=== PATIENT | male | born 1970 ===

== ENCOUNTER 2020-04-20 11:21 | Outpatient (REF) | payer OTHER, SELFPAY ==
--- NOTE | 2020-04-20 | CT_ITS ---
EXAMINATION: CT ABDOMEN AND PELVIS WITHOUT CONTRAST CLINICAL INFORMATION: Renal stones, flank pain COMPARISON: 12/05/2018 TECHNIQUE: Multidetector volumetric imaging was performed from the superior aspect of the liver through the pubic symphysis. Sagittal and coronal reformatted images were obtained on the technologist's workstation. This CT examination was performed using dose optimization techniques as appropriate, variously including the following: *Automated exposure control *Adjustment of mA and/or kV according to patient size (this includes techniques or standardized protocols for targeted exams where dose is matched to indication/reason for exam; i.e. extremities or head) *Use of iterative reconstruction technique DLP: 435 mGy-cm FINDINGS: LUNG BASES: The visualized lung bases are unremarkable. LIVER, GALLBLADDER, AND BILIARY TREE: Mild diffuse fatty infiltration of the liver with geographic fatty sparing in the region of the gallbladder fossa. The gallbladder is unremarkable with no evidence of radiopaque gallstones, gallbladder wall thickening, or obvious pericholecystic inflammatory changes. PANCREAS: Unremarkable. SPLEEN: Unremarkable. ADRENAL GLANDS: Unremarkable. KIDNEYS AND URETERS: Numerous faint and punctate calculi throughout both kidneys along the medullary pyramids with no hydronephrosis. No ureteral or urinary bladder calculi. Overall the stone burden has increased from the previous study. BLADDER: Unremarkable. GASTROINTESTINAL TRACT: The small and large bowel are unremarkable. The appendix is unremarkable. ABDOMINAL WALL: No significant hernia is appreciated. LYMPH NODES: Subtle hazy attenuation of the fat of the small bowel mesentery which is nonspecific, more conspicuous than the previous study. No enlarged retroperitoneal, mesenteric, or pelvic lymph nodes. No ascites or free pelvic fluid. VASCULAR: Unremarkable. PELVIC VISCERA: Unremarkable. OSSEOUS STRUCTURES: Unremarkable. IMPRESSION: Bilateral nephrolithiasis. This has increased since 12/05/2018. No ureteral calculi or hydronephrosis.
== END 2020-04-20 11:22 | disposition home or self-care (01) ==
LOC: HO.CT 11:21
PROVIDERS: PCP Internal Medicine; Visit Provider Urology
DX: N20.0 Calculus of kidney (principal); R10.9 Unspecified abdominal pain
CPT/HCPCS: 74176

== ENCOUNTER → 2020-04-29 10:22 | Outpatient (BNVA) | payer OTHER, SELFPAY | PROVIDERS: PCP Internal Medicine; Visit Provider Urology | DX: N20.0 Calculus of kidney (principal); N40.1 Benign prostatic hyperplasia with lower urinary tract symptoms; N13.8 Other obstructive and reflux uropathy; R39.11 Hesitancy of micturition; N52.9 Male erectile dysfunction, unspecified | CPT/HCPCS: 99213 ==

== ENCOUNTER 2020-05-06 11:30 | Emergency (ER) | payer OTHER, SELFPAY ==
--- NOTE | 2020-05-06 13:39 | ED_ITS ---
HPI - General Adult General Chief complaint: General Medical Stated complaint: HIGH BLOOD PRESSURE Time Seen by Provider: 05/06/20 13:39 Source: patient Mode of arrival: ambulatory Limitations: no limitations History of Present Illness HPI narrative: Pleasant 49-year-old male with past medical history that is significant for gastroesophageal reflux disease, asthma, bipolar disorder, BPH, hypertension, history of renal calculi and migraine headache today with several different complaints. 1. He reports that he checked his blood pressure last night and it read 200/124 and at time he did have slight flank pain was unsure if it was related to a however he increase his water intake and the flank pain resolved as he has a history of kidney stones and this usually helps. 2. He reports he also had slight flank pain last night going to the groin which resolved today there was no associated hematuria, abdominal pain nausea vomiting or diarrhea. In felt similar to previous stone but resolved with this increase fluid intake. There is no pain since last night 3. He reports he has had a slight cough with chills and rhinorrhea for the past couple days and a month ago or so he was exposed to his father who did test positive for COVID-19. He otherwise denies any travel recent antibiotic use. He reports he came to the emergency room to get a COVID test and to be on the safe side Onset (ago): day(s) Radiation: non-radiation Severity: mild Relieving factors: none Exacerbating factors: none Associated symptoms: denies other symptoms Treatments prior to arrival: none Related Data Home Medications Medication Instructions Recorded Confirmed ketorolac 10 mg tablet mg PO 04/29/20 lisinopril 10 mg tablet 10 mg PO DAILY 04/29/20 nortriptyline 10 mg capsule 10 mg PO BEDTIME 04/29/20 omeprazole 40 mg capsule,delayed 40 mg PO DAILY 04/29/20 release tamsulosin 0.4 mg capsule mg PO 04/29/20 Previous Rx's Medication Instructions Recorded tramadol 50 mg tablet 50 mg PO TID PRN 30 Days #90 tab 04/17/20 Allergies Allergy/AdvReac Type Severity Reaction Status Date / Time nut - unspecified [NUTS] Allergy Intermediate HIVES Unverified 03/31/20 15:41 lactose [LACTOSE] Allergy Mild CONSTIPATIO Unverified 03/31/20 15:41 N fenofibrate [Tricor] Allergy Unknown hives Verified 03/18/20 00:00 nuts Allergy Unknown hives Unverified 03/18/20 00:00 seafood Allergy Unknown Unverified 03/18/20 00:00 SEAFOOD Allergy Intermediate HIVES, Uncoded 03/31/20 15:41 ITCHY Fluocinolone Acetonide Allergy Unknown Uncoded 03/18/20 00:00 Lactose Allergy Unknown Uncoded 03/18/20 00:00 milk Allergy Unknown Uncoded 01/14/20 00:00 Review of Systems Review of Systems: Constitutional: No Weight loss, No Fever, + Chills, No Night Sweats, No Fatigue, No Malaise ENT/Mouth: No Hearing loss, No Ear Pain, No Nasal Congestion, No Sinus Pain, No Hoarseness, No sore throat, No Rhinorrhea, No Swallowing Difficulty Eyes: No Eye Pain, No Swelling, No Redness, No Foreign Body, No Discharge, No Vision Changes Cardiovascular: No Chest Pain, No SOB, No Dyspnea on Exertion, No Orthopnea, No Edema, No Palpitations Respiratory: + Cough, No Sputum, No Wheezing, No Smoke Exposure, No Dyspnea Gastrointestinal: No Nausea, No Vomiting, No Diarrhea, No Constipation, No abdominal Pain, No Hematochezia, No Melena Genitourinary: no irregular bleeding, No Dysuria, No Urinary Frequency, No Hemat uria, No Urinary Incontinence, No Urgency, No Flank Pain, No Urinary Flow Changes, No Hesitancy Musculoskeletal: No joint pain, No Myalgias, No Joint Swelling Skin: No Skin Lesions, No rash Neuro: No Weakness, No Numbness, No Paresthesias, No Loss of Consciousness, No Dizziness, No Headache Psych: No Anxiety/Panic, No Depression, No SI/HI/AH/VH, No Social Issues, Heme/Lymph: No Bruising, No Bleeding,No Lymphadenopathy Endocrine: No Polyuria, No Polydipsia, No Temperature Intolerance Yes all other systems are reviewed and are negative PMFSH Past Medical History Attestation statement: The following information was validated with the patient. Medical History Orchalgia Social History Social History Alcohol intake: unknown Smoking Status: Unknown if ever smoked Use of substances other than those prescribed or required for medical reasons: No Advance Directives: No Advance Directives Information Provided: Yes Physical Exam Vital Signs: Vital Signs: Vital Signs Temp Pulse Resp BP Pulse Ox 05/06/20 14:52 79 22 H 131/79 97 05/06/20 13:48 98.2 F 70 18 125/89 98 Body Mass Index 23.7 Vitals reviewed Const: General: cooperative and healthy appearing; No acute distress or intoxicated appearing Nutritional Appearance: average body habitus Orientation/consciousness: patient oriented x3 HENMT: Head: Yes normal to inspection Ears: hearing grossly normal bilaterally Eyes: General: appearance normal, both eyes and all related structures Visual Martinez: normal visual martinez by confrontation Neck: Neck: Yes normal visual inspection and No tender Thyroid: Thyroid normal Chest: Chest palpation & inspection: normal inspection of the chest Resp: Effort & Inspection: normal respiratory effort Cardio: Jugular venous distension: no JVD Rhythm: regular rhythm GI: Inspection: Yes normal to inspection Percussion: Yes normal to percussion Auscultation: normal bowel sounds : General: Yes no CVA tenderness Back/Spine/Pelvis: Back: no CVA tenderness Skin: General skin exam: no rashes or lesions noted Neuro: General: patient oriented x3 Extrem: General: Yes normal to inspection Course Course Course Narrative: Resting comfortably no acute distress. Doing cough here very mild rhinorrhea. Hemodynamically stable. Blood pressure stable. Chest x- ray negative. No leukocytosis. Pulse ox 100% on room air. COVID-19 pending. Will discharge home with clear precaution return follow-up instructions. Stable for discharge. Medical Decision Making Lab Data Result diagrams: 05/06/20 14:41 05/06/20 14:41 Labs: Lab Results 05/06/20 05/06/20 05/06/20 Range/Units 14:41 14:41 14:41 WBC 6.8 (4.8-10.8) X10*3/uL RBC 4.79 (4.60-5.80) X10*6/uL Hgb 14.6 (14.0-18.0) g/dl Hct 43.4 (42-52) % MCV 90.6 (80-98) fL MCH 30.5 (27.0-33.0) pg MCHC 33.6 (31.0-36.0) g/dl RDW 13.0 (11.0-16.0) % Plt Count 247 (160-400) X10*3/uL MPV 12.0 (9.4-12.4) fL Immature Gran % (Auto) 0.3 (0.0-0.4) % Neut % (Auto) 68.3 (45-73) % Lymph % (Auto) 23.6 (20-40) % Howell % (Auto) 7.3 (2-11) % Eos % (Auto) 0.4 (0-4) % Baso % (Auto) 0.1 (0-2) % Lymph # (Auto) 1.6 (1.2-4.9) X10*3/uL Howell # (Auto) 0.5 (0.1-1.2) X10*3/uL Eos # (Auto) 0.0 (0.0-0.4) X10*3/uL Baso # (Auto) 0.0 (0.0-0.2) X10*3/uL Abs Immat Gran (auto) 0.02 (0.00-0.03) X10*3/uL Absolute Neuts (auto) 4.7 (2.0-8.3) X10*3/uL Absolute Nucleated RBC 0.000 (0.0-0.012) X10*3/uL Nucleated RBC % (auto) 0.0 (0.0-0.2) /100WBC Sodium 137 (135-145) mmol/L Potassium 4.6 (3.3-5.1) mmol/l Chloride 106 (96-108) mmol/L Carbon Dioxide 20 L (22-29) mmol/L Anion Gap 16 (12-20) BUN 25 H (9-16) mg/dL Creatinine 1.36 (0.5-1.4) mg/dL Estim Creat Clear Calc 70.5 Estimated GFR 55 Random Glucose 80 (60-115) mg/dL Calcium 9.4 (8.4-10.2) mg/dL Total Bilirubin 0.6 (0.0-1.0) mg/dL AST 21 (5-37) U/L ALT 38 (0-40) U/L Alkaline Phosphatase 55 (39-117) U/L Total Protein 7.4 (6.5-8.0) g/dL Albumin 4.7 (3.5-5.0) g/dL Urine Color YELLOW Urine Appearance CLEAR Urine pH 5.5 (5.0-8.0) Ur Specific Edmondson 1.025 (1.005-1.025) Urine Protein NEG (NEG-TRACE) MG/DL Urine Glucose (UA) NEG (NEG) MG/DL Urine Ketones NEG (NEG) MG/DL Urine Blood NEG (NEG) Urine Nitrite NEG (NEG) Ur Leukocyte Esterase NEG (NEG) Urine RBC 0-2 (0) /HPF Urine WBC 0 (0-4) /HPF Ur Squamous Epith Cells NONE /LPF Uric Acid Crystals TRACE /LPF Urine Bacteria NONE /LPF Imaging Data Chest x-ray: Radiologist's impression: Josh Patel JR 49 M 1970 [place] [address] XRay Report Signed Patient: Josh Patel JRMR#: [id number] : 1970Acct:[id number] Age/Sex: 49 / MADM Date: 05/06/20 Loc: .ED Attending Dr: Ordering Physician: Slim Hugo NP Date of Service: 05/06/20 Procedure(s): XR chest 1V Accession Number(s): [id number] cc: Slim Hugo NP~ EXAMINATION: XR CHEST CLINICAL INFORMATION: Cough COMPARISON: Chest radiographs 08/24/2016, 03/31/2016 TECHNIQUE: Portable upright AP view of the chest was obtained. FINDINGS: The lungs are clear. There is no airspace consolidation or definite groundglass opacity. No hyperinflation. No pleural reaction. The costophrenic sulci are clear. The heart is normal in size. The hilar and mediastinal contours are normal. No visible acute bony abnormality. XR/XR chest 1V IMPRESSION: Lungs clear. Dictated By:KAMRON ANDINO MD Signed By:<Electronically signed by KAMRON ANDINO MD in OV>05/06/20 1503 DD/ 1346 TD/TT: Patient Day Coordinator: LING Discharge Plan Discharge Clinical Impression: Hypertension, Acute upper respiratory infection Patient Disposition: Home, Self-Care Instructions: Cold Symptoms (ED), Hypertension (ED) Additional Instructions: Based on your symptoms and history we have sent a COVID-19. Although your RESULT IS PENDING at this time. RESULTS should return within 72 hours. At this time you will be contacted with either NEGATIVE OR POSITIVE results. -Please wait until we contact you for your results. At this time you will be okay for discharge. Please plan for self quarantine for up to 14 days. Do not expose yourself to others. You may not go to work. If testing does come back negative you may return to activities as long as you are no longer having any symptoms for at least 3 days. Please continue to follow cold instructions and wash your hands frequently. You may take Tylenol as directed on the bottle for pain or fever. Patient seen in the emergency department on 01/08/2020 and should be excused from work until negative test results AND until 72 hours without any symptoms AND at least 10 days have passed since symptoms first appeared or since last exposure to COVID-19 positive patient CDC Guidelines for home isolation: - Stay away from others - WEAR A MASK if you are sick AND STAY HOME - Cover your mouth and nose with a tissue when you cough or sneeze. Dispose of tissues in a lined trash can and wash your hands immediately with soap and water for at least 20 seconds. If soap and water are not available, clean hands with alcohol-based hand vp of marketing that contains at least 60% alcohol. - Clean your hands often with soap and water for at least 20 seconds - Avoid touching your eyes, nose and mouth with unwashed hands - Do not share dishes, drinking glasses, cups, eating utensils, towels, or bedding with other people in your home. After using these items, wash them thoroughly with soap and water or put in the belly roller. - Clean high-touch surfaces in your isolation area ( sick room and bathroom) every day; let a caregiver clean and disinfect high-touch surfaces in other areas of the home. Clean the area or item with soap and water or another detergent if it is dirty. Then, use a household disinfectant. - Limit contact with pets and animals: If you must care for a pet, wash your hands before and after interacting with them Prescriptions: No Action tramadol 50 mg tablet 50 mg PO TID PRN (Reason: pain) 30 Days Qty: 90 RF: 0 tamsulosin 0.4 mg capsule PO RF: 0 lisinopril 10 mg tablet 10 mg PO DAILY RF: 0 nortriptyline 10 mg capsule 10 mg PO BEDTIME RF: 0 omeprazole 40 mg capsule,delayed release(DR/EC) 40 mg PO DAILY RF: 0 ketorolac 10 mg tablet PO RF: 0 Referrals: Ignacio Flores MD [Primary Care Provider] - 1 week ( phone visit)
--- NOTE | 2020-05-06 13:46 | XR_ITS ---
EXAMINATION: XR CHEST CLINICAL INFORMATION: Cough COMPARISON: Chest radiographs 08/24/2016, 03/31/2016 TECHNIQUE: Portable upright AP view of the chest was obtained. FINDINGS: The lungs are clear. There is no airspace consolidation or definite groundglass opacity. No hyperinflation. No pleural reaction. The costophrenic sulci are clear. The heart is normal in size. The hilar and mediastinal contours are normal. No visible acute bony abnormality. XR/XR chest 1V IMPRESSION: Lungs clear.
[2020-05-06 13:48] VITALS: BP 125/89; PULSE 70; RESP 18; TEMP 36.8; O2SAT 98; BMI 23.7
[2020-05-06 14:51] LABS: MANUAL DIFF FLAG NO
[2020-05-06 14:52] VITALS: BP 131/79; PULSE 79; RESP 22; O2SAT 97
[2020-05-06 14:55] LABS: Basophils Percent Auto 0.1 % (0-2); Eosinophils Percent Auto 0.4 % (0-4); Hematocrit 43.4 % (42-52); Hemoglobin 14.6 g/dl (14.0-18.0); Imm Gran Abs Auto 0.02 X10*3/uL (0.00-0.03); Imm Gran Pct Auto 0.3 % (0.0-0.4); Lymphocytes Absolute Auto 1.6 X10*3/uL (1.2-4.9); Lymphocytes Percent Auto 23.6 % (20-40); Mean Corpuscular HGB Conc 33.6 g/dl (31.0-36.0); Mean Corpuscular Hemoglobin 30.5 pg (27.0-33.0); Mean Corpuscular Volume 90.6 fL (80-98); Monocytes Absolute Auto 0.5 X10*3/uL (0.1-1.2); Monocytes Percent Auto 7.3 % (2-11); Neutrophils Absolute Auto 4.7 X10*3/uL (2.0-8.3); Neutrophils Percent Auto 68.3 % (45-73); Platelet Count 247 X10*3/uL (160-400); Red Blood Count 4.79 X10*6/uL (4.60-5.80); White Blood Count 6.8 X10*3/uL (4.8-10.8)
[2020-05-06 14:57] LABS: Glucose Urine UA NEG (NEG); Leukocyte Esterase Urine NEG (NEG); Nitrite Urine NEG (NEG); PH 5.5 (5.0-8.0); Specific Gravity - Urine 1.025 (1.005-1.025); Urine Blood NEG (NEG); Urine Ketones NEG (NEG); Urine Protein NEG (NEG-TRACE)
[2020-05-06 14:58] LABS: Appearance Urine CLEAR; Color Urine YELLOW
[2020-05-06 15:08] LABS: RBC Urine 0-2 /HPF (0); Uric Acid Crystals Urine TRACE /LPF; WBC Urine 0 /HPF (0-4)
[2020-05-06 15:21] LABS: Alanine Aminotransferase 38 U/L (0-40); Albumin Level 4.7 g/dL (3.5-5.0); Alkaline Phosphatase 55 U/L (39-117); Anion Gap 16 (12-20); Aspartate Amino Transferase 21 U/L (5-37); Bilirubin Total 0.6 mg/dL (0.0-1.0); Blood Urea Nitrogen 25 mg/dL (9-16); Calcium 9.4 mg/dL (8.4-10.2); Carbon Dioxide 20 mmol/L (22-29); Chloride 106 mmol/L (96-108); Creatinine Clr Calc Pharmacy 70.5; Estimated Glomerular Filt Rate 55; Glucose Random 80 mg/dL (60-115); Potassium 4.6 mmol/l (3.3-5.1); Sodium 137 mmol/L (135-145); Total Protein 7.4 g/dL (6.5-8.0)
== END 2020-05-06 16:22 | disposition home or self-care (01) ==
PROVIDERS: Nurse Practitioner Primary Care; Emergency Provider Emergency Medicine; PCP Internal Medicine
DX: J06.9 Acute upper respiratory infection, unspecified (principal); Z20.828 Contact with and (suspected) exposure to other viral communicable diseases; I10 Essential (primary) hypertension
CPT/HCPCS: 36415; 71045; 80053; 81001; 85025; 87635; 99283; 99284

== ENCOUNTER 2020-08-02 12:45 | Outpatient (REF) | payer OTHER, SELFPAY ==
--- NOTE | 2020-08-02 12:48 | CT_ITS ---
EXAMINATION: CT HEAD WITHOUT CONTRAST CLINICAL INFORMATION: Gait and mobility disorder. COMPARISON: None TECHNIQUE: Contiguous axial imaging was performed from the skull base to vertex without intravenous administration of contrast. This CT examination was performed using dose optimization techniques as appropriate, variously including the following: *Automated exposure control *Adjustment of mA and/or kV according to patient size (this includes techniques or standardized protocols for targeted exams where dose is matched to indication/reason for exam; i.e. extremities or head) *Use of iterative reconstruction technique DLP: 828 mGy-cm FINDINGS: There is no evidence of acute intracranial hemorrhage or territorial infarction. No abnormal mass effect or midline shift is seen. Palmer to white matter differentiation is well preserved. No extra-axial fluid collections are identified. The ventricles are normal in size. There is no abnormal attenuation within the brain parenchyma. The osseous structures and soft tissues are normal. The mastoid air cells and visualized portions of the paranasal sinuses are well aerated. CT/CT head/brain wo con IMPRESSION: No acute intracranial process seen.
== END 2020-08-02 12:46 | disposition home or self-care (01) ==
LOC: HO.CT 12:45
PROVIDERS: Visit Provider Physician Assistant
DX: R42 Dizziness and giddiness (principal); R26.89 Other abnormalities of gait and mobility
CPT/HCPCS: 70450

== ENCOUNTER 2020-09-01 11:17 | Outpatient (REF) | payer OTHER, SELFPAY ==
[2020-09-01 11:59] LABS: MANUAL DIFF FLAG NO
[2020-09-01 12:01] LABS: Basophils Percent Auto 0.3 % (0-2); Eosinophils Absolute Auto 0.1 X10*3/uL (0.0-0.4); Eosinophils Percent Auto 2.2 % (0-4); Hematocrit 49.1 % (42-52); Hemoglobin 16.4 g/dl (14.0-18.0); Imm Gran Abs Auto 0.02 X10*3/uL (0.00-0.03); Imm Gran Pct Auto 0.3 % (0.0-0.4); Lymphocytes Absolute Auto 1.6 X10*3/uL (1.2-4.9); Lymphocytes Percent Auto 27.9 % (20-40); Mean Corpuscular HGB Conc 33.4 g/dl (31.0-36.0); Mean Corpuscular Hemoglobin 30.8 pg (27.0-33.0); Mean Corpuscular Volume 92.1 fL (80-98); Mean Platelet Volume 11.6 fL (9.4-12.4); Monocytes Absolute Auto 0.5 X10*3/uL (0.1-1.2); Monocytes Percent Auto 7.8 % (2-11); Neutrophils Absolute Auto 3.6 X10*3/uL (2.0-8.3); Neutrophils Percent Auto 61.5 % (45-73); Platelet Count 269 X10*3/uL (160-400); Red Blood Count 5.33 X10*6/uL (4.60-5.80); Red Cell Distribution Width 12.4 % (11.0-16.0); White Blood Count 5.9 X10*3/uL (4.8-10.8)
[2020-09-01 12:02] LABS: Glucose Urine UA NEG (NEG); Leukocyte Esterase Urine NEG (NEG); Nitrite Urine NEG (NEG); PH 5.5 (5.0-8.0); Specific Gravity - Urine >= 1.030 (1.005-1.025); Urine Blood NEG (NEG); Urine Ketones NEG (NEG); Urine Protein NEG (NEG-TRACE)
[2020-09-01 12:03] LABS: Appearance Urine CLEAR; Color Urine YELLOW
[2020-09-01 12:25] LABS: Alanine Aminotransferase 33 U/L (0-40); Alkaline Phosphatase 61 U/L (39-117); Anion Gap 17 (12-20); Aspartate Amino Transferase 20 U/L (5-37); Bilirubin Total 0.6 mg/dL (0.0-1.0); Blood Urea Nitrogen 19 mg/dL (9-16); Calcium 10.1 mg/dL (8.4-10.2); Carbon Dioxide 24 mmol/L (22-29); Chloride 103 mmol/L (96-108); Cholesterol 175 mg/dL; Estimated Glomerular Filt Rate 53; Glucose Fasting 80 mg/dL (60-99); HDL Cholesterol 37 mg/dL; LDL Cholesterol Calculated 97 mg/dl; Sodium 139 mmol/L (135-145); Total Protein 7.7 g/dL (6.5-8.0); Triglycerides 208 mg/dL
[2020-09-01 12:47] LABS: Vitamin D 25-OH Total 66.4 ng/mL (>30)
== END 2020-09-01 11:18 | disposition home or self-care (01) ==
LOC: HO.LAB 11:17
PROVIDERS: PCP Internal Medicine; Visit Provider Internal Medicine
DX: I10 Essential (primary) hypertension (principal); J30.9 Allergic rhinitis, unspecified; K21.9 Gastro-esophageal reflux disease without esophagitis; E78.00 Pure hypercholesterolemia, unspecified; N40.0 Benign prostatic hyperplasia without lower urinary tract symptoms; E55.9 Vitamin D deficiency, unspecified
CPT/HCPCS: 36415; 80053; 80061; 81003; 82306; 85025

== ENCOUNTER 2020-09-06 12:53 | Outpatient (REF) | payer OTHER, SELFPAY ==
--- NOTE | ~2020-09-06 | US_ITS ---
EXAMINATION: US RETROPERITONEAL LIMITED (RENAL ONLY) CLINICAL INFORMATION: Flank pain. COMPARISON: Previous CT of the abdomen and pelvis April 2020 and renal ultrasound June 2019 TECHNIQUE: Complete abdominal ultrasound performed in error. FINDINGS: RIGHT KIDNEY: The kidney is normal in size, contour, and echogenicity. The right kidney measures 10.4 cm in length. There are multiple right renal stones. Largest stones measure 1.1 x 0.9 x 1.2 cm in the upper pole and 0.8 x 1 x 0.9 cm in the lower pole. Renal cortical thickness is normal. No focal parenchymal lesions. No hydronephrosis. LEFT KIDNEY: The kidney is normal in size, contour, and echogenicity. The left kidney measures 10.9 cm in length. Renal cortical thickness is normal. There are multiple left renal stones. The largest measure 1.2 x 0.8 x 0.7 cm in the midpole and 1.3 x 0.8 x 1.2 cm in the lower pole. No focal parenchymal lesions. No hydronephrosis. Liver echotexture is increased. There are small hypoechoic areas adjacent to the gallbladder, a characteristic location of focal fatty sparing. No other focal liver lesion is seen. The gallbladder is normal. There is no intrahepatic or extrahepatic biliary duct dilatation. The common bile duct measures 0.4 cm. The pancreas is not well visualized. The aorta and IVC are normal. The spleen is normal. There is no ascites. US/US renal BI IMPRESSION: Multiple bilateral renal stones, right greater than left. Echogenic liver probably representing fatty infiltration..
== END 2020-09-06 12:54 | disposition home or self-care (01) ==
LOC: HO.US 12:53
PROVIDERS: Visit Provider Internal Medicine
DX: R10.9 Unspecified abdominal pain (principal)
CPT/HCPCS: 76775

== ENCOUNTER 2020-09-06 14:00 | Outpatient (RCR) | payer OTHER, SELFPAY ==
--- NOTE | 2020-08-02 16:29 | MHC.PT.EP ---
[facility] [place] Office [place] Office [place] Office [address] Maru Cee [address] [phone] F: [phone] F: [phone] F: [phone] F: [phone] Physical Therapy Plan of Care Date of Evaluation: 08/02/20 Date of Surgery: NA Diagnosis: Abnormalities of gait and mobility Assessment: 49 year old male referred for abnormalities of gait and mobility . Pt reports of having balance issues for the last 2 years. He states that my legs keep moving forward and I have no control on them . Pt denies any recent falls on trauma. Examination reveals B LE gross ROM WNL, no pain, mildly decreased strength of B LE, balance difficulty with step stance and EC on ground and airex and inability to maintain SLS. His B ankle and knee jerks were WNL. Pt completed TUG in 13 seconds (normal) and was able to perform a full squat. He needed B UE support for stair negotiation. Pt lives alone and is independent with all ADLs. He is unemployed. Pt would benefit from therapy to improve muscle strength, balance and functional training. Frequency and Duration: The patient will be seen 2/week for 5 weeks Short Term Goals: 1. Pt will be able to maintain balance in airex EO and EC in step stance and feet together in 2 weeks. 2. 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 Pt will demonstrate steady gait pattern with cane and without any LOB in 4 weeks. 2. Pt will be independent with all HEPS and return to PLOF in 5 weeks. Treatment Plan: Modalities to reduce pain, spasms and effusion. Manual therapy to restore motion and function. Therapeutic exercise to improve strength and flexibility. Neuromuscular re-education for posture and balance. Therapeutic activities to return to functional activities of daily living. Electronically signed by: Jazzmine Strickland DPT Please sign and return to therapist. Thank you for your referral.
--- NOTE | 2020-09-28 14:22 | MHC.PT.DC ---
[facility] [place] [facility] [place] Office [place] Office [address] Maru Cee [address] [phone] F: [phone] F: [phone] F: [phone] F: [phone] Physical Therapy Discharge Report Diagnosis: Abnormalities of gait and mobility Date of Surgery: NA Date of Evaluation: 08/02/20 Date of Discharge: 09/28/20 Treatments to Date: 7 Cancellations to Date: 3 No Shows to Date: 1 Discharge Status: Visit Non-compliance Discharge Summary: 09/28/20- Pt canceled and no showed for his last 3 visits. Pt did not re-schedule any of this appointments. He has not been in therapy for about 3 weeks. Pt therefore d/c from therapy today. Electronically signed by: Jazzmine Strickland, PT, DPT Please sign and return to therapist. Thank you for your referral.
== END 2020-09-28 14:37 | disposition other institution (70) ==
LOC: HO.PT 14:00
PROVIDERS: Visit Provider Physician Assistant
DX: R26.89 Other abnormalities of gait and mobility (principal)
CPT/HCPCS: 97110; 97112; 97162; 97530

== ENCOUNTER 2020-09-16 13:48 | Outpatient (REF) | payer OTHER, SELFPAY | END 2020-09-16 13:49 | disposition home or self-care (01) | LOC: HO.LAB 13:48 | PROVIDERS: Visit Provider Internal Medicine | DX: Z20.822 Contact with and (suspected) exposure to COVID-19 (principal) | CPT/HCPCS: 36415; C9803; U0003; U0005 ==

== ENCOUNTER 2020-09-21 15:03 | Outpatient (REF) | payer OTHER, SELFPAY ==
[2020-09-23 17:33] LABS: Folate 12.3 ng/mL (> or = 4.0); Vitamin B12 734 pg/mL (200-900)
== END 2020-09-21 15:04 | disposition home or self-care (01) ==
LOC: HO.LAB 15:03
PROVIDERS: PCP Internal Medicine; Visit Provider Psychiatry & Neurology Neurology
DX: G11.9 Hereditary ataxia, unspecified (principal)
CPT/HCPCS: 36415; 82607; 82746

== ENCOUNTER → 2020-10-20 14:03 | Outpatient (BNVA) | payer OTHER, SELFPAY | PROVIDERS: PCP Internal Medicine; Visit Provider Urology | DX: N20.0 Calculus of kidney (principal) | CPT/HCPCS: 99212 ==

== ENCOUNTER 2020-11-14 12:48 | Outpatient (REF) | payer OTHER, SELFPAY ==
[2020-11-14 13:55] LABS: COVID-19 Test Negative (Negative)
== END 2020-11-14 12:49 | disposition home or self-care (01) ==
LOC: HO.LAB 12:48
PROVIDERS: Visit Provider Internal Medicine
DX: Z20.822 Contact with and (suspected) exposure to COVID-19 (principal)
CPT/HCPCS: 36415; 87635; C9803

== ENCOUNTER 2020-11-28 11:01 | Day surgery (SDC) | payer OTHER, SELFPAY ==
--- NOTE | 2020-11-24 12:15 | HO.ANESPROP2 ---
Documented by User: Natalie Naranjo 11/24/20 12:19 HPI - Anesthesia Eval Consult details Narrative: 50yo M for Right Cystoscopy, Ureteroroscopy, Retro, Laser PMFSH Active Problems Active Problems: All Active Problems (Updated 10/30/20 @ 22:00 by Ignacio Flores MD) Cerebellar atrophy (Acute) Colon cancer screening (Acute) Abnormality of gait (Acute) Nephrolithiasis (Acute) Right flank pain (Acute) Vertigo (Acute) Balance disorder (Acute) Sinusitis (Acute) Sinus infection (Acute) Benign prostatic hyperplasia (Acute) Allergic rhinitis (Acute) Constipation (Acute) Vitamin D deficiency (Acute) Renal calculus, bilateral (Acute) GERD without esophagitis (Acute) Migraine (Acute) Pure hypercholesterolemia (Acute) Benign essential hypertension (Acute) Urinary hesitancy (Acute) Erectile dysfunction (Acute) BPH with obstruction/lower urinary tract symptoms (Acute) Renal stones (Acute) Past Medical History Medical History Abnormality of gait Allergic rhinitis Asthma Benign essential hypertension Benign prostatic hyperplasia Cerebellar atrophy Colon cancer screening Constipation GERD without esophagitis Migraine Nephrolithiasis Orchalgia Pure hypercholesterolemia Renal calculus, bilateral Right flank pain Vitamin D deficiency Family History Family History Father Hypertension CAD (coronary artery disease) Diabetes Mother Hypertension Acute CVA (cerebrovascular accident) Paternal Grandfather Throat cancer Sister Lupus Epilepsy Surgical History Surgical History History of extraction of renal calculus History of lithotripsy Hx of elbow surgery Social History Social History Alcohol intake: never Smoking Status: Never smoker Use of substances other than those prescribed or required for medical reasons: No Are you DNR?: No Advance Directives: No Advance Directives Information Provided: Yes Meds Allergies Allergy/AdvReac Type Severity Reaction Status Date / Time fenofibrate [Tricor] Allergy Intermediate hives Verified 11/28/20 12:11 nut - unspecified [NUTS] Allergy Intermediate HIVES Verified 11/28/20 12:11 seafood Allergy Intermediate hives, Verified 11/28/20 12:11 itchy fluocinolone acetonide Allergy Unknown Unknown Verified 11/28/20 12:11 lactose [LACTOSE] AdvReac Mild CONSTIPATIO Verified 11/28/20 12:11 N Home Medications Medication Instructions Recorded Confirmed Last Taken Type lisinopril 10 mg tablet 10 mg PO DAILY 04/29/20 10/25/20 Unknown History aspirin 81 mg tablet,delayed 81 mg PO DAILY 05/17/20 10/25/20 11/24/20 History release gemfibrozil 600 mg tablet 600 mg PO BID 05/17/20 10/25/20 Unknown History albuterol sulfate 90 mcg/actuation 2 puff INHALATION Q6H PRN 10/20/20 10/25/20 Unknown History aerosol inhaler ascorbate calcium (vitamin C) 500 1,000 mg PO DAILY tab 10/20/20 10/25/20 Unknown History mg tablet cholecalciferol (vitamin D3) 25 25 mcg PO DAILY 10/20/20 10/25/20 Unknown History mcg (1,000 unit) capsule cyanocobalamin (vitamin B-12) 1,000 mcg PO DAILY 10/20/20 10/25/20 Unknown History 1,000 mcg capsule Exam Exam Date and Time: November 24, 2020 121 Assessment and Plan Assessment Anesthesia Assessment: Chart Reviewed Documented by User: Francy Stewart 11/28/20 12:41 [facility] Past Medical History Medical History Abnormality of gait Allergic rhinitis Asthma Benign essential hypertension Benign prostatic hyperplasia Cerebellar atrophy Colon cancer screening Constipation GERD without esophagitis Migraine Nephrolithiasis Orchalgia Pure hypercholesterolemia Renal calculus, bilateral Right flank pain Vitamin D deficiency Family History Family History Father Hypertension CAD (coronary artery disease) Diabetes Mother Hypertension Acute CVA (cerebrovascular accident) Paternal Grandfather Throat cancer Sister Lupus Epilepsy Surgical History Surgical History History of extraction of renal calculus History of lithotripsy Hx of elbow surgery Social History Social History Alcohol intake: never Smoking Status: Never smoker Use of substances other than those prescribed or required for medical reasons: No Are you DNR?: No Advance Directives: No Advance Directives Information Provided: Yes Meds Allergies Allergy/AdvReac Type Severity Reaction Status Date / Time fenofibrate [Tricor] Allergy Intermediate hives Verified 11/28/20 12:11 nut - unspecified [NUTS] Allergy Intermediate HIVES Verified 11/28/20 12:11 seafood Allergy Intermediate hives, Verified 11/28/20 12:11 itchy fluocinolone acetonide Allergy Unknown Unknown Verified 11/28/20 12:11 lactose [LACTOSE] AdvReac Mild CONSTIPATIO Verified 11/28/20 12:11 N Home Medications Medication Instructions Recorded Confirmed Last Taken Type lisinopril 10 mg tablet 10 mg PO DAILY 04/29/20 10/25/20 Unknown History aspirin 81 mg tablet,delayed 81 mg PO DAILY 05/17/20 10/25/20 11/24/20 History release gemfibrozil 600 mg tablet 600 mg PO BID 05/17/20 10/25/20 Unknown History albuterol sulfate 90 mcg/actuation 2 puff INHALATION Q6H PRN 10/20/20 10/25/20 Unknown History aerosol inhaler ascorbate calcium (vitamin C) 500 1,000 mg PO DAILY tab 10/20/20 10/25/20 Unknown History mg tablet cholecalciferol (vitamin D3) 25 25 mcg PO DAILY 10/20/20 10/25/20 Unknown History mcg (1,000 unit) capsule cyanocobalamin (vitamin B-12) 1,000 mcg PO DAILY 10/20/20 10/25/20 Unknown History 1,000 mcg capsule Exam Airway Mallampati Class: II TM Dist: >3cm Neck ROM: Full
--- NOTE | ~2020-11-28 | FL_ITS ---
EXAMINATION: XR FLUOROSCOPY WITH IMAGES CLINICAL INFORMATION: Renal calculi COMPARISON: Renal ultrasound 09/06/2020, CT abdomen and pelvis 04/20/2020 TECHNIQUE: Fluoroscopy performed by Dr. Dajuan Leblanc. Fluoroscopy time: 37 seconds. Total dose: 7.23 mGy Images: 1 FINDINGS: Fluoroscopic spot view shows right ureteral stent with proximal pigtail end overlying the renal fossa. There are some adjacent faint densities likely calculi noted on prior imaging. FL/FL guidance in OR IMPRESSION: Fluoroscopy for urologic procedure.
[2020-11-28 12:12] VITALS: BP 123/76; PULSE 66; RESP 16; TEMP 36.4; O2SAT 95; BMI 23.7
[2020-11-28] MEDS: Lactated Ringers 1,000 ML 100 ML IVCONT (12:33)
--- NOTE | 2020-11-28 12:41 | P.CONAN_ITS ---
[facility] Active Problems Active Problems: All Active Problems (Updated 11/28/20 @ 12:22 by Cherelle cuellar RN) Renal stones (Acute) BPH with obstruction/lower urinary tract symptoms (Acute) Erectile dysfunction (Acute) Urinary hesitancy (Acute) Sinus infection (Acute) Sinusitis (Acute) Balance disorder (Acute) Vertigo (Acute) Cerebellar atrophy (Acute) Colon cancer screening (Acute) Abnormality of gait (Acute) Nephrolithiasis (Acute) Right flank pain (Acute) Benign prostatic hyperplasia (Acute) Allergic rhinitis (Acute) Constipation (Acute) Vitamin D deficiency (Acute) Renal calculus, bilateral (Acute) GERD without esophagitis (Acute) Migraine (Acute) Pure hypercholesterolemia (Acute) Benign essential hypertension (Acute) Past Medical History Medical History Abnormality of gait Allergic rhinitis Asthma Benign essential hypertension Benign prostatic hyperplasia Cerebellar atrophy Colon cancer screening Constipation GERD without esophagitis Migraine Nephrolithiasis Orchalgia Pure hypercholesterolemia Renal calculus, bilateral Right flank pain Vitamin D deficiency Family History Family History Father Hypertension CAD (coronary artery disease) Diabetes Mother Hypertension Acute CVA (cerebrovascular accident) Paternal Grandfather Throat cancer Sister Lupus Epilepsy Surgical History Surgical History History of extraction of renal calculus History of lithotripsy Hx of elbow surgery Social History Social History Alcohol intake: never Smoking Status: Never smoker Use of substances other than those prescribed or required for medical reasons: No Are you DNR?: No Advance Directives: No Advance Directives Information Provided: Yes Meds Allergies Allergy/AdvReac Type Severity Reaction Status Date / Time fenofibrate [Tricor] Allergy Intermediate hives Verified 11/28/20 12:11 nut - unspecified [NUTS] Allergy Intermediate HIVES Verified 11/28/20 12:11 seafood Allergy Intermediate hives, Verified 11/28/20 12:11 itchy fluocinolone acetonide Allergy Unknown Unknown Verified 11/28/20 12:11 lactose [LACTOSE] AdvReac Mild CONSTIPATIO Verified 11/28/20 12:11 N Active Medications: Current Medications Generic Name Dose Route Start Last Admin Trade Name Freq PRN Reason Stop Dose Admin Albuterol Sulfate 2.5 mg 11/28/20 11:59 Albuterol Sulfate (0.083%) 2.5 Mg/3 Ml Vial.Neb INHALE ONCE PRN Shortness of Breath/Wheezing Fentanyl 50 mcg 11/28/20 12:39 Fentanyl Citrate/Pf 100 Mcg/2 Ml Vial IVPUSH Q5M PRN Pain, Severe (Pain Scale 7-10) Lactated Ringer's 1,000 mls @ 100 mls/hr 11/28/20 12:00 11/28/20 12:33 Lr IVCONT 100 mls/hr .Q10H LIBERTY Administration Ondansetron HCl 4 mg 11/28/20 12:39 Ondansetron Hcl 4 Mg/2 Ml Vial IVPUSH ONCE PRN Nausea and Vomiting Oxycodone HCl 5 mg 11/28/20 12:39 Oxycodone Hcl Immed Release 5 Mg Tablet PO ONCE PRN Pain, Severe (Pain Scale 7-10) Scopolamine 1.5 mg 11/28/20 12:40 Scopolamine 1.5 Mg Patch.Td.3 TRANSDERMA 11/28/20 12:41 PREOP ONE Home Medications Medication Instructions Recorded Confirmed Last Taken Type lisinopril 10 mg tablet 10 mg PO DAILY 04/29/20 10/25/20 Unknown History aspirin 81 mg tablet,delayed 81 mg PO DAILY 05/17/20 10/25/20 11/24/20 History release gemfibrozil 600 mg tablet 600 mg PO BID 05/17/20 10/25/20 Unknown History albuterol sulfate 90 mcg/actuation 2 puff INHALATION Q6H PRN 10/20/20 10/25/20 Unknown History aerosol inhaler ascorbate calcium (vitamin C) 500 1,000 mg PO DAILY tab 10/20/20 10/25/20 Unknown History mg tablet cholecalciferol (vitamin D3) 25 25 mcg PO DAILY 10/20/20 10/25/20 Unknown History mcg (1,000 unit) capsule cyanocobalamin (vitamin B-12) 1,000 mcg PO DAILY 10/20/20 10/25/20 Unknown History 1,000 mcg capsule Exam Exam Date and Time: November 28, 2020 1241 Height,Weight and Vital Signs: Height 6 ft Weight 79.379 kg Last Vital Signs Temp 97.6 F 11/28/20 12:12 Pulse 66 11/28/20 12:12 Resp 16 11/28/20 12:12 BP 123/76 11/28/20 12:12 Pulse Ox 95 11/28/20 12:12 Assessment and Plan Assessment Anesthesia Assessment: Anesthesia Plan Discussed and Chart Reviewed Final Anesthetic Review NPO: Yes ASA Class: II Final Preanesthetic Review: No Changes in Pt Med Stat, Meds/Allgs Chart Reviewed, Consent Obtained/Reviewed and Anes Risks/Benef Reviewed Patient Risk: Intermediate Procedure Risk: Low Assessment/Block/Sedation in SS: Assess/Block/Sedation-SS Anesthetic Plan Anesthetic Plan: GA Disposition: Standard PACU
[2020-11-28] MEDS: Scopolamine 1.5 MG PATCH.TD.3 TRANSDERMA (12:44)
--- NOTE | 2020-11-28 12:46 | MHC.SHP ---
Pre-Procedural Eval Section A The patient is an INPATIENT: No Changes since office visit: No Cold of Flu in the past 2 weeks, No New Medical Problems, No Changes in Medication and No Patient answered all questions The History & Physical has been completed within 30 days and I have reviewed it.: Yes Section B Chief Complaint: calculus of kidney Allergies: Allergies Allergy/AdvReac Type Severity Reaction Status Date / Time fenofibrate [Tricor] Allergy Intermediate hives Verified 11/28/20 12:11 nut - unspecified [NUTS] Allergy Intermediate HIVES Verified 11/28/20 12:11 seafood Allergy Intermediate hives, Verified 11/28/20 12:11 itchy fluocinolone acetonide Allergy Unknown Unknown Verified 11/28/20 12:11 lactose [LACTOSE] AdvReac Mild CONSTIPATIO Verified 11/28/20 12:11 N Plan Diagnosis/Plan: Unchanged (right retrograde, ureteroscopy, laser lithotripsy, stone) I have reviewed the history and physical and performed a pertinent physical examination on my patient. No changes have occurred unless specified.
[2020-11-28] MEDS: levoFLOXacin 500 MG TABLET PO (12:57)
[2020-11-28 13:56] VITALS: BP 129/92; PULSE 67; RESP 16; TEMP 36.6; O2SAT 96
[2020-11-28 14:01] VITALS: BP 133/93; PULSE 76; RESP 16; O2SAT 95
[2020-11-28 14:06] VITALS: BP 137/93; PULSE 66; RESP 16; O2SAT 95
[2020-11-28 14:11] VITALS: BP 131/95; PULSE 65; RESP 16; O2SAT 94
[2020-11-28 14:26] VITALS: BP 145/98; PULSE 66; RESP 16; O2SAT 99
[2020-11-28] MEDS: Phenazopyridine HCL 100 MG TABLET PO (14:44)
[2020-11-28] MEDS: oxyCODONE HCl Immed Release 5 MG TABLET PO (14:49)
--- NOTE | 2020-11-28 14:51 | P.OP_ITS ---
Operative Note Operative Note Date of Service: 11/28/20 Narrative: PreOperative Diagnosis: Right renal stones Post Operative Diagnosis: Right renal stones Procedure: - cystoscopy, retrograde - right dilatation of ureteric orifice under fluoroscopy - ureteroscopy, laser lithotripsy, stone basketing - right stent placement Surgeon: Dr Dajuan Leblanc Anesthesia: General Indications for procedure: Recurrent right renal stones. Multiple prior ESWL Procedure: After informed consent was verified patient was brought to the operating placed in supine position. Anesthesia was administered per protocol. Patient was placed in modified dorsal lithotomy position and prepped and draped in a sterile fashion. Safety pause time-out and side of surgery confirmed. Antibiotics confirmed. Twenty-two Maldivian cystoscope placed. Urethra did require mild dilatation. Right retrograde examination was performed. No filling defects of the right ureter. A sensor guidewire was placed without difficulty. The right ureteric orifice was dilated with the inner cannula of the right access sheath. A access sheath was placed. The wire was removed. Digital ureteral scope was placed. Kidney was examined it is entirety. There were numerous calices that had submucosal stones. Using a holmium laser the surface mucosa was opened up over the stones in at least 3 calices. Multiple small stones were released. These have likely been inflamed which may been causing the pain. When complete with attempted stone basketing but the stones were too small for the basket. A Sensor guidewire was placed. The cystoscope was backloaded. A 6 Maldivian by 24 cm stent was placed without difficulty. Good coil seen in both the bladder and the kidney. He tolerated procedure well was extubated in operating room transferred to stable to [facility] recovery area. Pathology: [] Drains: 6 x 24 right
== END 2020-11-28 15:20 | disposition home or self-care (01) ==
PROVIDERS: PCP Internal Medicine; Visit Provider Urology
PROC: (CPT 52356; principal; 2020-11-28 12:40)
DX: N20.0 Calculus of kidney (principal); Z87.442 Personal history of urinary calculi; I10 Essential (primary) hypertension; J45.909 Unspecified asthma, uncomplicated; Z79.82 Long term (current) use of aspirin; Z79.899 Other long term (current) drug therapy; Z88.8 Allergy status to other drugs, medicaments and biological substances
CPT/HCPCS: 52356; 52352; C1769; C2617; J1100; J2250; J2405; J3010; Q9967

== ENCOUNTER 2020-12-02 11:24 | Emergency (ER) | payer OTHER, SELFPAY ==
--- NOTE | ~2020-12-02 | CT_ITS ---
EXAMINATION: CT ABDOMEN AND PELVIS WITHOUT CONTRAST CLINICAL INFORMATION: Right flank pain COMPARISON: CT scan abdomen pelvis 04/19/2020 TECHNIQUE: Multidetector volumetric imaging was performed from the superior aspect of the liver through the pubic symphysis. Sagittal and coronal reformatted images were obtained on the technologist's workstation. This CT examination was performed using dose optimization techniques as appropriate, variously including the following: *Automated exposure control *Adjustment of mA and/or kV according to patient size (this includes techniques or standardized protocols for targeted exams where dose is matched to indication/reason for exam; i.e. extremities or head) *Use of iterative reconstruction technique DLP: 470 mGy-cm FINDINGS: LUNG BASES: The visualized lung bases are unremarkable. LIVER, GALLBLADDER, AND BILIARY TREE: There is mild low-attenuation of liver parenchyma due to fatty change. There is no focal liver lesion or intrahepatic bile duct dilatation. The gallbladder is unremarkable with no evidence of radiopaque gallstones, gallbladder wall thickening, or obvious pericholecystic inflammatory changes. PANCREAS: Unremarkable. SPLEEN: Unremarkable. ADRENAL GLANDS: Unremarkable. KIDNEYS AND URETERS: Internal ureteral stent present in the right ureter. Catheter extends from the right renal pelvis to the right ureterovesical junction. The tip of the catheter is just within the bladder at the right UVJ. There is mild hydronephrosis of right collecting system with mild fullness of the renal pelvis calyces but no hydroureter. There are multiple bilateral tiny stones in both kidneys measuring from less than a millimeter to the largest stone in the mid lower pole left kidney measuring 3 mm. No stones seen along either ureter. BLADDER: No bladder calculus. GASTROINTESTINAL TRACT: The small and large bowel are unremarkable. The appendix is unremarkable. ABDOMINAL WALL: No significant hernia is appreciated. LYMPH NODES: Normal. VASCULAR: Unremarkable. PELVIC VISCERA: Unremarkable. OSSEOUS STRUCTURES: Unremarkable. CT/CT abdomen pelvis wo con IMPRESSION: 1. Right-sided ureteral stent in place. The catheter tip is just within the dome of the bladder at the right UVJ. 2. Mild hydronephrosis of the right kidney, distention renal pelvis and calyces but no hydroureter. 3. Multiple small nonobstructive stones in both kidneys. No ureteral calculus.
[2020-12-02 11:49] VITALS: BP 130/87; PULSE 88; RESP 18; TEMP 36.1; O2SAT 97; BMI 23.7
[2020-12-02 16:28] VITALS: BP 128/85; PULSE 61; RESP 20; TEMP 36.8; O2SAT 96
--- NOTE | 2020-12-02 16:46 | ED.GENADULT ---
HPI - General Adult General Chief complaint: Abdominal Pain Stated complaint: rectal bleeding post surgery Time Seen by Provider: 12/02/20 16:22 Source: patient Mode of arrival: ambulatory Limitations: no limitations History of Present Illness HPI narrative: Patient comes emergency room complaining of right-sided flank pain and hematuria. On 11/28/2020, patient underwent ureteric dilation with lithotripsy and stone basketing. Patient states that the right-sided flank pain keeps getting worse. Patient has been taking Percocet at home. Has been taking trimethoprim. Otherwise patient has no complaints. Of Note, in the triage note states that the patient complained of rectal bleeding after his surgery. I discussed this issue with the patient, patient denies any rectal bleeding at all Related Data Home Medications Medication Instructions Recorded Confirmed aspirin 81 mg tablet,delayed 81 mg PO DAILY 05/17/20 10/25/20 release gemfibrozil 600 mg tablet 600 mg PO BID 05/17/20 10/25/20 albuterol sulfate 90 mcg/actuation 2 puff INHALATION Q6H PRN 10/20/20 10/25/20 aerosol inhaler ascorbate calcium (vitamin C) 500 1,000 mg PO DAILY tab 10/20/20 10/25/20 mg tablet cholecalciferol (vitamin D3) 25 25 mcg PO DAILY 10/20/20 10/25/20 mcg (1,000 unit) capsule cyanocobalamin (vitamin B-12) 1,000 mcg PO DAILY 10/20/20 10/25/20 1,000 mcg capsule Previous Rx's Medication Instructions Recorded tamsulosin 0.4 mg capsule 0.4 mg PO DAILY #30 cap 07/12/20 tramadol 50 mg tablet 50 mg PO TID PRN 28 Days #84 tab 08/31/20 nortriptyline 10 mg capsule 10 mg PO BEDTIME #90 cap 11/24/20 omeprazole 40 mg capsule,delayed 40 mg PO DAILY #90 cap 11/24/20 release phenazopyridine [Pyridium] 100 mg PO TID PRN 4 Days #12 tab 11/28/20 tamsulosin 0.4 mg PO BEDTIME 14 Days #14 cap 11/28/20 trimethoprim 100 mg PO Q12H 10 Days #20 tab 11/28/20 lisinopril 10 mg tablet 10 mg PO DAILY #90 tab 11/29/20 oxycodone-acetaminophen 5 mg-325 1 tab PO Q8H PRN #14 tab 11/29/20 mg tablet levofloxacin 500 mg PO DAILY #9 tab 12/02/20 Allergies Allergy/AdvReac Type Severity Reaction Status Date / Time fenofibrate [Tricor] Allergy Intermediate hives Verified 11/28/20 12:11 nut - unspecified [NUTS] Allergy Intermediate HIVES Verified 11/28/20 12:11 seafood Allergy Intermediate hives, Verified 11/28/20 12:11 itchy fluocinolone acetonide Allergy Unknown Unknown Verified 11/28/20 12:11 lactose [LACTOSE] AdvReac Mild CONSTIPATIO Verified 11/28/20 12:11 N Review of Systems Review of Systems: Constitutional : No Weight loss, No Fever, No Chills, No Night Sweats, No Fatigue, No Malaise ENT/Mouth : No Hearing loss, No Ear Pain, No Nasal Congestion, No Sinus Pain, No Hoarseness, No sore throat, No Rhinorrhea, No Swallowing Difficulty Eyes: No Eye Pain, No Swelling, No Redness, No Foreign Body, No Discharge, No Vision Changes Cardiovascular : No Chest Pain, No SOB, No Dyspnea on Exertion, No Orthopnea, No Edema, No Palpitations Respiratory : No Cough, No Sputum, No Wheezing, No Smoke Exposure, No Dyspnea Gastrointestinal : No Nausea, No Vomiting, No Diarrhea, No Constipation, No abdominal Pain, No Hematochezia, No Melena Genitourinary : Patient complaining of hematuria, no dysuria, complaining of postop right flank pain, denies urinary frequency, No Urinary Incontinence, No Urgency, No Flank Pain, No Urinary Flow Changes, No Hesitancy Musculoskeletal : No joint pain, No Myalgias, No Joint Swelling Skin : No Skin Lesions, No rash Neuro : No Weakness, No Numbness, No Paresthesias, No Loss of Consciousness, No Dizziness, No Headache Psych : No Anxiety/Panic, No Depression, No SI/HI/AH/VH, No Social Issues, Heme/Lymph: No Bruising, No Bleeding,No Lymphadenopathy Endocrine : No Polyuria, No Polydipsia, No Temperature Intolerance PMFSH Past Medical History Medical History Abnormality of gait Allergic rhinitis Asthma Benign essential hypertension Benign prostatic hyperplasia Cerebellar atrophy Colon cancer screening Constipation GERD without esophagitis Migraine Nephrolithiasis Orchalgia Pure hypercholesterolemia Renal calculus, bilateral Right flank pain Vitamin D deficiency Surgical History History of extraction of renal calculus History of lithotripsy Hx of elbow surgery Family History Family History Father Hypertension CAD (coronary artery disease) Diabetes Mother Hypertension Acute CVA (cerebrovascular accident) Paternal Grandfather Throat cancer Sister Lupus Epilepsy Social History Social History Alcohol intake: never Smoking Status: Never smoker Advance Directives: Yes Advance Directives Information Provided: Yes Advance Directives on File: No Physical Exam Vital Signs: Vital Signs: Last Vital Signs Temp 98.3 F 12/02/20 16:28 Pulse 86 12/02/20 18:42 Resp 16 12/02/20 18:42 BP 138/89 12/02/20 18:42 Pulse Ox 97 12/02/20 18:42 Body Mass Index 23.7 Appearance: Alert. Oriented X3. No acute distress. Eyes: Pupils equal, round and reactive to light. ENT: Pharynx normal. Neck: Normal inspection. Neck supple. No lymph nodes noted. No crepitus CVS: Normal heart rate and rhythm. Pulses normal. Normal S1 and S2 Respiratory: No respiratory distress. Breath sounds normal. No Wheezing. No rales Abdomen: Soft and nontender. No rigidity. No distention. Positive CVA tenderness on the right side Skin: Skin warm and dry. Normal skin color. Normal skin turgor. Extremities: No lower extremity edema. No lower extremity edema. No Lacerations. No Rash Neuro: Oriented X 3. Walking with a walker at baseline Course Course Course Narrative: Patient does not have a white blood cell count, patient was given 1 dose of levofloxacin IV in the emergency room. Patient states that he does not have any pain, patient will be started on levofloxacin and will follow up with Dr. Leblanc Medical Decision Making Lab Data Result diagrams: 12/02/20 16:58 12/02/20 18:48 Labs: Lab Results 12/02/20 12/02/20 12/02/20 Range/Units 16:57 16:58 18:48 WBC 7.6 (4.8-10.8) X10*3/uL RBC 5.16 (4.60-5.80) X10*6/uL Hgb 15.9 (14.0-18.0) g/dl Hct 47.3 (42-52) % MCV 91.7 (80-98) fL MCH 30.8 (27.0-33.0) pg MCHC 33.6 (31.0-36.0) g/dl RDW 12.9 (11.0-16.0) % Plt Count 272 (160-400) X10*3/uL MPV 11.6 (9.4-12.4) fL Immature Gran % (Auto) 0.3 (0.0-0.4) % Neut % (Auto) 65.5 (45-73) % Lymph % (Auto) 25.3 (20-40) % [place] % (Auto) 7.7 (2-11) % Eos % (Auto) 1.1 (0-4) % Baso % (Auto) 0.1 (0-2) % Lymph # (Auto) 1.9 (1.2-4.9) X10*3/uL [place] # (Auto) 0.6 (0.1-1.2) X10*3/uL Eos # (Auto) 0.1 (0.0-0.4) X10*3/uL Baso # (Auto) 0.0 (0.0-0.2) X10*3/uL Abs Immat Gran (auto) 0.02 (0.00-0.03) X10*3/uL Absolute Neuts (auto) 5.0 (2.0-8.3) X10*3/uL Absolute Nucleated RBC 0.000 (0.0-0.012) X10*3/uL Nucleated RBC % (auto) 0.0 (0.0-0.2) /100WBC Sodium 141 (135-145) mmol/L Potassium 4.2 (3.3-5.1) mmol/L Chloride 107 (96-108) mmol/L Carbon Dioxide 26 (22-29) mmol/L Anion Gap 12 (12-20) BUN 24 H (9-16) mg/dL Creatinine 1.40 (0.5-1.4) mg/dL Estim Creat Clear Calc 67.7 Estimated GFR 53 Random Glucose 81 (60-115) mg/dL Lactic Acid (0.5-2.0) mmol/L Calcium 9.2 D (8.4-10.2) mg/dL Total Bilirubin 0.6 (0.0-1.0) mg/dL Direct Bilirubin 0.2 (0.0-0.5) mg/dL AST 18 (5-37) U/L ALT 56 H (0-40) U/L Alkaline Phosphatase 52 (39-117) U/L Total Protein 6.8 (6.5-8.0) g/dL Albumin 4.4 (3.5-5.0) g/dL Urine Color BROWN Urine Appearance CLEAR Urine pH 6.0 (5.0-8.0) Ur Specific [place] >= 1.030 H (1.005-1.025) Urine Protein 2+ H (NEG-TRACE) MG/DL Urine Glucose (UA) NEG (NEG) MG/DL Urine Ketones NEG (NEG) MG/DL Urine Blood 3+ H (NEG) Urine Nitrite NEG (NEG) Ur Leukocyte Esterase TRACE H (NEG) Urine RBC 76-150 H (0) /HPF Urine WBC 76-150 H (0-4) /HPF Ur Squamous Epith Cells NONE /LPF Urine Bacteria 1+ /LPF Urine Mucus 2+ /LPF 12/02/20 Range/Units 19:42 WBC (4.8-10.8) X10*3/uL RBC (4.60-5.80) X10*6/uL Hgb (14.0-18.0) g/dl Hct (42-52) % MCV (80-98) fL MCH (27.0-33.0) pg MCHC (31.0-36.0) g/dl RDW (11.0-16.0) % Plt Count (160-400) X10*3/uL MPV (9.4-12.4) fL Immature Gran % (Auto) (0.0-0.4) % Neut % (Auto) (45-73) % Lymph % (Auto) (20-40) % [place] % (Auto) (2-11) % Eos % (Auto) (0-4) % Baso % (Auto) (0-2) % Lymph # (Auto) (1.2-4.9) X10*3/uL [place] # (Auto) (0.1-1.2) X10*3/uL Eos # (Auto) (0.0-0.4) X10*3/uL Baso # (Auto) (0.0-0.2) X10*3/uL Abs Immat Gran (auto) (0.00-0.03) X10*3/uL Absolute Neuts (auto) (2.0-8.3) X10*3/uL Absolute Nucleated RBC (0.0-0.012) X10*3/uL Nucleated RBC % (auto) (0.0-0.2) /100WBC Sodium (135-145) mmol/L Potassium (3.3-5.1) mmol/L Chloride (96-108) mmol/L Carbon Dioxide (22-29) mmol/L Anion Gap (12-20) BUN (9-16) mg/dL Creatinine (0.5-1.4) mg/dL Estim Creat Clear Calc Estimated GFR Random Glucose (60-115) mg/dL Lactic Acid 1.1 (0.5-2.0) mmol/L Calcium (8.4-10.2) mg/dL Total Bilirubin (0.0-1.0) mg/dL Direct Bilirubin (0.0-0.5) mg/dL AST (5-37) U/L ALT (0-40) U/L Alkaline Phosphatase (39-117) U/L Total Protein (6.5-8.0) g/dL Albumin (3.5-5.0) g/dL Urine Color Urine Appearance Urine pH (5.0-8.0) Ur Specific [place] (1.005-1.025) Urine Protein (NEG-TRACE) MG/DL Urine Glucose (UA) (NEG) MG/DL Urine Ketones (NEG) MG/DL Urine Blood (NEG) Urine Nitrite (NEG) Ur Leukocyte Esterase (NEG) Urine RBC (0) /HPF Urine WBC (0-4) /HPF Ur Squamous Epith Cells /LPF Urine Bacteria /LPF Urine Mucus /LPF Imaging Data CT scan - abdomen: Radiologist's impression: FINDINGS: LUNG BASES: The visualized lung bases are unremarkable. LIVER, GALLBLADDER, AND BILIARY TREE: There is mild low-attenuation of liver parenchyma due to fatty change. There is no focal liver lesion or intrahepatic bile duct dilatation. The gallbladder is unremarkable with no evidence of radiopaque gallstones, gallbladder wall thickening, or obvious pericholecystic inflammatory changes. PANCREAS: Unremarkable. SPLEEN: Unremarkable. ADRENAL GLANDS: Unremarkable. KIDNEYS AND URETERS: Internal ureteral stent present in the right ureter. Catheter extends from the right renal pelvis to the right ureterovesical junction. The tip of the catheter is just within the bladder at the right UVJ. There is mild hydronephrosis of right collecting system with mild fullness of the renal pelvis calyces but no hydroureter. There are multiple bilateral tiny stones in both kidneys measuring from less than a millimeter to the largest stone in the mid lower pole left kidney measuring 3 mm. No stones seen along either ureter. BLADDER: No bladder calculus. GASTROINTESTINAL TRACT: The small and large bowel are unremarkable. The appendix is unremarkable. ABDOMINAL WALL: No significant hernia is appreciated. LYMPH NODES: Normal. VASCULAR: Unremarkable. PELVIC VISCERA: Unremarkable. OSSEOUS STRUCTURES: Unremarkable. CT/CT abdomen pelvis wo con IMPRESSION: 1. Right-sided ureteral stent in place. The catheter tip is just within the dome of the bladder at the right UVJ. 2. Mild hydronephrosis of the right kidney, distention renal pelvis and calyces but no hydroureter. 3. Multiple small nonobstructive stones in both kidneys. No ureteral calculus. Discharge Plan Discharge Clinical Impression: Acute flank pain, Acute UTI Patient Disposition: Home, Self-Care Instructions: Urinary Tract Infection in Men (ED) Additional Instructions: Please follow-up with your primary care physician tomorrow. If you have any worsening or new symptoms, please return to the emergency room or call 911 Prescriptions: New levofloxacin 500 mg tablet 500 mg PO DAILY Qty: 9 RF: 0 No Action tamsulosin 0.4 mg capsule 0.4 mg PO DAILY Qty: 30 RF: 3 nortriptyline 10 mg capsule 10 mg PO BEDTIME Qty: 90 RF: 1 omeprazole 40 mg capsule,delayed release(DR/EC) 40 mg PO DAILY Qty: 90 RF: 1 oxycodone-acetaminophen [Percocet] 5-325 mg tablet 1 tab PO Q8H PRN (Reason: pain) Qty: 14 RF: 0 lisinopril 10 mg tablet 10 mg PO DAILY Qty: 90 RF: 3 trimethoprim 100 mg tablet 100 mg PO Q12H 10 Days Qty: 20 RF: 0 tamsulosin 0.4 mg capsule 0.4 mg PO BEDTIME 14 Days Qty: 14 RF: 0 phenazopyridine [Pyridium] 100 mg tablet 100 mg PO TID PRN (Reason: spasm) 4 Days Qty: 12 RF: 0 tramadol 50 mg tablet 50 mg PO TID PRN (Reason: pain) 28 Days Qty: 84 RF: 0 gemfibrozil 600 mg tablet 600 mg PO BID RF: 0 aspirin [Adult Low Dose Aspirin] 81 mg tablet,delayed release (DR/EC) 81 mg PO DAILY RF: 0 cholecalciferol (vitamin D3) 25 mcg (1,000 unit) capsule 25 mcg PO DAILY RF: 0 cyanocobalamin (vitamin B-12) 1,000 mcg capsule 1,000 mcg PO DAILY RF: 0 ascorbate calcium (vitamin C) 500 mg tablet 1,000 mg PO DAILY RF: 0 albuterol sulfate [Ventolin HFA] 90 mcg/actuation HFA aerosol inhaler 2 puff inhalation Q6H PRNRF: 0 Referrals: Dajuan Leblanc MD [Physician] - 2 days
[2020-12-02 17:14] LABS: MANUAL DIFF FLAG NO
[2020-12-02 17:16] LABS: Glucose Urine UA NEG (NEG); Leukocyte Esterase Urine TRACE (NEG); Nitrite Urine NEG (NEG); Specific Gravity - Urine >= 1.030 (1.005-1.025); UACC Culture Trigger YES; Urine Blood 3+ (NEG); Urine Ketones NEG (NEG); Urine Protein 2+ MG/DL (NEG-TRACE)
[2020-12-02 17:17] LABS: Appearance Urine CLEAR; Color Urine BROWN
[2020-12-02 17:18] LABS: Basophils Percent Auto 0.1 % (0-2); Eosinophils Absolute Auto 0.1 X10*3/uL (0.0-0.4); Eosinophils Percent Auto 1.1 % (0-4); Hematocrit 47.3 % (42-52); Hemoglobin 15.9 g/dl (14.0-18.0); Imm Gran Abs Auto 0.02 X10*3/uL (0.00-0.03); Imm Gran Pct Auto 0.3 % (0.0-0.4); Lymphocytes Absolute Auto 1.9 X10*3/uL (1.2-4.9); Lymphocytes Percent Auto 25.3 % (20-40); Mean Corpuscular HGB Conc 33.6 g/dl (31.0-36.0); Mean Corpuscular Hemoglobin 30.8 pg (27.0-33.0); Mean Corpuscular Volume 91.7 fL (80-98); Mean Platelet Volume 11.6 fL (9.4-12.4); Monocytes Absolute Auto 0.6 X10*3/uL (0.1-1.2); Monocytes Percent Auto 7.7 % (2-11); Neutrophils Percent Auto 65.5 % (45-73); Platelet Count 272 X10*3/uL (160-400); Red Blood Count 5.16 X10*6/uL (4.60-5.80); Red Cell Distribution Width 12.9 % (11.0-16.0); White Blood Count 7.6 X10*3/uL (4.8-10.8)
[2020-12-02 17:25] LABS: Bacteria Urine 1+ /LPF; Mucus Urine 2+ /LPF
[2020-12-02] MEDS: 0.9 % Sodium Chloride 1,000 ML 999 ML IVCONT ×2 (17:41→19:27)
--- NOTE | 2020-12-02 17:41 | PC.NURSE ---
pt denies having rectal bleeding. pt returns from ct. NS up and running w/o difficulty, site intact.
[2020-12-02 18:42] VITALS: BP 138/89; PULSE 86; RESP 16; O2SAT 97
[2020-12-02 19:22] LABS: Alanine Aminotransferase 56 U/L (0-40); Albumin Level 4.4 g/dL (3.5-5.0); Alkaline Phosphatase 52 U/L (39-117); Anion Gap 12 (12-20); Aspartate Amino Transferase 18 U/L (5-37); Bilirubin Direct 0.2 mg/dL (0.0-0.5); Bilirubin Total 0.6 mg/dL (0.0-1.0); Blood Urea Nitrogen 24 mg/dL (9-16); Calcium 9.2 mg/dL (8.4-10.2); Carbon Dioxide 26 mmol/L (22-29); Chloride 107 mmol/L (96-108); Creatinine Clr Calc Pharmacy 67.7; Estimated Glomerular Filt Rate 53; Glucose Random 81 mg/dL (60-115); Potassium 4.2 mmol/L (3.3-5.1); Sodium 141 mmol/L (135-145); Total Protein 6.8 g/dL (6.5-8.0)
[2020-12-02] MEDS: ondansetron HCL 4 MG/2 ML VIAL IVPUSH (19:27)
[2020-12-02] MEDS: levoFLOXacin/D5W 750 MG/150 ML PIGGYBACK 100 MG IV (19:46)
--- NOTE | 2020-12-02 19:50 | PC.NURSE ---
BCX x 2 and lactic obtained by this RN. ABX infusing per SEP. Pt requesting food/drink. Call tirado within reach, continue to monitor.
[2020-12-02 20:20] LABS: Lactic Acid 1.1 mmol/L (0.5-2.0)
== END 2020-12-02 21:36 | disposition home or self-care (01) ==
PROVIDERS: Emergency Provider Emergency Medicine; PCP Internal Medicine
DX: R10.9 Unspecified abdominal pain (principal); N39.0 Urinary tract infection, site not specified; I25.10 Atherosclerotic heart disease of native coronary artery without angina pectoris; Z79.899 Other long term (current) drug therapy; Z79.82 Long term (current) use of aspirin
CPT/HCPCS: 36415; 74176; 80048; 80076; 81001; 81003; 83605; 85025; 87040; 87086; 96361; 96365; 96375; 99283; 99284; J1956; J2405

== ENCOUNTER 2020-12-06 14:39 | Outpatient (REF) | payer OTHER, SELFPAY ==
--- NOTE | ~2020-12-06 | XR_ITS ---
EXAMINATION: XR ABDOMEN KUB CLINICAL INDICATION: Ureteral stone COMPARISON: Previous CT of the abdomen and pelvis 12/02/2020 TECHNIQUE: AP view of the abdomen. FINDINGS: There is a right internal ureteral stent that appears unchanged in position from previous CT scan. No stone is seen. The bowel gas pattern is normal. Bony structures are normal. XR/XR KUB IMPRESSION: Stable position of right internal ureteral stent from previous CT 12/02/2020. No stone seen.
== END 2020-12-06 14:40 | disposition home or self-care (01) ==
LOC: HO.XRAY 14:39
PROVIDERS: PCP Internal Medicine; Visit Provider Urology
DX: N20.0 Calculus of kidney (principal); T83.122A Displacement of indwelling ureteral stent, initial encounter
CPT/HCPCS: 52000; 74018; 99212

== ENCOUNTER 2020-12-09 14:14 | Day surgery (SDC) | payer OTHER, SELFPAY ==
[2020-12-09 14:48] VITALS: BP 131/87; PULSE 76; RESP 18; TEMP 36.1; O2SAT 98; BMI 23.0
--- NOTE | 2020-12-09 14:57 | P.CONAN_ITS ---
[facility] Active Problems Active Problems: All Active Problems (Updated 12/06/20 @ 16:16 by Dajuan richmond MD) Migration of ureteral stent (Acute) Renal stones (Acute) BPH with obstruction/lower urinary tract symptoms (Acute) Erectile dysfunction (Acute) Urinary hesitancy (Acute) Sinus infection (Acute) Sinusitis (Acute) Balance disorder (Acute) Vertigo (Acute) Cerebellar atrophy (Acute) Colon cancer screening (Acute) Abnormality of gait (Acute) Nephrolithiasis (Acute) Right flank pain (Acute) Benign prostatic hyperplasia (Acute) Allergic rhinitis (Acute) Constipation (Acute) Vitamin D deficiency (Acute) Renal calculus, bilateral (Acute) GERD without esophagitis (Acute) Migraine (Acute) Pure hypercholesterolemia (Acute) Benign essential hypertension (Acute) Past Medical History Medical History Abnormality of gait Allergic rhinitis Asthma Benign essential hypertension Benign prostatic hyperplasia Cerebellar atrophy Colon cancer screening Constipation GERD without esophagitis Migraine Nephrolithiasis Orchalgia Pure hypercholesterolemia Renal calculus, bilateral Right flank pain Vitamin D deficiency Family History Family History Father Hypertension CAD (coronary artery disease) Diabetes Mother Hypertension Acute CVA (cerebrovascular accident) Paternal Grandfather Throat cancer Sister Lupus Epilepsy Surgical History Surgical History History of extraction of renal calculus History of lithotripsy Hx of elbow surgery Social History Social History Alcohol intake: never Patient Tobacco Use Status: Never used Tobacco Are you DNR?: No Advance Directives: No Advance Directives Information Provided: Yes Meds Allergies Allergy/AdvReac Type Severity Reaction Status Date / Time fenofibrate [Tricor] Allergy Intermediate hives Verified 12/06/20 15:04 nut - unspecified [NUTS] Allergy Intermediate HIVES Verified 12/06/20 15:04 seafood Allergy Intermediate hives, Verified 12/06/20 15:04 itchy fluocinolone acetonide Allergy Unknown Unknown Verified 12/06/20 15:04 lactose [LACTOSE] AdvReac Mild CONSTIPATIO Verified 12/06/20 15:04 N Home Medications Medication Instructions Recorded Confirmed Last Taken Type aspirin 81 mg tablet,delayed 81 mg PO DAILY 05/17/20 10/25/20 11/24/20 History release gemfibrozil 600 mg tablet 600 mg PO BID 05/17/20 10/25/20 Unknown History albuterol sulfate 90 mcg/actuation 2 puff INHALATION Q6H PRN 10/20/20 10/25/20 Unknown History aerosol inhaler ascorbate calcium (vitamin C) 500 1,000 mg PO DAILY tab 10/20/20 10/25/20 Unknown History mg tablet cholecalciferol (vitamin D3) 25 25 mcg PO DAILY 10/20/20 10/25/20 Unknown History mcg (1,000 unit) capsule cyanocobalamin (vitamin B-12) 1,000 mcg PO DAILY 10/20/20 10/25/20 Unknown History 1,000 mcg capsule Exam Exam Date and Time: December 09, 2020 1457 Height,Weight and Vital Signs: Height 6 ft Weight 77.111 kg Last Vital Signs Temp 97 F 12/09/20 14:48 Pulse 76 12/09/20 14:48 Resp 18 12/09/20 14:48 BP 131/87 12/09/20 14:48 Pulse Ox 98 12/09/20 14:48 Airway Mallampati Class: II TM Dist: >3cm Neck ROM: Full
[2020-12-09] MEDS: levoFLOXacin 500 MG TABLET PO (15:02)
[2020-12-09] MEDS: Scopolamine 1.5 MG PATCH.TD.3 EAR-BEHIND (15:03)
--- NOTE | 2020-12-09 17:12 | MHC.SHP ---
Pre-Procedural Eval Section A The patient is an INPATIENT: No Changes since office visit: No Cold of Flu in the past 2 weeks, No New Medical Problems, No Changes in Medication and No Patient answered all questions The History & Physical has been completed within 30 days and I have reviewed it.: Yes Section B Chief Complaint: ureteral stent Allergies: Allergies Allergy/AdvReac Type Severity Reaction Status Date / Time fenofibrate [Tricor] Allergy Intermediate hives Verified 12/06/20 15:04 nut - unspecified [NUTS] Allergy Intermediate HIVES Verified 12/06/20 15:04 seafood Allergy Intermediate hives, Verified 12/06/20 15:04 itchy fluocinolone acetonide Allergy Unknown Unknown Verified 12/06/20 15:04 lactose [LACTOSE] AdvReac Mild CONSTIPATIO Verified 12/06/20 15:04 N Plan Diagnosis/Plan: Unchanged (Cystoscopy, right retrograde removal of migrated stent) I have reviewed the history and physical and performed a pertinent physical examination on my patient. No changes have occurred unless specified.
--- NOTE | 2020-12-09 17:46 | P.OP_ITS ---
Operative Note Operative Note Date of Service: 12/09/20 Narrative: PreOperative Diagnosis: Right retained stent Post Operative Diagnosis: Right retained stent Procedure: Cystoscopy, right ureteroscopy, stent basket Surgeon: Dr Dajuan Leblanc Anesthesia: General Indications for procedure: This is a 50-year-old male. Had a procedure for stone with stent placement approximately 10 days ago. In office was found to have no stent in bladder. KUB showed stent had migrated anterior. Presents for stent removal using ureteroscopy. Procedure: After informed consent was verified the patient was brought to the operating room and placed in a supine position. Anesthesia was administered per protocol. The patient was placed in modified dorsal lithotomy position and prepped and draped in a sterile fashion. Antibiotics being given. Safety pause time-out was performed. Twenty-two Luxembourger cystoscope inserted per urethra. Right ureteric orifice seen and looked irritated. The cystoscope was removed. A rigid ureteral scope was placed. The rigid ureteral scope was placed inside the right ureteric orifice. This stent was encountered approximately half an inch from the ureteric orifice. Using a 2.4 [place] Zero tip basket the distal end of the stent was lassoed. The stent was removed into the bladder. The cystoscope was then used with regular graspers to remove the stent from the bladder. He tolerated procedure well was extubated in operating room transferred in a stable condition to the recovery area Pathology: [] Drains: []
[2020-12-09 18:01] VITALS: BP 113/74; PULSE 70; RESP 12; O2SAT 97
[2020-12-09 18:06] VITALS: BP 111/78; PULSE 69; RESP 14; O2SAT 98
[2020-12-09 18:11] VITALS: BP 116/77; PULSE 75; RESP 14; O2SAT 98
[2020-12-09 18:16] VITALS: BP 112/69; PULSE 72; RESP 14; O2SAT 98
[2020-12-09] MEDS: Phenazopyridine HCL 100 MG TABLET PO (18:28)
[2020-12-09 18:31] VITALS: BP 118/82; PULSE 77; RESP 18; TEMP 36.1; O2SAT 96
== END 2020-12-09 18:33 | disposition home or self-care (01) ==
PROVIDERS: PCP Internal Medicine; Visit Provider Urology
PROC: 0TJ98ZZ Inspection of Ureter, Via Natural or Artificial Opening Endoscopic (ICD-10-PCS; CPT 52351; principal; 2020-12-09 16:30)
DX: T83.122A Displacement of indwelling ureteral stent, initial encounter (principal); Z46.6 Encounter for fitting and adjustment of urinary device; Z87.442 Personal history of urinary calculi; N40.0 Benign prostatic hyperplasia without lower urinary tract symptoms; I10 Essential (primary) hypertension; J45.909 Unspecified asthma, uncomplicated; Z88.8 Allergy status to other drugs, medicaments and biological substances; Z79.899 Other long term (current) drug therapy
CPT/HCPCS: 52315; C1758; C1769; C1894; J1100; J2250; J2405; J3010

== ENCOUNTER 2021-01-03 16:03 | Outpatient (REF) | payer OTHER, SELFPAY ==
[2021-01-03 16:56] LABS: Glucose Urine UA NEG (NEG); Leukocyte Esterase Urine NEG (NEG); Nitrite Urine NEG (NEG); Urine Blood NEG (NEG); Urine Ketones NEG (NEG); Urine Protein NEG (NEG-TRACE)
[2021-01-03 16:58] LABS: Appearance Urine CLEAR; Color Urine YELLOW
== END 2021-01-03 16:04 | disposition home or self-care (01) ==
LOC: HO.LAB 16:03
PROVIDERS: PCP Internal Medicine; Visit Provider Physician Assistant
DX: R30.0 Dysuria (principal); R82.90 Unspecified abnormal findings in urine
CPT/HCPCS: 81003

== ENCOUNTER 2021-01-09 10:43 | Outpatient (REF) | payer OTHER, SELFPAY ==
--- NOTE | ~2021-01-09 | US_ITS ---
EXAMINATION: US RETROPERITONEAL LIMITED (RENAL ONLY) CLINICAL INFORMATION: Calculus of kidney. COMPARISON: X-ray KUB 12/06/2020. CT abdomen pelvis 12/02/2020. Ultrasound renal 09/06/2020 and 06/29/2019. X-ray KUB 11/26/2018. TECHNIQUE: Real-time imaging of the kidneys. FINDINGS: RIGHT KIDNEY: 9.9 x 5.5 x 3.9 cm (SAG x AP x TRV). The kidney is normal in size, contour, and echogenicity. Renal cortical thickness is normal. No focal parenchymal lesions or hydronephrosis. There are several echogenic stones. The largest in upper pole measuring 0.5, mid pole measuring 0.5 and lower pole measuring 0.5 cm. No caliectasis seen. LEFT KIDNEY: 9.9 x 5.1 x 3.6 cm (SAG x AP x TRV). The kidney is normal in size, contour, and echogenicity. Renal cortical thickness is normal. No focal parenchymal lesions or hydronephrosis. There are several echogenic calculi. The largest upper pole calculi measures 0.4 cm, lower pole measures 0.5 cm. No caliectasis seen. US/US renal BI IMPRESSION: Bilateral echogenic renal calculi. No caliectasis or hydronephrosis seen.
== END 2021-01-09 10:44 | disposition home or self-care (01) ==
LOC: HO.US 10:43
PROVIDERS: Visit Provider Urology
DX: N20.0 Calculus of kidney (principal)
CPT/HCPCS: 76775

== ENCOUNTER 2021-01-18 06:34 | Outpatient (REF) | payer OTHER, SELFPAY ==
[2021-01-18 08:57] LABS: Glucose Urine UA NEG (NEG); Leukocyte Esterase Urine NEG (NEG); Nitrite Urine NEG (NEG); PH 5.5 (5.0-8.0); Specific Gravity - Urine 1.025 (1.005-1.025); Urine Blood NEG (NEG); Urine Ketones NEG (NEG); Urine Protein NEG (NEG-TRACE)
[2021-01-18 08:58] LABS: Appearance Urine CLEAR; Color Urine YELLOW
== END 2021-01-18 06:35 | disposition home or self-care (01) ==
LOC: HO.LAB 06:34
PROVIDERS: PCP Internal Medicine; Visit Provider Internal Medicine
DX: R30.0 Dysuria (principal)
CPT/HCPCS: 81003

== ENCOUNTER 2021-01-31 12:23 | Emergency (ER) | payer OTHER, SELFPAY ==
[2021-01-31 13:22] VITALS: BP 139/88; PULSE 73; RESP 19; TEMP 36.8; O2SAT 98; BMI 23.0
--- NOTE | 2021-01-31 14:38 | ED.GENADULT ---
HPI - General Adult General Chief complaint: General Medical Stated complaint: Constipation Time Seen by Provider: 01/31/21 14:17 Source: patient Mode of arrival: ambulatory Limitations: no limitations History of Present Illness HPI narrative: Patient comes emergency room complaining constipation. However, patient states that he has been using Dulcolax daily and he had several large bowel movements and no longer has abdominal pain, cramping or constipation. Patient feels at baseline Related Data Home Medications Medication Instructions Recorded Confirmed aspirin 81 mg tablet,delayed 81 mg PO DAILY 05/17/20 01/03/21 release gemfibrozil 600 mg tablet 600 mg PO BID 05/17/20 01/03/21 albuterol sulfate 90 mcg/actuation 2 puff INHALATION Q6H PRN 10/20/20 01/03/21 aerosol inhaler ascorbate calcium (vitamin C) 500 1,000 mg PO DAILY tab 10/20/20 01/03/21 mg tablet cholecalciferol (vitamin D3) 25 25 mcg PO DAILY 10/20/20 01/03/21 mcg (1,000 unit) capsule cyanocobalamin (vitamin B-12) 1,000 mcg PO DAILY 10/20/20 01/03/21 1,000 mcg capsule Previous Rx's Medication Instructions Recorded tramadol 50 mg tablet 50 mg PO TID PRN 28 Days #84 tab 08/31/20 nortriptyline 10 mg capsule 10 mg PO BEDTIME #90 cap 11/24/20 omeprazole 40 mg capsule,delayed 40 mg PO DAILY #90 cap 11/24/20 release phenazopyridine [Pyridium] 100 mg PO TID PRN 4 Days #12 tab 11/28/20 tamsulosin 0.4 mg PO BEDTIME 14 Days #14 cap 11/28/20 trimethoprim 100 mg PO Q12H 10 Days #20 tab 11/28/20 lisinopril 10 mg tablet 10 mg PO DAILY #90 tab 11/29/20 oxycodone-acetaminophen 5 mg-325 1 tab PO Q8H PRN #14 tab 12/08/20 mg tablet hydrocortisone valerate 0.2 % 1 appl TOPICAL BID PRN 30 Days #60 01/03/21 topical cream g levofloxacin 500 mg tablet 500 mg PO DAILY 5 Days #5 tab 01/12/21 tamsulosin 0.4 mg capsule 0.8 mg PO BEDTIME 90 Days #180 cap 01/30/21 polyethylene glycol 3350 [Miralax] 17 g PO DAILY PRN 10 Days ea 01/31/21 Allergies Allergy/AdvReac Type Severity Reaction Status Date / Time fenofibrate [Tricor] Allergy Intermediate hives Verified 01/31/21 13:21 nut - unspecified [NUTS] Allergy Intermediate HIVES Verified 01/31/21 13:21 seafood Allergy Intermediate hives, Verified 01/31/21 13:21 itchy fluocinolone acetonide Allergy Unknown Unknown Verified 01/31/21 13:21 lactose [LACTOSE] AdvReac Mild CONSTIPATIO Verified 01/31/21 13:21 N Review of Systems Review of Systems: Constitutional : No Weight loss, No Fever, No Chills, No Night Sweats, No Fatigue, No Malaise ENT/Mouth : No Hearing loss, No Ear Pain, No Nasal Congestion, No Sinus Pain, No Hoarseness, No sore throat, No Rhinorrhea, No Swallowing Difficulty Eyes: No Eye Pain, No Swelling, No Redness, No Foreign Body, No Discharge, No Vision Changes Cardiovascular : No Chest Pain, No SOB, No Dyspnea on Exertion, No Orthopnea, No Edema, No Palpitations Respiratory : No Cough, No Sputum, No Wheezing, No Smoke Exposure, No Dyspnea Gastrointestinal : No Nausea, No Vomiting, No Diarrhea, complaining of constipation that resolved with Dulcolax Genitourinary : no irregular bleeding, No Dysuria, No Urinary Frequency, No Hematuria, No Urinary Incontinence, No Urgency, No Flank Pain, No Urinary Flow Changes, No Hesitancy Musculoskeletal : No joint pain, No Myalgias, No Joint Swelling Skin : No Skin Lesions, No rash Neuro : No Weakness, No Numbness, No Paresthesias, No Loss of Consciousness, No Dizziness, No Headache Psych : No Anxiety/Panic, No Depression, No SI/HI/AH/VH, No Social Issues, Heme/Lymph: No Bruising, No Bleeding,No Lymphadenopathy Endocrine : No Polyuria, No Polydipsia, No Temperature Intolerance PMFSH Past Medical History Medical History Abnormality of gait Allergic rhinitis Asthma Benign essential hypertension Benign prostatic hyperplasia Cerebellar atrophy Colon cancer screening Constipation GERD without esophagitis Migraine Nephrolithiasis Orchalgia Pure hypercholesterolemia Renal calculus, bilateral Right flank pain Vitamin D deficiency Surgical History History of extraction of renal calculus History of lithotripsy Hx of elbow surgery Family History Family History Father Hypertension CAD (coronary artery disease) Diabetes Mother Hypertension Acute CVA (cerebrovascular accident) Paternal Grandfather Throat cancer Sister Lupus Epilepsy Social History Social History Housing: Apartment Alcohol intake: never Patient Tobacco Use Status: Never used Tobacco e-Cigarette/Vaping Use: Never Used Second Hand Smoke Exposure: No Advance Directives: Yes Advance Directives Information Provided: Yes Advance Directives on File: No service: No Current occupational status: disabled Physical Exam Vital Signs: Vital Signs: Last Vital Signs Temp 98.2 F 01/31/21 13:22 Pulse 73 01/31/21 13:22 Resp 19 01/31/21 13:22 BP 139/88 01/31/21 13:22 Pulse Ox 98 01/31/21 13:22 Body Mass Index 23.0 Appearance: Alert. Oriented X3. No acute distress. Eyes: Pupils equal, round and reactive to light. ENT: Pharynx normal. Neck: Normal inspection. Neck supple. No lymph nodes noted. No crepitus CVS: Normal heart rate and rhythm. Pulses normal. Normal S1 and S2 Respiratory: No respiratory distress. Breath sounds normal. No Wheezing. No rales Abdomen: Soft and nontender. No rigidity. No distention. good BS x4 Skin: Skin warm and dry. Normal skin color. Normal skin turgor. Extremities: No lower extremity edema. No Lacerations. No Rash Neuro: Oriented X 3. No motor deficit. No sensory deficit. Moving all extermities. No slurred speech. Course Course Course Narrative: Patient is concerned that sometimes even though he uses Dulcolax he still constipated. Patient requesting an additional prescription to use p.r.n. constipation on top of using Dulcolax. Discharge Plan Discharge Clinical Impression: Constipation Qualifiers: Constipation type: unspecified constipation type Qualified Code(s): K59.00 - Constipation, unspecified Patient Disposition: Home, Self-Care Instructions: Constipation (ED) Additional Instructions: Please follow-up with your primary care physician tomorrow. If you have any worsening or new symptoms, please return to the emergency room or call 911 Prescriptions: New polyethylene glycol 3350 [Miralax] 17 gram powder in packet 17 g PO DAILY PRN (Reason: constipation) 10 Days RF: 0 No Action nortriptyline 10 mg capsule 10 mg PO BEDTIME Qty: 90 RF: 1 omeprazole 40 mg capsule,delayed release(DR/EC) 40 mg PO DAILY Qty: 90 RF: 1 lisinopril 10 mg tablet 10 mg PO DAILY Qty: 90 RF: 3 levofloxacin 500 mg tablet 500 mg PO DAILY 5 Days Qty: 5 RF: 0 tamsulosin 0.4 mg capsule 0.8 mg PO BEDTIME 90 Days Qty: 180 RF: 1 trimethoprim 100 mg tablet 100 mg PO Q12H 10 Days Qty: 20 RF: 0 tamsulosin 0.4 mg capsule 0.4 mg PO BEDTIME 14 Days Qty: 14 RF: 0 phenazopyridine [Pyridium] 100 mg tablet 100 mg PO TID PRN (Reason: spasm) 4 Days Qty: 12 RF: 0 tramadol 50 mg tablet 50 mg PO TID PRN (Reason: pain) 28 Days Qty: 84 RF: 0 gemfibrozil 600 mg tablet 600 mg PO BID RF: 0 aspirin [Adult Low Dose Aspirin] 81 mg tablet,delayed release (DR/EC) 81 mg PO DAILY RF: 0 hydrocortisone valerate 0.2 % cream 1 appl topical BID PRN (Reason: skin irritation) 30 Days Qty: 60 RF: 0 oxycodone-acetaminophen [Percocet] 5-325 mg tablet 1 tab PO Q8H PRN (Reason: pain) Qty: 14 RF: 0 cholecalciferol (vitamin D3) 25 mcg (1,000 unit) capsule 25 mcg PO DAILY RF: 0 cyanocobalamin (vitamin B-12) 1,000 mcg capsule 1,000 mcg PO DAILY RF: 0 ascorbate calcium (vitamin C) 500 mg tablet 1,000 mg PO DAILY RF: 0 albuterol sulfate [Ventolin HFA] 90 mcg/actuation HFA aerosol inhaler 2 puff inhalation Q6H PRNRF: 0
== END 2021-01-31 14:47 | disposition home or self-care (01) ==
PROVIDERS: Emergency Provider Emergency Medicine; PCP Internal Medicine
DX: K59.00 Constipation, unspecified (principal); I10 Essential (primary) hypertension; Z79.82 Long term (current) use of aspirin; Z79.899 Other long term (current) drug therapy
CPT/HCPCS: 99283

== ENCOUNTER → 2021-02-07 14:07 | Outpatient (BNVA) | payer OTHER, SELFPAY | PROVIDERS: PCP Internal Medicine; Visit Provider Urology | DX: N40.0 Benign prostatic hyperplasia without lower urinary tract symptoms (principal); N20.0 Calculus of kidney | CPT/HCPCS: 99212 ==

== ENCOUNTER 2021-02-16 12:00 | Outpatient (REF) | payer OTHER, SELFPAY | END 2021-02-16 12:01 | disposition home or self-care (01) | LOC: HO.LAB 12:00 | PROVIDERS: PCP Internal Medicine; Visit Provider Internal Medicine | DX: Z20.822 Contact with and (suspected) exposure to COVID-19 (principal) | CPT/HCPCS: C9803; U0003; U0005 ==

== ENCOUNTER 2021-03-01 10:05 | Day surgery (SDC) | payer OTHER, SELFPAY ==
--- NOTE | 2021-02-28 08:17 | HO.ANESPROP2 ---
Documented by User: Natalie Naranjo NP 02/28/21 08:18 HPI - Anesthesia Eval Consult details Narrative: 50yo M for Colonoscopy COUNTS INCLUDE 234 BEDS AT THE [facility] Active Problems Active Problems: All Active Problems (Updated 02/23/21 @ 11:41 by Hope Polanco) Renal stones (Acute) BPH with obstruction/lower urinary tract symptoms (Acute) Erectile dysfunction (Acute) Urinary hesitancy (Acute) Sinus infection (Acute) Sinusitis (Acute) Balance disorder (Acute) Vertigo (Acute) Colon cancer screening (Acute) Migration of ureteral stent (Acute) Bad odor of urine (Acute) Perianal pruritus (Acute) Mixed hyperlipidemia (Acute) Chronic constipation (Acute) Cerebellar atrophy (Acute) Abnormality of gait (Acute) Nephrolithiasis (Acute) Right flank pain (Acute) Benign prostatic hyperplasia (Acute) Allergic rhinitis (Acute) Constipation (Acute) Vitamin D deficiency (Acute) Renal calculus, bilateral (Acute) GERD without esophagitis (Acute) Migraine (Acute) Pure hypercholesterolemia (Acute) Benign essential hypertension (Acute) Past Medical History Medical History Abnormality of gait Allergic rhinitis Asthma Benign essential hypertension Benign prostatic hyperplasia Cerebellar atrophy Chronic constipation Constipation GERD without esophagitis HTN (hypertension) Migraine Mixed hyperlipidemia Nephrolithiasis Orchalgia Pure hypercholesterolemia Renal calculus, bilateral Right flank pain Vitamin D deficiency Family History Family History Father Hypertension CAD (coronary artery disease) Diabetes Mother Hypertension Acute CVA (cerebrovascular accident) Paternal Grandfather Throat cancer Sister Lupus Epilepsy Surgical History Surgical History History of cystoscopy History of esophagogastroduodenoscopy (EGD) History of extraction of renal calculus History of lithotripsy Hx of elbow surgery Social History Social History Housing: Apartment Alcohol intake: never Patient Tobacco Use Status: Never used Tobacco e-Cigarette/Vaping Use: Never Used Second Hand Smoke Exposure: Yes Use of substances other than those prescribed or required for medical reasons: No Are you DNR?: No Advance Directives: No Advance Directives Information Provided: Yes service: No Current occupational status: disabled Meds Allergies Allergy/AdvReac Type Severity Reaction Status Date / Time fenofibrate [Tricor] Allergy Intermediate hives Verified 02/23/21 00:19 nut - unspecified [NUTS] Allergy Intermediate HIVES Verified 02/23/21 00:19 seafood Allergy Intermediate hives, Verified 02/23/21 00:19 itchy fluocinolone acetonide Allergy Unknown Unknown Verified 02/23/21 00:19 lactose [LACTOSE] AdvReac Mild CONSTIPATIO Verified 02/23/21 00:19 N Home Medications Medication Instructions Recorded Confirmed Last Taken Type aspirin 81 mg tablet,delayed 81 mg PO DAILY 05/17/20 02/23/21 11/24/20 History release (Adult Low Dose Aspirin) gemfibrozil 600 mg tablet 600 mg PO BID 05/17/20 02/23/21 Unknown History albuterol sulfate 90 mcg/actuation 2 puff INHALATION Q6H PRN 10/20/20 02/23/21 Unknown History aerosol inhaler (Ventolin HFA) ascorbate calcium (vitamin C) 500 1,000 mg PO DAILY tab 10/20/20 02/23/21 Unknown History mg tablet cholecalciferol (vitamin D3) 25 25 mcg PO DAILY 10/20/20 02/23/21 Unknown History mcg (1,000 unit) capsule cyanocobalamin (vitamin B-12) 1,000 mcg PO DAILY 10/20/20 02/23/21 Unknown History 1,000 mcg capsule Exam Exam Date and Time: February 28, 2021 0817 Assessment and Plan Assessment Anesthesia Assessment: Chart Reviewed Documented by User: Marylou Kaba MD 03/01/21 12:23 COUNTS INCLUDE 234 BEDS AT THE [facility] Past Medical History Medical History Abnormality of gait Allergic rhinitis Asthma Benign essential hypertension Benign prostatic hyperplasia Cerebellar atrophy Chronic constipation Constipation GERD without esophagitis HTN (hypertension) Migraine Mixed hyperlipidemia Nephrolithiasis Orchalgia Pure hypercholesterolemia Renal calculus, bilateral Right flank pain Vitamin D deficiency Family History Family History Father Hypertension CAD (coronary artery disease) Diabetes Mother Hypertension Acute CVA (cerebrovascular accident) Paternal Grandfather Throat cancer Sister Lupus Epilepsy Surgical History Surgical History History of cystoscopy History of esophagogastroduodenoscopy (EGD) History of extraction of renal calculus History of lithotripsy Hx of elbow surgery History of Problems with Anesthesia: No Social History Social History Housing: Apartment Alcohol intake: never Patient Tobacco Use Status: Never used Tobacco e-Cigarette/Vaping Use: Never Used Second Hand Smoke Exposure: Yes Use of substances other than those prescribed or required for medical reasons: No Are you DNR?: No Advance Directives: No Advance Directives Information Provided: Yes service: No Current occupational status: disabled Meds Allergies Allergy/AdvReac Type Severity Reaction Status Date / Time fenofibrate [Tricor] Allergy Intermediate hives Verified 02/23/21 00:19 nut - unspecified [NUTS] Allergy Intermediate HIVES Verified 02/23/21 00:19 seafood Allergy Intermediate hives, Verified 02/23/21 00:19 itchy fluocinolone acetonide Allergy Unknown Unknown Verified 02/23/21 00:19 lactose [LACTOSE] AdvReac Mild CONSTIPATIO Verified 02/23/21 00:19 N Home Medications Medication Instructions Recorded Confirmed Last Taken Type aspirin 81 mg tablet,delayed 81 mg PO DAILY 05/17/20 02/23/21 11/24/20 History release (Adult Low Dose Aspirin) gemfibrozil 600 mg tablet 600 mg PO BID 05/17/20 02/23/21 Unknown History albuterol sulfate 90 mcg/actuation 2 puff INHALATION Q6H PRN 10/20/20 02/23/21 Unknown History aerosol inhaler (Ventolin HFA) ascorbate calcium (vitamin C) 500 1,000 mg PO DAILY tab 10/20/20 02/23/21 Unknown History mg tablet cholecalciferol (vitamin D3) 25 25 mcg PO DAILY 10/20/20 02/23/21 Unknown History mcg (1,000 unit) capsule cyanocobalamin (vitamin B-12) 1,000 mcg PO DAILY 10/20/20 02/23/21 Unknown History 1,000 mcg capsule Exam Airway Mallampati Class: II TM Dist: >3cm Neck ROM: Full Loose/Missing/Broken Teeth: No Heart: RRR Lungs: CTA Assessment and Plan Assessment Anesthesia Assessment: Anesthesia Plan Discussed Final Anesthetic Review History of Problems with Anesthesia: No NPO: Yes ASA Class: II Final Preanesthetic Review: Meds/Allgs Chart Reviewed, Consent Obtained/Reviewed and Anes Risks/Benef Reviewed Patient Risk: Low Procedure Risk: Low Anesthetic Plan Anesthetic Plan: MAC: Disposition: Standard PACU
[2021-03-01 10:57] VITALS: BP 130/94; PULSE 73; RESP 18; TEMP 36.2; O2SAT 96; BMI 23.7
[2021-03-01] MEDS: Lactated Ringers 1,000 ML 100 ML IVCONT (11:03)
[2021-03-01 13:11] VITALS: BP 109/76; PULSE 67; RESP 109; TEMP 36.1; O2SAT 95
--- NOTE | 2021-03-01 13:12 | PM.OP ---
Brief Operative Note Date of Service: 03/01/21 Pre-op diagnosis: Screening Post-op diagnosis: other (Rectal polyp, Diverticulosis) Procedure: Colonoscopy to the cecum and TI with bx/removal of polyp Surgeon: Timothy Hilario Anesthesia: MAC Was an Recruiting Assistant used for this Procedure?: No Estimated blood loss (mL): 3.0 Pathology: other (A. Rectal polyp) Condition: stable Disposition: PACU
[2021-03-01 13:28] VITALS: BP 121/81; PULSE 78; RESP 18; TEMP 36.1; O2SAT 95
--- NOTE | 2021-03-01 16:45 | OP_ITS ---
SURGEON: Timothy Hilario MD INDICATIONS: The patient presents for evaluation of colorectal cancer screening. Full consent has been obtained from him for this, including risks of bleeding and perforation. PREOPERATIVE DIAGNOSIS: Colorectal cancer screening. POSTOPERATIVE DIAGNOSIS: PROCEDURE PERFORMED: Colonoscopy to the cecum and terminal ileum with biopsy and removal of polyp. ESTIMATED BLOOD LOSS: COMPLICATIONS: ANESTHESIA: Monitored anesthesia care. ASSISTANTS: SPECIMENS: POSTOPERATIVE DIAGNOSES: Colorectal cancer screening, small colon polyp, diverticulosis and internal hemorrhoids. DESCRIPTION OF PROCEDURE: The patient was placed in the left lateral decubitus position. The digital rectal exam revealed no abnormalities. The Olympus video pediatric colonoscope was entered into the rectum and advanced easily to the cecum. Once in the cecum, I did identify normal-appearing cecal pouch with appendiceal orifice and a normal-appearing ileocecal valve. The terminal ileum was cannulated and appeared normal. The scope was withdrawn back in the colon. The entire cecum and ileocecal valve appeared normal. The scope was slowly withdrawn assessing all mucosal surfaces carefully. Preparation was excellent. I did not visualize any sign of colitis nor angiodysplasia. In the rectum, was a small less than 5 mm polyp, which was biopsied and completely removed with cold biopsy forceps. I did not visualize any other polyps. There was a mild amount of sigmoid diverticulosis. In the rectum, scope was retroflexed visualizing small internal hemorrhoids, but no other pathology. The rectal mucosa appeared normal. The scope was straightened out and withdrawn from the patient. He tolerated the procedure well and was returned to the recovery area in stable condition. IMPRESSION: 1. Colon polyp, status post biopsy and removal. 2. Diverticulosis. 3. Internal hemorrhoids. PLAN: The results of the biopsies will be checked. If this is a tubular adenoma, I would recommend a followup colonoscopy in 5 years. If it is only hyperplastic, I would recommend a followup colonoscopy in 10 years. He was advised to continue fiber to keep his bowel movements more regular. He will see me on a p.r.n. basis. MD DEVIN White/LAITH / [phone]
== END 2021-03-01 14:30 | disposition home or self-care (01) ==
PROVIDERS: PCP Internal Medicine; Visit Provider Internal Medicine
PROC: 0DJD8ZZ Inspection of Lower Intestinal Tract, Via Natural or Artificial Opening Endoscopic (ICD-10-PCS; CPT 45378; principal; 2021-03-01 11:20)
DX: Z12.11 Encounter for screening for malignant neoplasm of colon (principal); D12.8 Benign neoplasm of rectum; K57.30 Diverticulosis of large intestine without perforation or abscess without bleeding; K64.8 Other hemorrhoids; K21.9 Gastro-esophageal reflux disease without esophagitis; I10 Essential (primary) hypertension; J45.909 Unspecified asthma, uncomplicated; Z79.82 Long term (current) use of aspirin; Z79.899 Other long term (current) drug therapy
CPT/HCPCS: 45380; 88305

== ENCOUNTER 2021-03-17 13:11 | Outpatient (REF) | payer OTHER, SELFPAY ==
--- NOTE | ~2021-03-17 | XR_ITS ---
EXAMINATION: XR FOOT, LEFT CLINICAL INFORMATION: Pain. COMPARISON: None. TECHNIQUE: AP, lateral, and oblique views of the left foot. FINDINGS: Bone alignment is normal. No fracture or dislocation is seen. There is arthritis at the 1st MTP joint with joint space narrowing and osteophyte formation. Soft tissues are unremarkable. 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
== END 2021-03-17 13:12 | disposition home or self-care (01) ==
LOC: HO.XRAY 13:11
PROVIDERS: PCP Internal Medicine; Visit Provider Nurse Practitioner Family
DX: M79.672 Pain in left foot (principal)
CPT/HCPCS: 73620

== ENCOUNTER 2021-03-27 14:28 | Outpatient (REF) | payer OTHER, SELFPAY | END 2021-03-27 14:29 | disposition home or self-care (01) | LOC: HO.LAB 14:28 | PROVIDERS: PCP Internal Medicine; Visit Provider Internal Medicine | DX: Z20.822 Contact with and (suspected) exposure to COVID-19 (principal) | CPT/HCPCS: C9803; U0003; U0005 ==

== ENCOUNTER 2021-04-26 12:06 | Outpatient (REF) | payer OTHER, SELFPAY ==
--- NOTE | ~2021-04-26 | XR_ITS ---
EXAMINATION: XR LUMBOSACRAL SPINE CLINICAL INFORMATION: Lower back pain. COMPARISON: Lumbar spine radiographs dated 07/03/2016. TECHNIQUE: Three views of the lumbosacral spine. FINDINGS: Straightening of the normal lumbar lordosis, which may be positional or related to muscular spasm. No acute fracture or subluxation. No loss of vertebral body height. Loss of intervertebral disc height with anterior endplate osteophytes at L5-S1, progressed when compared to the prior examination. Progressed bilateral facet arthropathy at L5-S1. No new lytic or blastic osseous lesion. No abnormal soft tissue calcification. XR/XR lumbar spine 2-3V IMPRESSION: Straightening of the normal lumbar lordosis, which may be positional or related to muscular spasm. Degenerative disc disease and bilateral facet arthropathy at L5-S1, new/increased when compared to the prior examination.
[2021-04-26 13:20] LABS: Alanine Aminotransferase 26 U/L (0-40); Alkaline Phosphatase 59 U/L (39-117); Aspartate Amino Transferase 21 U/L (5-37); Bilirubin Total 0.3 mg/dL (0.0-1.0); Blood Urea Nitrogen 20 mg/dL (9-16); Calcium 10.5 mg/dL (8.4-10.2); Estimated Glomerular Filt Rate 53; Glucose Random 84 mg/dL (60-115); Total Protein 7.8 g/dL (6.5-8.0)
[2021-04-26 13:35] LABS: Anion Gap 15 (12-20); Carbon Dioxide 23 mmol/L (22-29); Chloride 104 mmol/L (96-108); Potassium 4.9 mmol/L (3.3-5.1); Sodium 137 mmol/L (135-145)
[2021-04-26 14:08] LABS: Appearance Urine CLEAR; Color Urine YELLOW; Glucose Urine UA NEG (NEG); Leukocyte Esterase Urine NEG (NEG); Nitrite Urine NEG (NEG); Specific Gravity - Urine 1.025 (1.005-1.025); Urine Blood NEG (NEG); Urine Ketones NEG (NEG); Urine Protein NEG (NEG-TRACE)
== END 2021-04-26 12:07 | disposition home or self-care (01) ==
LOC: HO.XRAY 12:06
PROVIDERS: PCP Internal Medicine; Visit Provider Internal Medicine
DX: M54.50 Low back pain, unspecified (principal); N20.0 Calculus of kidney; R10.9 Unspecified abdominal pain; R39.11 Hesitancy of micturition; Z91.81 History of falling
CPT/HCPCS: 36415; 72100; 80053; 81003

== ENCOUNTER 2021-05-29 15:00 | Outpatient (RCR) | payer OTHER, SELFPAY ==
--- NOTE | 2021-05-18 17:06 | MHC.PT.EP ---
[facility] [place] Office [place] Office [place] Office [address] [phone] F: [phone] F: [phone] F: [phone] F: [phone] Physical Therapy Plan of Care Date of Evaluation: Date of Surgery: n/a Diagnosis: L foot pain, LBP Assessment: Patient is a 50 year old male presenting to PT with complaints of pain in his low back. Pt reports onset of pain began 30-35 years ago due to insidious onset. He presents today with impairments in pain, core strength, hip strength, +ttp R lumbar paraspinals, and posture. Pt's current occupation is none, with baseline physical activities including ADLs, ambulation, transfers, caring for his father, and bending. 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 Clinical presentation today is most consistent with signs and sx associated with x-ray findings of lumbar degenerative disk disease and pt will benefit from skilled PT to address the following problems and impairments noted upon evaluation: pain, core strength, hip strength, +ttp R lumbar paraspinals, and posture. These problems limit the patient with the following functional activities: ambulation, bending, and transfers. The prescribed treatment plan of care is medically necessary. Co-morbidities of HTN and cerebellar atrophy were identified and taken into considerations of plan of care. Pt was educated on HEP, role of PT, prognosis, POC. Frequency and Duration: The patient will be seen 2x week x 4 weeks Short Term Goals: Pt will demonstrate improved TA recruitment as evidence by good PPT in 2 weeks for improved core stability. Pt will demonstrate improved hip strength by 1/3 MMT in 2 weeks for improved lumbopelvic stability. Pt will demonstrate pain at rest <4/10 in 2 weeks for improved QOL. Pt will demonstrate improved postural awareness by sitting with biomechanically correct posture without cues throughout session to improve overall postural function in 2 weeks. Para Machine Operator Goals: Pt will demonstrate ability to ambulate x 10 min with min to no pain in 4 weeks to improve access to the community. Pt will demonstrate ability to complete all bending ADLs with min to no pain in 4 weeks to improve tolerance to caring for himself and his father. Pt will demonstrate improved Ruslan score by 10% in 4 weeks for improved overall functional mobility. Treatment Plan: Modalities to reduce pain, spasms and effusion. Manual therapy to restore motion and function. Therapeutic exercise to improve strength and flexibility. Neuromuscular re-education for posture and balance. Therapeutic activities to return to functional activities of daily living. Electronically signed by: Saadia Ceja, PT, DPT, ATC Please sign and return to therapist. Thank you for your referral.
--- NOTE | 2021-06-05 15:59 | MHC.PT.DC ---
[facility] [place] Office [place] Office [place] Office [address] [phone] F: [phone] F: [phone] F: [phone] F: [phone] Physical Therapy Discharge Report Diagnosis: L foot pain, LBP Date of Surgery: n/a Date of Evaluation: 05/18/21 Date of Discharge: 06/05/21 Treatments to Date: 2 Cancellations to Date: 0 No Shows to Date: 3 Discharge Status: Visit Non-compliance Discharge Summary: Pt has failed to comply with [facility] attendance policy and only attended 2 appointments since eval and no showed the other 3. Pt current status unknown at this time. Electronically signed by: Saadia Ceja, PT, DPT, ATC Please sign and return to therapist. Thank you for your referral.
== END 2021-06-05 16:00 | disposition home or self-care (01) ==
LOC: HO.PT 15:00
PROVIDERS: PCP Internal Medicine; Visit Provider Internal Medicine
DX: M54.50 Low back pain, unspecified (principal); M79.672 Pain in left foot
CPT/HCPCS: 97110; 97140; 97161

== ENCOUNTER 2021-08-02 09:45 | Outpatient (REF) | payer OTHER, SELFPAY ==
--- NOTE | ~2021-08-02 | US_ITS ---
EXAMINATION: US RETROPERITONEAL LIMITED (RENAL ONLY) CLINICAL INFORMATION: Calculus of kidney. COMPARISON: Renal ultrasound 01/09/2021 and 09/06/2020. X-ray abdomen KUB 12/06/2020. CT abdomen and pelvis 12/02/2020. TECHNIQUE: Real-time imaging of the kidneys. FINDINGS: RIGHT KIDNEY: 10.3 x 4.7 x 5.0 cm (SAG x AP x TRV). The kidney is normal in size, contour, and echogenicity. Renal cortical thickness is normal. There are multiple right renal stones. Largest stone measures 6 mm in the upper pole No focal parenchymal lesions or hydronephrosis. LEFT KIDNEY: 11.0 x 4.5 x 3.8 cm (SAG x AP x TRV). The kidney is normal in size, contour, and echogenicity. Renal cortical thickness is normal. There are multiple left renal stones. Largest stone measures 6 mm lower pole. No focal parenchymal lesions or hydronephrosis. US/US renal BI IMPRESSION: Bilateral renal stones.
== END 2021-08-02 09:46 | disposition home or self-care (01) ==
LOC: HO.US 09:45
PROVIDERS: Visit Provider Urology
DX: N20.0 Calculus of kidney (principal)
CPT/HCPCS: 76775

== ENCOUNTER 2021-08-07 11:52 | Outpatient (REF) | payer OTHER, SELFPAY ==
[2021-08-07 14:31] LABS: Prostate Specific Antigen 0.99 ng/mL (<0.05-4.0)
== END 2021-08-07 11:53 | disposition home or self-care (01) ==
LOC: HO.10HDL 11:52
PROVIDERS: Visit Provider Urology
DX: N40.1 Benign prostatic hyperplasia with lower urinary tract symptoms (principal); N13.8 Other obstructive and reflux uropathy; Z12.5 Encounter for screening for malignant neoplasm of prostate
CPT/HCPCS: 36415; 84153

== ENCOUNTER → 2021-08-10 09:24 | Outpatient (BNVA) | payer OTHER, SELFPAY | PROVIDERS: PCP Internal Medicine; Visit Provider Urology | DX: N40.1 Benign prostatic hyperplasia with lower urinary tract symptoms (principal); N13.8 Other obstructive and reflux uropathy; N20.0 Calculus of kidney | CPT/HCPCS: 99212 ==

== ENCOUNTER 2021-11-23 13:42 | Emergency (ER) | payer OTHER, SELFPAY ==
[2021-11-23 14:42] VITALS: BP 132/72; PULSE 90; RESP 18; TEMP 36.9; O2SAT 97; BMI 23.7
[2021-11-23 15:09] LABS: MANUAL DIFF FLAG NO
[2021-11-23 15:14] LABS: Appearance Urine CLEAR; Color Urine YELLOW; Glucose Urine UA NEG (NEG); Leukocyte Esterase Urine NEG (NEG); Nitrite Urine NEG (NEG); Specific Gravity - Urine 1.015 (1.005-1.025); Urine Blood NEG (NEG); Urine Ketones NEG (NEG); Urine Protein NEG (NEG-TRACE)
[2021-11-23 15:26] LABS: Anion Gap 14 (12-20); Blood Urea Nitrogen 16 mg/dL (9-16); Calcium 9.8 mg/dL (8.4-10.2); Carbon Dioxide 22 mmol/L (22-29); Chloride 106 mmol/L (96-108); Creatinine Clr Calc Pharmacy 73.2; Estimated Glomerular Filt Rate 59; Glucose Random 86 mg/dL (60-115); Potassium 4.6 mmol/L (3.3-5.1); Sodium 137 mmol/L (135-145)
[2021-11-23 15:28] LABS: Basophils Percent Auto 0.3 % (0-2); Eosinophils Absolute Auto 0.2 X10*3/uL (0.0-0.4); Eosinophils Percent Auto 3.3 % (0-4); Hematocrit 43.6 % (42.0-52.0); Hemoglobin 15.1 g/dl (14.0-18.0); Imm Gran Abs Auto 0.02 X10*3/uL (0.00-0.03); Imm Gran Pct Auto 0.3 % (0.0-0.4); Lymphocytes Absolute Auto 1.8 X10*3/uL (1.2-4.9); Lymphocytes Percent Auto 27.9 % (20-40); Mean Corpuscular HGB Conc 34.6 g/dl (31.0-36.0); Mean Corpuscular Volume 92.4 fL (80.0-98.0); Mean Platelet Volume 11.5 fL (9.4-12.4); Monocytes Absolute Auto 0.5 X10*3/uL (0.1-1.2); Neutrophils Absolute Auto 3.8 x10*3/uL (2.0-8.3); Neutrophils Percent Auto 60.2 % (45-73); Platelet Count 283 X10*3/uL (160-400); Red Blood Count 4.72 X10*6/uL (4.60-5.80); Red Cell Distribution Width 12.7 % (11.0-16.0); White Blood Count 6.3 X10*3/uL (4.8-10.8)
== END 2021-11-23 22:24 | disposition left against medical advice (07) ==
PROVIDERS: Emergency Provider Emergency Medicine; PCP Internal Medicine
DX: R11.10 Vomiting, unspecified (principal); R10.9 Unspecified abdominal pain; Z87.442 Personal history of urinary calculi
CPT/HCPCS: 36415; 80048; 81003; 85025; 99283

== ENCOUNTER 2022-02-05 07:39 | Outpatient (REF) | payer OTHER, SELFPAY ==
[2022-02-05 07:55] LABS: MANUAL DIFF FLAG NO
[2022-02-05 08:23] LABS: Basophils Percent Auto 0.3 % (0-2); Eosinophils Absolute Auto 0.2 X10*3/uL (0.0-0.4); Eosinophils Percent Auto 3.3 % (0-4); Hematocrit 45.5 % (42.0-52.0); Hemoglobin 15.3 g/dl (14.0-18.0); Imm Gran Abs Auto 0.02 X10*3/uL (0.00-0.03); Imm Gran Pct Auto 0.3 % (0.0-0.4); Lymphocytes Absolute Auto 2.7 X10*3/uL (1.2-4.9); Lymphocytes Percent Auto 38.7 % (20-40); Mean Corpuscular HGB Conc 33.6 g/dl (31.0-36.0); Mean Corpuscular Volume 92.1 fL (80.0-98.0); Mean Platelet Volume 11.6 fL (9.4-12.4); Monocytes Absolute Auto 0.5 X10*3/uL (0.1-1.2); Monocytes Percent Auto 7.4 % (2-11); Neutrophils Absolute Auto 3.5 x10*3/uL (2.0-8.3); Platelet Count 291 X10*3/uL (160-400); Red Blood Count 4.94 X10*6/uL (4.60-5.80)
[2022-02-05 08:57] LABS: Alanine Aminotransferase 28 U/L (0-40); Albumin Level 4.7 g/dL (3.5-5.0); Alkaline Phosphatase 52 U/L (39-117); Anion Gap 14 (12-20); Aspartate Amino Transferase 19 U/L (5-37); Bilirubin Total 0.4 mg/dL (0.0-1.0); Blood Urea Nitrogen 21 mg/dL (9-16); Calcium 9.4 mg/dL (8.4-10.2); Carbon Dioxide 23 mmol/L (22-29); Chloride 105 mmol/L (96-108); Cholesterol 177 mg/dL; Estimated Glomerular Filt Rate 53; Glucose Fasting 94 mg/dL (60-99); HDL Cholesterol 38 mg/dL; LDL Cholesterol Calculated 98 mg/dl; Potassium 4.2 mmol/L (3.3-5.1); Sodium 138 mmol/L (135-145); Total Protein 7.4 g/dL (6.5-8.0); Triglycerides 207 mg/dL
[2022-02-05 08:59] LABS: Appearance Urine CLEAR; Color Urine YELLOW; Glucose Urine UA NEG (NEG); Leukocyte Esterase Urine NEG (NEG); Nitrite Urine NEG (NEG); Specific Gravity - Urine 1.025 (1.005-1.025); Urine Blood NEG (NEG); Urine Ketones 5 MG/DL (NEG); Urine Protein NEG (NEG-TRACE)
[2022-02-05 09:18] LABS: Prostate Specific Antigen Scr 1.23 ng/mL (<0.05-4.0); TSH reflex Free T4 1.53 uIU/mL (0.32-4.0); Vitamin D 25-OH Total 60.4 ng/mL (>30)
[2022-02-05 09:27] LABS: Folate 16.5 ng/mL (> or = 4.0)
[2022-02-05 09:29] LABS: Vitamin B12 1360 pg/mL (200-900)
== END 2022-02-05 07:40 | disposition home or self-care (01) ==
LOC: HO.LAB 07:39
PROVIDERS: PCP Internal Medicine; Visit Provider Internal Medicine
DX: Z00.00 Encounter for general adult medical examination without abnormal findings (principal); Z12.5 Encounter for screening for malignant neoplasm of prostate; E78.00 Pure hypercholesterolemia, unspecified; E55.9 Vitamin D deficiency, unspecified; E53.8 Deficiency of other specified B group vitamins; I10 Essential (primary) hypertension
CPT/HCPCS: 36415; 80053; 80061; 81003; 82306; 82607; 82746; 84153; 84443; 85025

== ENCOUNTER 2022-04-24 09:14 | Outpatient (REF) | payer OTHER, SELFPAY ==
[2022-04-24 09:39] LABS: MANUAL DIFF FLAG NO
[2022-04-24 10:04] LABS: Basophils Percent Auto 0.5 % (0-2); Eosinophils Absolute Auto 0.4 X10*3/uL (0.0-0.4); Eosinophils Percent Auto 5.4 % (0-4); Hematocrit 47.4 % (42.0-52.0); Hemoglobin 16.2 g/dl (14.0-18.0); Imm Gran Abs Auto 0.03 X10*3/uL (0.00-0.03); Imm Gran Pct Auto 0.5 % (0.0-0.4); Lymphocytes Absolute Auto 2.2 X10*3/uL (1.2-4.9); Lymphocytes Percent Auto 33.9 % (20-40); Mean Corpuscular HGB Conc 34.2 g/dl (31.0-36.0); Mean Corpuscular Hemoglobin 31.2 pg (27.0-33.0); Mean Corpuscular Volume 91.2 fL (80.0-98.0); Mean Platelet Volume 11.3 fL (9.4-12.4); Monocytes Absolute Auto 0.5 X10*3/uL (0.1-1.2); Monocytes Percent Auto 7.9 % (2-11); Neutrophils Absolute Auto 3.4 x10*3/uL (2.0-8.3); Neutrophils Percent Auto 51.8 % (45-73); Platelet Count 300 X10*3/uL (160-400); Red Cell Distribution Width 12.4 % (11.0-16.0); White Blood Count 6.5 X10*3/uL (4.8-10.8)
[2022-04-24 10:15] LABS: Appearance Urine Clear; Color Urine Yellow; Glucose Urine UA Negative (Negative); Leukocyte Esterase Urine Negative (Negative); Nitrite Urine Negative (Negative); PH 5.5 (5.0-9.0); Specific Gravity - Urine 1.025 (1.005-1.025); Urine Blood Negative (Negative); Urine Ketones Trace mg/dL (Negative); Urine Protein Negative (Neg-Trace)
[2022-04-24 10:33] LABS: Alanine Aminotransferase 28 U/L (0-40); Alkaline Phosphatase 56 U/L (39-117); Anion Gap 18 (12-20); Aspartate Amino Transferase 21 U/L (5-37); Bilirubin Total 0.7 mg/dL (0.0-1.0); Blood Urea Nitrogen 19 mg/dL (9-16); Calcium 10.2 mg/dL (8.4-10.2); Carbon Dioxide 23 mmol/L (22-29); Chloride 103 mmol/L (96-108); Cholesterol 222 mg/dL; Estimated Glomerular Filt Rate 56; Glucose Fasting 93 mg/dL (60-99); HDL Cholesterol 40 mg/dL; LDL Cholesterol Calculated 115 mg/dl; Potassium 5.3 mmol/L (3.3-5.1); Sodium 139 mmol/L (135-145); Total Protein 7.8 g/dL (6.5-8.0); Triglycerides 336 mg/dL; Uric Acid 5.5 mg/dL (3.4-7.0)
== END 2022-04-24 09:15 | disposition home or self-care (01) ==
LOC: HO.LAB 09:14
PROVIDERS: PCP Internal Medicine; Visit Provider Internal Medicine
DX: E78.00 Pure hypercholesterolemia, unspecified (principal); M10.9 Gout, unspecified; R39.11 Hesitancy of micturition; N20.0 Calculus of kidney; I10 Essential (primary) hypertension
CPT/HCPCS: 36415; 80053; 80061; 81003; 84550; 85025

== ENCOUNTER 2022-04-27 10:34 | Outpatient (REF) | payer OTHER, SELFPAY ==
[2022-04-27 10:54] LABS: COVID-19 Test Positive (Negative)
== END 2022-04-27 10:35 | disposition home or self-care (01) ==
LOC: HO.LAB 10:34
PROVIDERS: Visit Provider Internal Medicine
DX: Z20.822 Contact with and (suspected) exposure to COVID-19 (principal)
CPT/HCPCS: 87635; C9803

== ENCOUNTER 2022-05-07 14:18 | Outpatient (REF) | payer OTHER, SELFPAY ==
[2022-05-07 14:49] LABS: COVID-19 Test Negative (Negative); IDNOW Serial# 16C4AD1C
== END 2022-05-07 14:19 | disposition home or self-care (01) ==
LOC: HO.LAB 14:18
PROVIDERS: Visit Provider Internal Medicine
DX: Z20.822 Contact with and (suspected) exposure to COVID-19 (principal)
CPT/HCPCS: 87635; C9803

== ENCOUNTER → 2022-08-20 11:03 | Outpatient (BNVA) | payer OTHER, SELFPAY | PROVIDERS: PCP Internal Medicine; Visit Provider Physician Assistant | DX: K59.09 Other constipation (principal); Z86.010 Personal history of colon polyps | CPT/HCPCS: 99202 ==

== ENCOUNTER → 2022-08-28 13:34 | Outpatient (BNVA) | payer OTHER, SELFPAY | PROVIDERS: PCP Internal Medicine; Visit Provider Psychiatry & Neurology Neurology | DX: M51.36 Other intervertebral disc degeneration, lumbar region (principal); R27.0 Ataxia, unspecified | CPT/HCPCS: 99202 ==

== ENCOUNTER 2022-09-14 10:11 | Outpatient (REF) | payer OTHER, SELFPAY ==
--- NOTE | ~2022-09-14 | MR_ITS ---
EXAMINATION: MRI OF THE BRAIN WITHOUT CONTRAST CLINICAL INFORMATION: Ataxia. COMPARISON: MRI scan of the brain 09/20/2015. CT scan of the head 08/02/2020. TECHNIQUE: MRI of the brain was obtained using routine sequences without contrast. FINDINGS: No diffusion abnormalities are identified to suggest an acute or subacute infarct. No mass effect or midline shift is seen. The ventricles and sulci are normal in size. The study redemonstrates prominence of the sulci in the bilateral cerebellar hemispheres and vermis, similar compared to prior imaging. There are a few scattered foci of hyperintense T2 and FLAIR signal in the periventricular and subcortical white matter which are nonspecific, and appear unchanged compared to prior imaging. No extra-axial fluid collections are seen. The brainstem appears normal. No pathologic magnetic susceptibility artifact is identified on the gradient refocused acquisition. The craniovertebral junction, marrow signal, and midline structures are normal. The major intracranial flow-voids at the level of the [place] are preserved. The dural venous sinus flow-voids are maintained. There is trace fluid at the right mastoid tip. There is mucoperiosteal thickening in the bilateral ethmoid and frontal sinuses, and there are small retention cysts in the inferior maxillary sinuses bilaterally. MR/MR head/brain wo con IMPRESSION: 1. There are no acute bleeds or infarcts. No masses are demonstrated. 2. The study redemonstrates cerebellar volume loss, similar compared to prior imaging.
== END 2022-09-14 10:12 | disposition home or self-care (01) ==
LOC: HO.MRI 10:11
PROVIDERS: PCP Internal Medicine; Visit Provider Psychiatry & Neurology Neurology
DX: R27.0 Ataxia, unspecified (principal)
CPT/HCPCS: 70551

== ENCOUNTER → 2022-10-15 12:25 | Outpatient (BNVA) | payer OTHER, SELFPAY | PROVIDERS: PCP Internal Medicine; Referring Provider Internal Medicine; Visit Provider Physician Assistant | DX: K59.09 Other constipation (principal); Z59.00 Homelessness unspecified | CPT/HCPCS: 99212 ==

== ENCOUNTER 2022-10-19 08:10 | Outpatient (REF) | payer OTHER, SELFPAY ==
[2022-10-19 08:27] LABS: MANUAL DIFF FLAG NO
[2022-10-19 08:42] LABS: Basophils Percent Auto 0.4 % (0-2); Eosinophils Absolute Auto 0.4 X10*3/uL (0.0-0.4); Eosinophils Percent Auto 4.2 % (0-4); Hematocrit 45.6 % (42.0-52.0); Hemoglobin 15.7 g/dl (14.0-18.0); Imm Gran Abs Auto 0.02 X10*3/uL (0.00-0.03); Imm Gran Pct Auto 0.2 % (0.0-0.4); Lymphocytes Absolute Auto 2.8 X10*3/uL (1.2-4.9); Lymphocytes Percent Auto 33.9 % (20-40); Mean Corpuscular HGB Conc 34.4 g/dl (31.0-36.0); Mean Corpuscular Hemoglobin 31.6 pg (27.0-33.0); Mean Corpuscular Volume 91.8 fL (80.0-98.0); Mean Platelet Volume 11.6 fL (9.4-12.4); Monocytes Absolute Auto 0.7 X10*3/uL (0.1-1.2); Monocytes Percent Auto 8.3 % (2-11); Neutrophils Absolute Auto 4.4 x10*3/uL (2.0-8.3); Platelet Count 273 X10*3/uL (160-400); Red Blood Count 4.97 X10*6/uL (4.60-5.80); Red Cell Distribution Width 13.2 % (11.0-16.0); White Blood Count 8.3 X10*3/uL (4.8-10.8)
[2022-10-19 09:21] LABS: Appearance Urine Clear; Color Urine Yellow; Glucose Urine UA Negative (Negative); Leukocyte Esterase Urine Negative (Negative); Nitrite Urine Negative (Negative); PH 5.5 (5.0-9.0); Urine Blood Negative (Negative); Urine Ketones Negative (Negative); Urine Protein Negative (Neg-Trace)
[2022-10-19 09:30] LABS: Alanine Aminotransferase 33 U/L (0-40); Albumin Level 4.6 g/dL (3.5-5.0); Alkaline Phosphatase 57 U/L (39-117); Anion Gap 16 (12-20); Aspartate Amino Transferase 20 U/L (5-37); Bilirubin Total 0.9 mg/dL (0.0-1.0); Blood Urea Nitrogen 26 mg/dL (9-16); Calcium 9.9 mg/dL (8.4-10.2); Carbon Dioxide 23 mmol/L (22-29); Chloride 108 mmol/L (96-108); Cholesterol 229 mg/dL; Estimated Glomerular Filt Rate 57; Glucose Fasting 95 mg/dL (60-99); HDL Cholesterol 39 mg/dL; LDL Cholesterol Calculated 129 mg/dl; Potassium 4.5 mmol/L (3.3-5.1); Sodium 142 mmol/L (135-145); Total Protein 7.1 g/dL (6.5-8.0); Triglycerides 307 mg/dL
[2022-10-19 09:50] LABS: TSH reflex Free T4 1.67 uIU/mL (0.32-4.0); Vitamin D 25-OH Total 52.4 ng/mL (>30)
== END 2022-10-19 08:11 | disposition home or self-care (01) ==
LOC: HO.LAB 08:10
PROVIDERS: PCP Internal Medicine; Visit Provider Internal Medicine
DX: E78.00 Pure hypercholesterolemia, unspecified (principal); E55.9 Vitamin D deficiency, unspecified; R30.0 Dysuria; I10 Essential (primary) hypertension
CPT/HCPCS: 36415; 80053; 80061; 81003; 82306; 84443; 85025

== ENCOUNTER 2022-11-19 14:05 | Outpatient (REF) | payer OTHER, SELFPAY ==
--- NOTE | ~2022-11-19 | FL_ITS ---
EXAMINATION: XR BARIUM SWALLOW CLINICAL INFORMATION: Nausea COMPARISON: None available. TECHNIQUE: Fluoroscopy guidance was provided for barium swallow performed by the speech and hearing department. The patient was administered liquid barium and applesauce. Solid food not administered due to patient's history of food allergy. FINDINGS: No aspiration or penetration is seen. No retention. FLUOROSCOPY TIME: 0.6 minutes DOSE AREA PRODUCT: 0.1 solis per centimeter squared. Total dose 3 mgy. 1 saved fluoroscopic image. FL/FL barium swallow modified IMPRESSION: Unremarkable examination. See speech and hearing report for detailed findings.
--- NOTE | 2022-11-20 13:31 | MHC.SL.IMP ---
Date of Plan of Treatment: 11/19/22 Onset of Symptoms/Illness: 11/19/18 Date Treatment Started: 11/19/22 Admitting Diagnosis: Medical History (Updated 11/02/22 @ 13:04 by Ignacio Flores MD) Abnormality of gait Allergic rhinitis Asthma Ataxia Benign essential hypertension Benign prostatic hyperplasia Cerebellar atrophy Chronic constipation Constipation GERD without esophagitis HTN (hypertension) Lumbar degenerative disc disease Migraine Mixed hyperlipidemia Nephrolithiasis Orchalgia Overweight (BMI 25.0-29.9) Pure hypercholesterolemia Renal calculus, bilateral Right flank pain Right otitis media Vitamin D deficiency Primary Speech & Language Diagnosis: R13.10 Dysphagia Reason for Today's Visit: 74769 Modified Barium Swallow Study Pre-evaluation Dietary Consistencies: Regular Pre-evaluation Liquid Consistency: Thin Pre-evaluation Medication Administration: Whole with Liquid Medical History: Modified Barium Swallow Study Fluoroscopic Evaluation of Swallowing Function CPT Code 91318 Evaluation Year: 2022 Reason for Study: Pt reports difficulty swallowing. Referring Physician: Ignacio Flores MD Evaluating Clinician: Karol Rodríguez MA, CCC-CLINICAL RN LIAISON Study Number: 1 Patient Name: Josh Patel Status: Outpatient, Ambulatory/Assisted Age: 52 Gender: Male Medical History Medical History (Updated 11/02/22 @ 13:04 by Ignacio Flores MD) Abnormality of gait Allergic rhinitis Asthma Ataxia Benign essential hypertension Benign prostatic hyperplasia Cerebellar atrophy Chronic constipation Constipation GERD without esophagitis HTN (hypertension) Lumbar degenerative disc disease Migraine Mixed hyperlipidemia Nephrolithiasis Orchalgia Overweight (BMI 25.0-29.9) Pure hypercholesterolemia Renal calculus, bilateral Right flank pain Right otitis media Vitamin D deficiency Surgical History History of cystoscopy History of esophagogastroduodenoscopy (EGD) History of extraction of renal calculus History of lithotripsy Hx of elbow surgery Current (pre-evaluation) Intake/Diet: Route: PO Diet Grade: Regular (Pt reports ?cutting up? food) Liquid Consistencies: Thin Pre-Study Functional Oral Intake Scale (FOIS): 7- Total oral intake with no restrictions Pain: None reported at time of study SUBJECTIVE: Pt is a 52 year old male referred for a modified barium swallow study by his PCP, Dr. Flores, due to reported difficulties swallowing. Pt reports choking on ?what feels like phlegm oozing down? when he?s swallowing and that he vomits. He also reports globus sensation with solids and no difficulties swallowing liquids. Pt stated that at times rice will come up his nose. Pt denies odynophagia. He reportedly cuts up his food at home and ?mashes some food like baby food.? Pt reports onset of symptoms approximately 4 years ago. Pt has history of cerebellar atrophy, ataxia, and GERD. Oral Motor Exam Facial Symmetry: Symmetrical Mouth Occlusion: Normal Oral-Facial Teeth Characteristics: Intact/Normal Oral-Facial Lip Pucker Description: Normal Oral-Facial Smile (Lips) Description: Normal Oral-Facial Puff Cheeks Description: Normal Tongue Size: Normal Tongue Range of Movement Description: Normal Tongue Speed of Movement Description: Normal Tongue Strength of Movement (against opposing pressure): Normal Tongue Movement Characteristics: Normal/Absent Is patient able to manage secretions?: Yes Food and Liquid Trials: Oral Impairment: Lip Closure: 0=No labial escape Oral Impairment: Tongue Control During Bolus Hold: 0=Cohesive bolus between tongue to palatal seal Oral Impairment: Bolus Preparation/Mastication: Did not test Oral Impairment: Bolus Transport/Lingual Motion: 0=Brisk tongue motion Oral Impairment: Oral Residue: 1=Trace residue lining oral structures Oral Impairment:Initiation of Pharyngeal Swallow: 0=Bolus head at posterior angle of ramus (first hyoid excursion) Pharyngeal Impairment: Soft Palate Elevation: 0=No bolus between soft palate (SP)/pharyngeal wall (PW) Pharyngeal Impairment: Laryngeal Elevation: 1=Partial thyroid cartilage/arytenoids to epiglottic petiole movement Pharyngeal Impairment: Anterior Hyoid Excursion: 1=Partial anterior movement Pharyngeal Impairment: Epiglottic Movement: 0=Complete inversion Pharyngeal Impairment: Laryngeal Vestibular Closure:: 0=Complete: no air/contrast in laryngeal vestibule Pharyngeal Impairment: Pharyngeal Stripping Wave: 0=Present: complete Pharyngeal Impairment: Pharyngeal Contraction: Did not test Pharyngeal Impairment: Pharyngoesophageal Segment Openin=Complete distension and complete duration: no obstruction of flow Pharyngeal Impairment: Tongue Base (TB) Retraction: 1=Trace column of contrast/air between TB and posterior PW Pharyngeal Impairment: Pharyngeal Residue: 0=Complete pharyngeal clearance Pharyngeal Impairment: Esophageal Clearance Upright Position: Did not test Impressions and Recommendations OBJECTIVE: Time-out: performed at 15:00 Evaluation Start: 14:45; Stop: 14:47 Patient Positioning: Standing Viewing Planes: LATERAL ONLY Contrast: MBSImP? Standardized Protocol using commercially prepared, standardized Barium viscosities, including: Varibar? THIN LIQUID (40% w/v, <15 cps) MBSImP ID: [id number] Results: Lip closure for intraoral bolus containment resulted in no labial escape. Tongue control during bolus hold maintained a cohesive bolus held between tongue to palate seal. Bolus preparation and mastication could not be assessed; solid not given due to logistical reasons or safety concerns unrelated to oral impairment. Bolus transport/lingual motion was with brisk tongue motion. Oral residue was a trace, lining oral structures. Initiation of the pharyngeal swallow occurred as the bolus head reached the posterior angle of the mandibular ramus. Soft palate elevation resulted in no bolus between the soft palate and the pharyngeal wall. Laryngeal elevation was decreased, with partial superior movement of the thyroid cartilage/partial approximation of the arytenoids to the epiglottic petiole. Anterior hyoid excursion demonstrated partial anterior movement. Epiglottic movement resulted in complete inversion. Laryngeal vestibular closure was complete, as indicated by no air or contrast within the laryngeal vestibule at the height of the swallow. Pharyngeal stripping wave was present and complete. Pharyngeal contraction could not be determined due to logistical reasons not related to physiologic impairment. Pharyngoesophageal segment opening was completely distended for complete duration with no obstruction of bolus flow. Tongue base retraction allowed a trace column of contrast or air between the retracted tongue base and the posterior pharyngeal wall. Pharyngeal residue was not present. There was complete pharyngeal clearance. Esophageal clearance in the upright position could not be assessed due to logistical reasons not related to physiologic impairment. Oral Impairment Score: 0 (absence of score, component 3) Pharyngeal Impairment Score: 2 (absence of score, component 13) Esophageal Impairment Score: --- (absence of score, component 17) Laryngeal Penetration and Aspiration: Neither penetration nor aspiration was observed in today's study with Thin. ASSESSMENT: This exam was conducted by a multidisciplinary team, which included a speech pathologist, radiologist, and digital imaging technician. Pt was standing for lateral view only. Pt trialed the following liquid and solid consistencies: thin liquid barium (5 mL, individual cup sip with bolus hold, sequential cup sips), pureed solid (applesauce mixed with barium paste), whole barium pill tablet with sips of water. Other solids were not trialed due to patient?s history of food allergies. There was good lip closure with no anterior spillage. Good lingual control. No posterior escape of bolus. Posterior lingual motion was timely and brisk. Pharyngeal swallow trigger was timely. There was no nasopharyngeal reflux. Incomplete laryngeal elevation, with complete epiglottic inversion and complete laryngeal vestibular closure. No evidence of aspiration or penetration during this exam. There was trace lingual residue which subsequently cleared. Complete clearance of the valleculae and pyriform sinuses. Pt swallowed barium pill with sips of water. Barium pill passed through oral cavity and pharynx with no hang up. No obstruction of flow through the pharyngoesophageal segment opening. Liquid Intake Recommendation: Thin Liquid Intake Strategies: Small Sips Dietary Recommendations: Regular Medication Administration: Whole with Liquid Please contact the pharmacy regarding appropriate crushable or liquid drug formulations that are available whenever modified delivery is recommended. Compensatory Strategies Recommended: Sitting Upright (90 deg), Small Bites and Sips, Alternate Liquids/Solids, Rate of Ingestion Change Supervision during eating and or drinking: None Needed Recommendation for Speech Therapy: NA:Typical Evaluation PLAN: Intake Recommendations: Route: PO Diet Grade: Regular Liquid Consistencies: Thin Post-Study Functional Oral Intake Scale (FOIS): 7- Total oral intake with no restrictions No evidence of aspiration or penetration with trials of puree solid and thin liquid. Pt demonstrated good oral and pharyngeal clearance as well. Other solids were not trialed due to the patient?s reported food allergies. Recommend pt resume with regular texture solids and thin liquids: Pt reports he ?cuts up? or ?mashes? his food as he tolerates it better that way. Pt may also consider moistening food with sauces and gravies as needed. Further ST intervention is no longer warranted as this exam revealed pt?s swallow ability to be WFL. Given his history of neurological diagnoses, recommend pt to continue monitoring dysphagia. If there are any changes or further concern, CLINICAL RN LIAISON can be re-consulted, at which point a re-evaluation may be indicated. Pt may also benefit from further work up with Amrita due to his history of GERD and complaints of vomiting. Suggested Referrals: The patient might benefit from a referral to: Gastroenterology, Neurology Therapy Recommendations: Therapy will be discontinued Prognosis for Improvement: The prognosis for the patient to meet nutritional needs by mouth is excellent based on degree of impairment. Clinician - Supplemental, Miscellaneous Communication: It is important to note MBSS objective studies are snapshots in time and Patient function might vary with factors such as time of day or concomitant medical conditions. For this reason, the final treatment plan for this patient should rest with their medical care team. Additional recommendations should be considered with the totality of the Patient in mind. Thank for the opportunity to participate in the care of this patient. If you have any questions about the content of this report, please contact the Speech and [facility] at [facility]. Education: Education regarding findings from today's study and plans for therapy were provided to Patient only through Verbal Instruction. Understanding was expressed by the Patient only. Commercial Front Load Operator Clinician/Clinical Fellow: No Supervisory Statement: N/A Speech Language Pathologist: Karol Rodríguez M.A., CCC-CLINICAL RN LIAISON
== END 2022-11-19 14:06 | disposition home or self-care (01) ==
LOC: HO.XRAY 14:05
PROVIDERS: PCP Internal Medicine; Visit Provider Internal Medicine
DX: R11.0 Nausea (principal); G31.9 Degenerative disease of nervous system, unspecified
CPT/HCPCS: 74230; 92611

== ENCOUNTER → 2022-11-23 08:50 | Outpatient (BNVA) | payer OTHER, SELFPAY | PROVIDERS: PCP Internal Medicine; Visit Provider Nurse Practitioner Family | DX: R27.0 Ataxia, unspecified (principal); M51.36 Other intervertebral disc degeneration, lumbar region | CPT/HCPCS: 99212 ==

== ENCOUNTER 2022-12-04 13:00 | Outpatient (RCR) | payer OTHER, SELFPAY ==
[2022-09-25 10:12] VITALS: BP 127/89; PULSE 85; O2SAT 95
--- NOTE | 2022-09-25 12:18 | MHC.PT.EP ---
[facility] [place] Office [place] Office [place] Office [address] Maru Cee [address] [phone] F: [phone] F: [phone] F: [phone] F: [phone] Physical Therapy Plan of Care Date of Evaluation: Date of Surgery: Diagnosis: ATAXIA-> PT EVAL FOR GAIT TRAINING Assessment: 51 YO MALE REF TO PT W A DX OF ATAXIA, PROGRESSIVE x APPROX 5 YRS. HE IS CURRENTLY AMB W A CANE W A WIDE BASED ROCKER BOTTOM- HE DENIES LEs ORTHOTICS. Pt HAS DECENT [place] IN [place] LEs, (-) SENSORY DEFICITS, LUMBOPELVIC AND Rt > Lt LE STRENGTH DEFICITS, DECR COORDINATED MVMT IN Rt > Lt LE, AND (+) DYNAMIC BALANCE IMPAIRMENTS. FUNCTIONALLY, Pt DISPLAYS ALTERED GAIT MECH, STATIC < DYNAMIC BALANCE DEFICITS W FUNCT ADLs (HE WAS ABLE TO PERF SIT <-> STAND W/O UEs USAGE, HOWEVER, DECR STABILTY), AND INCR EFFORT W STAIR MGMT. Pt WOULD BENEFIT FROM PT TO ADDRESS THE ABOVE FINDINGS, DEV A HEP,AND IMPROVE BALANCE W FUNCTIONAL ADLs. Frequency and Duration: The patient will be seen 2 x WK x 8 WKS Short Term Goals: *Pt DEMON IMPROVED SIT <-> STAND TRANSFERS (INCR LEs STABILITY, REDUCED UEs COMPENSATION) *DEV HEP *IMPROVE TUG SCORE (22 SEC AT EVAL, W CANE) Machine Binding Folder Goals: IMPROVED 4 STAGE BALANCE TEST AND 30 SEC SIT<-> STAND (5R AT EVAL) Pt INDEP W HEP PROGRESSION AND SELF-SX MGMT STRATEGIES IN 8 WKS Pt PERFORM IMPROVED ADLs AND FUNCT MOB EVIDENT W IMPROVED LEFI SCORE BY 8-10 POINTS (AT EVAL28/80 ) IN 8 WKS Pt INCR LUMBOPELVIC / PROX LEs STRENGTH BY 1 GRADE IN 8 WKS Treatment Plan: Modalities to reduce pain, spasms and effusion. Manual therapy to restore motion and function. Therapeutic exercise to improve strength and flexibility. Neuromuscular re-education for posture and balance. Therapeutic activities to return to functional activities of daily living. Electronically signed by: JOHN ZAYAS,PT Please sign and return to therapist. Thank you for your referral.
--- NOTE | 2022-12-04 13:57 | MHC.PT.DC ---
[facility] [place] Office [place] Office [place] Office [address] Maru Cee [address] [facility] [phone] F: [phone] F: [phone] F: [phone] F: [phone] Physical Therapy Discharge Report Diagnosis: ATAXIA-> PT EVAL FOR GAIT TRAINING Date of Surgery: Date of Evaluation: 09/25/22 Date of Discharge: 12/04/22 Treatments to Date: 7 Cancellations to Date: 7 No Shows to Date: 1 Discharge Status: Achieved Goals Improved Function Independent with HEP Discharge Summary: Pt HAS PROGRESSED WITH FUNCTIONAL MOBILITY AND TRUNK/LEs STRENGTH EVIDENT W IMPROVED DYNAMIC BALANCE AND IMPROVED FUNCTIONAL TEST SCORES- HE HAS MET HIS PT GOALS TO MAX POTENTIAL AT THIS TIME AND IS READY FOR D/C. THE Pt IS INDEP AND MOTIVATED W HIS HEP. HIS LEFI SCORE AT EVAL ON 09/25/22 WAS 28/80 AND TODAY AT D/C , 61/80; TUG SCORE IMPROVED FROM 22 SEC TO 12 SECONDS. Electronically signed by: JOHN ZAYAS,PT Please sign and return to therapist. Thank you for your referral.
== END 2022-12-04 13:57 | disposition home or self-care (01) ==
LOC: HO.PT 13:00
PROVIDERS: PCP Internal Medicine; Visit Provider Psychiatry & Neurology Neurology
DX: R27.0 Ataxia, unspecified (principal)
CPT/HCPCS: 97110; 97112; 97162

== ENCOUNTER 2022-12-11 07:53 | Outpatient (REF) | payer OTHER, SELFPAY ==
[2022-12-11 08:15] LABS: MANUAL DIFF FLAG NO
[2022-12-11 09:10] LABS: Basophils Percent Auto 0.5 % (0-2); Eosinophils Absolute Auto 0.5 X10*3/uL (0.0-0.4); Eosinophils Percent Auto 8.8 % (0-4); Hematocrit 43.4 % (42.0-52.0); Hemoglobin 14.6 g/dl (14.0-18.0); Imm Gran Abs Auto 0.02 X10*3/uL (0.00-0.03); Imm Gran Pct Auto 0.3 % (0.0-0.4); Lymphocytes Absolute Auto 2.2 X10*3/uL (1.2-4.9); Lymphocytes Percent Auto 35.2 % (20-40); Mean Corpuscular HGB Conc 33.6 g/dl (31.0-36.0); Mean Corpuscular Hemoglobin 31.3 pg (27.0-33.0); Mean Corpuscular Volume 93.1 fL (80.0-98.0); Mean Platelet Volume 12.2 fL (9.4-12.4); Monocytes Absolute Auto 0.5 X10*3/uL (0.1-1.2); Monocytes Percent Auto 8.1 % (2-11); Neutrophils Absolute Auto 2.9 x10*3/uL (2.0-8.3); Neutrophils Percent Auto 47.1 % (45-73); Platelet Count 267 X10*3/uL (160-400); Red Blood Count 4.66 X10*6/uL (4.60-5.80); Red Cell Distribution Width 12.9 % (11.0-16.0); White Blood Count 6.2 X10*3/uL (4.8-10.8)
[2022-12-11 09:17] LABS: Appearance Urine Clear; Color Urine Yellow; Glucose Urine UA Negative (Negative); Leukocyte Esterase Urine Negative (Negative); Nitrite Urine Negative (Negative); Urine Blood Negative (Negative); Urine Ketones Negative (Negative); Urine Protein Negative (Neg-Trace)
[2022-12-11 09:41] LABS: Anion Gap 12 (12-20); Blood Urea Nitrogen 16 mg/dL (9-16); Calcium 9.8 mg/dL (8.4-10.2); Carbon Dioxide 28 mmol/L (22-29); Chloride 107 mmol/L (96-108); Estimated Glomerular Filt Rate > 60; Glucose Random 101 mg/dL (60-115); Potassium 4.3 mmol/L (3.3-5.1); Sodium 143 mmol/L (135-145)
== END 2022-12-11 07:54 | disposition home or self-care (01) ==
LOC: HO.LAB 07:53
PROVIDERS: PCP Internal Medicine; Visit Provider Physician Assistant
DX: N20.0 Calculus of kidney (principal); N39.0 Urinary tract infection, site not specified
CPT/HCPCS: 36415; 80048; 81003; 85025

== ENCOUNTER 2023-01-11 07:32 | Outpatient (REF) | payer OTHER, SELFPAY ==
[2023-01-11 07:48] LABS: MANUAL DIFF FLAG NO
[2023-01-11 08:15] LABS: Basophils Percent Auto 0.3 % (0-2); Eosinophils Absolute Auto 0.5 X10*3/uL (0.0-0.4); Eosinophils Percent Auto 6.8 % (0-4); Hematocrit 47.7 % (42.0-52.0); Hemoglobin 16.2 g/dl (14.0-18.0); Imm Gran Abs Auto 0.01 X10*3/uL (0.00-0.03); Imm Gran Pct Auto 0.1 % (0.0-0.4); Lymphocytes Absolute Auto 2.5 X10*3/uL (1.2-4.9); Lymphocytes Percent Auto 31.7 % (20-40); Mean Corpuscular Volume 91.4 fL (80.0-98.0); Mean Platelet Volume 11.6 fL (9.4-12.4); Monocytes Absolute Auto 0.7 X10*3/uL (0.1-1.2); Monocytes Percent Auto 8.7 % (2-11); Neutrophils Absolute Auto 4.2 x10*3/uL (2.0-8.3); Neutrophils Percent Auto 52.4 % (45-73); Platelet Count 318 X10*3/uL (160-400); Red Blood Count 5.22 X10*6/uL (4.60-5.80); Red Cell Distribution Width 12.7 % (11.0-16.0); White Blood Count 7.9 X10*3/uL (4.8-10.8)
[2023-01-11 08:59] LABS: Appearance Urine Cloudy; Color Urine Yellow; Glucose Urine UA Negative (Negative); Leukocyte Esterase Urine Negative (Negative); Nitrite Urine Negative (Negative); PH 5.5 (5.0-9.0); Specific Gravity - Urine 1.025 (1.005-1.025); Urine Blood Negative (Negative); Urine Ketones Trace mg/dL (Negative); Urine Protein Trace mg/dL (Neg-Trace)
[2023-01-11 09:27] LABS: Alanine Aminotransferase 29 U/L (0-40); Albumin Level 4.8 g/dL (3.5-5.0); Alkaline Phosphatase 71 U/L (39-117); Anion Gap 17 (12-20); Aspartate Amino Transferase 25 U/L (5-37); Bilirubin Total 0.4 mg/dL (0.0-1.0); Blood Urea Nitrogen 21 mg/dL (9-16); Calcium 10.6 mg/dL (8.4-10.2); Carbon Dioxide 23 mmol/L (22-29); Chloride 104 mmol/L (96-108); Cholesterol 211 mg/dL; Estimated Glomerular Filt Rate > 60; Glucose Fasting 111 mg/dL (60-99); HDL Cholesterol 37 mg/dL; Potassium 3.9 mmol/L (3.3-5.1); Sodium 140 mmol/L (135-145); Total Protein 8.2 g/dL (6.5-8.0); Triglycerides 506 mg/dL
[2023-01-11 09:43] LABS: TSH reflex Free T4 2.17 uIU/mL (0.32-4.0); Vitamin D 25-OH Total 63.4 ng/mL (>30)
== END 2023-01-11 07:33 | disposition home or self-care (01) ==
LOC: HO.LAB 07:32
PROVIDERS: PCP Internal Medicine; Visit Provider Internal Medicine
DX: I10 Essential (primary) hypertension (principal); R30.0 Dysuria; E78.00 Pure hypercholesterolemia, unspecified; E55.9 Vitamin D deficiency, unspecified
CPT/HCPCS: 36415; 80053; 80061; 81003; 82306; 84443; 85025

== ENCOUNTER 2023-02-11 09:25 | Outpatient (REF) | payer OTHER, SELFPAY ==
[2023-02-11 09:47] LABS: MANUAL DIFF FLAG NO
[2023-02-11 10:18] LABS: Basophils Percent Auto 0.4 % (0-2); Eosinophils Absolute Auto 0.7 X10*3/uL (0.0-0.4); Eosinophils Percent Auto 11.9 % (0-4); Hematocrit 47.1 % (42.0-52.0); Hemoglobin 15.6 g/dl (14.0-18.0); Imm Gran Abs Auto 0.01 X10*3/uL (0.00-0.03); Imm Gran Pct Auto 0.2 % (0.0-0.4); Lymphocytes Absolute Auto 2.1 X10*3/uL (1.2-4.9); Lymphocytes Percent Auto 36.7 % (20-40); Mean Corpuscular HGB Conc 33.1 g/dl (31.0-36.0); Mean Corpuscular Hemoglobin 31.2 pg (27.0-33.0); Mean Corpuscular Volume 94.2 fL (80.0-98.0); Mean Platelet Volume 11.9 fL (9.4-12.4); Monocytes Absolute Auto 0.4 X10*3/uL (0.1-1.2); Monocytes Percent Auto 7.3 % (2-11); Neutrophils Absolute Auto 2.4 x10*3/uL (2.0-8.3); Neutrophils Percent Auto 43.5 % (45-73); Platelet Count 300 X10*3/uL (160-400); Red Cell Distribution Width 12.8 % (11.0-16.0); White Blood Count 5.6 X10*3/uL (4.8-10.8)
[2023-02-11 11:03] LABS: Alanine Aminotransferase 26 U/L (0-40); Albumin Level 4.7 g/dL (3.5-5.0); Alkaline Phosphatase 59 U/L (39-117); Anion Gap 17 (12-20); Aspartate Amino Transferase 20 U/L (5-37); Bilirubin Total 0.7 mg/dL (0.0-1.0); Blood Urea Nitrogen 16 mg/dL (9-16); Calcium 10.3 mg/dL (8.4-10.2); Carbon Dioxide 20 mmol/L (22-29); Chloride 110 mmol/L (96-108); Cholesterol 167 mg/dL; Estimated Glomerular Filt Rate > 60; Glucose Fasting 88 mg/dL (60-99); HDL Cholesterol 34 mg/dL; LDL Cholesterol Calculated 87 mg/dl; Potassium 4.4 mmol/L (3.3-5.1); Sodium 143 mmol/L (135-145); Triglycerides 233 mg/dL
== END 2023-02-11 09:26 | disposition home or self-care (01) ==
LOC: HO.LAB 09:25
PROVIDERS: PCP Internal Medicine; Visit Provider Internal Medicine
DX: E78.00 Pure hypercholesterolemia, unspecified (principal); I10 Essential (primary) hypertension
CPT/HCPCS: 36415; 80053; 80061; 85025

== ENCOUNTER 2023-02-11 12:01 | Outpatient (AMB) | payer OTHER, SELFPAY ==
[2023-02-11 12:29] VITALS: BP 124/92; PULSE 79; O2SAT 97; BMI 25.4
--- NOTE | 2023-02-11 12:29 | MHC.PC.OV ---
Vital Signs 02/11/23 12:29 Height 6 ft Weight 187 lb 2 oz BMI 25.4 BP 124/92 H Blood Pressure Location Lt brachial Position Sitting Pulse 79 Pulse Source Pulse Oximeter Pulse Oximetry (%) 97 Oxygen Delivery Method Room Air Intake Visit Reasons: pt expressed worsening headache Dental Billing Specialist Required: No Accompanied by: Self / Same As Patient Allergies fenofibrate [Tricor] Allergy (Intermediate, Verified 02/11/23 13:00) Hives nut - unspecified [NUTS] Allergy (Intermediate, Verified 02/11/23 13:00) Hives seafood Allergy (Intermediate, Verified 02/11/23 13:00) Hives, Itchy fluocinolone acetonide Allergy (Unknown, Verified 02/11/23 13:00) Unknown lactose [LACTOSE] Adverse Reaction (Mild, Verified 02/11/23 13:00) Constipation Medication List - Last Reconciled 02/11/23 by Ignacio Flores MD acetaminophen ER 650 mg PO Q12H allopurinol 100 mg PO DAILY ascorbate calcium (vitamin C) 1,000 mg PO DAILY aspirin (Adult Low Dose Aspirin) 81 mg PO DAILY cetirizine (Zyrtec) 10 mg PO DAILY PRN cholecalciferol (vitamin D3) 25 mcg PO DAILY cyanocobalamin (vitamin B-12) 1,000 mcg PO DAILY docusate sodium (Colace) 200 mg (2 x 100 mg) PO BEDTIME 90 days fluticasone furoate 50 mcg/actuation inhalation fluticasone propionate 50 mcg/actuation 2 sprays intranasal DAILY PRN 30 days gemfibrozil 600 mg PO BID lisinopril 10 mg PO DAILY methylcellulose (laxative) (Citrucel) 500 mg PO TID polyethylene glycol 3350 (Miralax) 17 grams PO DAILY PRN [ROLLATOR As directed] simethicone (Gas Relief (simethicone)) 125 mg PO TID-QID PRN tamsulosin 0.8 mg PO BEDTIME Tobacco use date assessed: 02/11/23 Dental Screening Dental Screen Date: 02/11/23 Did you have a dental visit in the last 12 months?: No Did you have a dental problem in the last 6 months where you did not have access to dental care?: No Was dental information given to patient?: Patient has dentist HPI pt expressed worsening headache HPI Details Patient comes in today complaining of worsening frequent headaches States that he has been experiencing recurrent headaches daily (sometime multiple times a day) for a while now Has noticed some blurring of vision associated with his headaches often and notes that he feels slightly better if he turns down the lights when he has headaches Notes (+) nausea at times with his headaches but not consistently and reports (+) dizziness often although these are more likely related to his cerebellar ataxia/degeneration He denies any chest pains, no increased SOB No vomiting, no abdominal pain and no change in bowel habits noted Has also noticed recently that he has several skin lesions and skin tags on his trunk, especially on the left side, and would like to see dermatology and have these removed if possible [facility] Medical History Abnormality of gait Allergic rhinitis Asthma Ataxia Benign essential hypertension Benign prostatic hyperplasia Cerebellar atrophy Chronic constipation Constipation GERD without esophagitis HTN (hypertension) Lumbar degenerative disc disease Migraine Mixed hyperlipidemia Nephrolithiasis Orchalgia Overweight (BMI 25.0-29.9) Pure hypercholesterolemia Renal calculus, bilateral Right flank pain Right otitis media Vitamin D deficiency Surgical History History of cystoscopy History of esophagogastroduodenoscopy (EGD) History of extraction of renal calculus History of lithotripsy Hx of elbow surgery Family History Father Hypertension CAD (coronary artery disease) Diabetes Cancer Mother Hypertension Acute CVA (cerebrovascular accident) Paternal Grandfather Throat cancer Sister Lupus Epilepsy Social History Household Members Other:: Homeless Housing: Apartment Alcohol intake: never Patient Tobacco Use Status: Never used Tobacco e-Cigarette/Vaping Use: Never Used Second Hand Smoke Exposure: Yes service: No Current occupational status: disabled Current occupational exposures/hazards: No Cognitive needs: Yes Hearing needs: No Vision needs: No Questionnaire PHQ-9 Over the last 2 weeks, how often have you been bothered by any of the following problems? 1. Little interest or pleasure in doing things: not at all 2. Feeling down, depressed, or hopeless: not at all 3. Trouble falling or staying asleep, or sleeping too much: not at all 4. Feeling tired or having little energy: not at all 5. Poor appetite or overeating: not at all 6. Feeling bad about yourself - or that you are a failure or have let yourself or your family down: not at all 7. Trouble concentrating on things, such as reading the newspaper or watching television: not at all 8. Moving or speaking so slowly that other people could have noticed. Or the opposite - being so fidgety or restless that you have been moving around a lot more than usual: not at all 9. Thoughts that you would be better off or of hurting yourself in some way: not at all Total score: 0 Depression Screening Interpretation: Negative 91454 - PHQ-9 Billing: Yes Source: Developed by Drs. Timothy Callahan, Susan Garcia, Jose Cruz Lloyd and colleagues, with an educational jim from [email or web address]. Thrive Questionnaire Date Thrive assessed: 02/11/23 I am a: Patient What is your living situation today?: I have a steady place to live Within the past 12 months, did the food you bought not last and you didn't have the money to get more?: Never true Within the past 12 months, did you worry whether your food would run out before you got money to buy more?: Never true Do you have trouble paying for medicines?: No Do you have trouble getting transportation to medical appointments?: No Do you have trouble paying your heating and electricity bill?: No Do you have trouble taking care of your child, family member or friend?: No Do you have trouble with day-to-day activities such as bathing, preparing meals, shopping, managing finances, etc.?: No Are you currently unemployed and looking for a job?: No Are you interested in more education?: No Currently or been in a relationship where the following occur: no concerns reported AUDIT C Alcohol Use Questionnaire (AUDIT-C) 1. How often do you have a drink containing alcohol?: Never 3. How often do you have six or more drinks on one occasion?: Never Total Score: 0 Score Reviewed/Action Taken: Yes JONATHAN-7 AMB Questionnaire JONATHAN-7 Date JONATHAN - 7 assessed: 02/11/23 Feeling nervous, anxious, or on edge: 0 = Not at all Not being able to stop or control worryin = Not at all Worrying too much about different things: 0 = Not at all Trouble relaxin = Not at all Being so restless that it is hard to sit still: 0 = Not at all Becoming easily annoyed or irritable: 0 = Not at all Feeling afraid as if something awful might happen: 0 = Not at all Total JONATHAN-7 score (0-4 normal; 5-9 mild; 10-14 moderate; 15-21 severe): 0 Source: Developed by Drs. Timothy Callahan, Susan Garcia, Jose Cruz Lloyd and colleagues, with an educational jim from [email or web address]. JONATHAN-7 Assessment Billing JONATHAN-7 Assessment Tool: JONATHAN-7 Assessment 32421 Review of Systems Const Reports fatigue, Denies fever(s) and Reports headache(s) (recurrent/frequent - see HPI) Eyes Reports photophobia ENT Denies dysphagia (but reports frequent throat sensation of stickiness when swallowing), Denies dizziness, Denies otalgia, Reports headache(s) (recurrent/frequent - see HPI), Denies neck pain, Denies odynophagia, Denies sinus pain and Denies sore throat Card Denies chest pain, Denies palpitations and Denies dyspnea Resp Denies cough and Denies dyspnea GI Denies abdominal pain, Denies constipation, Denies dysphagia (but reports frequent throat sensation of stickiness when swallowing), Denies diarrhea, Reports nausea (at times), Denies odynophagia and Denies vomiting Denies dysuria, Denies nocturia and Denies urinary frequency Musc Reports abnormal gait (unstable gait) and Denies neck pain Skin/Breast Details: (+) multiple skin tags on the trunk, especially on the left side Neuro Reports Abnormal speech present, Reports abnormal gait (unstable gait), Denies dizziness and Reports headache(s) (recurrent/frequent - see HPI) Endo Reports fatigue and Denies palpitations Aller/Immun Reports seasonal rhinorrhea Physical exam (Primary Care) Vital Signs: Last Vital Signs Pulse 79 02/11/23 12:29 BP 124/92 H 02/11/23 12:29 Pulse Ox 97 02/11/23 12:29 Oxygen Delivery Method Room Air 02/11/23 12:29 BMI result Body Mass Index 25.4 Tobacco/Smoking Status: Tobacco use Status Tobacco use date assessed 02/11/23 02/11/23 12:37 Patient Tobacco Use Status Never used Tobacco 02/11/23 12:37 e-Cigarette/Vaping Use Never Used 02/11/23 12:37 PHQ-9: PHQ-9 Score PHQ-9: Total score 0 02/11/23 12:37 Depression Screening Interpretation: Negative Thrive Assessment: Date of Thrive Assessment Date Thrive assessed 02/11/23 02/11/23 12:37 Currently or been in a relationship where the following occur: no concerns reported Const General: no acute distress and alert Orientation/consciousness: patient oriented x3 HENMT Ears: TM's normal bilaterally and EAC's normal Throat: Yes posterior oropharynx normal and Yes tonsils normal (no TP congestion) Eyes Direct Ophthalmoscopy: photophobia Neck Neck: Yes no lymphadenopathy and Yes supple Resp Auscultation: clear to auscultation bilaterally, no rales and no wheezes Cardio Rate: regular rate Rhythm: regular rhythm GI Palpation (GI): Soft to palpation and nontender Auscultation: normal bowel sounds Skin Other: (+) multiple scattered hyperpigmented skin lesions and a few skin tags on the trunk, especially on the left side Neuro General: patient oriented x3 Cognition (Neuro): normal cognition Speech: Abnormal speech present slurred (and slow speech) Extrem General: Yes no clubbing, cyanosis or edema Assessment and Plan Assessment & Plan (1) Chronic headaches: Code(s): R51.9 - Headache, unspecified; G89.29 - Other chronic pain Qualifiers: Headache type: unspecified Intractability: not intractable Qualified Code(s): R51.9 - Headache, unspecified; G89.29 - Other chronic pain Plan: Suspect migraine headaches or may be related to his cerebellar degeneration Most recent brain MRI done in September 2022 revealed no acute changes; still has cerebellar volume loss similar to prior imaging studies on 08/02/2020 Will start on a trial of prophylactic Tx with low dose Topiramate 25 mg Q HS (2) Cerebellar atrophy: Comment: [place] [facility] [place] showed (+) moderate cerebellar atrophy Code(s): G31.9 - Degenerative disease of nervous system, unspecified Plan: Patient's motor 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, 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 and unfortunately has no known treatment or cure Follow up with neurology as scheduled (3) Benign essential hypertension: Code(s): I10 - Essential (primary) hypertension Plan: Reinforced low sodium diet - goal is systolic BP of 120 mm or less Continue Lisinopril 10 mg QD (4) Skin tags, multiple acquired: Code(s): L91.8 - Other hypertrophic disorders of the skin Plan: Per request, will refer to dermatology for further evaluation and management Plan Follow up as scheduled in 3 weeks Orders: Referrals Dermatology Referral L91.8 - Other hypertrophic disorders of the skin Medications: New topiramate 25 mg PO BEDTIME 30 days 30 tabs 1RF G89.29 - Other chronic pain, R51.9 - Headache, unspecified Coding Level of Care Code Est Pt Level 4 (05371) Diagnoses Chronic headaches R51.9; G89.29 Headache type: unspecified Intractability: not intractable Cerebellar atrophy G31.9 Benign essential hypertension I10 Skin tags, multiple acquired L91.8 Additional Codes JONATHAN-7 Assessment Billing - JONATHAN-7 Assessment Tool: JONATHAN-7 Assessment 44510 ([id number])
== END 2023-02-11 13:06 | disposition home or self-care (01) ==
PROVIDERS: PCP Internal Medicine; Visit Provider Internal Medicine
DX: R51.9 Headache, unspecified (principal); G89.29 Other chronic pain; G31.9 Degenerative disease of nervous system, unspecified; I10 Essential (primary) hypertension; L91.8 Other hypertrophic disorders of the skin
CPT/HCPCS: 99214

== ENCOUNTER 2023-03-04 10:27 | Outpatient (AMB) | payer OTHER, SELFPAY ==
[2023-03-04 10:33] VITALS: BP 110/82; PULSE 85; O2SAT 97; BMI 24.8
--- NOTE | 2023-03-04 10:33 | MHC.PC.OV ---
Vital Signs 03/04/23 10:33 Height 6 ft Weight 183 lb BMI 24.8 BP 110/82 Blood Pressure Location Rt brachial Position Sitting Pulse 85 Pulse Source Pulse Oximeter Pulse Oximetry (%) 97 Oxygen Delivery Method Room Air Intake Visit Reasons: 4mth f/u Financial Services Associate Required: No Accompanied by: Self / Same As Patient Allergies fenofibrate [Tricor] Allergy (Intermediate, Verified 03/29/23 17:12) Hives nut - unspecified [NUTS] Allergy (Intermediate, Verified 03/29/23 17:12) Hives seafood Allergy (Intermediate, Verified 03/29/23 17:12) Hives, Itchy fluocinolone acetonide Allergy (Unknown, Verified 03/29/23 17:12) Unknown lactose [LACTOSE] Adverse Reaction (Mild, Verified 03/29/23 17:12) Constipation Medication List - Last Reconciled 03/04/23 by Ignacio Flores MD acetaminophen ER 650 mg PO Q12H allopurinol 100 mg PO DAILY ascorbate calcium (vitamin C) 1,000 mg PO DAILY aspirin (Adult Low Dose Aspirin) 81 mg PO DAILY cetirizine (Zyrtec) 10 mg PO DAILY PRN cholecalciferol (vitamin D3) 25 mcg PO DAILY cyanocobalamin (vitamin B-12) 1,000 mcg PO DAILY docusate sodium (Colace) 200 mg (2 x 100 mg) PO BEDTIME 90 days fluticasone furoate 50 mcg/actuation inhalation fluticasone propionate 50 mcg/actuation 2 sprays intranasal DAILY PRN 30 days gemfibrozil 600 mg PO BID lisinopril 10 mg PO DAILY methylcellulose (laxative) (Citrucel) 500 mg PO TID omeprazole 40 mg PO DAILY polyethylene glycol 3350 (Miralax) 17 grams PO DAILY PRN [ROLLATOR As directed] simethicone (Gas Relief (simethicone)) 125 mg PO TID-QID PRN tamsulosin 0.8 mg PO BEDTIME topiramate 25 mg PO BEDTIME 30 days Tobacco use date assessed: 03/04/23 Dental Screening Dental Screen Date: 03/04/23 Did you have a dental visit in the last 12 months?: Yes Did you have a dental problem in the last 6 months where you did not have access to dental care?: No Was dental information given to patient?: Patient has dentist HPI 4mth f/u HPI Details Patient comes in today for his follow up visit States that he feels okay He denies any headaches or dizziness lately Denies any chest pains, no increased SOB No nausea/vomiting, no abdominal pain but relates that he has been experiencing recurrent heartburns lately and that the sensation sometimes gets up into his throat Has been taking his Omeprazole daily but feels that it is not helping No change in bowel habits noted Had his follow up labs done a few weeks ago - to discuss his results [facility] Medical History Overweight (BMI 25.0-29.9) Ataxia Right otitis media Lumbar degenerative disc disease HTN (hypertension) Mixed hyperlipidemia Chronic constipation Asthma Cerebellar atrophy Abnormality of gait Nephrolithiasis Right flank pain Benign prostatic hyperplasia Allergic rhinitis Constipation Vitamin D deficiency Renal calculus, bilateral GERD without esophagitis Migraine Pure hypercholesterolemia Benign essential hypertension Orchalgia Surgical History History of cystoscopy History of esophagogastroduodenoscopy (EGD) History of lithotripsy History of extraction of renal calculus Hx of elbow surgery Family History Father Hypertension CAD (coronary artery disease) Diabetes Cancer Mother Hypertension Acute CVA (cerebrovascular accident) Paternal Grandfather Throat cancer Sister Lupus Epilepsy Social History Household Members Other:: Homeless Housing: Apartment Alcohol intake: never Patient Tobacco Use Status: Never used Tobacco e-Cigarette/Vaping Use: Never Used Second Hand Smoke Exposure: Yes service: No Current occupational status: disabled Current occupational exposures/hazards: No Cognitive needs: Yes Hearing needs: No Vision needs: No Questionnaire PHQ-9 Over the last 2 weeks, how often have you been bothered by any of the following problems? 1. Little interest or pleasure in doing things: not at all 2. Feeling down, depressed, or hopeless: not at all 3. Trouble falling or staying asleep, or sleeping too much: not at all 4. Feeling tired or having little energy: not at all 5. Poor appetite or overeating: not at all 6. Feeling bad about yourself - or that you are a failure or have let yourself or your family down: not at all 7. Trouble concentrating on things, such as reading the newspaper or watching television: not at all 8. Moving or speaking so slowly that other people could have noticed. Or the opposite - being so fidgety or restless that you have been moving around a lot more than usual: not at all 9. Thoughts that you would be better off or of hurting yourself in some way: not at all Total score: 0 Depression Screening Interpretation: Negative 49572 - PHQ-9 Billing: Yes Source: Developed by Drs. Timothy Callahan, Susan Garcia, Jose Cruz Lloyd and colleagues, with an educational jim from [employer]. Thrive Questionnaire Date Thrive assessed: 03/04/23 I am a: Patient What is your living situation today?: I have a steady place to live Within the past 12 months, did the food you bought not last and you didn't have the money to get more?: Never true Within the past 12 months, did you worry whether your food would run out before you got money to buy more?: Never true Do you have trouble paying for medicines?: No Do you have trouble getting transportation to medical appointments?: No Do you have trouble paying your heating and electricity bill?: No Do you have trouble taking care of your child, family member or friend?: No Do you have trouble with day-to-day activities such as bathing, preparing meals, shopping, managing finances, etc.?: No Are you currently unemployed and looking for a job?: No Are you interested in more education?: No Please select the resources that you would like help with: None Currently or been in a relationship where the following occur: no concerns reported AUDIT C Alcohol Use Questionnaire (AUDIT-C) 1. How often do you have a drink containing alcohol?: Never 3. How often do you have six or more drinks on one occasion?: Never Total Score: 0 Score Reviewed/Action Taken: Yes JONATHAN-7 AMB Questionnaire JONATHAN-7 Date JONATHAN - 7 assessed: 03/04/23 Feeling nervous, anxious, or on edge: 0 = Not at all Not being able to stop or control worryin = Not at all Worrying too much about different things: 0 = Not at all Trouble relaxin = Not at all Being so restless that it is hard to sit still: 0 = Not at all Becoming easily annoyed or irritable: 0 = Not at all Feeling afraid as if something awful might happen: 0 = Not at all Total JONATHAN-7 score (0-4 normal; 5-9 mild; 10-14 moderate; 15-21 severe): 0 Source: Developed by Drs. Timothy Callahan, Susan Garcia, Jose Cruz Lloyd and colleagues, with an educational jim from [employer]. JONATHAN-7 Assessment Billing JONATHAN-7 Assessment Tool: JONATHAN-7 Assessment 79552 Review of Systems Const Reports fatigue, Denies fever(s) and Denies headache(s) ENT Denies dysphagia (but reports frequent throat sensation of stickiness when swallowing), Denies dizziness, Denies otalgia, Denies headache(s), Denies neck pain, Denies odynophagia and Denies sore throat Card Denies chest pain, Denies palpitations and Denies dyspnea Resp Denies cough and Denies dyspnea GI Denies abdominal pain, Denies constipation, Denies dysphagia (but reports frequent throat sensation of stickiness when swallowing), Reports heartburn (feels that Omeprazole not helping), Denies diarrhea, Denies nausea, Denies odynophagia and Denies vomiting Denies dysuria, Denies nocturia and Denies urinary frequency Musc Reports abnormal gait (unstable gait) and Denies neck pain Neuro Reports Abnormal speech present, Reports abnormal gait (unstable gait), Denies dizziness and Denies headache(s) Endo Reports fatigue and Denies palpitations Aller/Immun Reports seasonal rhinorrhea Physical exam (Primary Care) Vital Signs: Last Vital Signs Pulse 85 03/04/23 10:33 BP 110/82 03/04/23 10:33 Pulse Ox 97 03/04/23 10:33 Oxygen Delivery Method Room Air 03/04/23 10:33 BMI result Body Mass Index 24.8 Tobacco/Smoking Status: Tobacco use Status Tobacco use date assessed 03/04/23 03/04/23 10:35 Patient Tobacco Use Status Never used Tobacco 03/04/23 10:35 e-Cigarette/Vaping Use Never Used 03/04/23 10:35 PHQ-9: PHQ-9 Score PHQ-9: Total score 0 03/04/23 11:57 Depression Screening Interpretation: Negative Thrive Assessment: Date of Thrive Assessment Date Thrive assessed 03/04/23 03/04/23 10:35 Currently or been in a relationship where the following occur: no concerns reported Const General: no acute distress and alert HENMT Ears: TM's normal bilaterally and EAC's normal Throat: Yes posterior oropharynx normal and Yes tonsils normal (no TP congestion) Neck Neck: Yes no lymphadenopathy and Yes supple Resp Auscultation: clear to auscultation bilaterally, no rales and no wheezes Cardio Rate: regular rate Rhythm: regular rhythm Heart sounds: no murmurs GI Palpation (GI): Soft to palpation and nontender Auscultation: normal bowel sounds Skin Rashes: no rashes Neuro Speech: Abnormal speech present slurred ((+) dysathria) Gait exam (Neuro): Ataxic gait present Extrem General: Yes no clubbing, cyanosis or edema Results Reviewed Results Reviewed: Laboratory Tests 01/11/23 02/11/23 02/11/23 07:47 09:46 09:46 WBC 5.6 Hgb 15.6 Hct 47.1 Plt Count 300 Sodium 143 Potassium 4.4 Creatinine 1.24 Estimated GFR > 60 Fasting Glucose 88 Calcium 10.3 H AST 20 ALT 26 Triglycerides 233 Cholesterol 167 LDL Cholesterol, Calc 87 HDL Cholesterol 34 25-OH Vitamin D Total 63.4 TSH 2.17 Assessment and Plan Assessment & Plan (1) Chronic headaches: Code(s): R51.9 - Headache, unspecified; G89.29 - Other chronic pain Qualifiers: Headache type: unspecified Intractability: not intractable Qualified Code(s): R51.9 - Headache, unspecified; G89.29 - Other chronic pain Plan: His headaches appear to have improved with prophylactic Tx with low dose Topiramate 25 mg Q HS Suspect migraine headaches or these may be related to his cerebellar degeneration Most recent brain MRI done in September 2022 revealed no acute changes; still has cerebellar volume loss similar to prior imaging studies on 08/02/2020 (2) Cerebellar atrophy: Comment: CT Brain done at [facility] in June 2014 showed (+) moderate cerebellar atrophy Code(s): G31.9 - Degenerative disease of nervous system, unspecified Plan: 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, 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 and unfortunately has no known treatment or cure Follow up with neurology as scheduled (3) Benign essential hypertension: Code(s): I10 - Essential (primary) hypertension Plan: Reinforced low sodium diet - goal is systolic BP of 120 mm or less Continue Lisinopril 10 mg QD (4) Mixed hyperlipidemia: Code(s): E78.2 - Mixed hyperlipidemia Plan: Results of his labs done a few weeks ago reviewed and discussed with patient - advised that his lipids, especially his serum triglycerides, have improved significantly from previous Reinforced low cholesterol diet Continue Gemfibrozil 600 mg BID (patient is allergic to Fenofibrate) Will recheck his labs and fasting lipids in 4 months for follow up (5) Chronic constipation: Comment: S/P colonoscopy on 03/01/2021 - (+) tubular adenoma; otherwise normal Code(s): K59.09 - Other constipation Plan: Encouraged again to increase his oral fluids and dietary fiber Continue Metamucil daily and Miralax 17 gm QD (6) GERD without esophagitis: Code(s): K21.9 - Gastro-esophageal reflux disease without esophagitis Plan: Dietary restrictions reinforced Will try switching him from Omeprazole 40 mg QD to Pantoprazole 40 mg QD to see if this will help better control his heartburn symptoms (7) Nausea: Code(s): R11.0 - Nausea Plan: Continue Ondansetron 4 mg every 8 hours as needed to help with his nausea (8) Lumbar degenerative disc disease: Code(s): M51.36 - Other intervertebral disc degeneration, lumbar region Plan: Lumbar spine x-rays done last year showed (+) degenerative changes and facet arthropathy especially over L5-S1 Reinforced activity and weight-lifting restrictions Follow up with physical therapy as scheduled / as needed (9) Urinary hesitancy: Code(s): R39.11 - Hesitancy of micturition Plan: Most likely due to his BPH Follow up with urology as scheduled (10) Overweight (BMI 25.0-29.9): Code(s): E66.3 - Overweight Plan: Reinforced diet and weight loss; exercise is not realistic given patient's cerebellar degeneration, gait abnormality / unsteadiness and physical issues Plan Follow up in 4 months Orders: Orders Lipid Panel 4 Months E78.00 - Pure hypercholesterolemia, unspecified Comprehensive [place]. Panel Fast 4 Months E78.00 - Pure hypercholesterolemia, unspecified Medications: New pantoprazole 40 mg PO DAILY 30 tabs 3RF 30 days Discontinued omeprazole Discontinued Reason: Doctor's Order 40 mg PO DAILY 90 caps 1RF K21.9 - Gastro-esophageal reflux disease without esophagitis Coding Level of Care Code Est Pt Level 4 (21070) Diagnoses Chronic nonintractable headache, unspecified headache type R51.9; G89.29 Headache type: unspecified Intractability: not intractable Cerebellar atrophy G31.9 Benign essential hypertension I10 Mixed hyperlipidemia E78.2 Chronic constipation K59.09 GERD without esophagitis K21.9 Nausea R11.0 Lumbar degenerative disc disease M51.36 Urinary hesitancy R39.11 Overweight (BMI 25.0-29.9) E66.3 Additional Codes JONATHAN-7 Assessment Billing - JONATHAN-7 Assessment Tool: JONATHAN-7 Assessment 22629 ([id number])
== END 2023-03-04 12:06 | disposition home or self-care (01) ==
PROVIDERS: Visit Provider Internal Medicine
DX: R51.9 Headache, unspecified (principal); G31.9 Degenerative disease of nervous system, unspecified; I10 Essential (primary) hypertension; K21.9 Gastro-esophageal reflux disease without esophagitis; G89.29 Other chronic pain; E78.2 Mixed hyperlipidemia; K59.09 Other constipation; R11.0 Nausea; M51.36 Other intervertebral disc degeneration, lumbar region; R39.11 Hesitancy of micturition; E66.3 Overweight
CPT/HCPCS: 99214

== ENCOUNTER 2023-03-19 13:20 | Emergency (ER) | payer OTHER, SELFPAY ==
[2023-03-19 13:43] VITALS: BP 121/81; PULSE 91; RESP 18; TEMP 36.6; O2SAT 98; BMI 22.4
--- NOTE | 2023-03-19 13:43 | ED_ITS ---
HPI - General Adult General Chief complaint: GI Bleed Stated complaint: Acid reflux/Vomiting Related Data Home Medications Medication Instructions Recorded Confirmed aspirin 81 mg tablet,delayed 81 mg PO DAILY 05/17/20 08/23/23 release (Adult Low Dose Aspirin) ascorbate calcium (vitamin C) 500 1,000 mg PO DAILY 10/20/20 08/23/23 mg tablet cholecalciferol (vitamin D3) 25 25 mcg PO DAILY 10/20/20 08/23/23 mcg (1,000 unit) capsule cyanocobalamin (vitamin B-12) 1,000 mcg PO DAILY 10/20/20 08/23/23 1,000 mcg capsule allopurinol 100 mg tablet 100 mg PO DAILY 08/20/22 08/23/23 tamsulosin 0.4 mg capsule 0.8 mg PO BEDTIME 08/20/22 08/23/23 fluticasone furoate 50 inhalation 11/29/22 08/23/23 mcg/actuation blister powder for inhalation Previous Rx's Medication Instructions Recorded methylcellulose (laxative) 500 mg 500 mg PO TID #90 tabs 08/20/22 tablet (Citrucel) simethicone 125 mg chewable tablet 125 mg PO TID-QID PRN abdominal 08/20/22 (Gas Relief (simethicone)) distention #90 tabs polyethylene glycol 3350 17 17 g PO DAILY PRN laxative effect 10/15/22 gram/dose oral powder (Miralax) #510 grams ROLLATOR #1 ea 10/18/22 docusate sodium 100 mg capsule 200 mg (2 x 100 mg) PO BEDTIME 90 12/11/22 (Colace) days #180 caps lisinopril 10 mg tablet 10 mg PO DAILY #90 tabs 01/18/23 acetaminophen 650 mg 650 mg PO Q12H #30 tabs 02/16/23 tablet,extended release pantoprazole 40 mg tablet,delayed 40 mg PO DAILY #90 tabs 03/11/23 release rimegepant 75 mg disintegrating 75 mg PO ONCE PRN migraine 04/04/23 tablet (Nurtec ODT) headache 16 days #16 tabs fluticasone propionate 50 2 spray intranasal DAILY PRN 04/09/23 mcg/actuation nasal allergy symptoms 30 days #16 grams spray,suspension riboflavin (vitamin B2) 400 mg 400 mg PO DAILY 90 days #90 tabs 05/13/23 tablet blood pressure test kit-medium #1 ea 07/01/23 gemfibrozil 600 mg tablet 600 mg PO BID #180 tabs 07/02/23 loratadine 10 mg tablet 10 mg PO DAILY #90 tabs 07/24/23 topiramate 25 mg tablet 25 mg PO BEDTIME 30 days #30 tabs 08/02/23 amoxicillin 875 mg-potassium 1 tab PO BID 10 days #20 tabs 08/23/23 clavulanate 125 mg tablet magnesium oxide 400 mg PO DAILY 90 days #90 tabs 08/23/23 amoxicillin 875 mg tablet 875 mg PO BID 10 days #20 tabs 09/23/23 lansoprazole 30 mg capsule,delayed 30 mg PO DAILY #90 caps 09/24/23 release Allergies Allergy/AdvReac Type Severity Reaction Status Date / Time fenofibrate [Tricor] Allergy Intermediate Hives Verified 08/23/23 17:22 nut - unspecified [NUTS] Allergy Intermediate Hives Verified 08/23/23 17:22 seafood Allergy Intermediate Hives, Verified 08/23/23 17:22 Itchy fluocinolone acetonide Allergy Unknown Unknown Verified 08/23/23 17:22 lactose [LACTOSE] AdvReac Mild Constipatio Verified 08/23/23 17:22 n PMFSH Past Medical History Medical History Overweight (BMI 25.0-29.9) Ataxia Right otitis media Lumbar degenerative disc disease HTN (hypertension) Mixed hyperlipidemia Chronic constipation Asthma Cerebellar atrophy Abnormality of gait Nephrolithiasis Right flank pain Benign prostatic hyperplasia Allergic rhinitis Constipation Vitamin D deficiency Renal calculus, bilateral GERD without esophagitis Migraine Pure hypercholesterolemia Benign essential hypertension Orchalgia Surgical History History of cystoscopy History of esophagogastroduodenoscopy (EGD) History of lithotripsy History of extraction of renal calculus Hx of elbow surgery Family History Family History Father Hypertension CAD (coronary artery disease) Diabetes Cancer Mother Hypertension Acute CVA (cerebrovascular accident) Paternal Grandfather Throat cancer Sister Lupus Epilepsy Social History Social History Household Members Other:: Homeless Housing: Apartment Alcohol intake: never Patient Tobacco Use Status: Never used Tobacco e-Cigarette/Vaping Use: Never Used Second Hand Smoke Exposure: Yes service: No Current occupational status: disabled Current occupational exposures/hazards: No Cognitive needs: Yes Hearing needs: No Vision needs: No Physical Exam ED Vital Signs: BMI result Body Mass Index 22.4 Course Course Course Narrative: This is an RME: Additional HPI, ROS, PE not included below will be deferred to primary provider. 52 year old male presents with heartburn for the past couple of months. He reports that he throws up every morning and tastes blood, however there is no blood seen in his vomit. He also reports black or bloody stools for 3 days. Plan: labs Medical Decision Making Lab Data 03/19/23 15:16 03/19/23 15:16 Labs: Lab Results 03/19/23 Range/Units 15:16 WBC 7.3 (4.8-10.8) X10*3/uL RBC 5.01 (4.60-5.80) X10*6/uL Hgb 15.8 (14.0-18.0) g/dl Hct 45.8 (42.0-52.0) % MCV 91.4 (80.0-98.0) fL MCH 31.5 (27.0-33.0) pg MCHC 34.5 (31.0-36.0) g/dl RDW 12.9 (11.0-16.0) % Plt Count 301 (160-400) X10*3/uL MPV 11.2 (9.4-12.4) fL Immature Gran % (Auto) 0.3 (0.0-0.4) % Neut % (Auto) 56.8 (45-73) % Lymph % (Auto) 28.5 (20-40) % [place] % (Auto) 6.3 (2-11) % Eos % (Auto) 7.7 H (0-4) % Baso % (Auto) 0.4 (0-2) % Lymph # (Auto) 2.1 (1.2-4.9) X10*3/uL [place] # (Auto) 0.5 (0.1-1.2) X10*3/uL Eos # (Auto) 0.6 H (0.0-0.4) X10*3/uL Baso # (Auto) 0.0 (0.0-0.2) X10*3/uL Abs Immat Gran (auto) 0.02 (0.00-0.03) X10*3/uL Absolute Neuts (auto) 4.1 (2.0-8.3) x10*3/uL Absolute Nucleated RBC 0.000 (0.0-0.012) X10*3/uL Nucleated RBC % (auto) 0.0 (0.0-0.2) /100WBC PT 11.8 (11.1-13.3) SEC INR 1.0 (0.9-1.1) Sodium 137 (135-145) mmol/L Potassium 4.8 (3.3-5.1) mmol/L Chloride 108 (96-108) mmol/L Carbon Dioxide 21 L (22-29) mmol/L Anion Gap 13 (12-20) BUN 16 (9-16) mg/dL Creatinine 1.31 (0.5-1.4) mg/dL Estim Creat Clear Calc 68.2 Estimated GFR 57 Random Glucose 79 (60-115) mg/dL Calcium 10.1 (8.4-10.2) mg/dL Magnesium 2.3 (1.6-2.6) mg/dL Total Bilirubin 0.6 (0.0-1.0) mg/dL AST 20 (5-37) U/L ALT 31 (0-40) U/L Alkaline Phosphatase 58 (39-117) U/L Total Protein 7.8 (6.5-8.0) g/dL Albumin 4.8 (3.5-5.0) g/dL Lipase 27 (8-78) U/L Discharge Plan Discharge Clinical Impression: Eloped from emergency department Patient Disposition: Elopement Prescriptions: No Action docusate sodium [Colace] 100 mg capsule 200 mg PO BEDTIME 90 Days Qty: 180 3RF lisinopril 10 mg tablet 10 mg PO DAILY Qty: 90 3RF acetaminophen 650 mg tablet extended release 650 mg PO Q12H Qty: 30 2RF pantoprazole 40 mg tablet,delayed release (DR/EC) 40 mg PO DAILY Qty: 90 1RF Nurtec ODT 75 mg tablet,disintegrating 75 mg PO ONCE PRN (Reason: migraine headache) 16 Days Qty: 16 6RF fluticasone propionate 50 mcg/actuation spray,suspension 2 spray intranasal DAILY PRN (Reason: allergy symptoms) 30 Days Qty: 16 5RF Rx Instructions: administer into each nostril riboflavin (vitamin B2) 400 mg tablet 400 mg PO DAILY 90 Days Qty: 90 1RF gemfibrozil 600 mg tablet 600 mg PO BID Qty: 180 1RF loratadine 10 mg tablet 10 mg PO DAILY Qty: 90 1RF topiramate 25 mg tablet 25 mg PO BEDTIME 30 Days Qty: 30 1RF magnesium oxide 400 mg magnesium tablet 400 mg PO DAILY 90 Days Qty: 90 1RF amoxicillin 875 mg tablet 875 mg PO BID 10 Days Qty: 20 0RF lansoprazole 30 mg capsule,delayed release(DR/EC) 30 mg PO DAILY Qty: 90 1RF aspirin [Adult Low Dose Aspirin] 81 mg tablet,delayed release (DR/EC) 81 mg PO DAILY (DME) ROLLATOR See Rx Instructions .Route .MEDSUPPLY Qty: 1 0RF Rx Instructions: As directed fluticasone furoate 50 mcg/actuation blister with device inhalation (DME) blood pressure test kit-medium Kit See Rx Instructions .Route Qty: 1 0RF Rx Instructions: As directed amoxicillin-pot clavulanate 875-125 mg tablet 1 tab PO BID 10 Days Qty: 20 0RF cholecalciferol (vitamin D3) 25 mcg (1,000 unit) capsule 25 mcg PO DAILY cyanocobalamin (vitamin B-12) 1,000 mcg capsule 1,000 mcg PO DAILY ascorbate calcium (vitamin C) 500 mg tablet 1,000 mg PO DAILY tamsulosin 0.4 mg capsule 0.8 mg PO BEDTIME allopurinol 100 mg tablet 100 mg PO DAILY Citrucel 500 mg tablet 500 mg PO TID Qty: 90 5RF simethicone [Gas Relief (simethicone)] 125 mg tablet,chewable 125 mg PO TID-QID PRN (Reason: abdominal distention) Qty: 90 2RF polyethylene glycol 3350 [Miralax] 17 gram/dose powder 17 g PO DAILY PRN (Reason: laxative effect) Qty: 510 1RF Rx Instructions: 17 GM QD x 1 week prior to prep day Interventions: ED Discharge Assessment Last Done: 03/19/23 20:46 Discharge Date/Time: 03/19/23 20:00
[2023-03-19 15:21] LABS: MANUAL DIFF FLAG NO
[2023-03-19 15:22] LABS: Basophils Percent Auto 0.4 % (0-2); Eosinophils Absolute Auto 0.6 X10*3/uL (0.0-0.4); Eosinophils Percent Auto 7.7 % (0-4); Hematocrit 45.8 % (42.0-52.0); Hemoglobin 15.8 g/dl (14.0-18.0); Imm Gran Abs Auto 0.02 X10*3/uL (0.00-0.03); Imm Gran Pct Auto 0.3 % (0.0-0.4); Lymphocytes Absolute Auto 2.1 X10*3/uL (1.2-4.9); Lymphocytes Percent Auto 28.5 % (20-40); Mean Corpuscular HGB Conc 34.5 g/dl (31.0-36.0); Mean Corpuscular Hemoglobin 31.5 pg (27.0-33.0); Mean Corpuscular Volume 91.4 fL (80.0-98.0); Mean Platelet Volume 11.2 fL (9.4-12.4); Monocytes Absolute Auto 0.5 X10*3/uL (0.1-1.2); Monocytes Percent Auto 6.3 % (2-11); Neutrophils Absolute Auto 4.1 x10*3/uL (2.0-8.3); Neutrophils Percent Auto 56.8 % (45-73); Platelet Count 301 X10*3/uL (160-400); Red Blood Count 5.01 X10*6/uL (4.60-5.80); Red Cell Distribution Width 12.9 % (11.0-16.0); White Blood Count 7.3 X10*3/uL (4.8-10.8)
[2023-03-19 15:31] LABS: Prothrombin Time 11.8 SEC (11.1-13.3)
[2023-03-19 15:40] LABS: Alanine Aminotransferase 31 U/L (0-40); Albumin Level 4.8 g/dL (3.5-5.0); Alkaline Phosphatase 58 U/L (39-117); Anion Gap 13 (12-20); Aspartate Amino Transferase 20 U/L (5-37); Bilirubin Total 0.6 mg/dL (0.0-1.0); Blood Urea Nitrogen 16 mg/dL (9-16); Calcium 10.1 mg/dL (8.4-10.2); Carbon Dioxide 21 mmol/L (22-29); Chloride 108 mmol/L (96-108); Creatinine Clr Calc Pharmacy 68.2; Estimated Glomerular Filt Rate 57; Glucose Random 79 mg/dL (60-115); Magnesium 2.3 mg/dL (1.6-2.6); Potassium 4.8 mmol/L (3.3-5.1); Sodium 137 mmol/L (135-145); Total Protein 7.8 g/dL (6.5-8.0)
[2023-03-19 19:45] LABS: Lipase 27 U/L (8-78)
== END 2023-03-19 20:00 | disposition left against medical advice (07) ==
PROVIDERS: Physician Assistant; Emergency Provider Emergency Medicine; PCP Internal Medicine
DX: K21.9 Gastro-esophageal reflux disease without esophagitis (principal); R11.10 Vomiting, unspecified; Z79.899 Other long term (current) drug therapy
CPT/HCPCS: 36415; 80053; 83690; 83735; 85025; 85610; 99282; 99283

== ENCOUNTER 2023-03-29 15:07 | Outpatient (AMB) | payer OTHER, SELFPAY ==
[2023-03-29 15:11] VITALS: BP 110/80; PULSE 78; O2SAT 99; BMI 24.5
--- NOTE | 2023-03-29 15:11 | MHC.PC.OV ---
Vital Signs 03/29/23 15:11 Height 6 ft Weight 180 lb 8 oz BMI 24.5 BP 110/80 Blood Pressure Location Lt brachial Position Sitting Pulse 78 Pulse Source Pulse Oximeter Pulse Oximetry (%) 99 Oxygen Delivery Method Room Air Intake Visit Reasons: acid reflux/tasting blood/difficulty swallowing Shipping Track Supervisor Required: No Accompanied by: Self / Same As Patient Allergies fenofibrate [Tricor] Allergy (Intermediate, Verified 03/29/23 17:12) Hives nut - unspecified [NUTS] Allergy (Intermediate, Verified 03/29/23 17:12) Hives seafood Allergy (Intermediate, Verified 03/29/23 17:12) Hives, Itchy fluocinolone acetonide Allergy (Unknown, Verified 03/29/23 17:12) Unknown lactose [LACTOSE] Adverse Reaction (Mild, Verified 03/29/23 17:12) Constipation Medication List - Last Reconciled 03/29/23 by Ignacio Flores MD acetaminophen ER 650 mg PO Q12H allopurinol 100 mg PO DAILY ascorbate calcium (vitamin C) 1,000 mg PO DAILY aspirin (Adult Low Dose Aspirin) 81 mg PO DAILY cetirizine (Zyrtec) 10 mg PO DAILY PRN cholecalciferol (vitamin D3) 25 mcg PO DAILY cyanocobalamin (vitamin B-12) 1,000 mcg PO DAILY docusate sodium (Colace) 200 mg (2 x 100 mg) PO BEDTIME 90 days fluticasone furoate 50 mcg/actuation inhalation fluticasone propionate 50 mcg/actuation 2 sprays intranasal DAILY PRN 30 days gemfibrozil 600 mg PO BID lansoprazole 30 mg PO DAILY 30 days lisinopril 10 mg PO DAILY methylcellulose (laxative) (Citrucel) 500 mg PO TID pantoprazole 40 mg PO DAILY polyethylene glycol 3350 (Miralax) 17 grams PO DAILY PRN [ROLLATOR As directed] simethicone (Gas Relief (simethicone)) 125 mg PO TID-QID PRN tamsulosin 0.8 mg PO BEDTIME topiramate 25 mg PO BEDTIME 30 days Tobacco use date assessed: 03/29/23 Dental Screening Dental Screen Date: 03/29/23 Did you have a dental visit in the last 12 months?: Yes Did you have a dental problem in the last 6 months where you did not have access to dental care?: No Was dental information given to patient?: Patient has dentist HPI acid reflux/tasting blood/difficulty swallowing HPI Details Patient comes in today complaining of recurrent throat discomfort wherein he feels some burning sensation in his throat (describes it as similar to a heartburn) as well as a recurrent sensation of tasting like blood - feels like there is something deep in his throat often but he denies any trouble swallowing Went to the ER a couple of weeks ago for the same complaints but states that they just looked into his throat and told him that everything looked okay and sent him home without doing anything He had a modified barium swallow done back in November 2022 that came out completely normal He continues to present with a slow and slurred speech (chronic) and continues to have a slow and ataxic gait when moving about He continues to follow up with Dr. Iverson for his cerebellar degeneration He denies any headaches or dizziness Denies any chest pains, no SOB No nausea/vomiting, no abdominal pain No change in bowel habits noted [facility] Medical History Overweight (BMI 25.0-29.9) Ataxia Right otitis media Lumbar degenerative disc disease HTN (hypertension) Mixed hyperlipidemia Chronic constipation Asthma Cerebellar atrophy Abnormality of gait Nephrolithiasis Right flank pain Benign prostatic hyperplasia Allergic rhinitis Constipation Vitamin D deficiency Renal calculus, bilateral GERD without esophagitis Migraine Pure hypercholesterolemia Benign essential hypertension Orchalgia Surgical History History of cystoscopy History of esophagogastroduodenoscopy (EGD) History of lithotripsy History of extraction of renal calculus Hx of elbow surgery Family History Father Hypertension CAD (coronary artery disease) Diabetes Cancer Mother Hypertension Acute CVA (cerebrovascular accident) Paternal Grandfather Throat cancer Sister Lupus Epilepsy Social History Household Members Other:: Homeless Housing: Apartment Alcohol intake: never Patient Tobacco Use Status: Never used Tobacco e-Cigarette/Vaping Use: Never Used Second Hand Smoke Exposure: Yes service: No Current occupational status: disabled Current occupational exposures/hazards: No Cognitive needs: Yes Hearing needs: No Vision needs: No Questionnaire PHQ-9 Over the last 2 weeks, how often have you been bothered by any of the following problems? 1. Little interest or pleasure in doing things: not at all 2. Feeling down, depressed, or hopeless: not at all 3. Trouble falling or staying asleep, or sleeping too much: not at all 4. Feeling tired or having little energy: not at all 5. Poor appetite or overeating: not at all 6. Feeling bad about yourself - or that you are a failure or have let yourself or your family down: not at all 7. Trouble concentrating on things, such as reading the newspaper or watching television: not at all 8. Moving or speaking so slowly that other people could have noticed. Or the opposite - being so fidgety or restless that you have been moving around a lot more than usual: not at all 9. Thoughts that you would be better off or of hurting yourself in some way: not at all Total score: 0 Depression Screening Interpretation: Negative 71157 - PHQ-9 Billing: Yes Source: Developed by Drs. Timothy Callahna, Susan Garcia, Jose Cruz Lloyd and colleagues, with an educational jim from [employer]. Thrive Questionnaire Date Thrive assessed: 03/29/23 I am a: Patient What is your living situation today?: I have a steady place to live Within the past 12 months, did the food you bought not last and you didn't have the money to get more?: Never true Within the past 12 months, did you worry whether your food would run out before you got money to buy more?: Never true Do you have trouble paying for medicines?: No Do you have trouble getting transportation to medical appointments?: No Do you have trouble paying your heating and electricity bill?: No Do you have trouble taking care of your child, family member or friend?: No Do you have trouble with day-to-day activities such as bathing, preparing meals, shopping, managing finances, etc.?: No Are you currently unemployed and looking for a job?: No Are you interested in more education?: No Please select the resources that you would like help with: None Currently or been in a relationship where the following occur: no concerns reported AUDIT C Alcohol Use Questionnaire (AUDIT-C) 1. How often do you have a drink containing alcohol?: Never 3. How often do you have six or more drinks on one occasion?: Never Total Score: 0 Score Reviewed/Action Taken: Yes JONATHAN-7 AMB Questionnaire JONATHAN-7 Date JONATHAN - 7 assessed: 03/29/23 Feeling nervous, anxious, or on edge: 0 = Not at all Not being able to stop or control worryin = Not at all Worrying too much about different things: 0 = Not at all Trouble relaxin = Not at all Being so restless that it is hard to sit still: 0 = Not at all Becoming easily annoyed or irritable: 0 = Not at all Feeling afraid as if something awful might happen: 0 = Not at all Total JONATHAN-7 score (0-4 normal; 5-9 mild; 10-14 moderate; 15-21 severe): 0 Source: Developed by Drs. Timothy Callahan, Susan Garcia, Jose Cruz Lloyd and colleagues, with an educational jim from [employer]. JONATHAN-7 Assessment Billing JONATHAN-7 Assessment Tool: JONATHAN-7 Assessment 01231 Review of Systems Const Reports fatigue, Denies fever(s) and Denies headache(s) ENT Details: also c/o on and off burning sensation in throat; states that he sometimes feel like he is tasting blood Denies dysphagia (but reports frequent throat sensation of stickiness when swallowing), Denies dizziness, Denies otalgia, Denies headache(s), Denies neck pain, Denies odynophagia, Denies sinus pain and Denies sore throat Card Denies chest pain, Denies palpitations and Denies dyspnea Resp Denies cough and Denies dyspnea GI Denies abdominal pain, Denies constipation, Denies dysphagia (but reports frequent throat sensation of stickiness when swallowing), Denies diarrhea, Denies nausea, Denies odynophagia and Denies vomiting Denies dysuria, Denies nocturia and Denies urinary frequency Musc Reports abnormal gait (unstable gait/ataxic gait) and Denies neck pain Skin/Breast Denies rash Neuro Reports Abnormal speech present (dysarthria - slow and slurred speech), Reports abnormal gait (unstable gait/ataxic gait), Denies dizziness and Denies headache(s) Endo Reports fatigue and Denies palpitations Aller/Immun Reports seasonal rhinorrhea Physical exam (Primary Care) Vital Signs: Last Vital Signs Pulse 78 03/29/23 15:11 BP 110/80 03/29/23 15:11 Pulse Ox 99 03/29/23 15:11 Oxygen Delivery Method Room Air 03/29/23 15:11 BMI result Body Mass Index 24.5 Tobacco/Smoking Status: Tobacco use Status Tobacco use date assessed 03/29/23 03/29/23 15:13 Patient Tobacco Use Status Never used Tobacco 03/29/23 15:13 e-Cigarette/Vaping Use Never Used 03/29/23 15:13 PHQ-9: PHQ-9 Score PHQ-9: Total score 0 03/29/23 17:16 Depression Screening Interpretation: Negative Thrive Assessment: Date of Thrive Assessment Date Thrive assessed 03/29/23 03/29/23 15:13 Currently or been in a relationship where the following occur: no concerns reported Const General: no acute distress and alert HENMT Ears: TM's normal bilaterally and EAC's normal Throat: Yes posterior oropharynx normal and Yes tonsils normal (no TP congestion) Neck Neck: Yes no lymphadenopathy and Yes supple Resp Auscultation: clear to auscultation bilaterally, no rales and no wheezes Cardio Rate: regular rate Rhythm: regular rhythm GI Palpation (GI): Soft to palpation and nontender Auscultation: normal bowel sounds Neuro Cognition (Neuro): normal cognition Speech: Abnormal speech present (dysarthria - slow and slurred speech) Extrem General: Yes no clubbing, cyanosis or edema Assessment and Plan Assessment & Plan (1) Throat discomfort: Code(s): R07.0 - Pain in throat Plan: Reminded that his modified barium swallow done back in November 2022 came out normal but with his recurrent symptoms, will recommend he see ENT for further evaluation and he may benefit from at least a direct laryngoscopy to visualize his throat and laryngeal areas further - referral to ENT done (2) Cerebellar atrophy: Comment: [place] Brain done at [facility] [place] showed (+) moderate cerebellar atrophy Code(s): G31.9 - Degenerative disease of nervous system, unspecified Plan: 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, 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 and unfortunately has no known treatment or cure Follow up with neurology as scheduled (3) Benign essential hypertension: Code(s): I10 - Essential (primary) hypertension Plan: Reinforced low sodium diet - goal is systolic BP of 120 mm or less Continue Lisinopril 10 mg QD Plan Follow up as scheduled in June 2023 Orders: Referrals Ear/Nose/Throat Referral R07.0 - Pain in throat, R13.10 - Dysphagia, unspecified Coding Level of Care Code Est Pt Level 3 (54379) Diagnoses Throat discomfort R07.0 Cerebellar atrophy G31.9 Benign essential hypertension I10 Additional Codes JONATHAN-7 Assessment Billing - JONATHAN-7 Assessment Tool: JONATHAN-7 Assessment [id number] ([id number])
== END 2023-03-29 17:19 | disposition home or self-care (01) ==
PROVIDERS: PCP Internal Medicine; Visit Provider Internal Medicine
DX: R07.0 Pain in throat (principal); G31.9 Degenerative disease of nervous system, unspecified; I10 Essential (primary) hypertension
CPT/HCPCS: 99213

== ENCOUNTER 2023-04-01 10:44 | Outpatient (REF) | payer OTHER, SELFPAY ==
--- NOTE | ~2023-04-01 | US_ITS ---
EXAMINATION: US RETROPERITONEAL COMPLETE (RENAL) CLINICAL INFORMATION: Renal calculus. COMPARISON: Renal ultrasound 08/02/2021 and 01/09/2021. X-ray abdomen KUB 12/06/2020. CT abdomen and pelvis 12/02/2020. TECHNIQUE: Real-time imaging of the kidneys and bladder. FINDINGS: RIGHT KIDNEY: 10.7 x 5.0 x 4.9 cm (SAG x AP x TRV). The kidney is normal in size, contour, and echogenicity. Renal cortical thickness is normal. No focal parenchymal lesions or hydronephrosis. There are several nonobstructing renal calculi includin.5 x 0.4 x 0.3 cm mid kidney, 0.3 x 0.3 x 0.2 cm mid kidney, a 0.5 x 0.3 x 0.3 cm mid kidney, 0.4 x 0.3 x 0.7 lower pole. LEFT KIDNEY: 10.7 x 5.1 x 4.9 cm (SAG x AP x TRV). The kidney is normal in size, contour, and echogenicity. Renal cortical thickness is normal. No focal parenchymal lesions or hydronephrosis. There are 2 nonobstructing renal calculi includin.5 x 0.4 x 0.7 cm mid kidney, 0.5 x 0.4 x 0.5 cm lower pole. BLADDER: Partially distended. Bilateral ureteral jets are demonstrated. Prevoid bladder volume is 134 mL. Postvoid bladder volume is 15.2 mL. Enlarged prostate, volume 43.5 mL. US/US retroperitoneal comp IMPRESSION: 1. Bilateral nonobstructing renal calculi. 2. Small post void residual. 3. Enlarged prostate.
== END 2023-04-01 10:45 | disposition home or self-care (01) ==
LOC: HO.US 10:44
PROVIDERS: PCP Internal Medicine; Visit Provider Urology
DX: N20.0 Calculus of kidney (principal)
CPT/HCPCS: 76770

== ENCOUNTER 2023-05-27 10:39 | Outpatient (AMB) | payer OTHER, SELFPAY ==
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
[2023-05-27 10:50] VITALS: BP 112/72; PULSE 90; O2SAT 98
== END 2023-05-27 11:11 | disposition home or self-care (01) ==
PROVIDERS: Visit Provider Nurse Practitioner Family
DX: R27.0 Ataxia, unspecified (principal); M51.36 Other intervertebral disc degeneration, lumbar region
CPT/HCPCS: 99213

== ENCOUNTER → 2023-05-27 10:39 | Outpatient (BNVA) | payer OTHER, SELFPAY | PROVIDERS: Visit Provider Nurse Practitioner Family | DX: R27.0 Ataxia, unspecified (principal); M51.36 Other intervertebral disc degeneration, lumbar region; Z59.01 Sheltered homelessness | CPT/HCPCS: 99212 ==

== ENCOUNTER 2023-06-14 11:25 | Outpatient (REF) | payer OTHER, SELFPAY ==
[2023-06-14 13:17] LABS: Alanine Aminotransferase 45 U/L (0-40); Albumin Level 4.7 g/dL (3.5-5.0); Alkaline Phosphatase 65 U/L (39-117); Anion Gap 15 (12-20); Aspartate Amino Transferase 44 U/L (5-37); Bilirubin Total 0.6 mg/dL (0.0-1.0); Blood Urea Nitrogen 21 mg/dL (9-16); Calcium 10.1 mg/dL (8.4-10.2); Carbon Dioxide 20 mmol/L (22-29); Chloride 107 mmol/L (96-108); Cholesterol 151 mg/dL (<200); Estimated Glomerular Filt Rate > 60; Glucose Fasting 95 mg/dL (60-99); HDL Cholesterol 37 mg/dL (>40); LDL Cholesterol Calculated 74 mg/dL (<100); Sodium 137 mmol/L (135-145); Total Protein 8.5 g/dL (6.5-8.0); Triglycerides 201 mg/dL (<150)
== END 2023-06-14 11:26 | disposition home or self-care (01) ==
LOC: HO.LAB 11:25
PROVIDERS: PCP Internal Medicine; Visit Provider Internal Medicine
DX: E78.00 Pure hypercholesterolemia, unspecified (principal)
CPT/HCPCS: 36415; 80053; 80061

== ENCOUNTER 2023-07-01 12:40 | Outpatient (AMB) | payer OTHER, SELFPAY ==
[2023-07-01 12:47] VITALS: BP 122/80; PULSE 87; O2SAT 98; BMI 24.1
--- NOTE | 2023-07-01 12:47 | MHC.PC.OV ---
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 Accompanied by: Self / Same As Patient Allergies fenofibrate [Tricor] Allergy (Intermediate, Verified 07/01/23 13:35) Hives nut - unspecified [NUTS] Allergy (Intermediate, Verified 07/01/23 13:35) Hives seafood Allergy (Intermediate, Verified 07/01/23 13:35) Hives, Itchy fluocinolone acetonide Allergy (Unknown, Verified 07/01/23 13:35) Unknown lactose [LACTOSE] Adverse Reaction (Mild, Verified 07/01/23 13:35) Constipation Medication List - Last Reconciled 07/01/23 by Ignacio Flores MD acetaminophen ER 650 mg PO Q12H allopurinol 100 mg PO DAILY ascorbate calcium (vitamin C) 1,000 mg PO DAILY aspirin (Adult Low Dose Aspirin) 81 mg PO DAILY cetirizine (Zyrtec) 10 mg PO DAILY PRN cholecalciferol (vitamin D3) 25 mcg PO DAILY cyanocobalamin (vitamin B-12) 1,000 mcg PO DAILY docusate sodium (Colace) 200 mg (2 x 100 mg) PO BEDTIME 90 days fluticasone furoate 50 mcg/actuation inhalation fluticasone propionate 50 mcg/actuation 2 sprays intranasal DAILY PRN 30 days gemfibrozil 600 mg PO BID lansoprazole 30 mg PO DAILY lisinopril 10 mg PO DAILY magnesium oxide 400 mg PO DAILY 30 days methylcellulose (laxative) (Citrucel) 500 mg PO TID pantoprazole 40 mg PO DAILY polyethylene glycol 3350 (Miralax) 17 grams PO DAILY PRN riboflavin (vitamin B2) 400 mg PO DAILY 90 days rimegepant (Nurtec ODT) 75 mg PO ONCE PRN 16 days [ROLLATOR As directed] simethicone (Gas Relief (simethicone)) 125 mg PO TID-QID PRN tamsulosin 0.8 mg PO BEDTIME topiramate 25 mg PO BEDTIME 30 days Tobacco use date assessed: 07/01/23 Dental Screening Dental Screen Date: 07/01/23 Did you have a dental visit in the last 12 months?: Yes Did you have a dental problem in the last 6 months where you did not have access to dental care?: No Was dental information given to patient?: Patient has dentist HPI 4 month f/u HPI Details Patient comes in today for his follow up visit States that he feels okay He denies any headaches or dizziness Denies any chest pains, no SOB No nausea/vomiting, no abdominal pain No change in bowel habits noted Would like to get Rx for a blood pressure monitor to be sent to his local pharmacy Had his follow up labs done a couple of weeks ago - to discuss his results [facility] Medical History Overweight (BMI 25.0-29.9) Ataxia Right otitis media Lumbar degenerative disc disease HTN (hypertension) Mixed hyperlipidemia Chronic constipation Asthma Cerebellar atrophy Abnormality of gait Nephrolithiasis Right flank pain Benign prostatic hyperplasia Allergic rhinitis Constipation Vitamin D deficiency Renal calculus, bilateral GERD without esophagitis Migraine Pure hypercholesterolemia Benign essential hypertension Orchalgia Surgical History History of cystoscopy History of esophagogastroduodenoscopy (EGD) History of lithotripsy History of extraction of renal calculus Hx of elbow surgery Family History Father Hypertension CAD (coronary artery disease) Diabetes Cancer Mother Hypertension Acute CVA (cerebrovascular accident) Paternal Grandfather Throat cancer Sister Lupus Epilepsy Social History Household Members Other:: Homeless Housing: Apartment Alcohol intake: never Patient Tobacco Use Status: Never used Tobacco e-Cigarette/Vaping Use: Never Used Second Hand Smoke Exposure: Yes service: No Current occupational status: disabled Current occupational exposures/hazards: No Cognitive needs: Yes Hearing needs: No Vision needs: No Questionnaire PHQ-9 Over the last 2 weeks, how often have you been bothered by any of the following problems? 1. Little interest or pleasure in doing things: not at all 2. Feeling down, depressed, or hopeless: not at all 3. Trouble falling or staying asleep, or sleeping too much: not at all 4. Feeling tired or having little energy: not at all 5. Poor appetite or overeating: not at all 6. Feeling bad about yourself - or that you are a failure or have let yourself or your family down: not at all 7. Trouble concentrating on things, such as reading the newspaper or watching television: not at all 8. Moving or speaking so slowly that other people could have noticed. Or the opposite - being so fidgety or restless that you have been moving around a lot more than usual: not at all 9. Thoughts that you would be better off or of hurting yourself in some way: not at all Total score: 0 Depression Screening Interpretation: Negative Depression Screening Done: Yes 74634 - PHQ-9 Billing: Yes Source: Developed by Drs. Timothy Callahan, Susan Garcia, Jose Cruz Lloyd and colleagues, with an educational jim from [employer]. Thrive Questionnaire Date Thrive assessed: 07/01/23 I am a: Patient What is your living situation today?: I have a steady place to live Within the past 12 months, did the food you bought not last and you didn't have the money to get more?: Never true Within the past 12 months, did you worry whether your food would run out before you got money to buy more?: Never true Do you have trouble paying for medicines?: No Do you have trouble getting transportation to medical appointments?: No Do you have trouble paying your heating and electricity bill?: No Do you have trouble taking care of your child, family member or friend?: No Do you have trouble with day-to-day activities such as bathing, preparing meals, shopping, managing finances, etc.?: No Are you currently unemployed and looking for a job?: No Are you interested in more education?: No Please select the resources that you would like help with: None Currently or been in a relationship where the following occur: no concerns reported AUDIT C Alcohol Use Questionnaire (AUDIT-C) 1. How often do you have a drink containing alcohol?: Never 3. How often do you have six or more drinks on one occasion?: Never Total Score: 0 Score Reviewed/Action Taken: Yes JONATHAN-7 AMB Questionnaire JONATHAN-7 Date JONATHAN - 7 assessed: 07/01/23 Feeling nervous, anxious, or on edge: 0 = Not at all Not being able to stop or control worryin = Not at all Worrying too much about different things: 0 = Not at all Trouble relaxin = Not at all Being so restless that it is hard to sit still: 0 = Not at all Becoming easily annoyed or irritable: 0 = Not at all Feeling afraid as if something awful might happen: 0 = Not at all Total JONATHAN-7 score (0-4 normal; 5-9 mild; 10-14 moderate; 15-21 severe): 0 Source: Developed by Drs. Timothy Callahan, Susan Garcia, Jose Cruz Lloyd and colleagues, with an educational jim from [employer]. JONATHAN-7 Assessment Billing JONATHAN-7 Assessment Tool: JONATHAN-7 Assessment 90854 Review of Systems Const Denies chills, Denies fatigue, Denies fever(s) and Denies headache(s) ENT Denies dysphagia (but reports frequent throat sensation of stickiness when swallowing), Denies dizziness, Denies otalgia, Denies headache(s), Denies neck pain, Denies odynophagia, Denies sinus pain and Denies sore throat Card Denies chest pain, Denies palpitations and Denies dyspnea Resp Denies cough and Denies dyspnea GI Denies abdominal pain, Denies constipation, Denies dysphagia (but reports frequent throat sensation of stickiness when swallowing), Denies diarrhea, Denies nausea, Denies odynophagia and Denies vomiting Denies dysuria, Denies nocturia and Denies urinary frequency Musc Reports abnormal gait (unstable gait/ataxic gait) and Denies neck pain Skin/Breast Denies rash Neuro Reports Abnormal speech present (dysarthria - slow and slurred speech), Reports abnormal gait (unstable gait/ataxic gait), Denies dizziness and Denies headache(s) Endo Denies fatigue and Denies palpitations Aller/Immun Reports seasonal rhinorrhea Physical exam (Primary Care) Vital Signs: Last Vital Signs Pulse 87 07/01/23 12:47 BP 122/80 07/01/23 12:47 Pulse Ox 98 07/01/23 12:47 Oxygen Delivery Method Room Air 07/01/23 12:47 BMI result Body Mass Index 24.1 Tobacco/Smoking Status: Tobacco use Status Tobacco use date assessed 07/01/23 07/01/23 12:52 Patient Tobacco Use Status Never used Tobacco 07/01/23 12:52 e-Cigarette/Vaping Use Never Used 07/01/23 12:52 PHQ-9: PHQ-9 Score PHQ-9: Total score 0 07/01/23 12:52 Depression Screening Interpretation: Negative Thrive Assessment: Date of Thrive Assessment Date Thrive assessed 07/01/23 07/01/23 12:52 Currently or been in a relationship where the following occur: no concerns reported Const General: no acute distress and alert HENMT Ears: TM's normal bilaterally and EAC's normal Throat: Yes posterior oropharynx normal and Yes tonsils normal (no TP congestion) Neck Neck: Yes no lymphadenopathy and Yes supple Resp Auscultation: clear to auscultation bilaterally, no rales and no wheezes Cardio Rate: regular rate Rhythm: regular rhythm Heart sounds: no murmurs GI Palpation (GI): Soft to palpation and nontender Auscultation: normal bowel sounds General: Yes no CVA tenderness Back/Spine/Pelvis Back: no CVA tenderness Skin Rashes: no rashes Neuro Cognition (Neuro): normal cognition Speech: Abnormal speech present (dysarthria - slow and slurred speech) Extrem General: Yes no clubbing, cyanosis or edema Results Reviewed Results Reviewed: Laboratory Tests 06/14/23 11:41 Sodium 137 Potassium 5.0 Creatinine 1.22 Estimated GFR > 60 Fasting Glucose 95 Calcium 10.1 AST 44 H ALT 45 H Triglycerides 201 H Cholesterol 151 LDL Cholesterol, Calc 74 HDL Cholesterol 37 L Assessment and Plan Assessment & Plan (1) Chronic headaches: Code(s): R51.9 - Headache, unspecified; G89.29 - Other chronic pain Qualifiers: Headache type: unspecified Intractability: not intractable Qualified Code(s): R51.9 - Headache, unspecified; G89.29 - Other chronic pain Plan: His headaches appear to have improved with prophylactic Tx with low dose Topiramate 25 mg Q HS - to continue on Rx Suspect that he may have migraine headaches or that these may be related to his cerebellar degeneration His most recent brain MRI done in September 2022 revealed no acute changes; still (+) cerebellar volume loss similar to prior imaging studies done on 08/02/2020 (2) Cerebellar atrophy: Comment: CT Brain done at [facility] [place] in June 2014 showed (+) moderate cerebellar atrophy Code(s): G31.9 - Degenerative disease of nervous system, unspecified Plan: 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, 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 and unfortunately has no known treatment or cure Follow up with neurology as scheduled (3) Benign essential hypertension: Code(s): I10 - Essential (primary) hypertension Plan: Reinforced low sodium diet - goal is systolic BP of 120 mm or less Continue Lisinopril 10 mg QD Per request, Rx for blood pressure monitor device sent in to his local pharmacy (4) Mixed hyperlipidemia: Code(s): E78.2 - Mixed hyperlipidemia Plan: Results of his labs done a couple of weeks ago reviewed and discussed with patient - advised that his lipids, especially his serum triglycerides, have continued to improved from previous Reinforced low cholesterol diet Continue Gemfibrozil 600 mg BID (patient is allergic to Fenofibrate) Will recheck his labs and fasting lipids in 4 months for follow up (5) Chronic constipation: Comment: S/P colonoscopy on 03/01/2021 - (+) tubular adenoma; otherwise normal Code(s): K59.09 - Other constipation Plan: Encouraged again to increase his oral fluids and dietary fiber Continue Metamucil daily and Miralax 17 gm QD (6) GERD without esophagitis: Code(s): K21.9 - Gastro-esophageal reflux disease without esophagitis Plan: Dietary restrictions reinforced Continue Pantoprazole 40 mg QD - symptoms seem to be better controlled since he was switched from Omeprazole to Pantoprazole (7) Elevated LFTs: Code(s): R79.89 - Other specified abnormal findings of blood chemistry Plan: Mild Patient denies any abdominal pain or symptoms at present Will continue to monitor his LFTs regularly for now (8) Nausea: Code(s): R11.0 - Nausea Plan: Continue Ondansetron 4 mg every 8 hours as needed to help with his nausea (9) Lumbar degenerative disc disease: Code(s): M51.36 - Other intervertebral disc degeneration, lumbar region Plan: Lumbar spine x-rays done last year showed (+) degenerative changes and facet arthropathy especially over L5-S1 Reinforced activity and weight-lifting restrictions Follow up with physical therapy as scheduled / as needed (10) Urinary hesitancy: Code(s): R39.11 - Hesitancy of micturition Plan: Most likely due to his BPH Follow up with urology as scheduled (11) Overweight (BMI 25.0-29.9): Code(s): E66.3 - Overweight Plan: Reinforced diet and weight loss; exercise is not realistic given patient's cerebellar degeneration, gait abnormality / unsteadiness and physical issues Plan Follow up in 4 months Orders: Orders Comprehensive [place]. Panel Fast 4 Months E78.00 - Pure hypercholesterolemia, unspecified TSH reflex Free T4 4 Months E78.00 - Pure hypercholesterolemia, unspecified Complete Blood Count Auto Diff 4 Months I10 - Essential (primary) hypertension Lipid Panel 4 Months E78.00 - Pure hypercholesterolemia, unspecified Vitamin D 25-OH Total 4 Months E55.9 - Vitamin D deficiency, unspecified UA CC w/rflx Micro + Cult 4 Months R30.0 - Dysuria Medications: New blood pressure test kit-medium As directed 1 ea 0RF I10 - Essential (primary) hypertension Coding Level of Care Code Est Pt Level 4 (07898) Diagnoses Chronic nonintractable headache, unspecified headache type R51.9; G89.29 Headache type: unspecified Intractability: not intractable Cerebellar atrophy G31.9 Benign essential hypertension I10 Mixed hyperlipidemia E78.2 Chronic constipation K59.09 GERD without esophagitis K21.9 Elevated LFTs R79.89 Nausea R11.0 Lumbar degenerative disc disease M51.36 Urinary hesitancy R39.11 Overweight (BMI 25.0-29.9) E66.3 Additional Codes JONATHAN-7 Assessment Billing - JONATHAN-7 Assessment Tool: JONATHAN-7 Assessment [id number] ([id number])
== END 2023-07-01 13:52 | disposition home or self-care (01) ==
PROVIDERS: PCP Internal Medicine; Visit Provider Internal Medicine
DX: R51.9 Headache, unspecified (principal); G89.29 Other chronic pain; G31.9 Degenerative disease of nervous system, unspecified; I10 Essential (primary) hypertension; E78.2 Mixed hyperlipidemia; K59.09 Other constipation; K21.9 Gastro-esophageal reflux disease without esophagitis; R79.89 Other specified abnormal findings of blood chemistry; R11.0 Nausea; M51.36 Other intervertebral disc degeneration, lumbar region; R39.11 Hesitancy of micturition; E66.3 Overweight
CPT/HCPCS: 99214

== ENCOUNTER 2023-07-22 09:29 | Outpatient (AMB) | payer OTHER, SELFPAY ==
[2023-07-22 09:52] VITALS: BP 128/82; PULSE 70; RESP 17; BMI 24.0
--- NOTE | 2023-07-22 09:52 | MHC.PC.OV ---
Vital Signs 07/22/23 09:52 Height 6 ft Weight 177 lb 4 oz BMI 24.0 BP 128/82 Blood Pressure Location Lt brachial Position Sitting Respiration 17 Pulse 70 Pulse Source Palpation Intake Visit Reasons: recurrent sinus infection Intake Note: Dr. Flores pt here for recurrent sinus infection. Holistic Nutritionist Required: No Accompanied by: Self / Same As Patient Allergies fenofibrate [Tricor] Allergy (Intermediate, Verified 07/22/23 10:03) Hives nut - unspecified [NUTS] Allergy (Intermediate, Verified 07/22/23 10:03) Hives seafood Allergy (Intermediate, Verified 07/22/23 10:03) Hives, Itchy fluocinolone acetonide Allergy (Unknown, Verified 07/22/23 10:03) Unknown lactose [LACTOSE] Adverse Reaction (Mild, Verified 07/22/23 10:03) Constipation Medication List - Last Reconciled 07/22/23 by Jan Castellanos PA-C acetaminophen ER 650 mg PO Q12H allopurinol 100 mg PO DAILY ascorbate calcium (vitamin C) 1,000 mg PO DAILY aspirin (Adult Low Dose Aspirin) 81 mg PO DAILY blood pressure test kit-medium As directed cetirizine (Zyrtec) 10 mg PO DAILY PRN cholecalciferol (vitamin D3) 25 mcg PO DAILY cyanocobalamin (vitamin B-12) 1,000 mcg PO DAILY docusate sodium (Colace) 200 mg (2 x 100 mg) PO BEDTIME 90 days fluticasone furoate 50 mcg/actuation inhalation fluticasone propionate 50 mcg/actuation 2 sprays intranasal DAILY PRN 30 days gemfibrozil 600 mg PO BID lansoprazole 30 mg PO DAILY lisinopril 10 mg PO DAILY magnesium oxide 400 mg PO DAILY 30 days methylcellulose (laxative) (Citrucel) 500 mg PO TID pantoprazole 40 mg PO DAILY polyethylene glycol 3350 (Miralax) 17 grams PO DAILY PRN riboflavin (vitamin B2) 400 mg PO DAILY 90 days rimegepant (Nurtec ODT) 75 mg PO ONCE PRN 16 days [ROLLATOR As directed] simethicone (Gas Relief (simethicone)) 125 mg PO TID-QID PRN tamsulosin 0.8 mg PO BEDTIME topiramate 25 mg PO BEDTIME 30 days Tobacco use date assessed: 07/22/23 Dental Screening Dental Screen Date: 07/22/23 Did you have a dental visit in the last 12 months?: No Did you have a dental problem in the last 6 months where you did not have access to dental care?: No Was dental information given to patient?: Yes HPI recurrent sinus infection HPI Details Patient is a 52-year-old male here today for problem visit. Reports chronically has sinus issues that he has been using a nasal spray for. He usually gets prescribed antibiotic to help clear up the symptoms. He otherwise denies any fevers. Does have Zyrtec on his medication list though is not taking this medication regularly. [facility] Medical History Overweight (BMI 25.0-29.9) Ataxia Right otitis media Lumbar degenerative disc disease HTN (hypertension) Mixed hyperlipidemia Chronic constipation Asthma Cerebellar atrophy Abnormality of gait Nephrolithiasis Right flank pain Benign prostatic hyperplasia Allergic rhinitis Constipation Vitamin D deficiency Renal calculus, bilateral GERD without esophagitis Migraine Pure hypercholesterolemia Benign essential hypertension Orchalgia Surgical History History of cystoscopy History of esophagogastroduodenoscopy (EGD) History of lithotripsy History of extraction of renal calculus Hx of elbow surgery Family History Father Hypertension CAD (coronary artery disease) Diabetes Cancer Mother Hypertension Acute CVA (cerebrovascular accident) Paternal Grandfather Throat cancer Sister Lupus Epilepsy Social History Household Members Other:: Homeless Housing: Apartment Alcohol intake: never Patient Tobacco Use Status: Never used Tobacco e-Cigarette/Vaping Use: Never Used Second Hand Smoke Exposure: Yes service: No Current occupational status: disabled Current occupational exposures/hazards: No Cognitive needs: Yes Hearing needs: No Vision needs: No Questionnaire PHQ-9 Over the last 2 weeks, how often have you been bothered by any of the following problems? 1. Little interest or pleasure in doing things: not at all 2. Feeling down, depressed, or hopeless: not at all 3. Trouble falling or staying asleep, or sleeping too much: not at all 4. Feeling tired or having little energy: not at all 5. Poor appetite or overeating: not at all 6. Feeling bad about yourself - or that you are a failure or have let yourself or your family down: not at all 7. Trouble concentrating on things, such as reading the newspaper or watching television: not at all 8. Moving or speaking so slowly that other people could have noticed. Or the opposite - being so fidgety or restless that you have been moving around a lot more than usual: not at all 9. Thoughts that you would be better off or of hurting yourself in some way: not at all Total score: 0 Depression Screening Interpretation: Negative Depression Screening Done: Yes 21341 - PHQ-9 Billing: Yes Source: Developed by Drs. Timothy Callahan, Susan Garcia, Jose Cruz Lloyd and colleagues, with an educational jim from [employer]. Thrive Questionnaire Date Thrive assessed: 07/22/23 I am a: Patient What is your living situation today?: I have a steady place to live Within the past 12 months, did the food you bought not last and you didn't have the money to get more?: Never true Within the past 12 months, did you worry whether your food would run out before you got money to buy more?: Never true Do you have trouble paying for medicines?: No Do you have trouble getting transportation to medical appointments?: No Do you have trouble paying your heating and electricity bill?: No Do you have trouble taking care of your child, family member or friend?: No Do you have trouble with day-to-day activities such as bathing, preparing meals, shopping, managing finances, etc.?: No Are you currently unemployed and looking for a job?: No Are you interested in more education?: No Please select the resources that you would like help with: None Currently or been in a relationship where the following occur: no concerns reported AUDIT C Alcohol Use Questionnaire (AUDIT-C) 1. How often do you have a drink containing alcohol?: Never 3. How often do you have six or more drinks on one occasion?: Never Total Score: 0 JONATHAN-7 AMB Questionnaire JONATHAN-7 Date JONATHAN - 7 assessed: 07/22/23 Feeling nervous, anxious, or on edge: 0 = Not at all Not being able to stop or control worryin = Not at all Worrying too much about different things: 0 = Not at all Trouble relaxin = Not at all Being so restless that it is hard to sit still: 0 = Not at all Becoming easily annoyed or irritable: 0 = Not at all Feeling afraid as if something awful might happen: 0 = Not at all Total JONATHAN-7 score (0-4 normal; 5-9 mild; 10-14 moderate; 15-21 severe): 0 Source: Developed by Drs. Timothy Callahan, Susan Garcia, Jose Cruz Lloyd and colleagues, with an educational jim from [employer]. JONATHAN-7 Assessment Billing JONATHAN-7 Assessment Tool: JONATHAN-7 Assessment [id number] Review of Systems Const Denies headache(s) Eyes Denies loss of vision ENT Denies vertigo, Denies dizziness, Denies headache(s) and Denies sore throat Card Denies chest pain, Denies leg edema and Denies lightheadedness Resp Denies cough, Denies hemoptysis and Denies wheezing GI Denies abdominal pain, Denies melena, Denies constipation, Denies diarrhea and Denies vomiting Denies dysuria, Denies urinary frequency and Denies urinary urgency Musc Denies arthralgias, Denies joint swelling, Denies numbness and Denies tingling Neuro Denies Abnormal speech present, Denies behavioral changes, Denies vertigo, Denies dizziness, Denies headache(s), Denies loss of vision, Denies memory loss, Denies numbness and Denies tingling Psych Denies anxiety, Denies behavioral changes, Denies depression, Denies memory loss and Denies panic attacks Denis/Lymph Denies easy bleeding and Denies easy bruising Aller/Immun Denies wheezing Physical exam (Primary Care) Vital Signs: Last Vital Signs Pulse 70 07/22/23 09:52 Resp 17 07/22/23 09:52 BP 128/82 07/22/23 09:52 BMI result Body Mass Index 24.0 Tobacco/Smoking Status: Tobacco use Status Tobacco use date assessed 07/22/23 07/22/23 10:03 Patient Tobacco Use Status Never used Tobacco 07/22/23 09:52 e-Cigarette/Vaping Use Never Used 07/22/23 09:52 PHQ-9: PHQ-9 Score PHQ-9: Total score 0 07/22/23 10:03 Depression Screening Interpretation: Negative Thrive Assessment: Date of Thrive Assessment Date Thrive assessed 07/22/23 07/22/23 10:03 Currently or been in a relationship where the following occur: no concerns reported Const General: healthy appearing, no acute distress, alert and awake Nutritional Appearance: well nourished Orientation/consciousness: oriented to person, oriented to place and oriented to time HENMT Ears: TM's normal bilaterally General nose exam: Normal nasal mucous membranes and turbinates present Eyes Conjunctivae: conjunctivae normal Sclerae: sclerae normal Pupils: Equal, round and reactive pupils present Neck Neck: Yes no lymphadenopathy and Yes no JVD Thyroid: Thyroid normal Carotids: no bruits Resp Effort & Inspection: normal respiratory effort and not tachypneic Auscultation: no crackles, no rales, no rhonchi and no wheezes Cardio Rate: regular rate Rhythm: regular rhythm Heart sounds: no murmurs and normal S1 and S2 GI Palpation (GI): Soft to palpation, nontender, no hepatomegaly and no splenomegaly Auscultation: normal bowel sounds Skin General skin exam: no rashes or lesions noted and dry skin Neuro General: oriented to person, oriented to place and oriented to time Cranial nerves: Yes Equal, round and reactive pupils present Speech: No Abnormal speech present Gait exam (Neuro): Normal gait present Motor exam (neuro): no tremor noted Extrem Right upper extremity: full ROM Left upper extremity: full ROM Right lower extremity: full ROM; no edema Left lower extremity: full ROM; no edema Psych Mental Status: mental status grossly normal Speech and movement: Normal speech and movement present Affect: normal affect Attitude: cooperative Thought process: Normal thought process present Assessment and Plan Assessment & Plan (1) Sinus infection: Code(s): J32.9 - Chronic sinusitis, unspecified Qualifiers: Chronicity: chronic Sinusitis location: frontal Qualified Code(s): J32.1 - Chronic frontal sinusitis Plan: Patient has signs symptoms was sent for chronic sinusitis. Will supply patient with antibiotic and short-term prednisone. Advised to continue nasal spray and start using Zyrtec on a nightly basis to reduce his incidence of sinusitis symptoms. Medications: New prednisone 20 mg PO DAILY 5 days 5 tabs 0RF J01.10 - Acute frontal sinusitis, unspecified amoxicillin 500 mg PO Q8H 7 days 21 caps 0RF J01.10 - Acute frontal sinusitis, unspecified Changed From cetirizine (Zyrtec) 10 mg PO DAILY PRN 14 caps 0RF allergy symptoms J30.9 - Allergic rhinitis, unspecified To cetirizine (Zyrtec) 10 mg PO DAILY 90 days 90 caps 1RF allergy symptoms J30.9 - Allergic rhinitis, unspecified Coding Level of Care Code Est Pt Level 3 (37279) Diagnoses Chronic frontal sinusitis J32.1 Chronicity: chronic Sinusitis location: frontal Additional Codes JONATHAN-7 Assessment Billing - JONATHAN-7 Assessment Tool: JONATHAN-7 Assessment [id number] ([id number])
== END 2023-07-22 12:10 | disposition home or self-care (01) ==
PROVIDERS: PCP Internal Medicine; Visit Provider Physician Assistant
DX: J32.1 Chronic frontal sinusitis (principal)
CPT/HCPCS: 99213

== ENCOUNTER 2023-08-23 16:33 | Outpatient (AMB) | payer OTHER, SELFPAY ==
[2023-08-23 16:38] VITALS: BP 120/88; PULSE 88; O2SAT 96; BMI 24.0
--- NOTE | 2023-08-23 16:38 | MHC.PC.OV ---
Vital Signs 08/23/23 16:38 Height 6 ft Weight 177 lb 4 oz BMI 24.0 BP 120/88 Blood Pressure Location Lt brachial Position Sitting Pulse 88 Pulse Source Pulse Oximeter Pulse Oximetry (%) 96 Oxygen Delivery Method Room Air Intake Visit Reasons: ear pain Apartment Rental Clerk Required: No Accompanied by: Self / Same As Patient Allergies fenofibrate [Tricor] Allergy (Intermediate, Verified 08/23/23 17:22) Hives nut - unspecified [NUTS] Allergy (Intermediate, Verified 08/23/23 17:22) Hives seafood Allergy (Intermediate, Verified 08/23/23 17:22) Hives, Itchy fluocinolone acetonide Allergy (Unknown, Verified 08/23/23 17:22) Unknown lactose [LACTOSE] Adverse Reaction (Mild, Verified 08/23/23 17:22) Constipation Medication List - Last Reconciled 08/23/23 by Ignacio Flores MD acetaminophen ER 650 mg PO Q12H allopurinol 100 mg PO DAILY amoxicillin-pot clavulanate 875-125 mg 1 tab PO BID 10 days ascorbate calcium (vitamin C) 1,000 mg PO DAILY aspirin (Adult Low Dose Aspirin) 81 mg PO DAILY blood pressure test kit-medium As directed cholecalciferol (vitamin D3) 25 mcg PO DAILY cyanocobalamin (vitamin B-12) 1,000 mcg PO DAILY docusate sodium (Colace) 200 mg (2 x 100 mg) PO BEDTIME 90 days fluticasone furoate 50 mcg/actuation inhalation fluticasone propionate 50 mcg/actuation 2 sprays intranasal DAILY PRN 30 days gemfibrozil 600 mg PO BID lansoprazole 30 mg PO DAILY lisinopril 10 mg PO DAILY loratadine 10 mg PO DAILY magnesium oxide 400 mg PO DAILY 90 days methylcellulose (laxative) (Citrucel) 500 mg PO TID pantoprazole 40 mg PO DAILY polyethylene glycol 3350 (Miralax) 17 grams PO DAILY PRN riboflavin (vitamin B2) 400 mg PO DAILY 90 days rimegepant (Nurtec ODT) 75 mg PO ONCE PRN 16 days [ROLLATOR As directed] simethicone (Gas Relief (simethicone)) 125 mg PO TID-QID PRN tamsulosin 0.8 mg PO BEDTIME topiramate 25 mg PO BEDTIME 30 days Tobacco use date assessed: 08/23/23 Dental Screening Dental Screen Date: 08/23/23 Did you have a dental visit in the last 12 months?: Yes Did you have a dental problem in the last 6 months where you did not have access to dental care?: No Was dental information given to patient?: Patient has dentist HPI ear pain HPI Details Patient comes in today complaining of increased pain in and around his left ear for over a week now He has noticed some dark ( blackish ) drainage from his left ear at times He denies any fever or sore throat; denies any recent cough or cold symptoms Denies any headaches or dizziness Denies any chest pains, no SOB No nausea/vomiting, no abdominal pain No change in bowel habits noted [facility] Medical History Overweight (BMI 25.0-29.9) Ataxia Right otitis media Lumbar degenerative disc disease HTN (hypertension) Mixed hyperlipidemia Chronic constipation Asthma Cerebellar atrophy Abnormality of gait Nephrolithiasis Right flank pain Benign prostatic hyperplasia Allergic rhinitis Constipation Vitamin D deficiency Renal calculus, bilateral GERD without esophagitis Migraine Pure hypercholesterolemia Benign essential hypertension Orchalgia Surgical History History of cystoscopy History of esophagogastroduodenoscopy (EGD) History of lithotripsy History of extraction of renal calculus Hx of elbow surgery Family History Father Hypertension CAD (coronary artery disease) Diabetes Cancer Mother Hypertension Acute CVA (cerebrovascular accident) Paternal Grandfather Throat cancer Sister Lupus Epilepsy Social History Household Members Other:: Homeless Housing: Apartment Alcohol intake: never Patient Tobacco Use Status: Never used Tobacco e-Cigarette/Vaping Use: Never Used Second Hand Smoke Exposure: Yes service: No Current occupational status: disabled Current occupational exposures/hazards: No Cognitive needs: Yes Hearing needs: No Vision needs: No Questionnaire PHQ-9 Over the last 2 weeks, how often have you been bothered by any of the following problems? 1. Little interest or pleasure in doing things: not at all 2. Feeling down, depressed, or hopeless: not at all 3. Trouble falling or staying asleep, or sleeping too much: not at all 4. Feeling tired or having little energy: not at all 5. Poor appetite or overeating: not at all 6. Feeling bad about yourself - or that you are a failure or have let yourself or your family down: not at all 7. Trouble concentrating on things, such as reading the newspaper or watching television: not at all 8. Moving or speaking so slowly that other people could have noticed. Or the opposite - being so fidgety or restless that you have been moving around a lot more than usual: not at all 9. Thoughts that you would be better off or of hurting yourself in some way: not at all Total score: 0 Depression Screening Interpretation: Negative Depression Screening Done: Yes 42186 - PHQ-9 Billing: Yes Source: Developed by Drs. Timothy Callahan, Susan Garcia, Jose Cruz Lloyd and colleagues, with an educational jim from [employer]. Thrive Questionnaire Date Thrive assessed: 08/23/23 I am a: Patient What is your living situation today?: I have a steady place to live Within the past 12 months, did the food you bought not last and you didn't have the money to get more?: Never true Within the past 12 months, did you worry whether your food would run out before you got money to buy more?: Never true Do you have trouble paying for medicines?: No Do you have trouble getting transportation to medical appointments?: No Do you have trouble paying your heating and electricity bill?: No Do you have trouble taking care of your child, family member or friend?: No Do you have trouble with day-to-day activities such as bathing, preparing meals, shopping, managing finances, etc.?: No Are you currently unemployed and looking for a job?: No Are you interested in more education?: No Please select the resources that you would like help with: None Currently or been in a relationship where the following occur: no concerns reported THRIVE Score: 0 AUDIT C Alcohol Use Questionnaire (AUDIT-C) 1. How often do you have a drink containing alcohol?: Never 3. How often do you have six or more drinks on one occasion?: Never Total Score: 0 Score Reviewed/Action Taken: Yes JONATHAN-7 AMB Questionnaire JONATHAN-7 Date JONATHAN - 7 assessed: 08/23/23 Feeling nervous, anxious, or on edge: 0 = Not at all Not being able to stop or control worryin = Not at all Worrying too much about different things: 0 = Not at all Trouble relaxin = Not at all Being so restless that it is hard to sit still: 0 = Not at all Becoming easily annoyed or irritable: 0 = Not at all Feeling afraid as if something awful might happen: 0 = Not at all Total JONATHAN-7 score (0-4 normal; 5-9 mild; 10-14 moderate; 15-21 severe): 0 Source: Developed by Drs. Timothy Callahan, Susan Garcia, Jose Cruz Lloyd and colleagues, with an educational jim from [employer]. JONATHAN-7 Assessment Billing JONATHAN-7 Assessment Tool: JONATHAN-7 Assessment 50830 Review of Systems Const Denies chills, Reports fatigue, Denies fever(s) and Denies headache(s) ENT Denies dysphagia, Denies dizziness, Reports otalgia (left ear - see HPI), Denies headache(s), Denies neck pain, Denies odynophagia and Denies sore throat Card Denies chest pain, Denies palpitations and Denies dyspnea Resp Denies cough and Denies dyspnea GI Denies abdominal pain, Denies constipation, Denies dysphagia, Denies heartburn, Denies diarrhea, Denies nausea, Denies odynophagia and Denies vomiting Denies dysuria, Denies nocturia and Denies urinary frequency Musc Denies neck pain Neuro Denies dizziness and Denies headache(s) Endo Reports fatigue and Denies palpitations Physical exam (Primary Care) Vital Signs: Last Vital Signs Pulse 88 08/23/23 16:38 BP 120/88 08/23/23 16:38 Pulse Ox 96 08/23/23 16:38 Oxygen Delivery Method Room Air 08/23/23 16:38 BMI result Body Mass Index 24.0 Tobacco/Smoking Status: Tobacco use Status Tobacco use date assessed 08/23/23 08/23/23 16:43 Patient Tobacco Use Status Never used Tobacco 08/23/23 16:43 e-Cigarette/Vaping Use Never Used 08/23/23 16:43 PHQ-9: PHQ-9 Score PHQ-9: Total score 0 08/23/23 16:57 Depression Screening Interpretation: Negative Thrive Assessment: Date of Thrive Assessment Date Thrive assessed 08/23/23 08/23/23 16:43 Currently or been in a relationship where the following occur: no concerns reported Const General: no acute distress and alert HENMT Ears: TM normal on the right, EAC's normal (right ) and Abnormal EAC present erythema, EAC tenderness and otic discharge purulent on the left Throat: Yes posterior oropharynx normal and Yes tonsils normal (no TP congestion) Neck Neck: Yes no lymphadenopathy and Yes supple Resp Auscultation: clear to auscultation bilaterally, no rales and no wheezes Cardio Rate: regular rate Rhythm: regular rhythm Heart sounds: no murmurs GI Palpation (GI): Soft to palpation and nontender Auscultation: normal bowel sounds Neuro Cognition (Neuro): normal cognition Extrem General: Yes no clubbing, cyanosis or edema Assessment and Plan Assessment & Plan (1) Left otitis media with effusion: Code(s): H65.92 - Unspecified nonsuppurative otitis media, left ear Plan: Will start patient on Augmentin 875 mg BID x 10 days Plan Follow up as scheduled in October 2023 Medications: New amoxicillin-pot clavulanate 875-125 mg 1 tab PO BID 10 days 20 tabs 0RF Coding Level of Care Code Est Pt Level 3 (67141) Diagnoses Left otitis media with effusion H65.92 Additional Codes JONATHAN-7 Assessment Billing - JONATHAN-7 Assessment Tool: JONATHAN-7 Assessment [id number] ([id number])
== END 2023-08-23 16:59 | disposition home or self-care (01) ==
PROVIDERS: PCP Internal Medicine; Visit Provider Internal Medicine
DX: H65.92 Unspecified nonsuppurative otitis media, left ear (principal)
CPT/HCPCS: 99213

== ENCOUNTER 2023-10-30 07:44 | Outpatient (REF) | payer OTHER, SELFPAY ==
[2023-10-30 07:57] LABS: MANUAL DIFF FLAG NO
[2023-10-30 08:51] LABS: Basophils Percent Auto 0.4 % (0-2); Eosinophils Absolute Auto 0.3 X10*3/uL (0.0-0.4); Eosinophils Percent Auto 4.7 % (0-4); Hematocrit 51.8 % (42.0-52.0); Hemoglobin 17.1 g/dl (14.0-18.0); Imm Gran Abs Auto 0.02 X10*3/uL (0.00-0.03); Imm Gran Pct Auto 0.3 % (0.0-0.4); Lymphocytes Absolute Auto 3.3 X10*3/uL (1.2-4.9); Mean Corpuscular Hemoglobin 30.6 pg (27.0-33.0); Mean Corpuscular Volume 92.7 fL (80.0-98.0); Mean Platelet Volume 11.7 fL (9.4-12.4); Monocytes Absolute Auto 0.6 X10*3/uL (0.1-1.2); Monocytes Percent Auto 8.2 % (2-11); Neutrophils Absolute Auto 2.9 x10*3/uL (2.0-8.3); Neutrophils Percent Auto 40.4 % (45-73); Platelet Count 311 X10*3/uL (160-400); Red Blood Count 5.59 X10*6/uL (4.60-5.80); Red Cell Distribution Width 12.8 % (11.0-16.0); White Blood Count 7.2 X10*3/uL (4.8-10.8)
[2023-10-30 09:54] LABS: Appearance Urine Clear; Color Urine Dark Yellow; Glucose Urine UA Negative (Negative); Leukocyte Esterase Urine Negative (Negative); Nitrite Urine Negative (Negative); PH 7.5 (5.0-9.0); Specific Gravity - Urine 1.015 (1.005-1.025); Urine Blood Negative (Negative); Urine Ketones Negative (Negative); Urine Protein Negative (Neg-Trace)
[2023-10-30 11:02] LABS: Alanine Aminotransferase 22 U/L (0-40); Albumin Level 4.8 g/dL (3.5-5.0); Alkaline Phosphatase 73 U/L (39-117); Anion Gap 12 (12-20); Aspartate Amino Transferase 17 U/L (5-37); Bilirubin Total 0.5 mg/dL (0.0-1.0); Blood Urea Nitrogen 15 mg/dL (9-16); Calcium 10.8 mg/dL (8.4-10.2); Carbon Dioxide 30 mmol/L (22-29); Chloride 102 mmol/L (96-108); Cholesterol 182 mg/dL (<200); Estimated Glomerular Filt Rate > 60; Glucose Fasting 93 mg/dL (60-99); HDL Cholesterol 37 mg/dL (>40); LDL Cholesterol Calculated 111 mg/dL (<100); Potassium 5.1 mmol/L (3.3-5.1); Sodium 139 mmol/L (135-145); Total Protein 8.2 g/dL (6.5-8.0); Triglycerides 172 mg/dL (<150)
[2023-10-30 11:06] LABS: TSH reflex Free T4 1.56 uIU/mL (0.32-4.0); Vitamin D 25-OH Total 83.3 ng/mL (>30)
== END 2023-10-30 07:45 | disposition home or self-care (01) ==
LOC: HO.LAB 07:44
PROVIDERS: PCP Internal Medicine; Visit Provider Internal Medicine
DX: E78.00 Pure hypercholesterolemia, unspecified (principal); E55.9 Vitamin D deficiency, unspecified; R30.0 Dysuria; I10 Essential (primary) hypertension
CPT/HCPCS: 36415; 80053; 80061; 81003; 82306; 84443; 85025

== ENCOUNTER 2023-11-01 13:14 | Outpatient (AMB) | payer OTHER, SELFPAY ==
[2023-11-01 13:18] VITALS: BP 130/72; PULSE 66; O2SAT 97; BMI 23.2
--- NOTE | 2023-11-01 13:18 | A.OFFPC_ITS ---
Vital Signs 11/01/23 13:18 Height 6 ft Weight 171 lb 0.1 oz BMI 23.2 BP 130/72 Blood Pressure Location Lt brachial Position Sitting Pulse 66 Pulse Source Pulse Oximeter Pulse Oximetry (%) 97 Oxygen Delivery Method Room Air Intake Visit Reasons: 4mth f/u Intake Note: Patient is here to follow up Kitchen Hand Required: No Allergies fenofibrate [Tricor] Allergy (Intermediate, Verified 11/01/23 14:24) Hives nut - unspecified [NUTS] Allergy (Intermediate, Verified 11/01/23 14:24) Hives seafood Allergy (Intermediate, Verified 11/01/23 14:24) Hives, Itchy fluocinolone acetonide Allergy (Unknown, Verified 11/01/23 14:24) Unknown lactose [LACTOSE] Adverse Reaction (Mild, Verified 11/01/23 14:24) Constipation Medication List - Last Reconciled 11/01/23 by Ignacio Flores MD acetaminophen ER 650 mg PO Q12H allopurinol 100 mg PO DAILY ascorbate calcium (vitamin C) 1,000 mg PO DAILY aspirin (Adult Low Dose Aspirin) 81 mg PO DAILY blood pressure test kit-medium As directed cholecalciferol (vitamin D3) 25 mcg PO DAILY cyanocobalamin (vitamin B-12) 1,000 mcg PO DAILY docusate sodium 200 mg (2 x 100 mg) PO BEDTIME fluticasone furoate 50 mcg/actuation inhalation fluticasone propionate 50 mcg/actuation 2 sprays intranasal DAILY PRN 30 days gemfibrozil 600 mg PO BID lansoprazole 30 mg PO DAILY lisinopril 10 mg PO DAILY loratadine 10 mg PO DAILY magnesium oxide 400 mg PO DAILY 90 days methylcellulose (laxative) (Citrucel) 500 mg PO TID pantoprazole 40 mg PO DAILY polyethylene glycol 3350 (Miralax) 17 grams PO DAILY PRN riboflavin (vitamin B2) 400 mg PO DAILY 90 days rimegepant (Nurtec ODT) 75 mg PO ONCE PRN 16 days [ROLLATOR As directed] simethicone (Gas Relief (simethicone)) 125 mg PO TID-QID PRN tamsulosin 0.8 mg PO BEDTIME topiramate 25 mg PO BEDTIME 30 days Tobacco use date assessed: 11/01/23 Dental Screening Dental Screen Date: 08/23/[address] f/u HPI Details Patient comes in today for his follow up visit States that he has been experiencing frequent abdominal bloating and some early satiety lately - has lost some weight (unintentionally) in the past couple of months He also reports (+) nausea and vomiting at times but denies any dysphagia; denies any abdominal pain or recent change in bowel habits He denies any headaches or dizziness but continues to feel very unsteady Goes to physical therapy regularly, which he feels is helping somewhat He denies any chest pains, no increased SOB Had his follow up labs done a couple of days ago - to discuss his results [facility] Medical History Overweight (BMI 25.0-29.9) Ataxia Right otitis media Lumbar degenerative disc disease HTN (hypertension) Mixed hyperlipidemia Chronic constipation Asthma Cerebellar atrophy Abnormality of gait Nephrolithiasis Right flank pain Benign prostatic hyperplasia Allergic rhinitis Constipation Vitamin D deficiency Renal calculus, bilateral GERD without esophagitis Migraine Pure hypercholesterolemia Benign essential hypertension Orchalgia Surgical History History of cystoscopy History of esophagogastroduodenoscopy (EGD) History of lithotripsy History of extraction of renal calculus Hx of elbow surgery Family History Father Hypertension CAD (coronary artery disease) Diabetes Cancer Mother Hypertension Acute CVA (cerebrovascular accident) Paternal Grandfather Throat cancer Sister Lupus Epilepsy Social History Household Members Other:: Homeless Housing: Apartment Alcohol intake: never Patient Tobacco Use Status: Never used Tobacco e-Cigarette/Vaping Use: Never Used Second Hand Smoke Exposure: Yes service: No Current occupational status: disabled Current occupational exposures/hazards: No Cognitive needs: Yes Hearing needs: No Vision needs: No Questionnaire PHQ-9 Over the last 2 weeks, how often have you been bothered by any of the following problems? Depression Screening Interpretation: Negative Depression Screening Done: Yes Source: Developed by Drs. Timothy Callahan, Susan Garcia, Jose Cruz Lloyd and colleagues, with an educational jim from [employer]. Thrive Questionnaire Date Thrive assessed: 08/23/23 I am a: Patient What is your living situation today?: I have a steady place to live Within the past 12 months, did the food you bought not last and you didn't have the money to get more?: Never true Within the past 12 months, did you worry whether your food would run out before you got money to buy more?: Never true Do you have trouble paying for medicines?: No Do you have trouble getting transportation to medical appointments?: No Do you have trouble paying your heating and electricity bill?: No Do you have trouble taking care of your child, family member or friend?: No Do you have trouble with day-to-day activities such as bathing, preparing meals, shopping, managing finances, etc.?: No Are you currently unemployed and looking for a job?: No Are you interested in more education?: No Please select the resources that you would like help with: None Currently or been in a relationship where the following occur: no concerns reported THRIVE Score: 0 AUDIT C Alcohol Use Questionnaire (AUDIT-C) 1. How often do you have a drink containing alcohol?: Never 3. How often do you have six or more drinks on one occasion?: Never Total Score: 0 Score Reviewed/Action Taken: Yes JONATHAN-7 AMB Questionnaire JONATHAN-7 Date JONATHAN - 7 assessed: 08/23/23 Source: Developed by Drs. Timothy Callahan, Susan Garcia, Jose Cruz Lloyd and colleagues, with an educational jim from [employer]. Review of Systems Const Denies chills, Reports fatigue, Denies fever(s), Denies headache(s) and Reports weight loss ENT Denies dysphagia, Denies dizziness, Denies otalgia, Denies headache(s), Denies neck pain, Denies odynophagia and Denies sore throat Card Denies chest pain, Denies palpitations and Denies dyspnea Resp Denies cough and Denies dyspnea GI Denies abdominal pain, Reports bloating, Denies constipation, Denies dysphagia, Reports early satiety, Denies heartburn, Denies diarrhea, Reports nausea (on and off), Denies odynophagia and Reports vomiting (occasional) Denies dysuria, Denies nocturia and Denies urinary frequency Musc Reports abnormal gait (unsteady) and Denies neck pain Skin/Breast Denies rash Neuro Reports abnormal gait (unsteady), Denies dizziness and Denies headache(s) Endo Reports fatigue and Denies palpitations Physical exam (Primary Care) Vital Signs: Last Vital Signs Pulse 66 11/01/23 13:18 BP 130/72 11/01/23 13:18 Pulse Ox 97 11/01/23 13:18 Oxygen Delivery Method Room Air 11/01/23 13:18 BMI result Body Mass Index 23.2 Tobacco/Smoking Status: Tobacco use Status Tobacco use date assessed 11/01/23 11/01/23 13:20 Patient Tobacco Use Status Never used Tobacco 11/01/23 13:20 e-Cigarette/Vaping Use Never Used 11/01/23 13:20 Depression Screening Interpretation: Negative Thrive Assessment: Date of Thrive Assessment Date Thrive assessed 08/23/23 11/01/23 13:20 Currently or been in a relationship where the following occur: no concerns reported Const General: no acute distress and alert HENMT Ears: TM normal on the right, EAC's normal (right ) and Abnormal EAC present erythema, EAC tenderness and otic discharge purulent on the left Throat: Yes posterior oropharynx normal and Yes tonsils normal (no TP congestion) Neck Neck: Yes no lymphadenopathy and Yes supple Resp Auscultation: clear to auscultation bilaterally, no rales and no wheezes Cardio Rate: regular rate Rhythm: regular rhythm Heart sounds: no murmurs GI Palpation (GI): Soft to palpation and nontender Auscultation: normal bowel sounds Neuro Cognition (Neuro): normal cognition Extrem General: Yes no clubbing, cyanosis or edema Results Reviewed Results Reviewed: Laboratory Tests 10/30/23 10/30/23 07:49 07:56 WBC 7.2 Hgb 17.1 Hct 51.8 Plt Count 311 Sodium 139 Potassium 5.1 Creatinine 1.19 Estimated GFR > 60 Fasting Glucose 93 Calcium 10.8 H D AST 17 ALT 22 Triglycerides 172 H Cholesterol 182 LDL Cholesterol, Calc 111 H HDL Cholesterol 37 L 25-OH Vitamin D Total 83.3 TSH 1.56 Ur Specific [place] 1.015 Urine Protein Negative Urine Glucose (UA) Negative Urine Blood Negative Urine Nitrite Negative Ur Leukocyte Esterase Negative Assessment and Plan Assessment & Plan (1) Cerebellar atrophy: Comment: CT Brain done at [facility] in June 2014 showed (+) moderate cerebellar atrophy Code(s): G31.9 - Degenerative disease of nervous system, unspecified Plan: 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, 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 and unfortunately has no known treatment or cure Follow up with neurology as scheduled (2) Chronic headaches: Code(s): R51.9 - Headache, unspecified; G89.29 - Other chronic pain Qualifiers: Headache type: unspecified Intractability: not intractable Qualified Code(s): R51.9 - Headache, unspecified; G89.29 - Other chronic pain Plan: His headaches have improved with prophylactic Tx with low dose Topiramate - to continue on Topiramate 25 mg Q HS Suspect that he may have migraine headaches or that these may be related to his cerebellar degeneration His most recent brain MRI done in September 2022 revealed no acute changes; still (+) cerebellar volume loss similar to prior imaging studies done on 08/02/2020 (3) Benign essential hypertension: Code(s): I10 - Essential (primary) hypertension Plan: Reinforced low sodium diet - goal is systolic BP of 120 mm or less Continue Lisinopril 10 mg QD (4) Mixed hyperlipidemia: Code(s): E78.2 - Mixed hyperlipidemia Plan: Results of his labs done a couple of days ago reviewed and discussed with patient Reinforced low cholesterol diet Continue Gemfibrozil 600 mg BID (patient is allergic to Fenofibrate) Will recheck his labs and fasting lipids in 4 months for follow up (5) Chronic constipation: Comment: S/P colonoscopy on 03/01/2021 - (+) tubular adenoma; otherwise normal Code(s): K59.09 - Other constipation Plan: Encouraged again to increase his oral fluids and dietary fiber Continue Metamucil daily and Miralax 17 gm QD (6) GERD without esophagitis: Code(s): K21.9 - Gastro-esophageal reflux disease without esophagitis Plan: Dietary restrictions reinforced Continue Pantoprazole 40 mg QD - symptoms seem to be better controlled since he was switched from Omeprazole to Pantoprazole (7) Elevated LFTs: Code(s): R79.89 - Other specified abnormal findings of blood chemistry Plan: Resolved on his recent labs Patient denies any abdominal pain or symptoms at present Will continue to monitor his LFTs regularly for now (8) Nausea: Code(s): R11.0 - Nausea Plan: Continue Ondansetron 4 mg every 8 hours as needed to help with his nausea With his recent weight loss, abdominal bloating and on and off nausea/vomiting, will refer him to GI for further evaluation and management (9) Lumbar degenerative disc disease: Code(s): M51.36 - Other intervertebral disc degeneration, lumbar region Plan: Lumbar spine x-rays done last year showed (+) degenerative changes and facet arthropathy especially over L5-S1 Reinforced activity and weight-lifting restrictions Follow up with physical therapy as scheduled / as needed (10) Urinary hesitancy: Code(s): R39.11 - Hesitancy of micturition Plan: Most likely due to his BPH Follow up with urology as scheduled (11) Overweight (BMI 25.0-29.9): Code(s): E66.3 - Overweight Plan: Reinforced diet and weight loss; exercise is not realistic given patient's cerebellar degeneration, gait abnormality / unsteadiness and physical issues Plan Follow up in 4 months Orders: Orders Complete Blood Count Auto Diff 4 Months D64.9 - Anemia, unspecified Comprehensive [place]. Panel Fast 4 Months E78.00 - Pure hypercholesterolemia, unspecified Lipid Panel 4 Months E78.00 - Pure hypercholesterolemia, unspecified Vitamin D 25-OH Total 4 Months E55.9 - Vitamin D deficiency, unspecified Vitamin B12 and Folate 4 Months E53.8 - Deficiency of other specified B group vitamins Referrals Gastroenterology Referral G31.9 - Degenerative disease of nervous system, unspecified, R14.0 - Abdominal distension (gaseous), R63.4 - Abnormal weight loss, R68.81 - Early satiety Coding Level of Care Code Est Pt Level 4 (75467) Diagnoses Cerebellar atrophy G31.9 Chronic nonintractable headache, unspecified headache type R51.9; G89.29 Headache type: unspecified Intractability: not intractable Benign essential hypertension I10 Mixed hyperlipidemia E78.2 Chronic constipation K59.09 GERD without esophagitis K21.9 Elevated LFTs R79.89 Nausea R11.0 Lumbar degenerative disc disease M51.36 Urinary hesitancy R39.11 Overweight (BMI 25.0-29.9) E66.3
== END 2023-11-01 14:34 | disposition home or self-care (01) ==
PROVIDERS: PCP Internal Medicine; Visit Provider Internal Medicine
DX: G31.9 Degenerative disease of nervous system, unspecified (principal); R51.9 Headache, unspecified; G89.29 Other chronic pain; I10 Essential (primary) hypertension; E78.2 Mixed hyperlipidemia; K59.09 Other constipation; K21.9 Gastro-esophageal reflux disease without esophagitis; R79.89 Other specified abnormal findings of blood chemistry; R11.0 Nausea; M51.36 Other intervertebral disc degeneration, lumbar region; R39.11 Hesitancy of micturition; E66.3 Overweight
CPT/HCPCS: 99214

== ENCOUNTER 2023-12-05 14:54 | Outpatient (AMB) | payer OTHER, SELFPAY ==
--- NOTE | 2023-12-05 15:09 | A.OFFPC_ITS ---
Vital Signs 12/05/23 15:10 Height 6 ft Weight 175 lb 6 oz BMI 23.8 BP 90/64 Blood Pressure Location Rt brachial Position Sitting Pulse 87 Pulse Source Pulse Oximeter Pulse Oximetry (%) 96 Oxygen Delivery Method Room Air Intake Visit Reasons: eye discharge/possible sinus infection Intake Note: Patient is here to follow up on left eye discharge and possible sinus infection. Micro Computer Specialist Required: No Sports Instructor: Not Required per policy Accompanied by: Self / Same As Patient Allergies fenofibrate [Tricor] Allergy (Intermediate, Verified 12/06/23 00:57) Hives nut - unspecified [NUTS] Allergy (Intermediate, Verified 12/06/23 00:57) Hives seafood Allergy (Intermediate, Verified 12/06/23 00:57) Hives, Itchy fluocinolone acetonide Allergy (Unknown, Verified 12/06/23 00:57) Unknown lactose [LACTOSE] Adverse Reaction (Mild, Verified 12/06/23 00:57) Constipation Doxycycline Allergy (Intermediate, Uncoded 12/06/23 00:57) Nausea Medication List - Last Reconciled 12/05/23 by Ignacio Flores MD acetaminophen ER 650 mg PO Q12H allopurinol 100 mg PO DAILY ascorbate calcium (vitamin C) 1,000 mg PO DAILY aspirin (Adult Low Dose Aspirin) 81 mg PO DAILY blood pressure test kit-medium As directed cholecalciferol (vitamin D3) 25 mcg PO DAILY cyanocobalamin (vitamin B-12) 1,000 mcg PO DAILY docusate sodium 200 mg (2 x 100 mg) PO BEDTIME fluticasone furoate 50 mcg/actuation inhalation fluticasone propionate 50 mcg/actuation 2 sprays intranasal DAILY PRN 30 days gemfibrozil 600 mg PO BID lansoprazole 30 mg PO DAILY lisinopril 10 mg PO DAILY loratadine 10 mg PO DAILY magnesium oxide 400 mg PO DAILY 90 days methylcellulose (laxative) (Citrucel) 500 mg PO TID pantoprazole 40 mg PO DAILY polyethylene glycol 3350 (Miralax) 17 grams PO DAILY PRN riboflavin (vitamin B2) 400 mg PO DAILY 90 days rimegepant (Nurtec ODT) 75 mg PO ONCE PRN 16 days [ROLLATOR As directed] simethicone (Gas Relief (simethicone)) 125 mg PO TID-QID PRN tamsulosin 0.8 mg PO BEDTIME topiramate 25 mg PO BEDTIME 30 days Tobacco use date assessed: 12/05/23 Dental Screening Dental Screen Date: 08/23/23 HPI eye discharge/possible sinus infection HPI Details Patient comes in today for what he feels is a sinus infection or ear infection States that he has had to clean out his eyes every morning lately of some dried discharge/secretions He has also been experiencing increased discomfort in his left ear, increased nasal and sinus congestion as well as recurrent postnasal drainage Patient denies any fever or headaches; denies any sore throat He denies any chest pains, no shortness of breath No nausea /vomiting, no abdominal pain No change in bowel habits noted PFSH Medical History Overweight (BMI 25.0-29.9) Ataxia Right otitis media Lumbar degenerative disc disease HTN (hypertension) Mixed hyperlipidemia Chronic constipation Asthma Cerebellar atrophy Abnormality of gait Nephrolithiasis Right flank pain Benign prostatic hyperplasia Allergic rhinitis Constipation Vitamin D deficiency Renal calculus, bilateral GERD without esophagitis Migraine Pure hypercholesterolemia Benign essential hypertension Orchalgia Surgical History History of cystoscopy History of esophagogastroduodenoscopy (EGD) History of lithotripsy History of extraction of renal calculus Hx of elbow surgery Family History Father Hypertension CAD (coronary artery disease) Diabetes Cancer Mother Hypertension Acute CVA (cerebrovascular accident) Paternal Grandfather Throat cancer Sister Lupus Epilepsy Social History Household Members Other:: Homeless Housing: Apartment Alcohol intake: never Patient Tobacco Use Status: Never used Tobacco e-Cigarette/Vaping Use: Never Used Second Hand Smoke Exposure: Yes service: No Current occupational status: disabled Current occupational exposures/hazards: No Cognitive needs: Yes Hearing needs: No Vision needs: No Questionnaire Thrive Questionnaire Date Thrive assessed: 08/23/23 JONATHAN-7 AMB Questionnaire JONATHAN-7 Date JONATHAN - 7 assessed: 08/23/23 Source: Developed by Drs. Timothy Callahan, Susan Garcia, Jose Cruz Lloyd and colleagues, with an educational jim from [employer]. Review of Systems Const Denies chills, Denies fatigue, Denies fever(s) and Denies headache(s) Eyes Reports as per HPI and Reports eye discharge ENT Denies dysphagia, Denies dizziness, Denies otalgia (but (+) left ear discomfort), Denies headache(s), Denies neck pain, Denies odynophagia, Reports post nasal drip, Reports sinus pressure and Denies sore throat Card Denies chest pain, Denies palpitations and Denies dyspnea Resp Denies cough and Denies dyspnea GI Denies abdominal pain, Denies constipation, Denies dysphagia, Reports early satiety, Denies heartburn, Denies diarrhea, Denies nausea, Denies odynophagia and Denies vomiting Denies dysuria, Denies nocturia and Denies urinary frequency Musc Reports abnormal gait (unsteady) and Denies neck pain Skin/Breast Denies rash Neuro Reports abnormal gait (unsteady), Denies dizziness and Denies headache(s) Endo Denies fatigue and Denies palpitations Physical exam (Primary Care) Vital Signs: Last Vital Signs Pulse 87 12/05/23 15:10 BP 90/64 12/05/23 15:10 Pulse Ox 96 12/05/23 15:10 Oxygen Delivery Method Room Air 12/05/23 15:10 BMI result Body Mass Index 23.8 Tobacco/Smoking Status: Tobacco use Status Tobacco use date assessed 12/05/23 12/05/23 15:15 Patient Tobacco Use Status Never used Tobacco 12/05/23 15:15 e-Cigarette/Vaping Use Never Used 12/05/23 15:15 Thrive Assessment: Date of Thrive Assessment Date Thrive assessed 08/23/23 12/05/23 15:15 Const General: no acute distress and alert HENMT Ears: TM normal on the right, EAC's normal (right ) and Abnormal EAC present erythema and EAC tenderness; no otic discharge Face and sinus: No sinus tenderness Throat: Yes posterior oropharynx normal and Yes tonsils normal (no TP congestion) Eyes General: appearance normal, both eyes and all related structures Neck Neck: Yes no lymphadenopathy and Yes supple Thyroid: Thyroid normal Resp Auscultation: clear to auscultation bilaterally, no rales and no wheezes Cardio Rate: regular rate Rhythm: regular rhythm Heart sounds: no murmurs GI Palpation (GI): Soft to palpation and nontender Auscultation: normal bowel sounds Neuro Cognition (Neuro): normal cognition Extrem General: Yes no clubbing, cyanosis or edema Assessment and Plan Assessment & Plan (1) Left otitis externa: Code(s): H60.92 - Unspecified otitis externa, left ear Qualifiers: Otitis externa type: unspecified type Chronicity: acute Qualified Code(s): H60.502 - Unspecified acute noninfective otitis externa, left ear Plan: Will start patient on oral Doxycycline 100 mg BID x 10 days (2) Conjunctivitis, both eyes: Code(s): H10.9 - Unspecified conjunctivitis Qualifiers: Conjunctivitis type: acute Acute conjunctivitis type: unspecified Qualified Code(s): H10.33 - Unspecified acute conjunctivitis, bilateral Plan: Will also start him on Polytrim eye drops 1 drops into the affected eyes QID x 7 days Plan Follow up as scheduled in March 2024 Medications: New doxycycline monohydrate 100 mg PO BID 10 days 20 caps 0RF polymyxin B sulf-trimethoprim 10,000 unit- 1 mg/mL 1 drp ophthalmic (eye) QID 10 mL 0RF 7 days Coding Level of Care Code Est Pt Level 3 (33936) Diagnoses Acute otitis externa of left ear, unspecified type H60.502 Otitis externa type: unspecified type Chronicity: acute Acute conjunctivitis of both eyes, unspecified acute conjunctivitis type H10.33 Conjunctivitis type: acute Acute conjunctivitis type: unspecified
[2023-12-05 15:10] VITALS: BP 90/64; PULSE 87; O2SAT 96; BMI 23.8
== END 2023-12-05 16:16 | disposition home or self-care (01) ==
LOC: HO.HMGH 14:54
PROVIDERS: PCP Internal Medicine; Visit Provider Internal Medicine
DX: H60.502 Unspecified acute noninfective otitis externa, left ear (principal); H10.33 Unspecified acute conjunctivitis, bilateral
CPT/HCPCS: 99213

== ENCOUNTER 2024-01-03 06:32 | Outpatient (REF) | payer OTHER, SELFPAY ==
--- NOTE | ~2024-01-03 | XR_ITS ---
EXAMINATION: XR CERVICAL SPINE XR SHOULDER, RIGHT CLINICAL INDICATION: Patient states pain top of right shoulder into neck. COMPARISON: MRI cervical spine 01/09/2016, CT cervical spine 03/14/2015 TECHNIQUE: 3 views of the cervical spine. 3 views of the right shoulder. FINDINGS: Cervical spine: Straightening of the normal cervical lordosis. Degenerative changes between the anterior arch of C1 and the odontoid. Spondylosis with moderate to marked loss of disc space height at C5-C6. C6-C7 levels poorly visualized due to overlying bone and soft tissues. Right shoulder: Mild osteoarthritic changes in the acromioclavicular joint. Glenohumeral alignment is preserved. Mild degenerative changes in the glenohumeral joint. XR/XR shoulder RT min 2V IMPRESSION: 1. Spondylosis with moderate to marked loss of disc space height at C5-C6. 2. Mild degenerative changes in the right glenohumeral joint.
--- NOTE | ~2024-01-03 | XR_ITS ---
EXAMINATION: XR CERVICAL SPINE XR SHOULDER, RIGHT CLINICAL INDICATION: Patient states pain top of right shoulder into neck. COMPARISON: MRI cervical spine 01/09/2016, CT cervical spine 03/14/2015 TECHNIQUE: 3 views of the cervical spine. 3 views of the right shoulder. FINDINGS: Cervical spine: Straightening of the normal cervical lordosis. Degenerative changes between the anterior arch of C1 and the odontoid. Spondylosis with moderate to marked loss of disc space height at C5-C6. C6-C7 levels poorly visualized due to overlying bone and soft tissues. Right shoulder: Mild osteoarthritic changes in the acromioclavicular joint. Glenohumeral alignment is preserved. Mild degenerative changes in the glenohumeral joint. XR/XR cervical spine 3V IMPRESSION: 1. Spondylosis with moderate to marked loss of disc space height at C5-C6. 2. Mild degenerative changes in the right glenohumeral joint.
== END 2024-01-03 06:33 | disposition home or self-care (01) ==
LOC: HO.XRAY 06:32
PROVIDERS: PCP Internal Medicine; Visit Provider Internal Medicine
DX: M54.2 Cervicalgia (principal); M25.511 Pain in right shoulder
CPT/HCPCS: 72040; 73030

== ENCOUNTER 2024-02-06 13:18 | Outpatient (AMB) | payer OTHER, SELFPAY ==
--- NOTE | 2024-02-06 13:20 | MHC.OFFWIV ---
Intake Vital Signs 02/06/24 13:21 02/06/24 13:49 Height 6 ft Weight 178 lb BMI 24.1 BP 112/70 Blood Pressure Location Rt brachial Position Sitting Pulse 115 H 95 Pulse Source Pulse Oximeter Pulse Oximeter Temp 98.8 F Temp Source Oral Pulse Oximetry (%) 97 Oxygen Delivery Method Room Air Intake Visit Reasons: Sinus pain congestion Intake Note: pt here c/o sinus pain and congestion. Started months ago Patient Tobacco Use Status: Never used Tobacco Allergies fenofibrate [Tricor] Allergy (Intermediate, Verified 02/06/24 13:20) Hives nut - unspecified [NUTS] Allergy (Intermediate, Verified 02/06/24 13:20) Hives seafood Allergy (Intermediate, Verified 02/06/24 13:20) Hives, Itchy fluocinolone acetonide Allergy (Unknown, Verified 02/06/24 13:20) Unknown lactose [LACTOSE] Adverse Reaction (Mild, Verified 02/06/24 13:20) Constipation Doxycycline Allergy (Intermediate, Uncoded 02/06/24 13:20) Nausea Do you need a note to return to daycare/school/sports/work: No HPI HPI Comments History of Present Illness Details Patient is a 53-year-old male complaining recurrent sinusitis and conjunctivitis. He states he saw his primary care doctor in November and was diagnosed with conjunctivitis which went away but then he woke up 2 days ago in his eyes were swollen shut. He states that there has been yellow drainage coming out of both of his eyes for 2 days and they are swollen and painful, he denies any changes in his vision. His 2nd complaint is that he feels like he has a sinus infection, he gets these quite frequently and he states it has been couple of weeks of head congestion and sinus pain. He states he has chest congestion when he lays down. He denies any ear pain, shortness of breath, chest pain, wheezing or fevers. He denies a history of COPD. He states he has been using Flonase which does help a little bit with his congestion [facility] Medical History Overweight (BMI 25.0-29.9) Ataxia Right otitis media Lumbar degenerative disc disease HTN (hypertension) Mixed hyperlipidemia Chronic constipation Asthma Cerebellar atrophy Abnormality of gait Nephrolithiasis Right flank pain Benign prostatic hyperplasia Allergic rhinitis Constipation Vitamin D deficiency Renal calculus, bilateral GERD without esophagitis Migraine Pure hypercholesterolemia Benign essential hypertension Orchalgia Surgical History History of cystoscopy History of esophagogastroduodenoscopy (EGD) History of lithotripsy History of extraction of renal calculus Hx of elbow surgery Family History Father Hypertension CAD (coronary artery disease) Diabetes Cancer Mother Hypertension Acute CVA (cerebrovascular accident) Paternal Grandfather Throat cancer Sister Lupus Epilepsy Social History Household Members Other:: Homeless Housing: Apartment Alcohol intake: never Patient Tobacco Use Status: Never used Tobacco e-Cigarette/Vaping Use: Never Used Second Hand Smoke Exposure: Yes service: No Current occupational status: disabled Current occupational exposures/hazards: No Cognitive needs: Yes Hearing needs: No Vision needs: No Review of Systems Const All systems reviewed & are unremarkable except as noted in HPI and below Physical Exam Vital Signs: Last Vital Signs Temp 98.8 F 02/06/24 13:21 Pulse 115 H 02/06/24 13:21 BP 112/70 02/06/24 13:21 Pulse Ox 97 02/06/24 13:21 Oxygen Delivery Method Room Air 02/06/24 13:21 BMI result Body Mass Index 24.1 Const General: cooperative, healthy appearing, comfortable and no acute distress Orientation/consciousness: patient oriented x3 Limitations: no limitations HEENT Head: Yes normal to inspection Ears: hearing grossly normal bilaterally, external ears normal and TM's normal bilaterally General nose exam: Normal external nose present, Normal nares present and No nasal discharge present Face and sinus: Yes normal facial exam and Yes sinus tenderness Mouth: Normal oral and palatal mucosa present and moist mucous membranes Throat: Yes tonsils normal, Yes uvula midline and Yes posterior oropharynx abnormal (Erythema) Eyes Eyelids: Yes eyelids normal (Bilateral swelling) Conjunctivae: conjunctival abnormal bilateral conjunctival injection and discharge (Scant amount) purulent Pupils: Equal, round and reactive pupils present EOM: EOMs intact bilaterally Neck Neck: Yes normal visual inspection Resp Effort & Inspection: normal respiratory effort, able to speak in complete sentences, no respiratory distress, not tachypneic, no tripod positioning and no use of accessory muscles Skin General skin exam: no rashes or lesions noted Neuro General: patient oriented x3 Cranial nerves: Yes Equal, round and reactive pupils present Extrem General: Yes normal to inspection and Yes no clubbing, cyanosis or edema Assessment & Plan Assessment & Plan (1) Conjunctivitis, both eyes: Code(s): H10.9 - Unspecified conjunctivitis Qualifiers: Acute conjunctivitis type: unspecified Conjunctivitis type: acute Qualified Code(s): H10.33 - Unspecified acute conjunctivitis, bilateral Plan: Instructed patient to continue using the drops his doctor gave him but as he is almost out, I did send a prescription for erythromycin ointment (2) Sinusitis: Code(s): J32.9 - Chronic sinusitis, unspecified Qualifiers: Chronicity: acute Recurrence: non-recurrent Sinusitis location: frontal Qualified Code(s): J01.10 - Acute frontal sinusitis, unspecified Plan: As it has been more than a week that the patient has had symptoms, we will send Augmentin for his recurrent sinusitis Plan See above Medications: New amoxicillin-pot clavulanate 875-125 mg 1 tab PO Q12H 10 tabs 0RF erythromycin 0.5 inches ophthalmic (eye) QID 3.5 grams 0RF Coding Level of Care Code Est Pt Level 3 (86359) Diagnoses Acute conjunctivitis of both eyes, unspecified acute conjunctivitis type H10.33 Acute conjunctivitis type: unspecified Conjunctivitis type: acute Acute non-recurrent frontal sinusitis J01.10 Chronicity: acute Recurrence: non-recurrent Sinusitis location: frontal
[2024-02-06 13:21] VITALS: BP 112/70; PULSE 115; TEMP 37.1; O2SAT 97; BMI 24.1
[2024-02-06 13:49] VITALS: PULSE 95
== END 2024-02-06 14:07 | disposition home or self-care (01) ==
PROVIDERS: PCP Internal Medicine; Visit Provider Physician Assistant
DX: H10.33 Unspecified acute conjunctivitis, bilateral (principal); J01.10 Acute frontal sinusitis, unspecified
CPT/HCPCS: 99213

== ENCOUNTER 2024-02-13 08:36 | Outpatient (REF) | payer OTHER, SELFPAY ==
--- NOTE | ~2024-02-13 | CT_ITS ---
EXAMINATION: CT ABDOMEN AND PELVIS WITHOUT CONTRAST CLINICAL INFORMATION: Ureteral calculus. COMPARISON: Renal ultrasound 04/01/2023 TECHNIQUE: Multidetector volumetric imaging was performed from the superior aspect of the liver through the pubic symphysis. Sagittal and coronal reformatted images were obtained on the technologist's workstation. This CT examination was performed using dose optimization techniques as appropriate, variously including the following: *Automated exposure control *Adjustment of mA and/or kV according to patient size (this includes techniques or standardized protocols for targeted exams where dose is matched to indication/reason for exam; i.e. extremities or head) *Use of iterative reconstruction technique DLP: 440 mGy-cm FINDINGS: LUNG BASES: No pleural or pericardial effusion. LIVER, GALLBLADDER, AND BILIARY TREE: The noncontrast liver is decreased in attenuation. No biliary ductal dilatation is present. The gallbladder is unremarkable with no evidence of radiopaque gallstones, gallbladder wall thickening, or obvious pericholecystic inflammatory changes. PANCREAS: Unremarkable. SPLEEN: Unremarkable. ADRENAL GLANDS: Unremarkable. KIDNEYS AND URETERS: The kidneys are symmetric in size. There are bilateral nonobstructing renal calculi. No ureteral calculus. No hydronephrosis or perinephric fluid collection. BLADDER: Underdistended. No bladder calculus. GASTROINTESTINAL TRACT: Small and large bowel loops are of normal caliber. No small bowel obstruction. Appendix is within normal limits. ABDOMINAL WALL: No significant hernia is appreciated. LYMPH NODES: No bulky lymphadenopathy. VASCULAR: Normal caliber abdominal aorta. PELVIC VISCERA: Enlarged prostate gland. OSSEOUS STRUCTURES: No destructive bone lesions. CT/CT abdomen pelvis wo IV con IMPRESSION: Bilateral nonobstructing renal calculi. No hydronephrosis. Hepatic steatosis.
== END 2024-02-13 08:37 | disposition home or self-care (01) ==
LOC: HO.CT 08:36
PROVIDERS: PCP Internal Medicine; Visit Provider Physician Assistant
DX: N20.1 Calculus of ureter (principal)
CPT/HCPCS: 74176

== ENCOUNTER 2024-03-06 07:57 | Outpatient (REF) | payer OTHER, SELFPAY ==
[2024-03-06 08:12] LABS: MANUAL DIFF FLAG NO
[2024-03-06 08:57] LABS: Basophils Percent Auto 0.4 % (0-2); Eosinophils Absolute Auto 0.6 X10*3/uL (0.0-0.4); Eosinophils Percent Auto 8.2 % (0-4); Hematocrit 45.7 % (42.0-52.0); Hemoglobin 15.4 g/dl (14.0-18.0); Imm Gran Abs Auto 0.02 X10*3/uL (0.00-0.03); Imm Gran Pct Auto 0.3 % (0.0-0.4); Lymphocytes Absolute Auto 3.2 X10*3/uL (1.2-4.9); Mean Corpuscular HGB Conc 33.7 g/dl (31.0-36.0); Mean Platelet Volume 11.6 fL (9.4-12.4); Monocytes Absolute Auto 0.6 X10*3/uL (0.1-1.2); Monocytes Percent Auto 7.7 % (2-11); Neutrophils Percent Auto 40.4 % (45-73); Platelet Count 295 X10*3/uL (160-400); Red Blood Count 4.97 X10*6/uL (4.60-5.80); White Blood Count 7.3 X10*3/uL (4.8-10.8)
[2024-03-06 09:52] LABS: Alanine Aminotransferase 21 U/L (0-40); Albumin Level 4.4 g/dL (3.5-5.0); Alkaline Phosphatase 71 U/L (39-117); Anion Gap 13 (12-20); Aspartate Amino Transferase 14 U/L (5-37); Bilirubin Total 0.6 mg/dL (0.0-1.0); Blood Urea Nitrogen 22 mg/dL (9-16); Calcium 10.1 mg/dL (8.4-10.2); Carbon Dioxide 24 mmol/L (22-29); Chloride 108 mmol/L (96-108); Cholesterol 174 mg/dL (<200); Estimated Glomerular Filt Rate > 60; Glucose Fasting 86 mg/dL (60-99); HDL Cholesterol 41 mg/dL (>40); LDL Cholesterol Calculated 85 mg/dL (<100); Potassium 4.1 mmol/L (3.3-5.1); Sodium 141 mmol/L (135-145); Total Protein 7.6 g/dL (6.5-8.0); Triglycerides 242 mg/dL (<150)
[2024-03-06 10:11] LABS: Folate 9.9 ng/mL (> or = 4.0); Vitamin B12 821 pg/mL (200-900)
[2024-03-06 10:15] LABS: Vitamin D 25-OH Total 82.2 ng/mL (>30)
== END 2024-03-06 07:58 | disposition home or self-care (01) ==
LOC: HO.LAB 07:57
PROVIDERS: PCP Internal Medicine; Visit Provider Internal Medicine
DX: D64.9 Anemia, unspecified (principal); E53.8 Deficiency of other specified B group vitamins; E55.9 Vitamin D deficiency, unspecified; E78.00 Pure hypercholesterolemia, unspecified
CPT/HCPCS: 36415; 80053; 80061; 82306; 82607; 82746; 85025

== ENCOUNTER 2024-03-11 15:06 | Outpatient (AMB) | payer OTHER, SELFPAY ==
--- NOTE | 2024-03-11 15:08 | MHC.OFFVIS ---
Vital Signs 03/11/24 15:10 Height 6 ft Weight 182 lb 15.739 oz BMI 24.8 BP 144/74 H Blood Pressure Location Rt brachial Position Sitting Pulse 90 Intake Visit Reasons: Edwige Patient - Abdominal Distention Intake Note: Josh presents in the office as a second opinion for abdominal distention. CC: He states that he started taking this tea oil-reducing tea states that it is hard to have a BM - he had hard round balls as a bowel movements. States gavilax works in the moment. Docusate sodium he takes as well but he wants to run the tea by you to see what your opinion is today. Allergies fenofibrate [Tricor] Allergy (Intermediate, Verified 07/20/24 10:32) Hives nut - unspecified [NUTS] Allergy (Intermediate, Verified 07/20/24 10:32) Hives seafood Allergy (Intermediate, Verified 07/20/24 10:32) Hives, Itchy fluocinolone acetonide Allergy (Unknown, Verified 07/20/24 10:32) Unknown lactose [LACTOSE] Adverse Reaction (Mild, Verified 07/20/24 10:32) Constipation Doxycycline Allergy (Intermediate, Uncoded 07/20/24 10:32) Nausea HPI Comments Details: 53 y.o M with chronic constipation who is here to review med management. Typically sees Edwige Ricardo who is away. Brought soursop leaves tea today. Per quick search is high in fiber and may help with constipation. Pt also takes miralax PRN peggy when gets uncomfortable and bloated. Takes it for 2-3 days before he notices any response. Once it does start working, he has the runs for a day. [facility] Medical History Nephrolithiasis Overweight (BMI 25.0-29.9) Ataxia Right otitis media Lumbar degenerative disc disease HTN (hypertension) Mixed hyperlipidemia Chronic constipation Asthma Cerebellar atrophy Abnormality of gait Nephrolithiasis Right flank pain Benign prostatic hyperplasia Allergic rhinitis Constipation Vitamin D deficiency Renal calculus, bilateral GERD without esophagitis Migraine Pure hypercholesterolemia Benign essential hypertension Orchalgia Surgical History History of cystoscopy History of esophagogastroduodenoscopy (EGD) History of lithotripsy History of extraction of renal calculus Hx of elbow surgery Family History Father Hypertension CAD (coronary artery disease) Diabetes Cancer Mother Hypertension Acute CVA (cerebrovascular accident) Paternal Grandfather Throat cancer Sister Lupus Epilepsy Social History Household Members Other:: Homeless Housing: Homeless Alcohol intake: never Patient Tobacco Use Status: Never used Tobacco e-Cigarette/Vaping Use: Never Used Second Hand Smoke Exposure: Yes service: No Current occupational status: disabled Current occupational exposures/hazards: No Cognitive needs: Yes Hearing needs: No Vision needs: No Review of Systems Const All systems reviewed & are unremarkable except as noted in HPI and below Physical Exam Vital Signs: Last Vital Signs Pulse 90 03/11/24 15:10 BP 144/74 H 03/11/24 15:10 BMI result Body Mass Index 24.8 No apparent distress Nonicteric Abdomen soft, nondistended Alert and oriented x3, normal gait Assessment & Plan Assessment & Plan (1) Tubular adenoma of colon: Code(s): D12.6 - Benign neoplasm of colon, unspecified Category: Medical (2) Constipation: Code(s): K59.00 - Constipation, unspecified Category: Medical Qualifiers: Constipation type: unspecified constipation type Qualified Code(s): K59.00 - Constipation, unspecified Plan Being seen in absence of routine GI provider to review constipation management. Reviewed with the pt that as long as constipation manageable with high fiber diet and PRN miralax ok to cont same regimen. May have to take miralax every other day to avoid getting diarrhea. Pt also with hx of rectal tubular adenoma in 2020 (Dr Hilario) - recommendation to repeat colonoscopy in 2025. Follow up in 6 months with [facility] [place] Coding Level of Care Code Est Pt Level 3 (73342) Diagnoses Tubular adenoma of colon D12.6 Constipation, unspecified constipation type K59.00 Constipation type: unspecified constipation type
[2024-03-11 15:10] VITALS: BP 144/74; PULSE 90; BMI 24.8
== END 2024-03-11 15:39 | disposition home or self-care (01) ==
PROVIDERS: PCP Internal Medicine; Visit Provider Internal Medicine
DX: D12.6 Benign neoplasm of colon, unspecified (principal); K59.00 Constipation, unspecified
CPT/HCPCS: 99213

== ENCOUNTER → 2024-03-11 15:06 | Outpatient (BNVA) | payer OTHER, SELFPAY | PROVIDERS: PCP Internal Medicine; Visit Provider Internal Medicine | DX: D12.6 Benign neoplasm of colon, unspecified (principal); K59.00 Constipation, unspecified | CPT/HCPCS: 99212 ==

== ENCOUNTER 2024-03-23 10:44 | Outpatient (AMB) | payer OTHER, SELFPAY ==
--- NOTE | 2024-03-23 10:46 | A.OFFPC_ITS ---
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 Required: No Accompanied by: Self / Same As Patient Allergies fenofibrate [Tricor] Allergy (Intermediate, Verified 03/23/24 11:43) Hives nut - unspecified [NUTS] Allergy (Intermediate, Verified 03/23/24 11:43) Hives seafood Allergy (Intermediate, Verified 03/23/24 11:43) Hives, Itchy fluocinolone acetonide Allergy (Unknown, Verified 03/23/24 11:43) Unknown lactose [LACTOSE] Adverse Reaction (Mild, Verified 03/23/24 11:43) Constipation Doxycycline Allergy (Intermediate, Uncoded 03/23/24 11:43) Nausea Medication List - Last Reconciled 03/23/24 by Ignacio Flores MD acetaminophen ER 650 mg PO Q12H ascorbate calcium (vitamin C) 1,000 mg PO DAILY aspirin (Adult Low Dose Aspirin) 81 mg PO DAILY blood pressure test kit-medium As directed cholecalciferol (vitamin D3) 25 mcg PO DAILY cyanocobalamin (vitamin B-12) 1,000 mcg PO DAILY docusate sodium 200 mg (2 x 100 mg) PO BEDTIME fluticasone furoate 50 mcg/actuation inhalation fluticasone propionate 50 mcg/actuation 2 sprays intranasal DAILY PRN gemfibrozil 600 mg PO BID lisinopril 10 mg PO DAILY loratadine 10 mg PO DAILY magnesium oxide 400 mg PO DAILY 90 days methylcellulose (laxative) (Citrucel) 500 mg PO TID polyethylene glycol 3350 (Gavilax) 17 grams PO DAILY PRN riboflavin (vitamin B2) 400 mg PO DAILY 90 days [ROLLATOR As directed] simethicone (Gas Relief (simethicone)) 125 mg PO TID-QID PRN tamsulosin 0.8 mg PO BEDTIME topiramate 25 mg PO BEDTIME 30 days Tobacco use date assessed: 03/23/24 Dental Screening Dental Screen Date: 03/23/24 Did you have a dental visit in the last 12 months?: No Did you have a dental problem in the last 6 months where you did not have access to dental care?: No Was dental information given to patient?: Patient has dentist HPI cerebellar atrophy, hyperlipidemia, HTN HPI Details Patient comes in today for his follow up visit States that he feels okay He denies any headaches or dizziness Denies any chest pains, no increased SOB No nausea/vomiting, no abdominal pain No change in bowel habits noted Needs his Miralax Rx refilled - states that this has been helping a lot with regulating his bowel movements He had his follow up labs done a couple of weeks ago - to discuss his results [facility] Medical History Nephrolithiasis Overweight (BMI 25.0-29.9) Ataxia Right otitis media Lumbar degenerative disc disease HTN (hypertension) Mixed hyperlipidemia Chronic constipation Asthma Cerebellar atrophy Abnormality of gait Nephrolithiasis Right flank pain Benign prostatic hyperplasia Allergic rhinitis Constipation Vitamin D deficiency Renal calculus, bilateral GERD without esophagitis Migraine Pure hypercholesterolemia Benign essential hypertension Orchalgia Surgical History History of cystoscopy History of esophagogastroduodenoscopy (EGD) History of lithotripsy History of extraction of renal calculus Hx of elbow surgery Family History Father Hypertension CAD (coronary artery disease) Diabetes Cancer Mother Hypertension Acute CVA (cerebrovascular accident) Paternal Grandfather Throat cancer Sister Lupus Epilepsy Social History Household Members Other:: Homeless Housing: Apartment Alcohol intake: never Patient Tobacco Use Status: Never used Tobacco e-Cigarette/Vaping Use: Never Used Second Hand Smoke Exposure: Yes service: No Current occupational status: disabled Current occupational exposures/hazards: No Cognitive needs: Yes Hearing needs: No Vision needs: No Questionnaire PHQ-9 Over the last 2 weeks, how often have you been bothered by any of the following problems? 1. Little interest or pleasure in doing things: not at all 2. Feeling down, depressed, or hopeless: not at all 3. Trouble falling or staying asleep, or sleeping too much: not at all 4. Feeling tired or having little energy: not at all 5. Poor appetite or overeating: not at all 6. Feeling bad about yourself - or that you are a failure or have let yourself or your family down: not at all 7. Trouble concentrating on things, such as reading the newspaper or watching television: not at all 8. Moving or speaking so slowly that other people could have noticed. Or the opposite - being so fidgety or restless that you have been moving around a lot more than usual: not at all 9. Thoughts that you would be better off or of hurting yourself in some way: not at all Total score: 0 Depression Screening Interpretation: Negative Depression Screening Done: Yes 23879 - PHQ-9 Billing: Yes Source: Developed by Drs. Timothy Callahan, Susan Garcia, Jose Cruz Lloyd and colleagues, with an educational jim from [employer]. Thrive Questionnaire Date Thrive assessed: 03/23/24 I am a: Patient What is your living situation today?: I have a steady place to live Within the past 12 months, did the food you bought not last and you didn't have the money to get more?: Never true Within the past 12 months, did you worry whether your food would run out before you got money to buy more?: Never true Do you have trouble paying for medicines?: No Do you have trouble getting transportation to medical appointments?: No Do you have trouble paying your heating and electricity bill?: No Do you have trouble taking care of your child, family member or friend?: No Do you have trouble with day-to-day activities such as bathing, preparing meals, shopping, managing finances, etc.?: No Are you currently unemployed and looking for a job?: No Are you interested in more education?: No Please select the resources that you would like help with: None Currently or been in a relationship where the following occur: No concerns reported THRIVE Score: 0 AUDIT C Alcohol Use Questionnaire (AUDIT-C) 1. How often do you have a drink containing alcohol?: Never 3. How often do you have six or more drinks on one occasion?: Never Total Score: 0 Score Reviewed/Action Taken: Yes JONATHAN-7 AMB Questionnaire JONATHAN-7 Date JONATHAN - 7 assessed: 03/23/24 Feeling nervous, anxious, or on edge: 0 = Not at all Not being able to stop or control worryin = Not at all Worrying too much about different things: 0 = Not at all Trouble relaxin = Not at all Being so restless that it is hard to sit still: 0 = Not at all Becoming easily annoyed or irritable: 0 = Not at all Feeling afraid as if something awful might happen: 0 = Not at all Total JONATHAN-7 score (0-4 normal; 5-9 mild; 10-14 moderate; 15-21 severe): 0 Source: Developed by Drs. Timothy Callahan, Susan Garcia, Jose Cruz Lloyd and colleagues, with an educational jim from [employer]. Review of Systems Const Denies chills, Denies fatigue, Denies fever(s) and Denies headache(s) ENT Denies dysphagia, Denies dizziness, Denies otalgia, Denies headache(s), Denies neck pain, Denies odynophagia and Denies sore throat Card Denies chest pain, Denies palpitations and Denies dyspnea Resp Denies cough and Denies dyspnea GI Denies abdominal pain, Denies constipation, Denies dysphagia, Reports early satiety, Denies heartburn, Denies diarrhea, Denies nausea, Denies odynophagia and Denies vomiting Denies dysuria, Denies nocturia and Denies urinary frequency Musc Reports abnormal gait (unsteady) and Denies neck pain Skin/Breast Denies rash Neuro Reports Abnormal speech present (has slurred and slow speech (chronic) due to cerebellar degeneration), Reports abnormal gait (unsteady), Denies dizziness and Denies headache(s) Endo Denies fatigue and Denies palpitations Physical exam (Primary Care) Vital Signs: Last Vital Signs Pulse 71 03/23/24 10:47 BP 116/78 03/23/24 10:47 Pulse Ox 96 03/23/24 10:47 Oxygen Delivery Method Room Air 03/23/24 10:47 BMI result Body Mass Index 24.7 Tobacco/Smoking Status: Tobacco use Status Tobacco use date assessed 03/23/24 03/23/24 10:49 Patient Tobacco Use Status Never used Tobacco 03/23/24 10:49 e-Cigarette/Vaping Use Never Used 03/23/24 10:49 PHQ-9: PHQ-9 Score PHQ-9: Total score 0 03/23/24 10:49 Depression Screening Interpretation: Negative Thrive Assessment: Date of Thrive Assessment Date Thrive assessed 03/23/24 03/23/24 10:49 Currently or been in a relationship where the following occur: No concerns reported Const General: no acute distress and alert Orientation/consciousness: patient oriented x3 HENMT Ears: TM's normal bilaterally and EAC's normal Throat: Yes posterior oropharynx normal and Yes tonsils normal (no TP congestion) Neck Neck: Yes no lymphadenopathy and Yes supple Thyroid: Thyroid normal Resp Auscultation: clear to auscultation bilaterally, no rales and no wheezes Cardio Rate: regular rate Rhythm: regular rhythm Heart sounds: no murmurs GI Palpation (GI): Soft to palpation and nontender Auscultation: normal bowel sounds General: Yes no CVA tenderness Back/Spine/Pelvis Back: no CVA tenderness Thoracic/Lumbar Spine: No lumbar spinal tenderness Skin Rashes: no rashes Neuro General: patient oriented x3 Cognition (Neuro): normal cognition Speech: Abnormal speech present (has slurred and slow speech (chronic) due to cerebellar degeneration) Gait exam (Neuro): Wide-based gait present (unsteady gait due to cerebellar degeneration) Extrem General: Yes no clubbing, cyanosis or edema Results Reviewed Results Reviewed: Laboratory Tests 03/06/24 08:11 WBC 7.3 Hgb 15.4 Hct 45.7 Plt Count 295 Sodium 141 Potassium 4.1 Creatinine 1.19 Estimated GFR > 60 Fasting Glucose 86 Calcium 10.1 D AST 14 ALT 21 Triglycerides 242 H Cholesterol 174 LDL Cholesterol, Calc 85 HDL Cholesterol 41 Vitamin B12 821 25-OH Vitamin D Total 82.2 Assessment and Plan Assessment & Plan (1) Cerebellar atrophy: Comment: CT Brain done at [facility] [place] in June 2014 showed (+) moderate cerebellar atrophy Code(s): G31.9 - Degenerative disease of nervous system, unspecified Plan: 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, 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 and unfortunately has no known treatment or cure Follow up with neurology as scheduled (2) Chronic headaches: Code(s): R51.9 - Headache, unspecified; G89.29 - Other chronic pain Qualifiers: Headache type: unspecified Intractability: not intractable Qualified Code(s): R51.9 - Headache, unspecified; G89.29 - Other chronic pain Plan: His headaches have improved with prophylactic Tx with low dose Topiramate - to continue on Topiramate 25 mg Q HS Suspect that he may have migraine headaches His most recent brain MRI done in September 2022 revealed no acute changes; still (+) cerebellar volume loss similar to prior imaging studies done on 08/02/2020 (3) Benign essential hypertension: Code(s): I10 - Essential (primary) hypertension Plan: Reinforced low sodium diet - goal is systolic BP of 120 mm or less Continue Lisinopril 10 mg QD (4) Mixed hyperlipidemia: Code(s): E78.2 - Mixed hyperlipidemia Plan: Results of his labs done a couple of weeks ago reviewed and discussed with patient - his serum TG level has increased but his LDL cholesterol has improved from previous Reinforced low cholesterol diet Continue Gemfibrozil 600 mg BID (patient is allergic to Fenofibrate) Will recheck his labs and fasting lipids in 4 months for follow up (5) Chronic constipation: Comment: S/P colonoscopy on 03/01/2021 - (+) tubular adenoma; otherwise normal Code(s): K59.09 - Other constipation Plan: He is encouraged again to increase his oral fluids and dietary fiber intake Continue Metamucil daily and Miralax 17 gm QD (Rx refilled) (6) GERD without esophagitis: Code(s): K21.9 - Gastro-esophageal reflux disease without esophagitis Plan: Dietary restrictions reinforced Continue Pantoprazole 40 mg QD - symptoms seem to be better controlled since he was switched from Omeprazole to Pantoprazole (7) Elevated LFTs: Code(s): R79.89 - Other specified abnormal findings of blood chemistry Plan: Resolved - his LFTs have remained normal on his recent labs Patient denies any abdominal pain or symptoms Will continue to monitor his LFTs regularly for now (8) Nausea: Code(s): R11.0 - Nausea Plan: Continue Ondansetron 4 mg every 8 hours as needed to help with his nausea With his recent weight loss, abdominal bloating and on and off nausea/vomiting, he was referred to GI for further evaluation and management of his recurrent nausea (9) Lumbar degenerative disc disease: Code(s): M51.36 - Other intervertebral disc degeneration, lumbar region Plan: Lumbar spine x-rays done last year showed (+) degenerative changes and facet arthropathy especially over L5-S1 Reinforced activity and weight-lifting restrictions Follow up with physical therapy as scheduled / as needed (10) Nephrolithiasis: Code(s): N20.0 - Calculus of kidney Plan: S/P lithotripsy in the past He also used to take Allopurinol 100 mg QD, presumably for uric acid stones, but has not been taking this in a while now Follow up with urology as scheduled (11) Urinary hesitancy: Code(s): R39.11 - Hesitancy of micturition Plan: Most likely due to his BPH Continue Tamsulosin 0.4 mg QD Follow up with urology as scheduled Plan Follow up in 4 months Orders: Orders Complete Blood Count Auto Diff 4 Months D64.9 - Anemia, unspecified Lipid Panel 4 Months E78.00 - Pure hypercholesterolemia, unspecified UA CC w/rflx Micro + Cult 4 Months R30.0 - Dysuria Comprehensive [place]. Panel Fast 4 Months E78.00 - Pure hypercholesterolemia, unspecified Uric Acid 4 Months N20.0 - Calculus of kidney Medications: Refilled polyethylene glycol 3350 (Gavilax) 17 grams PO DAILY PRN 510 grams 1RF constipation Coding Level of Care Code Est Pt Level 4 (72045) Diagnoses Cerebellar atrophy G31.9 Chronic nonintractable headache, unspecified headache type R51.9; G89.29 Headache type: unspecified Intractability: not intractable Benign essential hypertension I10 Mixed hyperlipidemia E78.2 Chronic constipation K59.09 GERD without esophagitis K21.9 Elevated LFTs R79.89 Nausea R11.0 Lumbar degenerative disc disease M51.36 Nephrolithiasis N20.0 Urinary hesitancy R39.11
[2024-03-23 10:47] VITALS: BP 116/78; PULSE 71; O2SAT 96; BMI 24.7
== END 2024-03-23 12:07 | disposition home or self-care (01) ==
PROVIDERS: PCP Internal Medicine; Visit Provider Internal Medicine
DX: G31.9 Degenerative disease of nervous system, unspecified (principal); R51.9 Headache, unspecified; G89.29 Other chronic pain; I10 Essential (primary) hypertension; E78.2 Mixed hyperlipidemia; K59.09 Other constipation; K21.9 Gastro-esophageal reflux disease without esophagitis; R79.89 Other specified abnormal findings of blood chemistry; R11.0 Nausea; M51.36 Other intervertebral disc degeneration, lumbar region; N20.0 Calculus of kidney; R39.11 Hesitancy of micturition
CPT/HCPCS: 99214

== ENCOUNTER 2024-04-13 12:51 | Outpatient (AMB) | payer OTHER, SELFPAY ==
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
[2024-04-13 13:00] VITALS: BP 110/70; PULSE 88; RESP 16; O2SAT 98; BMI 24.7
== END 2024-04-13 13:28 | disposition home or self-care (01) ==
PROVIDERS: PCP Internal Medicine; Visit Provider Psychiatry & Neurology Neurology
DX: R27.0 Ataxia, unspecified (principal); M51.36 Other intervertebral disc degeneration, lumbar region
CPT/HCPCS: 99214

== ENCOUNTER → 2024-04-13 12:51 | Outpatient (BNVA) | payer OTHER, SELFPAY | PROVIDERS: PCP Internal Medicine; Visit Provider Psychiatry & Neurology Neurology | DX: R27.0 Ataxia, unspecified (principal); M51.36 Other intervertebral disc degeneration, lumbar region | CPT/HCPCS: 99212 ==

== ENCOUNTER 2024-06-08 14:17 | Outpatient (REF) | payer OTHER, SELFPAY ==
--- NOTE | ~2024-06-08 | XR_ITS ---
EXAMINATION: XR CHEST CLINICAL INFORMATION: R05.3 - Chronic cough. COMPARISON: 05/06/2020. TECHNIQUE: 2 views of the chest were obtained. FINDINGS: There is no gross pneumothorax. Lung volumes are low. Heart size is normal. Dextroscoliosis of the thoracolumbar spine with mild multilevel degenerative changes. No significant pleural effusion. No new focal consolidation. XR/XR chest 2V IMPRESSION: No new focal consolidation to suggest pneumonia. This study was presented today June 09, 2024 for interpretation. Stat results provided at this time as requested by referring provider. Electronically signed by: Azul Bo MD 06/09/2024 11:46 AM EST
[2024-06-08 16:14] LABS: Basophils Percent Auto 0.4 % (0-2); Eosinophils Absolute Auto 0.1 X10*3/uL (0.0-0.4); Eosinophils Percent Auto 0.7 % (0-4); Hemoglobin 16.1 g/dl (14.0-18.0); Imm Gran Abs Auto 0.01 X10*3/uL (0.00-0.03); Imm Gran Pct Auto 0.1 % (0.0-0.4); Lymphocytes Absolute Auto 1.7 X10*3/uL (1.2-4.9); Lymphocytes Percent Auto 24.5 % (20-40); MANUAL DIFF FLAG SCAN; Mean Corpuscular HGB Conc 34.3 g/dl (31.0-36.0); Mean Corpuscular Hemoglobin 31.3 pg (27.0-33.0); Mean Corpuscular Volume 91.4 fL (80.0-98.0); Mean Platelet Volume 11.9 fL (9.4-12.4); Monocytes Absolute Auto 0.6 X10*3/uL (0.1-1.2); Monocytes Percent Auto 8.9 % (2-11); Neutrophils Absolute Auto 4.5 x10*3/uL (2.0-8.3); Neutrophils Percent Auto 65.4 % (45-73); PLT CLUMP 1; Red Blood Count 5.14 X10*6/uL (4.60-5.80); Red Cell Distribution Width 11.9 % (11.0-16.0); SCAN SMEAR FLAG 1
[2024-06-08 16:45] LABS: Platelet Count 212 X10*3/uL (160-400); SLIDE REVIEW VERIFIED; White Blood Count 6.9 X10*3/uL (4.8-10.8)
[2024-06-11 07:24] LABS: Class Alternaria alternata 0; Class Aspergillus fumigatus 0; Class Bermuda Grass 0; Class Birch 0; Class Cat Dander 0; Class Cladosporium herbarum 0; Class Cockroach 4; Class Common Ragweed 0; Class Cottonwood 0; Class Derm. pterony 3; Class Dermatophagoides farinae 4; Class Dog Dander 0; Class Elm 0; Class Maple Box Elder 0/1; Class Mountain Cedar 1; Class Mouse Urine Protein 0; Class Mugwort 0/1; Class Oak 0/1; Class Penicillium crysogenum 0; Class Rough Pigweed 0; Class Sheep Sorrel 0/1; Class Sycamore 0; Class Timothy Grass 1; Class Walnut Tree 0/1; Class White Ash 0/1; Class White Mulberry 0; E001 - IgE Cat Dander <0.10 kU/L; E005 - IgE Dog Dander <0.10 kU/L; E072-IgE Mouse Urine <0.10 kU/L; G002 IgE Bermuda Grass <0.10 kU/L; G006 - IgE Timothy Grass 0.62 kU/L; Immunoglobulin E 829 kU/L (<OR=114); M001 IgE Penicillium chrysogen <0.10 kU/L; M002 - IgE Cladosporium herbar <0.10 kU/L; M003 - IgE Aspergillus fumigat <0.10 kU/L; M006 - IgE Alternaria alternat <0.10 kU/L; T001 IgE Maple/Box Elder 0.16 kU/L; T003 IgE Common Silver Birch <0.10 kU/L; T006 - IgE Cedar, Mountain 0.57 kU/L; T008 IgE Elm, American <0.10 kU/L; T010 - IgE Walnut 0.12 kU/L; T011 - IgE Maple Leaf Sycamore <0.10 kU/L; T014 - IgE Cottonwood <0.10 kU/L; T015 - IgE Ash, White 0.16 kU/L; T070 - IgE White Mulberry <0.10 kU/L; W001 - IgE Ragweed, Short <0.10 kU/L; W006 - IgE Mugwort 0.27 kU/L; W014 IgE Pigweed, Common <0.10 kU/L; W018 IgE Sheep Sorrel 0.16 kU/L
== END 2024-06-08 14:18 | disposition home or self-care (01) ==
LOC: HO.LAB 14:17
PROVIDERS: PCP Internal Medicine; Referring Provider Internal Medicine; Visit Provider Nurse Practitioner Family
DX: Z91.09 Other allergy status, other than to drugs and biological substances (principal); R05.3 Chronic cough; J45.909 Unspecified asthma, uncomplicated
CPT/HCPCS: 36415; 71046; 82785; 85025; 86003; 99202

== ENCOUNTER 2024-06-08 14:17 | Outpatient (AMB) | payer OTHER, SELFPAY ==
[2024-06-08 14:22] VITALS: BP 126/78; PULSE 87; O2SAT 96; BMI 24.5
--- NOTE | 2024-06-08 14:22 | A.OFFVIS_ITS ---
Vital Signs 06/08/24 14:22 Height 6 ft Weight 180 lb 12.465 oz BMI 24.5 BP 126/78 Blood Pressure Location Rt brachial Position Sitting Pulse 87 Pulse Source Pulse Oximeter Pulse Oximetry (%) 96 Oxygen Delivery Method Room Air Intake Visit Reasons: Cough Allergies fenofibrate [Tricor] Allergy (Intermediate, Verified 06/08/24 14:27) Hives nut - unspecified [NUTS] Allergy (Intermediate, Verified 06/08/24 14:27) Hives seafood Allergy (Intermediate, Verified 06/08/24 14:27) Hives, Itchy fluocinolone acetonide Allergy (Unknown, Verified 06/08/24 14:27) Unknown lactose [LACTOSE] Adverse Reaction (Mild, Verified 06/08/24 14:27) Constipation Doxycycline Allergy (Intermediate, Uncoded 06/08/24 14:27) Nausea HPI HPI Cough: Details: Josh is a pleasant 53 year old male, never smoker, with underlying asthma, cerebellar atrophy and ataxia, GERD, HTN, and BPH. He was referred by PCP for p ulmonary evaluation. He reports chronic dry cough over the last few months that is now productive with yellowish green sputum. He also notes dyspnea with exertion, denies wheezing or chest tightness. He is currently using Flovent with suboptimal effect. He reports asthma diagnosed as an adult, never requiring intubation. He reports seasonal allergies no recent allergy testing. He denies any pets. He denies any occupational exposures. He denies any pertinent family history. He is currently homeless, reports staying with his father during the day but can not sleep there as it is an elder community. Patient reports significant difficulties obtaining housing without any resources to assist. [facility] Medical History (Updated 06/10/24 @ 09:53 by Aliya Rivers NP) Nephrolithiasis Overweight (BMI 25.0-29.9) Ataxia Right otitis media Lumbar degenerative disc disease HTN (hypertension) Mixed hyperlipidemia Chronic constipation Asthma Cerebellar atrophy Abnormality of gait Nephrolithiasis Right flank pain Benign prostatic hyperplasia Allergic rhinitis Constipation Vitamin D deficiency Renal calculus, bilateral GERD without esophagitis Migraine Pure hypercholesterolemia Benign essential hypertension Orchalgia Surgical History History of cystoscopy History of esophagogastroduodenoscopy (EGD) History of lithotripsy History of extraction of renal calculus Hx of elbow surgery Family History Father Hypertension CAD (coronary artery disease) Diabetes Cancer Mother Hypertension Acute CVA (cerebrovascular accident) Paternal Grandfather Throat cancer Sister Lupus Epilepsy Social History (Updated 06/10/24 @ 09:52 by Aliya Rivers NP) Household Members Other:: Homeless Housing: Homeless Alcohol intake: never Patient Tobacco Use Status: Never used Tobacco e-Cigarette/Vaping Use: Never Used Second Hand Smoke Exposure: Yes Current occupational status: disabled Current occupational exposures/hazards: No Cognitive needs: Yes Hearing needs: No Vision needs: No Review of Systems Const Denies chills, Denies excessive sweating, Denies fever(s), Denies headache(s) and Denies night sweats Eyes Denies dry eyes, Denies irritation and Denies itchy eyes ENT Reports Normal hearing present and Denies headache(s) Card Denies chest pain, Denies chest pain at rest, Denies chest pain with activity, Denies claudication, Denies leg edema, Denies dyspnea, Denies orthopnea and Denies paroxysmal nocturnal dyspnea Resp Denies chest congestion, Denies excessive phlegm production, Denies pain on inspiration, Denies pain with cough, Denies dyspnea, Denies stridor and Denies wheezing Musc Denies myalgias Neuro Reports Normal hearing present and Denies headache(s) Endo Denies excessive sweating Denis/Lymph Denies lymphadenopathy Aller/Immun Denies itchy eyes, Denies seasonal rhinorrhea and Denies wheezing Physical Exam Vital Signs: Last Vital Signs Pulse 87 06/08/24 14:22 BP 126/78 06/08/24 14:22 Pulse Ox 96 06/08/24 14:22 Oxygen Delivery Method Room Air 06/08/24 14:22 BMI result Body Mass Index 24.5 Const General: cooperative, comfortable, no acute distress, well developed and alert Orientation/consciousness: patient oriented x3 HEENT Head: Yes normal to inspection, Yes normocephalic and Yes atraumatic Ears: hearing grossly normal bilaterally and external ears normal Eyes General: appearance normal, both eyes and all related structures Eyelids: Yes eyelids normal Sclerae: sclerae normal EOM: EOMs intact bilaterally Neck Neck: Yes normal visual inspection and Yes no lymphadenopathy Lymphatic: no lymphadenopathy noted Chest Chest palpation & inspection: normal inspection of the chest Resp Effort & Inspection: normal respiratory effort, able to speak in complete sentences, no audible wheezes, no cough, no stridor, not tachypneic, no tripod positioning and no use of accessory muscles Auscultation: clear to auscultation bilaterally Cardio Jugular venous distension: no JVD Rate: regular rate Rhythm: regular rhythm Skin Other: warm, dry General skin exam: no rashes or lesions noted Neuro General: patient oriented x3 Cranial nerves: Yes Normal hearing present Cognition (Neuro): normal cognition Extrem General: Yes normal to inspection, Yes capillary refill normal, Yes no clubbing, cyanosis or edema and Yes no pedal edema Psych Appearance: grossly normal and well kempt Speech and movement: Normal speech and movement present and Clear speech present Affect: normal affect Attitude: cooperative Thought process: Normal thought process present Thought content: Normal thought content present Insight: Good insight present (Psych) Judgement: Good judgement present (Psych) Assessment & Plan Assessment & Plan (1) Asthma: Code(s): J45.909 - Unspecified asthma, uncomplicated Category: Medical (2) Chronic cough: Code(s): R05.3 - Chronic cough Category: Medical (3) Environmental allergies: Code(s): Z91.09 - Other allergy status, other than to drugs and biological substances Category: Medical Plan Josh presents for pulmonary evaluation for chronic cough now productive. Will treat bronchitic symptoms and send for CXR as no recent imaging. Will also send for PFT and switch flovent to Symbicort. Patient also with frequent sinus infections, post nasal drip and reports seasonal allergies, will send for RAST. He reports being homeless and difficulties obtaining housing. Will enter referral for community navigator. All questions were answered and patient is in agreement of plan. Will follow up in 6-8 weeks or sooner if needed. Orders: Orders Complete Blood Count Auto Diff 06/08/24 Z91.09 - Other allergy status, other than to drugs and biological substances PFT pulmonary function test 06/08/24 R05.3 - Chronic cough Immunoglobulin E Today Z91.09 - Other allergy status, other than to drugs and biological substances XR chest 2V 06/08/24 R05.3 - Chronic cough Resp Allergy Profile Region I 06/08/24 Z91.09 - Other allergy status, other than to drugs and biological substances Referrals Nurse Navigator Referral Z59.00 - Homelessness unspecified Medications: New budesonide-formoterol 80-4.5 mcg/actuation (Symbicort) 2 puffs inhalation Q12H 10.2 grams 6RF Coding Level of Care Code New Pt Level 4 (14818) Diagnoses Asthma J45.909 Chronic cough R05.3 Environmental allergies Z91.09
== END 2024-06-08 15:18 | disposition home or self-care (01) ==
PROVIDERS: PCP Internal Medicine; Referring Provider Internal Medicine; Visit Provider Nurse Practitioner Family
DX: J45.909 Unspecified asthma, uncomplicated (principal); R05.3 Chronic cough; Z91.09 Other allergy status, other than to drugs and biological substances
CPT/HCPCS: 99204

== ENCOUNTER 2024-06-10 13:34 | Emergency (ER) | payer OTHER, SELFPAY ==
--- NOTE | ~2024-06-10 | CT_ITS ---
EXAMINATION: CT ABDOMEN AND PELVIS WITHOUT CONTRAST CLINICAL INFORMATION: R flank pain, urinary hesitancy COMPARISON: CT abdomen/pelvis 02/13/2024 TECHNIQUE: Multidetector volumetric imaging was performed from the superior aspect of the liver through the pubic symphysis. Sagittal and coronal reformatted images were obtained on the technologist's workstation. This CT examination was performed using dose optimization techniques as appropriate, variously including the following: *Automated exposure control *Adjustment of mA and/or kV according to patient size (this includes techniques or standardized protocols for targeted exams where dose is matched to indication/reason for exam; i.e. extremities or head) *Use of iterative reconstruction technique DLP: 470 mGy-cm FINDINGS: LUNG BASES: The visualized lung bases and mediastinum are unremarkable. LIVER, GALLBLADDER, AND BILIARY TREE: The liver is normal in size, shape, and attenuation. No focal hepatic lesion or biliary ductal dilatation is present. The gallbladder is unremarkable with no evidence of radiopaque gallstones, gallbladder wall thickening, or obvious pericholecystic inflammatory changes. PANCREAS: Unremarkable. SPLEEN: Unremarkable. ADRENAL GLANDS: Unremarkable. KIDNEYS AND URETERS: There are numerous small nonobstructing left renal calculi, including 3 upper pole calculi measuring approximately 0.3 cm and up to 525 Hounsfield units, and interpole calculus measuring up to 0.4 cm and 1200 Hounsfield units, and a lower pole 0.4 cm calculus measuring up to 600 Hounsfield units. There are scattered right renal injecting calculi including an interpole calculus measuring up to 0.2 cm and 500 Hounsfield units and a lower pole calculus measuring up to 0.2 cm and 450 Hounsfield units. The kidneys are normal in size, shape, and attenuation. No hydronephrosis or hydroureter. No perinephric stranding. BLADDER: No focal thickening. No bladder calculi. GASTROINTESTINAL TRACT: The small and large bowel are nondilated. The appendix is within normal limits without evidence of appendicitis. ABDOMINAL WALL: No significant hernia is appreciated. LYMPH NODES: Normal. VASCULAR: Unremarkable. PELVIC VISCERA: There are few coarse prostatic calcifications. Mild prostatomegaly. OSSEOUS STRUCTURES: No acute or suspicious osseous abnormality. Moderate L5-S1 degenerative disc disease. CT/CT abdomen pelvis wo IV con IMPRESSION: 1. No acute abnormality within the abdomen or pelvis. 2. Small nonobstructing left greater than right renal calculi are not significantly changed from prior. No hydronephrosis. Fleischner guidelines were followed. Electronically signed by: Piper Tran DO 06/10/2024 05:14 PM PREM
--- NOTE | 2024-06-10 13:47 | ED.ABDPAIN ---
HPI - Abdominal Pain General Chief Complaint: Urogenital-Male Stated Complaint: kidney pain Time Seen by Provider: 06/10/24 20:32 Source: patient Mode of arrival: ambulatory Limitations: no limitations History of Present Illness ED Provider: ERICK VELASQUEZ PA-C HPI narrative: 53 year old male with pmhx significant for dysphagia, nephrolithiasis, asthma, ataxia, thrush, BPH, vertigo, hypertension presents to the ED today for evaluation of right flank pain x years, worsening 6 days ago. Reports constant right flank pain without radiation. Endorses associated urinary hesitancy and nausea without vomiting. He has not trialed any OTC pain medications for this. Denies fever, chills, abdominal pain, dysuria, hematuria, penile discharge, N/V. Denies concern for STDs. Patient states that he used to follow with Dr. Leblanc from Urology for BPH and nephrolithiasis. He states that his care was transferred to a urologist in [place] there were reports frustration surrounding this as he does not feel that he was getting appropriate care there. He currently takes Flomax daily, last filled 2 months ago. Related Data Home Medications ?Medication ?Instructions ?Recorded ?Confirmed aspirin 81 mg tablet,delayed 81 mg PO DAILY 05/17/20 04/13/24 release (Adult Low Dose Aspirin) ascorbate calcium (vitamin C) 500 1,000 mg PO DAILY 10/20/20 04/13/24 mg tablet cholecalciferol (vitamin D3) 25 25 mcg PO DAILY 10/20/20 04/13/24 mcg (1,000 unit) capsule cyanocobalamin (vitamin B-12) 1,000 mcg PO DAILY 10/20/20 04/13/24 1,000 mcg capsule tamsulosin 0.4 mg capsule 0.8 mg PO BEDTIME 08/20/22 04/13/24 fluticasone furoate 50 inhalation 11/29/22 04/13/24 mcg/actuation blister powder for inhalation Previous Rx's ?Medication ?Instructions ?Recorded simethicone 125 mg chewable tablet 125 mg PO TID-QID PRN abdominal 08/20/22 (Gas Relief (simethicone)) distention #90 tabs ROLLATOR #1 ea 10/18/22 acetaminophen 650 mg 650 mg PO Q12H #30 tabs 02/16/23 tablet,extended release blood pressure test kit-medium #1 ea 07/01/23 loratadine 10 mg tablet 10 mg PO DAILY #90 tabs 07/24/23 topiramate 25 mg tablet 25 mg PO BEDTIME 30 days #30 tabs 10/06/23 lisinopril 10 mg tablet 10 mg PO DAILY #90 tabs 12/11/23 gemfibrozil 600 mg tablet 600 mg PO BID #180 tabs 01/10/24 riboflavin (vitamin B2) 400 mg 400 mg PO DAILY 90 days #90 tabs 01/10/24 tablet docusate sodium 100 mg capsule 200 mg (2 x 100 mg) PO BEDTIME 02/06/24 #180 caps methylcellulose (laxative) 500 mg 500 mg PO TID #90 tabs 02/06/24 tablet (Citrucel) magnesium oxide 400 mg PO DAILY 90 days #90 tabs 03/03/24 polyethylene glycol 3350 17 17 g PO DAILY PRN constipation 03/23/24 gram/dose oral powder (Gavilax) #510 grams walker #1 ea 04/13/24 triamcinolone acetonide 55 mcg 2 spray intranasal DAILY PRN 05/07/24 nasal spray aerosol (Nasacort) allergy symptoms #16.9 mL budesonide-formoterol HFA 80 2 puff inhalation Q12H #10.2 grams 06/08/24 mcg-4.5 mcg/actuation aerosol inhaler (Symbicort) tramadol 50 mg tablet 50 mg PO Q8H PRN pain (scale score 06/10/24 4-6) #7 tabs Allergies Allergy/AdvReac Type Severity Reaction Status Date / Time fenofibrate [Tricor] Allergy Intermediate Hives Verified 06/10/24 13:51 nut - unspecified [NUTS] Allergy Intermediate Hives Verified 06/10/24 13:51 seafood Allergy Intermediate Hives, Verified 06/10/24 13:51 Itchy fluocinolone acetonide Allergy Unknown Unknown Verified 06/10/24 13:51 lactose [LACTOSE] AdvReac Mild Constipatio Verified 06/10/24 13:51 n Doxycycline Allergy Intermediate Nausea Uncoded 06/08/24 14:27 Review of Systems Review of Systems Constitutional: No fever, chills, fatigue, night sweats, weight changes ENT/Mouth: No ear pain, hearing loss, nasal congestion, sinus pain, rhinorrhea, sore throat Eyes: No eye pain, swelling, redness, vision changes, discharge Cardio: No chest pain, palpitations, OLSON, orthopnea, peripheral edema Pulm: No SOB, cough, sputum, wheezing, dyspnea, hemoptysis GI: No nausea, vomiting, hematemesis, abdominal pain, diarrhea, constipation, hematochezia, melena : No irregular bleeding, dysuria, frequency, urgency, hesitancy, hematuria, flank pain, urinary flow changes, urinary incontinence or retention, +right flank pain MSK: No back pain, neck pain, joint pain, myalgias Skin: No lesions, rashes Neuro: No weakness, numbness, paresthesias, LOC, dizziness, headache Psych: No anxiety/panic, depression, SI/HI, AH/VH All other systems reviewed and are negative. [facility] Past Medical History Attestation statement: The following information was validated with the patient. Source: old records reviewed and nursing notes reviewed Medical History Nephrolithiasis Overweight (BMI 25.0-29.9) Ataxia Right otitis media Lumbar degenerative disc disease HTN (hypertension) Mixed hyperlipidemia Chronic constipation Asthma Cerebellar atrophy Abnormality of gait Nephrolithiasis Right flank pain Benign prostatic hyperplasia Allergic rhinitis Constipation Vitamin D deficiency Renal calculus, bilateral GERD without esophagitis Migraine Pure hypercholesterolemia Benign essential hypertension Orchalgia Surgical History History of cystoscopy History of esophagogastroduodenoscopy (EGD) History of lithotripsy History of extraction of renal calculus Hx of elbow surgery Family History Family History Father Hypertension CAD (coronary artery disease) Diabetes Cancer Mother Hypertension Acute CVA (cerebrovascular accident) Paternal Grandfather Throat cancer Sister Lupus Epilepsy Social History Social History Household Members Other:: Homeless Housing: Homeless Alcohol intake: never Patient Tobacco Use Status: Never used Tobacco e-Cigarette/Vaping Use: Never Used Second Hand Smoke Exposure: Yes Advance Directives: No Advance Directives Information Provided: No Current occupational status: disabled Current occupational exposures/hazards: No Cognitive needs: Yes Hearing needs: No Vision needs: No Physical Exam ED Vital Signs: Vital Signs - 24 hr 06/10/24 13:48 06/10/24 20:06 Temperature 97.9 F 98.4 F Pulse Rate 93 80 Respiratory Rate 18 18 Blood Pressure 116/86 128/84 Pulse Oximetry 99 96 Oxygen Delivery Method Room Air Room Air BMI result Body Mass Index 24.0 Course Course Course Narrative: This is a Rapid Medical Exam performed in triage by Mable Hayward PA-C. Full HPI, ROS and PE to be performed by primary ED provider. 53-year-old male with a past medical history dysphagia, nephrolithiasis, asthma, ataxia, thrush, BPH, vertigo, HTN, presenting to the ED c/o right flank pain x weeks. Admits to some urinary hesitancy. denies hematuria PE: nontoxic appearing, VSS Plan: labs, UA, bladder scan, CT Reevaluation(s) Reevaluation #1: 203 -- CBC without leukocytosis or left shift. No anemia. H&H stable. Chemistry without acute electrolyte abnormality requiring intervention. No DOMENICO. Calcium elevated to 10.8, around patient's baseline. Liver function at baseline. Lipase WNL. Urine without infection or blood. CT abdomen/pelvis showing multiple small nonobstructing left greater than right renal calculi. Similar when compared to priors. No evidence of hydronephrosis. > patient likely passing renal stones. Bladder scan does not show evidence that patient is retaining urine. Will trial Toradol and Zofran. Will p.o. trial and re-evaluate. 2156 -- Patient treated with Toradol and Zofran with improvement. no episodes of vomiting in ED. He is tolerating crackers and lizz keenan. he takes Flomax daily. Follows with urologist. At this time I feel patient is stable for discharge home with pain control and outpatient follow-up. Medical Decision Making Medical Decision Making MDM Narrative: 53 year old male with pmhx significant for dysphagia, nephrolithiasis, asthma, ataxia, thrush, BPH, vertigo, hypertension presents to the ED today for evaluation of right flank pain x year, worsening x6 days. Vital signs stable. Afebrile. He is nontoxic appearing in no acute distress. On exam, abdomen is soft, nondistended, nontender to palpation without rebound or guarding. Normoactive bowel sounds x4. There is no CVAT bilaterally. He was lying comfortably on the exam Differential diagnosis includes anemia, electrolyte abnormality, DOMENICO, dehydration, UTI, nephrolithiasis, renal colic, hydronephrosis, msk sprain/ strain, constipation, gastroenteritis. Lower suspicion for vertebral fracture, pyelonephritis, diverticulosis/ diverticulitis. Presentation not consistent with cauda equina, Guillain-[place], epidural abscess, cord compression, appendicitis, cholecystitis. Plan for labs, UA, bladder scan, CT scan, pain control, re-evaluation. Differential Diagnosis Differential Diagnoses: The differential diagnosis associated with the presentation includes As above Admission/Observation Not indicated Lab Data MDM Lab Attestation statement: I reviewed the patient's lab results. As above 06/10/24 14:39 06/10/24 14:39 Labs: Lab Results 06/10/24 Range/Units 14:39 WBC 7.9 (4.8-10.8) X10*3/uL RBC 5.08 (4.60-5.80) X10*6/uL Hgb 16.0 (14.0-18.0) g/dl Hct 46.1 (42.0-52.0) % MCV 90.7 (80.0-98.0) fL MCH 31.5 (27.0-33.0) pg MCHC 34.7 (31.0-36.0) g/dl RDW 11.8 (11.0-16.0) % Plt Count 348 D (160-400) X10*3/uL MPV 10.5 (9.4-12.4) fL Immature Gran % (Auto) 0.3 (0.0-0.4) % Neut % (Auto) 71.1 (45-73) % Lymph % (Auto) 20.0 (20-40) % Charles % (Auto) 7.9 (2-11) % Eos % (Auto) 0.4 (0-4) % Baso % (Auto) 0.3 (0-2) % Lymph # (Auto) 1.6 (1.2-4.9) X10*3/uL Charles # (Auto) 0.6 (0.1-1.2) X10*3/uL Eos # (Auto) 0.0 (0.0-0.4) X10*3/uL Baso # (Auto) 0.0 (0.0-0.2) X10*3/uL Abs Immat Gran (auto) 0.02 (0.00-0.03) X10*3/uL Absolute Neuts (auto) 5.7 (2.0-8.3) x10*3/uL Absolute Nucleated RBC 0.000 (0.0-0.012) X10*3/uL Nucleated RBC % (auto) 0.0 (0.0-0.2) /100WBC Sodium 138 (135-145) mmol/L Potassium 4.4 (3.3-5.1) mmol/L Chloride 101 (96-108) mmol/L Carbon Dioxide 22 (22-29) mmol/L Anion Gap 19 (12-20) BUN 14 (9-16) mg/dL Creatinine 1.30 (0.5-1.4) mg/dL Estim Creat Clear Calc 70.4 Estimated GFR 57 Random Glucose 86 (60-115) mg/dL Calcium 10.8 H D (8.4-10.2) mg/dL Magnesium 2.2 (1.6-2.6) mg/dL Total Bilirubin 0.7 (0.0-1.0) mg/dL Direct Bilirubin 0.2 (0.0-0.5) mg/dL AST 20 (5-37) U/L ALT 24 (0-40) U/L Alkaline Phosphatase 57 (39-117) U/L Total Protein 8.6 H (6.5-8.0) g/dL Albumin 4.7 (3.5-5.0) g/dL Lipase 19 (8-78) U/L Urine Color Yellow Urine Appearance Clear Urine pH 5.5 (5.0-9.0) Ur Specific [place] >= 1.030 H (1.005-1.025) Urine Protein Negative (Neg-Trace) mg/dL Urine Glucose (UA) Negative (Negative) mg/dL Urine Ketones Trace (Negative) mg/dL Urine Blood Negative (Negative) Urine Nitrite Negative (Negative) Ur Leukocyte Esterase Negative (Negative) Independent Interpretation I performed an independent interpretation of an: CT Scan Interpretation: CT scan abdomen and pelvis shows bilateral renal stones, no hydronephrosis Radiology Impression Discussion of test interpretation with radiology: I have reviewed the radiologist's reading. Radiologist Impression: EXAMINATION: CT ABDOMEN AND PELVIS WITHOUT CONTRAST CLINICAL INFORMATION: R flank pain, urinary hesitancy COMPARISON: CT abdomen/pelvis 02/13/2024 TECHNIQUE: Multidetector volumetric imaging was performed from the superior aspect of the liver through the pubic symphysis. Sagittal and coronal reformatted images were obtained on the technologist's workstation. This CT examination was performed using dose optimization techniques as appropriate, variously including the following: *Automated exposure control *Adjustment of mA and/or kV according to patient size (this includes techniques or standardized protocols for targeted exams where dose is matched to indication/reason for exam; i.e. extremities or head) *Use of iterative reconstruction technique DLP: 470 mGy-cm FINDINGS: LUNG BASES: The visualized lung bases and mediastinum are unremarkable. LIVER, GALLBLADDER, AND BILIARY TREE: The liver is normal in size, shape, and attenuation. No focal hepatic lesion or biliary ductal dilatation is present. The gallbladder is unremarkable with no evidence of radiopaque gallstones, gallbladder wall thickening, or obvious pericholecystic inflammatory changes. PANCREAS: Unremarkable. SPLEEN: Unremarkable. ADRENAL GLANDS: Unremarkable. KIDNEYS AND URETERS: There are numerous small nonobstructing left renal calculi, including 3 upper pole calculi measuring approximately 0.3 cm and up to 525 Hounsfield units, and interpole calculus measuring up to 0.4 cm and 1200 Hounsfield units, and a lower pole 0.4 cm calculus measuring up to 600 Hounsfield units. There are scattered right renal injecting calculi including an interpole calculus measuring up to 0.2 cm and 500 Hounsfield units and a lower pole calculus measuring up to 0.2 cm and 450 Hounsfield units. The kidneys are normal in size, shape, and attenuation. No hydronephrosis or hydroureter. No perinephric stranding. BLADDER: No focal thickening. No bladder calculi. GASTROINTESTINAL TRACT: The small and large bowel are nondilated. The appendix is within normal limits without evidence of appendicitis. ABDOMINAL WALL: No significant hernia is appreciated. LYMPH NODES: Normal. VASCULAR: Unremarkable. PELVIC VISCERA: There are few coarse prostatic calcifications. Mild prostatomegaly. OSSEOUS STRUCTURES: No acute or suspicious osseous abnormality. Moderate L5-S1 degenerative disc disease. CT/CT abdomen pelvis wo IV con IMPRESSION: 1. No acute abnormality within the abdomen or pelvis. 2. Small nonobstructing left greater than right renal calculi are not significantly changed from prior. No hydronephrosis. Fleischner guidelines were followed. Electronically signed by: Piper Tran DO 06/10/2024 05:14 PM EST External Record Review External record reviewed: Inpatient record Prescription Management I considered prescription management with: Pain Medication (Tramadol) Chronic Conditions Patient?s care impacted by: Other (Nephrolithiasis) Social Determinants Patient?s care significantly limited by Social Determinants of Health including: Other Social Determinant of Health Medications Administered Discontinued Medications Generic Name Dose Route Start Last Admin Trade Name Freq PRN Reason Stop Dose Admin Ketorolac Tromethamine 30 mg 06/10/24 20:49 06/10/24 21:03 Ketorolac Tromethamine 30 Mg/Ml Vial IM 06/10/24 20:50 30 mg ONCE ONE Administration Ondansetron HCl 4 mg 06/10/24 20:49 06/10/24 21:03 Ondansetron Odt 4 Mg Tab.Rapdis TRANSLINGU 06/10/24 20:50 4 mg ONCE ONE Administration Critical Care Time Critical Care Time Critical Care Time: No Discharge Plan Discharge Clinical Impression: Bilateral nephrolithiasis Patient Disposition: Home, Self-Care Instructions: Kidney Stones (ED), Low Oxalate Diet (ED) Additional Instructions: Your blood work today is reassuring. There is no infection. Your kidney function is normal. Your urine does not show infection. Bladder scan does not show that you are retaining any urine. CT scan of your abdomen/ pelvis shows stones within both of your kidneys without evidence of obstruction. It is likely that you are passing small stones. Continue taking your flomax as prescribed as this will flush these stones out. I advised you take motrin and tylenol at home for pain/ discmofort. I have sent tramadol to your pharmacy for you to take as needed for break through pain. See diet modifications attached to this paperwork. Please follow up with your urologist. I have provided you with a referral to [facility] for you to follow up with. Please call them to establish care. They will not call you. Follow up with your primary care provider as needed. Return with new or worsening symptoms. Prescriptions: New tramadol 50 mg tablet 50 mg PO Q8H PRN (Reason: pain (scale score 4-6)) Qty: 7 0RF No Action acetaminophen 650 mg tablet extended release 650 mg PO Q12H Qty: 30 2RF loratadine 10 mg tablet 10 mg PO DAILY Qty: 90 1RF topiramate 25 mg tablet 25 mg PO BEDTIME 30 Days Qty: 30 1RF lisinopril 10 mg tablet 10 mg PO DAILY Qty: 90 3RF gemfibrozil 600 mg tablet 600 mg PO BID Qty: 180 1RF riboflavin (vitamin B2) 400 mg tablet 400 mg PO DAILY 90 Days Qty: 90 1RF docusate sodium 100 mg capsule 200 mg PO BEDTIME Qty: 180 3RF Citrucel 500 mg tablet 500 mg PO TID Qty: 90 5RF magnesium oxide 400 mg magnesium tablet 400 mg PO DAILY 90 Days Qty: 90 1RF triamcinolone acetonide [Nasacort] 55 mcg aerosol,spray 2 spray intranasal DAILY PRN (Reason: allergy symptoms) Qty: 16.9 1RF Rx Instructions: administer into each nostril aspirin [Adult Low Dose Aspirin] 81 mg tablet,delayed release (DR/EC) 81 mg PO DAILY (DME) ROLLATOR See Rx Instructions .Route .MEDSUPPLY Qty: 1 0RF Rx Instructions: As directed fluticasone furoate 50 mcg/actuation blister with device inhalation (DME) blood pressure test kit-medium Kit See Rx Instructions .Route Qty: 1 0RF Rx Instructions: As directed polyethylene glycol 3350 [Gavilax] 17 gram/dose powder 17 g PO DAILY PRN (Reason: constipation) Qty: 510 1RF cholecalciferol (vitamin D3) 25 mcg (1,000 unit) capsule 25 mcg PO DAILY cyanocobalamin (vitamin B-12) 1,000 mcg capsule 1,000 mcg PO DAILY ascorbate calcium (vitamin C) 500 mg tablet 1,000 mg PO DAILY tamsulosin 0.4 mg capsule 0.8 mg PO BEDTIME simethicone [Gas Relief (simethicone)] 125 mg tablet,chewable 125 mg PO TID-QID PRN (Reason: abdominal distention) Qty: 90 2RF (DME) christine See Rx Instructions .Route .MEDSUPPLY Qty: 1 0RF Rx Instructions: As directed budesonide-formoterol [Symbicort] 80-4.5 mcg/actuation HFA aerosol inhaler 2 puff inhalation Q12H Qty: 10.2 6RF Referrals: [facility] [Provider Group] Ignacio Flores MD [Primary Care Provider] - Print Language: Guatemalan
[2024-06-10 13:48] VITALS: BP 116/86; PULSE 93; RESP 18; TEMP 36.6; O2SAT 99; BMI 24.0
[2024-06-10 14:42] LABS: MANUAL DIFF FLAG NO
[2024-06-10 14:48] LABS: Basophils Percent Auto 0.3 % (0-2); Eosinophils Percent Auto 0.4 % (0-4); Hematocrit 46.1 % (42.0-52.0); Imm Gran Abs Auto 0.02 X10*3/uL (0.00-0.03); Imm Gran Pct Auto 0.3 % (0.0-0.4); Lymphocytes Absolute Auto 1.6 X10*3/uL (1.2-4.9); Mean Corpuscular HGB Conc 34.7 g/dl (31.0-36.0); Mean Corpuscular Hemoglobin 31.5 pg (27.0-33.0); Mean Corpuscular Volume 90.7 fL (80.0-98.0); Mean Platelet Volume 10.5 fL (9.4-12.4); Monocytes Absolute Auto 0.6 X10*3/uL (0.1-1.2); Monocytes Percent Auto 7.9 % (2-11); Neutrophils Absolute Auto 5.7 x10*3/uL (2.0-8.3); Neutrophils Percent Auto 71.1 % (45-73); Platelet Count 348 X10*3/uL (160-400); Red Blood Count 5.08 X10*6/uL (4.60-5.80); Red Cell Distribution Width 11.8 % (11.0-16.0); White Blood Count 7.9 X10*3/uL (4.8-10.8)
[2024-06-10 14:57] LABS: Alanine Aminotransferase 24 U/L (0-40); Albumin Level 4.7 g/dL (3.5-5.0); Alkaline Phosphatase 57 U/L (39-117); Anion Gap 19 (12-20); Appearance Urine Clear; Aspartate Amino Transferase 20 U/L (5-37); Bilirubin Direct 0.2 mg/dL (0.0-0.5); Bilirubin Total 0.7 mg/dL (0.0-1.0); Blood Urea Nitrogen 14 mg/dL (9-16); Calcium 10.8 mg/dL (8.4-10.2); Carbon Dioxide 22 mmol/L (22-29); Chloride 101 mmol/L (96-108); Color Urine Yellow; Creatinine Clr Calc Pharmacy 70.4; Estimated Glomerular Filt Rate 57; Glucose Random 86 mg/dL (60-115); Glucose Urine UA Negative (Negative); Leukocyte Esterase Urine Negative (Negative); Lipase 19 U/L (8-78); Magnesium 2.2 mg/dL (1.6-2.6); Nitrite Urine Negative (Negative); PH 5.5 (5.0-9.0); Potassium 4.4 mmol/L (3.3-5.1); Sodium 138 mmol/L (135-145); Specific Gravity - Urine >= 1.030 (1.005-1.025); Total Protein 8.6 g/dL (6.5-8.0); Urine Blood Negative (Negative); Urine Ketones Trace mg/dL (Negative); Urine Protein Negative (Neg-Trace)
[2024-06-10 20:06] VITALS: BP 128/84; PULSE 80; RESP 18; TEMP 36.9; O2SAT 96
[2024-06-10] MEDS: Ondansetron ODT 4 MG TAB.RAPDIS TRANSLINGU (21:03)
[2024-06-10] MEDS: Ketorolac Tromethamine 30 MG/ML VIAL IM (21:03)
[2024-06-10 22:13] VITALS: BP 128/84; PULSE 80; RESP 18; TEMP 36.9; O2SAT 96
== END 2024-06-10 22:14 | disposition home or self-care (01) ==
PROVIDERS: Physician Assistant; Emergency Provider Emergency Medicine; PCP Internal Medicine
DX: N20.0 Calculus of kidney (principal); R10.9 Unspecified abdominal pain; I10 Essential (primary) hypertension; E78.00 Pure hypercholesterolemia, unspecified; J45.909 Unspecified asthma, uncomplicated; Z79.82 Long term (current) use of aspirin; Z79.899 Other long term (current) drug therapy
CPT/HCPCS: 36415; 51798; 74176; 80048; 80076; 81003; 83690; 83735; 85025; 96372; 99284; J1885

== ENCOUNTER 2024-06-16 13:29 | Outpatient (AMB) | payer OTHER, SELFPAY ==
[2024-06-16 14:06] VITALS: BP 100/72; PULSE 67; O2SAT 98; BMI 23.6
--- NOTE | 2024-06-16 14:06 | MHC.PC.OV ---
Vital Signs 06/16/24 14:06 Height 6 ft Weight 174 lb BMI 23.6 BP 100/72 Blood Pressure Location Rt brachial Position Sitting Pulse 67 Pulse Source Pulse Oximeter Pulse Oximetry (%) 98 Oxygen Delivery Method Room Air Intake Visit Reasons: [facility] [place] 06/10 Kidney Pain Pharmaceutical Detailer Required: No Accompanied by: Self / Same As Patient Allergies fenofibrate [Tricor] Allergy (Intermediate, Verified 06/30/24 09:28) Hives nut - unspecified [NUTS] Allergy (Intermediate, Verified 06/30/24 09:28) Hives seafood Allergy (Intermediate, Verified 06/30/24 09:28) Hives, Itchy fluocinolone acetonide Allergy (Unknown, Verified 06/30/24 09:28) Unknown lactose [LACTOSE] Adverse Reaction (Mild, Verified 06/30/24 09:28) Constipation Doxycycline Allergy (Intermediate, Uncoded 06/30/24 09:28) Nausea Medication List - Last Reconciled 06/30/24 by Stuart Parra MD acetaminophen ER 650 mg PO Q12H amoxicillin-pot clavulanate 875-125 mg 1 tab PO Q12H ascorbate calcium (vitamin C) 1,000 mg PO DAILY aspirin (Adult Low Dose Aspirin) 81 mg PO DAILY azithromycin For 250 mg dose pack: take 500 mg today (day 1), then 250 mg for 4 days (days 2-5) PO blood pressure test kit-medium As directed budesonide-formoterol 80-4.5 mcg/actuation (Symbicort) 2 puffs inhalation Q12H cholecalciferol (vitamin D3) 25 mcg PO DAILY cyanocobalamin (vitamin B-12) 1,000 mcg PO DAILY docusate sodium 200 mg (2 x 100 mg) PO BEDTIME fluticasone furoate 50 mcg/actuation inhalation gemfibrozil 600 mg PO BID lisinopril 10 mg PO DAILY loratadine 10 mg PO DAILY magnesium oxide 400 mg PO DAILY 90 days methylcellulose (laxative) (Citrucel) 500 mg PO TID polyethylene glycol 3350 (Gavilax) 17 grams PO DAILY PRN riboflavin (vitamin B2) 400 mg PO DAILY 90 days [ROLLATOR As directed] simethicone (Gas Relief (simethicone)) 125 mg PO TID-QID PRN tamsulosin 0.8 mg PO BEDTIME topiramate 25 mg PO BEDTIME 30 days tramadol 50 mg PO Q8H PRN triamcinolone acetonide (Nasacort) 2 sprays intranasal DAILY PRN [walker As directed] Tobacco use date assessed: 03/23/24 Dental Screening Dental Screen Date: 03/23/24 [facility] 06/10 Kidney Pain HPI Details 53 yr old male presents to the office for ER visit follow up. Presented to the ER with symptoms of low back pain. CT scan showed a renal calculi and patient has follow up with the urologist. Currently pain symptoms have improved. Urinating with no difficulty. No fever or chills. [facility] Medical History Nephrolithiasis Overweight (BMI 25.0-29.9) Ataxia Right otitis media Lumbar degenerative disc disease HTN (hypertension) Mixed hyperlipidemia Chronic constipation Asthma Cerebellar atrophy Abnormality of gait Nephrolithiasis Right flank pain Benign prostatic hyperplasia Allergic rhinitis Constipation Vitamin D deficiency Renal calculus, bilateral GERD without esophagitis Migraine Pure hypercholesterolemia Benign essential hypertension Orchalgia Surgical History History of cystoscopy History of esophagogastroduodenoscopy (EGD) History of lithotripsy History of extraction of renal calculus Hx of elbow surgery Family History Father Hypertension CAD (coronary artery disease) Diabetes Cancer Mother Hypertension Acute CVA (cerebrovascular accident) Paternal Grandfather Throat cancer Sister Lupus Epilepsy Social History Household Members Other:: Homeless Housing: Homeless Alcohol intake: never Patient Tobacco Use Status: Never used Tobacco e-Cigarette/Vaping Use: Never Used Second Hand Smoke Exposure: Yes service: No Current occupational status: disabled Current occupational exposures/hazards: No Cognitive needs: Yes Hearing needs: No Vision needs: No Questionnaire Thrive Questionnaire Date Thrive assessed: 03/23/24 JONATHAN-7 AMB Questionnaire JONATHAN-7 Date JONATHAN - 7 assessed: 03/23/24 Source: Developed by Drs. Timothy Callahan, Susan Garcia, Jose Cruz Lloyd and colleagues, with an educational jim from [employer]. Physical exam (Primary Care) Vital Signs: Last Vital Signs Pulse 67 06/16/24 14:06 BP 100/72 06/16/24 14:06 Pulse Ox 98 06/16/24 14:06 Oxygen Delivery Method Room Air 06/16/24 14:06 BMI result Body Mass Index 23.6 Tobacco/Smoking Status: Tobacco use Status Tobacco use date assessed 03/23/24 06/16/24 14:07 Patient Tobacco Use Status Never used Tobacco 06/16/24 14:07 e-Cigarette/Vaping Use Never Used 06/16/24 14:07 Thrive Assessment: Date of Thrive Assessment Date Thrive assessed 03/23/24 06/16/24 14:07 Const General: cooperative and healthy appearing Nutritional Appearance: well nourished Orientation/consciousness: patient oriented x3 Limitations: no limitations HENMT Head: Yes normal to inspection Eyes General: appearance normal, both eyes and all related structures Neck Neck: Yes normal visual inspection Chest Chest palpation & inspection: normal palpation of entire chest wall Resp Effort & Inspection: normal respiratory effort Neuro General: patient oriented x3 Coding Level of Care Code Est Pt Level 3 (36864) Complex EM visit Add On G2211 Diagnoses Renal stones N20.0 Assessment & Plan Assessment & Plan (1) Renal stones: Code(s): N20.0 - Calculus of kidney Category: Medical Plan: ER note reviewed. Reassurance
== END 2024-06-16 15:54 | disposition home or self-care (01) ==
PROVIDERS: PCP Internal Medicine; Visit Provider Internal Medicine
DX: N20.0 Calculus of kidney (principal)

== ENCOUNTER → 2024-06-16 13:29 | Outpatient (BNVA) | payer OTHER, SELFPAY | PROVIDERS: PCP Internal Medicine; Visit Provider Internal Medicine | DX: N20.0 Calculus of kidney (principal) | CPT/HCPCS: 99212 ==

== ENCOUNTER 2024-07-10 13:21 | Outpatient (AMB) | payer OTHER, SELFPAY ==
--- NOTE | 2024-07-10 13:23 | MHC.PC.OV ---
Vital Signs 07/10/24 13:24 Height 6 ft Weight 179 lb BMI 24.3 BP 100/70 Blood Pressure Location Lt brachial Position Sitting Pulse 88 Pulse Source Pulse Oximeter Pulse Oximetry (%) 97 Oxygen Delivery Method Room Air Intake Visit Reasons: Sinus Criminal Research Specialist Required: No Accompanied by: Self / Same As Patient Allergies fenofibrate [Tricor] Allergy (Intermediate, Verified 07/12/24 13:59) Hives nut - unspecified [NUTS] Allergy (Intermediate, Verified 07/12/24 13:59) Hives seafood Allergy (Intermediate, Verified 07/12/24 13:59) Hives, Itchy fluocinolone acetonide Allergy (Unknown, Verified 07/12/24 13:59) Unknown lactose [LACTOSE] Adverse Reaction (Mild, Verified 07/12/24 13:59) Constipation Doxycycline Allergy (Intermediate, Uncoded 07/12/24 13:59) Nausea Medication List - Last Reconciled 07/12/24 by Ignacio Flores MD acetaminophen ER 650 mg PO Q12H amoxicillin-pot clavulanate 875-125 mg 1 tab PO Q12H ascorbate calcium (vitamin C) 1,000 mg PO DAILY aspirin (Adult Low Dose Aspirin) 81 mg PO DAILY azithromycin For 250 mg dose pack: take 500 mg today (day 1), then 250 mg for 4 days (days 2-5) PO blood pressure test kit-medium As directed budesonide-formoterol 80-4.5 mcg/actuation (Symbicort) 2 puffs inhalation Q12H cholecalciferol (vitamin D3) 25 mcg PO DAILY cyanocobalamin (vitamin B-12) 1,000 mcg PO DAILY docusate sodium 200 mg (2 x 100 mg) PO BEDTIME fluticasone furoate 50 mcg/actuation inhalation gemfibrozil 600 mg PO BID lisinopril 10 mg PO DAILY loratadine 10 mg PO DAILY magnesium oxide 400 mg PO DAILY 90 days methylcellulose (laxative) (Citrucel) 500 mg PO TID polyethylene glycol 3350 (Gavilax) 17 grams PO DAILY PRN riboflavin (vitamin B2) 400 mg PO DAILY 90 days [ROLLATOR As directed] simethicone (Gas Relief (simethicone)) 125 mg PO TID-QID PRN tamsulosin 0.8 mg PO BEDTIME topiramate 25 mg PO BEDTIME 30 days tramadol 50 mg PO Q8H PRN triamcinolone acetonide (Nasacort) 2 sprays intranasal DAILY PRN [walker As directed] Tobacco use date assessed: 07/10/24 Dental Screening Dental Screen Date: 07/10/24 Did you have a dental visit in the last 12 months?: No Did you have a dental problem in the last 6 months where you did not have access to dental care?: No Was dental information given to patient?: No HPI Sinus HPI Details Patient comes in today complaining of chronic nasal and sinus congestion, which he states has been going on for a few months now He reports experiencing frequent sinus congestion and pressure-like sensation behind his eyes and in his sinuses and lately has again noticed a foul smell associated with his, greenish nasal discharge Recalls that his symptoms would improve minimally and only temporarily with antibiotics in the past, including Augmentin and azithromycin (Z-toñito) He was previously referred to ENT for further evaluation and management but states that he has not yet been contacted to schedule an appointment so far He recently called up the request for a CT scan of his sinuses and he was advised to come in for further evaluation He denies any fever or sore throat Reports (+) occasional headaches associated with his nasal and sinus congestion but denies any dizziness Denies any chest pains, no increased shortness of breath No nausea/vomiting, no abdominal pain No change in bowel habits noted [facility] Medical History Nephrolithiasis Overweight (BMI 25.0-29.9) Ataxia Right otitis media Lumbar degenerative disc disease HTN (hypertension) Mixed hyperlipidemia Chronic constipation Asthma Cerebellar atrophy Abnormality of gait Nephrolithiasis Right flank pain Benign prostatic hyperplasia Allergic rhinitis Constipation Vitamin D deficiency Renal calculus, bilateral GERD without esophagitis Migraine Pure hypercholesterolemia Benign essential hypertension Orchalgia Surgical History History of cystoscopy History of esophagogastroduodenoscopy (EGD) History of lithotripsy History of extraction of renal calculus Hx of elbow surgery Family History Father Hypertension CAD (coronary artery disease) Diabetes Cancer Mother Hypertension Acute CVA (cerebrovascular accident) Paternal Grandfather Throat cancer Sister Lupus Epilepsy Social History Household Members Other:: Homeless Housing: Homeless Alcohol intake: never Patient Tobacco Use Status: Never used Tobacco e-Cigarette/Vaping Use: Never Used Second Hand Smoke Exposure: Yes service: No Current occupational status: disabled Current occupational exposures/hazards: No Cognitive needs: Yes Hearing needs: No Vision needs: No Questionnaire PHQ-9 Over the last 2 weeks, how often have you been bothered by any of the following problems? 1. Little interest or pleasure in doing things: not at all 2. Feeling down, depressed, or hopeless: not at all 3. Trouble falling or staying asleep, or sleeping too much: not at all 4. Feeling tired or having little energy: not at all 5. Poor appetite or overeating: not at all 6. Feeling bad about yourself - or that you are a failure or have let yourself or your family down: not at all 7. Trouble concentrating on things, such as reading the newspaper or watching television: not at all 8. Moving or speaking so slowly that other people could have noticed. Or the opposite - being so fidgety or restless that you have been moving around a lot more than usual: not at all 9. Thoughts that you would be better off or of hurting yourself in some way: not at all Total score: 0 Depression Screening Interpretation: Negative Depression Screening Done: Yes 79387 - PHQ-9 Billing: Yes Source: Developed by Drs. Timothy Callahan, Susan Garcia, Jose Cruz Lloyd and colleagues, with an educational jim from [employer]. Thrive Questionnaire Date Thrive assessed: 07/10/24 I am a: Patient What is your living situation today?: I have a steady place to live Within the past 12 months, did the food you bought not last and you didn't have the money to get more?: Never true Within the past 12 months, did you worry whether your food would run out before you got money to buy more?: Never true Do you have trouble paying for medicines?: No Do you have trouble getting transportation to medical appointments?: No Do you have trouble paying your heating and electricity bill?: No Do you have trouble taking care of your child, family member or friend?: No Do you have trouble with day-to-day activities such as bathing, preparing meals, shopping, managing finances, etc.?: No Are you currently unemployed and looking for a job?: No Are you interested in more education?: No Please select the resources that you would like help with: None Currently or been in a relationship where the following occur: No concerns reported THRIVE Score: 0 AUDIT C Alcohol Use Questionnaire (AUDIT-C) 1. How often do you have a drink containing alcohol?: Never 3. How often do you have six or more drinks on one occasion?: Never Total Score: 0 Score Reviewed/Action Taken: Yes JONATHAN-7 AMB Questionnaire JONATHAN-7 Date JONATHAN - 7 assessed: 07/10/24 Feeling nervous, anxious, or on edge: 0 = Not at all Not being able to stop or control worryin = Not at all Worrying too much about different things: 0 = Not at all Trouble relaxin = Not at all Being so restless that it is hard to sit still: 0 = Not at all Becoming easily annoyed or irritable: 0 = Not at all Feeling afraid as if something awful might happen: 0 = Not at all Total JONATHAN-7 score (0-4 normal; 5-9 mild; 10-14 moderate; 15-21 severe): 0 Source: Developed by Drs. Timothy Callahan, Susan Garcia, Jose Cruz Lloyd and colleagues, with an educational jim from [employer]. Review of Systems Const Denies chills, Denies fatigue, Denies fever(s) and Reports headache(s) (occasionally) ENT Denies dysphagia, Denies dizziness, Denies otalgia, Reports headache(s) (occasionally), Reports nasal congestion, Reports nasal discharge, Denies neck pain, Denies odynophagia, Reports sinus pressure and Denies sore throat Card Denies chest pain, Denies palpitations and Denies dyspnea Resp Denies cough and Denies dyspnea GI Denies abdominal pain, Denies constipation, Denies dysphagia, Reports early satiety, Denies heartburn, Denies diarrhea, Denies nausea, Denies odynophagia and Denies vomiting Denies dysuria, Denies nocturia and Denies urinary frequency Musc Reports abnormal gait (unsteady) and Denies neck pain Skin/Breast Denies rash Neuro Reports Abnormal speech present (has slurred and slow speech (chronic) due to cerebellar degeneration), Reports abnormal gait (unsteady), Denies dizziness and Reports headache(s) (occasionally) Endo Denies fatigue and Denies palpitations Physical exam (Primary Care) Vital Signs: Last Vital Signs Pulse 88 07/10/24 13:24 BP 100/70 07/10/24 13:24 Pulse Ox 97 07/10/24 13:24 Oxygen Delivery Method Room Air 07/10/24 13:24 BMI result Body Mass Index 24.3 Tobacco/Smoking Status: Tobacco use Status Tobacco use date assessed 07/10/24 07/10/24 13:26 Patient Tobacco Use Status Never used Tobacco 07/10/24 13:26 e-Cigarette/Vaping Use Never Used 07/10/24 13:26 PHQ-9: PHQ-9 Score PHQ-9: Total score 0 07/10/24 14:10 Depression Screening Interpretation: Negative Thrive Assessment: Date of Thrive Assessment Date Thrive assessed 07/10/24 07/10/24 13:26 Currently or been in a relationship where the following occur: No concerns reported Const General: no acute distress and alert HENMT Ears: TM's normal bilaterally and EAC's normal Face and sinus: Yes sinus tenderness (bilaterally) Throat: Yes posterior oropharynx normal and Yes tonsils normal (no TP congestion) Neck Neck: Yes no lymphadenopathy and Yes supple Thyroid: Thyroid normal Resp Auscultation: clear to auscultation bilaterally, no rales and no wheezes Cardio Rate: regular rate Rhythm: regular rhythm Heart sounds: no murmurs GI Palpation (GI): Soft to palpation and nontender Auscultation: normal bowel sounds General: Yes no CVA tenderness Back/Spine/Pelvis Back: no CVA tenderness Thoracic/Lumbar Spine: No lumbar spinal tenderness Skin Rashes: no rashes Neuro Cognition (Neuro): normal cognition Speech: Abnormal speech present (has slurred and slow speech (chronic) due to cerebellar degeneration) Gait exam (Neuro): Wide-based gait present (unsteady gait due to cerebellar degeneration) Extrem General: Yes no clubbing, cyanosis or edema Coding Level of Care Code Est Pt Level 3 (40624) Diagnoses Chronic congestion of paranasal sinus J32.9 Additional Codes PHQ-9 - 84757 - PHQ-9 Billing: Yes ([id number]) Assessment & Plan Assessment & Plan (1) Chronic congestion of paranasal sinus: Code(s): J32.9 - Chronic sinusitis, unspecified Category: Medical Plan: Will send patient for x-rays of the sinuses for now for further evaluation Have advised him that a CT scan of the sinuses at this point is likely overkill and we should wait and see how his x-rays come out first If necessary, can start him on a different antibiotics to see if it will help clear his sinus infection up He has been referred to ENT for further evaluation and management and a new referral was placed again for him last week - advised patient that if he does not hear from ENT in a couple weeks, that he can try calling them up to see if he can get an appointment scheduled as soon as possible Plan Follow up as scheduled in 2 weeks Orders: Orders XR sinus min 3V 07/10/24 J32.9 - Chronic sinusitis, unspecified
[2024-07-10 13:24] VITALS: BP 100/70; PULSE 88; O2SAT 97; BMI 24.3
== END 2024-07-10 14:12 | disposition home or self-care (01) ==
PROVIDERS: PCP Internal Medicine; Visit Provider Internal Medicine
DX: J32.9 Chronic sinusitis, unspecified (principal)

== ENCOUNTER 2024-07-10 13:21 | Outpatient (REF) | payer OTHER, SELFPAY ==
--- NOTE | ~2024-07-10 | XR_ITS ---
CLINICAL HISTORY: J32.9 - Chronic sinusitis, unspecified 6 view sinuses Comparison: None Findings: Complete opacification of the left maxillary sinus with near-complete opacification of the bifrontal sinuses, [id number]. Rightward nasal septal deviation. No air-fluid levels identified. No fracture. IMPRESSION: Left maxillary and bifrontal sinus disease as above. CT could further evaluate. This document has been electronically signed by: Otto Loera MD on 07/13/2024 22:00:52
== END 2024-07-10 13:22 | disposition home or self-care (01) ==
LOC: HO.XRAY 13:21
PROVIDERS: PCP Internal Medicine; Visit Provider Internal Medicine
DX: J32.9 Chronic sinusitis, unspecified (principal)
CPT/HCPCS: 70220; 96127; 99212

== ENCOUNTER → 2024-07-10 14:21 | Outpatient (BNV) | payer OTHER, SELFPAY | PROVIDERS: PCP Internal Medicine; Visit Provider Radiology Diagnostic Radiology | DX: J32.9 Chronic sinusitis, unspecified (principal) | CPT/HCPCS: 70220 ==

== ENCOUNTER 2024-07-13 08:42 | Outpatient (REF) | payer OTHER, SELFPAY ==
[2024-07-13 09:04] LABS: MANUAL DIFF FLAG NO
[2024-07-13 09:34] LABS: Basophils Percent Auto 0.4 % (0-2); Eosinophils Absolute Auto 0.1 X10*3/uL (0.0-0.4); Eosinophils Percent Auto 1.9 % (0-4); Hematocrit 46.8 % (42.0-52.0); Hemoglobin 15.4 g/dl (14.0-18.0); Imm Gran Abs Auto 0.02 X10*3/uL (0.00-0.03); Imm Gran Pct Auto 0.4 % (0.0-0.4); Lymphocytes Absolute Auto 1.9 X10*3/uL (1.2-4.9); Mean Corpuscular HGB Conc 32.9 g/dl (31.0-36.0); Mean Corpuscular Hemoglobin 30.7 pg (27.0-33.0); Mean Corpuscular Volume 93.4 fL (80.0-98.0); Mean Platelet Volume 11.2 fL (9.4-12.4); Monocytes Absolute Auto 0.6 X10*3/uL (0.1-1.2); Monocytes Percent Auto 10.9 % (2-11); Neutrophils Absolute Auto 2.7 x10*3/uL (2.0-8.3); Neutrophils Percent Auto 50.4 % (45-73); Platelet Count 333 X10*3/uL (160-400); Red Blood Count 5.01 X10*6/uL (4.60-5.80); Red Cell Distribution Width 12.9 % (11.0-16.0); White Blood Count 5.3 X10*3/uL (4.8-10.8)
[2024-07-13 09:47] LABS: Appearance Urine Clear; Color Urine Yellow; Glucose Urine UA Negative (Negative); Leukocyte Esterase Urine Negative (Negative); Nitrite Urine Negative (Negative); PH 5.5 (5.0-9.0); Urine Blood Negative (Negative); Urine Ketones Trace mg/dL (Negative); Urine Protein Negative (Neg-Trace)
[2024-07-13 10:07] LABS: Alanine Aminotransferase 17 U/L (0-40); Albumin Level 4.6 g/dL (3.5-5.0); Alkaline Phosphatase 79 U/L (39-117); Anion Gap 16 (12-20); Aspartate Amino Transferase 18 U/L (5-37); Bilirubin Total 0.5 mg/dL (0.0-1.0); Blood Urea Nitrogen 19 mg/dL (9-16); Calcium 10.8 mg/dL (8.4-10.2); Carbon Dioxide 24 mmol/L (22-29); Chloride 105 mmol/L (96-108); Cholesterol 168 mg/dL (<200); Estimated Glomerular Filt Rate > 60; Glucose Fasting 99 mg/dL (60-99); HDL Cholesterol 36 mg/dL (>40); LDL Cholesterol Calculated 102 mg/dL (<100); Potassium 4.5 mmol/L (3.3-5.1); Sodium 140 mmol/L (135-145); Total Protein 8.1 g/dL (6.5-8.0); Triglycerides 151 mg/dL (<150); Uric Acid 7.4 mg/dL (3.4-7.0)
[2024-07-14 20:24] LABS: Immunoglobulin E 505 kU/L (<OR=114)
== END 2024-07-13 08:43 | disposition home or self-care (01) ==
LOC: HO.LAB 08:42
PROVIDERS: Nurse Practitioner Family; PCP Internal Medicine; Visit Provider Internal Medicine
DX: E78.00 Pure hypercholesterolemia, unspecified (principal); D64.9 Anemia, unspecified; R30.0 Dysuria; N20.0 Calculus of kidney; Z91.09 Other allergy status, other than to drugs and biological substances
CPT/HCPCS: 36415; 80053; 80061; 81003; 82785; 84550; 85025; 99212

== ENCOUNTER 2024-07-13 13:42 | Outpatient (AMB) | payer OTHER, SELFPAY ==
--- NOTE | 2024-07-12 21:27 | MHC.OFFVIS ---
Vital Signs 07/13/24 13:45 Height 6 ft Weight 177 lb 7.554 oz BMI 24.1 BP 100/76 Blood Pressure Location Rt brachial Position Sitting Pulse 86 Pulse Source Pulse Oximeter Pulse Oximetry (%) 96 Oxygen Delivery Method Room Air Intake Visit Reasons: Cough Allergies fenofibrate [Tricor] Allergy (Intermediate, Verified 07/13/24 13:48) Hives nut - unspecified [NUTS] Allergy (Intermediate, Verified 07/13/24 13:48) Hives seafood Allergy (Intermediate, Verified 07/13/24 13:48) Hives, Itchy fluocinolone acetonide Allergy (Unknown, Verified 07/13/24 13:48) Unknown lactose [LACTOSE] Adverse Reaction (Mild, Verified 07/13/24 13:48) Constipation Doxycycline Allergy (Intermediate, Uncoded 07/13/24 13:48) Nausea HPI HPI Cough: Details: Josh is a pleasant 53 year old male, never smoker, with underlying asthma, cerebellar atrophy and ataxia, GERD, HTN, and BPH. He reports overall improvements in chronic dry cough using Symbicort, denies dyspnea with exertion, wheezing or chest tightness. At the last visit, he was also given zpak then augmentin for sinusitis with suboptimal effect. Previously has used prednisone with good effect. Also order previously placed for ENT evaluation, awaiting appt to be scheduled. Today he presents to review CXR and RAST. [facility] Medical History Nephrolithiasis Overweight (BMI 25.0-29.9) Ataxia Right otitis media Lumbar degenerative disc disease HTN (hypertension) Mixed hyperlipidemia Chronic constipation Asthma Cerebellar atrophy Abnormality of gait Nephrolithiasis Right flank pain Benign prostatic hyperplasia Allergic rhinitis Constipation Vitamin D deficiency Renal calculus, bilateral GERD without esophagitis Migraine Pure hypercholesterolemia Benign essential hypertension Orchalgia Surgical History History of cystoscopy History of esophagogastroduodenoscopy (EGD) History of lithotripsy History of extraction of renal calculus Hx of elbow surgery Family History Father Hypertension CAD (coronary artery disease) Diabetes Cancer Mother Hypertension Acute CVA (cerebrovascular accident) Paternal Grandfather Throat cancer Sister Lupus Epilepsy Social History Household Members Other:: Homeless Housing: Homeless Alcohol intake: never Patient Tobacco Use Status: Never used Tobacco e-Cigarette/Vaping Use: Never Used Second Hand Smoke Exposure: Yes service: No Current occupational status: disabled Current occupational exposures/hazards: No Cognitive needs: Yes Hearing needs: No Vision needs: No Review of Systems Const Denies chills, Denies excessive sweating, Denies fever(s), Denies headache(s) and Denies night sweats Eyes Denies dry eyes, Denies irritation and Denies itchy eyes ENT Reports Normal hearing present, Denies headache(s), Reports nasal congestion, Reports post nasal drip, Reports sinus pain and Reports sinus pressure Card Denies chest pain, Denies chest pain at rest, Denies chest pain with activity, Denies claudication, Denies leg edema, Denies dyspnea, Denies orthopnea and Denies paroxysmal nocturnal dyspnea Resp Denies chest congestion, Reports cough, Denies excessive phlegm production, Denies pain on inspiration, Denies pain with cough, Denies dyspnea, Denies stridor and Denies wheezing Musc Denies myalgias Neuro Reports Normal hearing present and Denies headache(s) Endo Denies excessive sweating Denis/Lymph Denies lymphadenopathy Aller/Immun Denies itchy eyes, Denies seasonal rhinorrhea and Denies wheezing Physical Exam Vital Signs: Last Vital Signs Pulse 86 07/13/24 13:45 BP 100/76 07/13/24 13:45 Pulse Ox 96 07/13/24 13:45 Oxygen Delivery Method Room Air 07/13/24 13:45 BMI result Body Mass Index 24.1 Neuro Cranial nerves: Yes Normal hearing present Assessment & Plan Assessment & Plan (1) Asthma: Code(s): J45.909 - Unspecified asthma, uncomplicated Category: Medical (2) Chronic cough: Code(s): R05.3 - Chronic cough Category: Medical (3) Environmental allergies: Code(s): Z91.09 - Other allergy status, other than to drugs and biological substances Category: Medical Plan RAST revealed multiple environmental allergens, IgE 800. Will trial antihistamine, patient denies any recent use as well as prednisone for persistent sinus congestion as no improvement with abx. Side effects reviewed. He is awaiting ENT consultation, advised to call office as referral was previously placed. At this time, he reports notable improvements on symbicort, advised to continue. Will also send in albuterol MDI for PRN use. All questions were answered and patient is in agreement of plan. Will follow up in 3 months or sooner if needed. Medications: New cetirizine (Zyrtec) 10 mg PO DAILY PRN 30 tabs 3RF allergy symptoms albuterol sulfate 90 mcg/actuation 2 puffs inhalation Q4-6H PRN 1 ea 3RF shortness of breath or wheezing prednisone 40 mg (2 x 20 mg) PO DAILY 10 tabs 0RF Discontinued loratadine Discontinued Reason: Patient Completed Course 10 mg PO DAILY 90 tabs 1RF H10.10 - Acute atopic conjunctivitis, unspecified eye, J30.9 - Allergic rhinitis, unspecified azithromycin Discontinued Reason: Patient Completed Course For 250 mg dose pack: take 500 mg today (day 1), then 250 mg for 4 days (days 2-5) PO 6 tabs 0RF amoxicillin-pot clavulanate 875-125 mg Discontinued Reason: Patient Completed Course 1 tab PO Q12H 20 tabs 0RF Coding Level of Care Code Est Pt Level 4 (24398) Diagnoses Asthma J45.909 Chronic cough R05.3 Environmental allergies Z91.09
[2024-07-13 13:45] VITALS: BP 100/76; PULSE 86; O2SAT 96; BMI 24.1
== END 2024-07-13 14:07 | disposition home or self-care (01) ==
PROVIDERS: PCP Internal Medicine; Visit Provider Nurse Practitioner Family
DX: J45.909 Unspecified asthma, uncomplicated (principal); R05.3 Chronic cough; Z91.09 Other allergy status, other than to drugs and biological substances
CPT/HCPCS: 99214

== ENCOUNTER 2024-07-20 10:13 | Outpatient (AMB) | payer OTHER, SELFPAY ==
[2024-07-20 10:18] VITALS: BP 100/80; PULSE 73; O2SAT 98; BMI 23.9
--- NOTE | 2024-07-20 10:18 | MHC.PC.OV ---
Vital Signs 07/20/24 10:18 Height 6 ft Weight 176 lb BMI 23.9 BP 100/80 Blood Pressure Location Lt brachial Position Sitting Pulse 73 Pulse Source Pulse Oximeter Pulse Oximetry (%) 98 Oxygen Delivery Method Room Air Intake Visit Reasons: 4 Month F/U Assistant Program Director Required: No Accompanied by: Self / Same As Patient Allergies fenofibrate [Tricor] Allergy (Intermediate, Verified 07/20/24 10:32) Hives nut - unspecified [NUTS] Allergy (Intermediate, Verified 07/20/24 10:32) Hives seafood Allergy (Intermediate, Verified 07/20/24 10:32) Hives, Itchy fluocinolone acetonide Allergy (Unknown, Verified 07/20/24 10:32) Unknown lactose [LACTOSE] Adverse Reaction (Mild, Verified 07/20/24 10:32) Constipation Doxycycline Allergy (Intermediate, Uncoded 07/20/24 10:32) Nausea Medication List - Last Reconciled 07/20/24 by NICOLE Montoya acetaminophen ER 650 mg PO Q12H albuterol sulfate 90 mcg/actuation 2 puffs inhalation Q4-6H PRN ascorbate calcium (vitamin C) 1,000 mg PO DAILY aspirin (Adult Low Dose Aspirin) 81 mg PO DAILY blood pressure test kit-medium As directed budesonide-formoterol 80-4.5 mcg/actuation (Symbicort) 2 puffs inhalation Q12H cetirizine (Zyrtec) 10 mg PO DAILY PRN cholecalciferol (vitamin D3) 25 mcg PO DAILY cyanocobalamin (vitamin B-12) 1,000 mcg PO DAILY docusate sodium 200 mg (2 x 100 mg) PO BEDTIME fluticasone furoate 50 mcg/actuation inhalation gemfibrozil 600 mg PO BID lisinopril 10 mg PO DAILY magnesium oxide 400 mg PO DAILY 90 days methylcellulose (laxative) (Citrucel) 500 mg PO TID polyethylene glycol 3350 (Gavilax) 17 grams PO DAILY PRN riboflavin (vitamin B2) 400 mg PO DAILY 90 days [ROLLATOR As directed] simethicone (Gas Relief (simethicone)) 125 mg PO TID-QID PRN tamsulosin 0.8 mg PO BEDTIME topiramate 25 mg PO BEDTIME 30 days tramadol 50 mg PO Q8H PRN triamcinolone acetonide (Nasacort) 2 sprays intranasal DAILY PRN 3 months [walker As directed] Tobacco use date assessed: 07/20/24 Dental Screening Dental Screen Date: 07/20/24 Did you have a dental visit in the last 12 months?: No Did you have a dental problem in the last 6 months where you did not have access to dental care?: No Was dental information given to patient?: No HPI 4 Month F/U HPI Details Patient is a 53-year-old male with significant past medical history of chronic sinusitis, asthma, chronic cough, nephrolithiasis, ataxia, GERD without esophagitis, BPH, benign essential hypertension and constipation Patient is here for a three-month follow-up appointment He reports that his sinuses have improved some on current treatment He reports that his cough has been less frequent than before He reports that he is still waiting to see ENT He saw pulmonology on 07/12/20-he had RAST done that revealed multiple environmental allergens He was started on an antihistamine-patient was treated in the past with antibiotics multiple time without improvement reports that he is switching back to Dr Leblnac (urology) and he has a upcoming appt reports that he use to take allopurinol and the pharmacy stopped filling it, he is not sure if it was stopped by his current urologist The patient denies chest pain, sob, heart palpitation, and dizziness he denies abdominal pain, endorses that his constipation has improved some reports he goes at least every other day-sometimes the stool are on the firmer side and sometimes the stools are soft reports that his ataxia makes getting around challenging-reports that he went to PT once reports that he is currently staying with his elderly father and his actively trying to find somewhere to live Sinuses x-ray done on 07/13/24 Findings: Complete opacification of the left maxillary sinus with near-complete opacification of the bifrontal sinuses, [id number]-left. Rightward nasal septal deviation. No air-fluid levels identified. No fracture. IMPRESSION: Left maxillary and bifrontal sinus disease as above. CT could further evaluate. Due to patient improvement on antihistamine we will await ENT appointment [facility] Medical History Nephrolithiasis Overweight (BMI 25.0-29.9) Ataxia Right otitis media Lumbar degenerative disc disease HTN (hypertension) Mixed hyperlipidemia Chronic constipation Asthma Cerebellar atrophy Abnormality of gait Nephrolithiasis Right flank pain Benign prostatic hyperplasia Allergic rhinitis Constipation Vitamin D deficiency Renal calculus, bilateral GERD without esophagitis Migraine Pure hypercholesterolemia Benign essential hypertension Orchalgia Surgical History History of cystoscopy History of esophagogastroduodenoscopy (EGD) History of lithotripsy History of extraction of renal calculus Hx of elbow surgery Family History Father Hypertension CAD (coronary artery disease) Diabetes Cancer Mother Hypertension Acute CVA (cerebrovascular accident) Paternal Grandfather Throat cancer Sister Lupus Epilepsy Social History Household Members Other:: Homeless Housing: Homeless Alcohol intake: never Patient Tobacco Use Status: Never used Tobacco e-Cigarette/Vaping Use: Never Used Second Hand Smoke Exposure: Yes service: No Current occupational status: disabled Current occupational exposures/hazards: No Cognitive needs: Yes Hearing needs: No Vision needs: No Questionnaire PHQ-9 Over the last 2 weeks, how often have you been bothered by any of the following problems? 1. Little interest or pleasure in doing things: not at all 2. Feeling down, depressed, or hopeless: not at all 3. Trouble falling or staying asleep, or sleeping too much: not at all 4. Feeling tired or having little energy: not at all 5. Poor appetite or overeating: not at all 6. Feeling bad about yourself - or that you are a failure or have let yourself or your family down: not at all 7. Trouble concentrating on things, such as reading the newspaper or watching television: not at all 8. Moving or speaking so slowly that other people could have noticed. Or the opposite - being so fidgety or restless that you have been moving around a lot more than usual: not at all 9. Thoughts that you would be better off or of hurting yourself in some way: not at all Total score: 0 Depression Screening Interpretation: Negative Depression Screening Done: Yes 10757 - PHQ-9 Billing: Yes Source: Developed by Drs. Susan Sánchez Kurt Kroenke and colleagues, with an educational jim from [employer]. Thrive Questionnaire Date Thrive assessed: 07/20/24 I am a: Patient What is your living situation today?: I have a steady place to live Within the past 12 months, did the food you bought not last and you didn't have the money to get more?: Never true Within the past 12 months, did you worry whether your food would run out before you got money to buy more?: Never true Do you have trouble paying for medicines?: No Do you have trouble getting transportation to medical appointments?: No Do you have trouble paying your heating and electricity bill?: No Do you have trouble taking care of your child, family member or friend?: No Do you have trouble with day-to-day activities such as bathing, preparing meals, shopping, managing finances, etc.?: No Are you currently unemployed and looking for a job?: No Are you interested in more education?: No Please select the resources that you would like help with: None Currently or been in a relationship where the following occur: No concerns reported THRIVE Score: 0 AUDIT C Alcohol Use Questionnaire (AUDIT-C) 1. How often do you have a drink containing alcohol?: Never 3. How often do you have six or more drinks on one occasion?: Never Total Score: 0 Score Reviewed/Action Taken: Yes JONATHAN-7 AMB Questionnaire JONATHAN-7 Date JONATHAN - 7 assessed: 07/20/24 Feeling nervous, anxious, or on edge: 0 = Not at all Not being able to stop or control worryin = Not at all Worrying too much about different things: 0 = Not at all Trouble relaxin = Not at all Being so restless that it is hard to sit still: 0 = Not at all Becoming easily annoyed or irritable: 0 = Not at all Feeling afraid as if something awful might happen: 0 = Not at all Total JONATHAN-7 score (0-4 normal; 5-9 mild; 10-14 moderate; 15-21 severe): 0 Source: Developed by Susan Santamaria Kurt Kroenke and colleagues, with an educational jim from [employer]. JONATHAN-7 Assessment Billing JONATHAN-7 Assessment Tool: JONATHAN-7 Assessment 85217 Review of Systems Const Details: Const Denies chills, Denies fatigue, Denies fever(s), Denies headache(s) and Denies weakness ENT Denies dizziness and Denies headache(s) reports recurrent nasal congestion Card Denies chest pain, Denies lightheadedness, Denies dyspnea and Denies other (Palpitations) Resp Reports recurrent cough, Denies dyspnea, Denies wheezing and Denies other ( shortness of breath) GI Denies abdominal pain, Denies melena, Denies hematochezia, reports moving bowel at least every other day with alteration in consistency(soft/hard), Denies dyspepsia and Denies nausea Denies hematuria and Denies dysuria Musc Denies abnormal gait, Denies myalgias, Denies arthralgias, Denies numbness and Denies tingling Skin/Breast Denies rash, Denies unusual bruising and Denies wounds Neuro Denies abnormal gait, Denies dizziness, Denies headache(s), Denies memory loss, reports numbness and left hand 4th finger-residual from the left arm surgery, Denies Sensory deficit (Neuro), Denies tingling and Denies weakness, reports abnormal gait-reports using cane for ambulation Psych Denies anxiety, Denies depression, Denies memory loss Endo Denies cold intolerance, Denies fatigue, Denies heat intolerance, Denies polydipsia and Denies polyuria Aller/Immun Denies wheezing Physical exam (Primary Care) Vital Signs: Last Vital Signs Pulse 73 07/20/24 10:18 BP 100/80 07/20/24 10:18 Pulse Ox 98 07/20/24 10:18 Oxygen Delivery Method Room Air 07/20/24 10:18 BMI result Body Mass Index 23.9 Tobacco/Smoking Status: Tobacco use Status Tobacco use date assessed 07/20/24 07/20/24 10:21 Patient Tobacco Use Status Never used Tobacco 07/20/24 10:21 e-Cigarette/Vaping Use Never Used 07/20/24 10:21 PHQ-9: PHQ-9 Score PHQ-9: Total score 0 07/20/24 12:07 Depression Screening Interpretation: Negative Thrive Assessment: Date of Thrive Assessment Date Thrive assessed 07/20/24 07/20/24 10:21 Currently or been in a relationship where the following occur: No concerns reported Const Other: General: no acute distress and well developed Nutritional Appearance: well nourished Orientation/consciousness: patient oriented x3 [facility] Head: Yes normocephalic and Yes atraumatic, bilateral nares erythematous, turbinates boggy in both nostrils, no exudate Eyes General: appearance normal, both eyes and all related structures Pupils: Equal, round and reactive pupils present EOM: EOMs intact bilaterally Resp Effort & Inspection: normal respiratory effort Auscultation: clear to auscultation bilaterally Cardio Rate: regular rate Rhythm: regular rhythm Heart sounds: S1 normal heart sound present, S2 normal heart sound present, no gallops, no murmurs and no rubs GI Palpation (GI): Abdomen rounded, No Abdominal aortic bruit present, Soft to palpation, nontender, No hepatosplenomegaly present and No Rebound tenderness present Auscultation: normal bowel sounds General: Yes no CVA tenderness Back/Spine/Pelvis Back: no CVA tenderness Cervical Spine: cervical ROM normal and No Cervical spine tenderness Thoracic/Lumbar Spine: thoraco-lumbar ROM normal and tenderness General: Yes normal to inspection, No edema and No calf tenderness Skin General: warm and dry. Normal skin color. Normal skin turgor Lesions: no lesions Rashes: no rashes Trauma: no lacerations or abrasions Wounds: no wounds Nails: normal Neuro General: patient oriented x3, gait normal and no focal neuro deficit Cranial nerves: Yes Equal, round and reactive pupils present Cognition (Neuro): normal cognition Gait exam (Neuro): ataxic gait, wide based Sensory Exam: No Sensory deficit (Neuro) Psych Appearance: grossly normal Affect: normal affect Attitude: cooperative Thought process: Normal thought process present Results Reviewed Results Reviewed: Laboratory Tests 07/13/24 09:03 WBC 5.3 RBC 5.01 Hgb 15.4 Hct 46.8 Plt Count 333 Sodium 140 Potassium 4.5 Chloride 105 BUN 19 H Creatinine 1.23 Estimated GFR > 60 Fasting Glucose 99 Uric Acid 7.4 H Calcium 10.8 H AST 18 ALT 17 Triglycerides 151 H Cholesterol 168 LDL Cholesterol, Calc 102 H HDL Cholesterol 36 L Coding Level of Care Code Est Pt Level 4 (13911) Diagnoses Chronic congestion of paranasal sinus J32.9 Homeless Z59.00 GERD without esophagitis K21.9 Benign essential hypertension I10 Mixed hyperlipidemia E78.2 Migraine without status migrainosus, not intractable, unspecified migraine type G43.909 Intractability: not intractable Migraine type: unspecified Status migrainosus presence: without status migrainosus Constipation, unspecified constipation type K59.00 Constipation type: unspecified constipation type Hyperuricemia E79.0 Additional Codes JONATHAN-7 Assessment Billing - JONATHAN-7 Assessment Tool: JONATHAN-7 Assessment [id number] ([id number]) PHQ-9 - 42075 - PHQ-9 Billing: Yes ([id number]) Assessment & Plan Assessment & Plan (1) Chronic congestion of paranasal sinus: Code(s): J32.9 - Chronic sinusitis, unspecified Category: Medical Plan: The patient has an sinuses x-ray done that showed complete opacification of the left maxillary sinus with near-complete opacification of the bifrontal sinuses, [id number]-left. Will hold of on CT, the patient is awaiting ENT appt-encouraged the patient to call back-because he said that he tried to call before He also had IgE that was elevated but decreased some from previous-pulmonology that patient on certirizine 10mg, he endorses improvement Nasacort refilled and encourged Follow up with pulmonology as scheduled (2) Homeless: Code(s): Z59.00 - Homelessness unspecified Category: Social Hx Plan: reports that he has been staying with his elderly father he is actively trying to find somewhere different to stay Information of the available service was provided (3) GERD without esophagitis: Code(s): K21.9 - Gastro-esophageal reflux disease without esophagitis Category: Medical Plan: Reports that his heartburn is very infrequent Reports that omeprazole was stopped and that he was possibly started on lansoprazole prn-this medication was not in his med list and he was only able to offer that the medication started with L Dietary restriction reinforced (4) Benign essential hypertension: Code(s): I10 - Essential (primary) hypertension Category: Medical Plan: Blood pressure within goal in office today A low-sodium diet reinforced Continue lisinopril 10 mg daily (5) Mixed hyperlipidemia: Code(s): E78.2 - Mixed hyperlipidemia Category: Medical Plan: Triglycerides slightly elevated but improved significantly from previous LDL slightly elevated-patient was warned that this was trending in the wrong direction Reinforced a diet low in cholesterol Continue gemfibrozil 600mg BID (6) Migraine: Code(s): G43.909 - Migraine, unspecified, not intractable, without status migrainosus Category: Medical Qualifiers: Intractability: not intractable Migraine type: unspecified Status migrainosus presence: without status migrainosus Qualified Code(s): G43.909 - Migraine, unspecified, not intractable, without status migrainosus Plan: Reports improvement Continue magnesium 400 mg daily Vitamin B2 400 mg refilled Continue topiramate 25 mg at bedtime Follow up with Neurology as scheduled (7) Constipation: Code(s): K59.00 - Constipation, unspecified Category: Medical Qualifiers: Constipation type: unspecified constipation type Qualified Code(s): K59.00 - Constipation, unspecified Plan: Encouraged a diet high in fiber and fluids Continue Gavilax 17g, citrucel 500mg TID Follow up with GI as scheduled (8) Hyperuricemia: Code(s): E79.0 - Hyperuricemia without signs of inflammatory arthritis and tophaceous disease Category: Medical Plan: The patient was recommended by Dr. Leblanc in 2021-for trial of B6 and allopurinol to reduce stone formation The patient was switched to another urologist-he thinks the current urologist stopped the medications, but he not sure-stating the pharmacy stopped filling them The patient is currently switching back to Dr. Leblanc and has an appt on 08/07/24-will let him decide if these medications should be restarted Fluids encouraged-will do follow labs in 3 months Plan Follow in 3 months or sooner for any concerns I personally spent 33 minutes reviewing the chart, caring for the patient and documenting after the visit. Orders: Orders Glucose Fasting 3 Months E55.9 - Vitamin D deficiency, unspecified, E78.2 - Mixed hyperlipidemia, I10 - Essential (primary) hypertension, J01.10 - Acute frontal sinusitis, unspecified, J32.9 - Chronic sinusitis, unspecified, J45.909 - Unspecified asthma, uncomplicated, K21.9 - Gastro-esophageal reflux disease without esophagitis, K59.09 - Other constipation, N20.0 - Calculus of kidney Lipid Panel 3 Months E55.9 - Vitamin D deficiency, unspecified, E78.2 - Mixed hyperlipidemia, I10 - Essential (primary) hypertension, J01.10 - Acute frontal sinusitis, unspecified, J32.9 - Chronic sinusitis, unspecified, J45.909 - Unspecified asthma, uncomplicated, K21.9 - Gastro-esophageal reflux disease without esophagitis, K59.09 - Other constipation, N20.0 - Calculus of kidney Comprehensive [place]. Panel Fast 3 Months E55.9 - Vitamin D deficiency, unspecified, E78.2 - Mixed hyperlipidemia, I10 - Essential (primary) hypertension, J01.10 - Acute frontal sinusitis, unspecified, J32.9 - Chronic sinusitis, unspecified, J45.909 - Unspecified asthma, uncomplicated, K21.9 - Gastro-esophageal reflux disease without esophagitis, K59.09 - Other constipation, N20.0 - Calculus of kidney Vitamin D 25-OH Total 3 Months E55.9 - Vitamin D deficiency, unspecified, E78.2 - Mixed hyperlipidemia, I10 - Essential (primary) hypertension, J01.10 - Acute frontal sinusitis, unspecified, J32.9 - Chronic sinusitis, unspecified, J45.909 - Unspecified asthma, uncomplicated, K21.9 - Gastro-esophageal reflux disease without esophagitis, K59.09 - Other constipation, N20.0 - Calculus of kidney Complete Blood Count Auto Diff 3 Months E55.9 - Vitamin D deficiency, unspecified, E78.2 - Mixed hyperlipidemia, I10 - Essential (primary) hypertension, J01.10 - Acute frontal sinusitis, unspecified, J32.9 - Chronic sinusitis, unspecified, J45.909 - Unspecified asthma, uncomplicated, K21.9 - Gastro-esophageal reflux disease without esophagitis, K59.09 - Other constipation, N20.0 - Calculus of kidney UA CC w/rflx Micro + Cult 3 Months E55.9 - Vitamin D deficiency, unspecified, E78.2 - Mixed hyperlipidemia, I10 - Essential (primary) hypertension, J01.10 - Acute frontal sinusitis, unspecified, J32.9 - Chronic sinusitis, unspecified, J45.909 - Unspecified asthma, uncomplicated, K21.9 - Gastro-esophageal reflux disease without esophagitis, K59.09 - Other constipation, N20.0 - Calculus of kidney Uric Acid 3 Months E55.9 - Vitamin D deficiency, unspecified, E78.2 - Mixed hyperlipidemia, I10 - Essential (primary) hypertension, J01.10 - Acute frontal sinusitis, unspecified, J32.9 - Chronic sinusitis, unspecified, J45.909 - Unspecified asthma, uncomplicated, K21.9 - Gastro-esophageal reflux disease without esophagitis, K59.09 - Other constipation, N20.0 - Calculus of kidney Medications: Refilled triamcinolone acetonide (Nasacort) administer into each nostril 2 sprays intranasal DAILY PRN 3 multiple units 1RF allergy symptoms 3 months riboflavin (vitamin B2) 400 mg PO DAILY 90 tabs 1RF 90 days
== END 2024-07-20 11:26 | disposition home or self-care (01) ==
PROVIDERS: PCP Internal Medicine
DX: J32.9 Chronic sinusitis, unspecified (principal); Z59.00 Homelessness unspecified; K21.9 Gastro-esophageal reflux disease without esophagitis; I10 Essential (primary) hypertension; E78.2 Mixed hyperlipidemia; G43.909 Migraine, unspecified, not intractable, without status migrainosus; K59.00 Constipation, unspecified; E79.0 Hyperuricemia without signs of inflammatory arthritis and tophaceous disease

== ENCOUNTER → 2024-07-20 10:13 | Outpatient (BNVA) | payer OTHER, SELFPAY | PROVIDERS: PCP Internal Medicine | DX: J32.9 Chronic sinusitis, unspecified (principal); J45.909 Unspecified asthma, uncomplicated; R05.3 Chronic cough; K21.9 Gastro-esophageal reflux disease without esophagitis; N40.0 Benign prostatic hyperplasia without lower urinary tract symptoms; I10 Essential (primary) hypertension; E78.2 Mixed hyperlipidemia; G43.909 Migraine, unspecified, not intractable, without status migrainosus; K59.00 Constipation, unspecified; E79.0 Hyperuricemia without signs of inflammatory arthritis and tophaceous disease; Z59.00 Homelessness unspecified | CPT/HCPCS: 96127; 99212 ==

== ENCOUNTER → 2024-08-07 09:40 | Outpatient (BNVA) | payer OTHER, SELFPAY | PROVIDERS: PCP Internal Medicine; Visit Provider Urology | DX: N20.0 Calculus of kidney (principal) | CPT/HCPCS: 81003; 99212 ==

== ENCOUNTER 2024-09-02 11:22 | Outpatient (AMB) | payer OTHER, SELFPAY ==
--- NOTE | 2024-09-02 11:25 | A.OFFPC_ITS ---
Vital Signs 09/02/24 11:26 Height 6 ft Weight 171 lb 8 oz BMI 23.3 BP 120/66 Blood Pressure Location Lt brachial Position Sitting Pulse 71 Pulse Source Pulse Oximeter Temp 97.3 F Temp Source Temporal Artery Scan Pulse Oximetry (%) 97 Oxygen Delivery Method Room Air Intake Visit Reasons: left knee and left hip hurts Intake Note: Patient is here to follow up on Left knee and right hip pain due to a fall on 08/27/24. Tax Consultant Required: No Tapping Machine Operator: Not Required per policy Accompanied by: Self / Same As Patient Allergies fenofibrate [Tricor] Allergy (Intermediate, Verified 09/02/24 11:26) Hives nut - unspecified [NUTS] Allergy (Intermediate, Verified 09/02/24 11:26) Hives seafood Allergy (Intermediate, Verified 09/02/24 11:26) Hives, Itchy fluocinolone acetonide Allergy (Unknown, Verified 09/02/24 11:26) Unknown lactose [LACTOSE] Adverse Reaction (Mild, Verified 09/02/24 11:26) Constipation Doxycycline Allergy (Intermediate, Uncoded 09/02/24 11:26) Nausea Medication List - Last Reconciled 09/02/24 by Gisell Muller PA-C acetaminophen ER 650 mg PO Q12H albuterol sulfate 90 mcg/actuation 2 puffs inhalation Q4-6H PRN allopurinol 100 mg PO DAILY 90 days ascorbate calcium (vitamin C) 1,000 mg PO DAILY blood pressure test kit-medium As directed budesonide-formoterol 80-4.5 mcg/actuation (Symbicort) 2 puffs inhalation Q12H cetirizine (Zyrtec) 10 mg PO DAILY PRN cholecalciferol (vitamin D3) 25 mcg PO DAILY cyanocobalamin (vitamin B-12) 1,000 mcg PO DAILY docusate sodium 200 mg (2 x 100 mg) PO BEDTIME fluticasone furoate 50 mcg/actuation inhalation gemfibrozil 600 mg PO BID lisinopril 10 mg PO DAILY magnesium oxide 400 mg PO DAILY 90 days methylcellulose (laxative) (Citrucel) 500 mg PO TID polyethylene glycol 3350 (Gavilax) 17 grams PO DAILY PRN pyridoxine (vitamin B6) 50 mg PO DAILY 90 days [ROLLATOR As directed] simethicone (Gas Relief (simethicone)) 125 mg PO TID-QID PRN sumatriptan succinate take 1 tab at onset of headache; if no relief, may repeat 1 tab after at least 2 hrs; max = 2 tabs/24 hrs PO tamsulosin 0.8 mg (2 x 0.4 mg) PO BEDTIME 90 days topiramate 25 mg PO BEDTIME 30 days tramadol 50 mg PO Q8H PRN triamcinolone acetonide (Nasacort) 2 sprays intranasal DAILY PRN 3 months [walker As directed] Tobacco use date assessed: 09/02/24 Dental Screening Dental Screen Date: 07/20/24 HPI left knee and left hip hurts HPI Details 53-year-old male with past medical histo ry of hypercholesterolemia, hypertension, migraine, GERD, BPH, cerebellar atrophy, asthma last seen Dr. Flores coming in for acute problem. Presenting with a fall resulting in knee contusion and head trauma. The patient slipped on ice, resulting in a traumatic knee and head impact. No pre-fall symptoms such as dizziness or lightheadedness were present. The knee injury now requires the use of a compression brace due to persistent pain. Post-trauma, the patient experiences occasional headache relieved momentarily by Tylenol. Due to kidney function patient cannot take NSAIDs. [facility] Medical History Nephrolithiasis Overweight (BMI 25.0-29.9) Ataxia Right otitis media Lumbar degenerative disc disease HTN (hypertension) Mixed hyperlipidemia Chronic constipation Asthma Cerebellar atrophy Abnormality of gait Nephrolithiasis Right flank pain Benign prostatic hyperplasia Allergic rhinitis Constipation Vitamin D deficiency Renal calculus, bilateral GERD without esophagitis Migraine Pure hypercholesterolemia Benign essential hypertension Orchalgia Surgical History History of cystoscopy History of esophagogastroduodenoscopy (EGD) History of lithotripsy History of extraction of renal calculus Hx of elbow surgery Family History Father Hypertension CAD (coronary artery disease) Diabetes Cancer Mother Hypertension Acute CVA (cerebrovascular accident) Paternal Grandfather Throat cancer Sister Lupus Epilepsy Social History Household Members Other:: Homeless Housing: Homeless Alcohol intake: never Patient Tobacco Use Status: Never used Tobacco e-Cigarette/Vaping Use: Never Used Second Hand Smoke Exposure: Yes service: No Current occupational status: disabled Current occupational exposures/hazards: No Cognitive needs: Yes Hearing needs: No Vision needs: No Questionnaire Thrive Questionnaire Date Thrive assessed: 07/20/24 JONATHAN-7 AMB Questionnaire JONATHAN-7 Date JONATHAN - 7 assessed: 07/20/24 Source: Developed by Drs. Timothy Callahan, Susan Garcia, Jose Cruz Lloyd and colleagues, with an educational jim from [employer]. Review of Systems Const Denies body aches, Denies chills, Denies fever(s), Reports headache(s) and Denies poor appetite Eyes Reports no additional complaints ENT Denies dizziness and Reports headache(s) Card Denies chest pain, Denies syncope, Denies lightheadedness and Denies dyspnea Resp Denies cough and Denies dyspnea GI Reports no additional complaints and Denies tenesmus Reports no additional complaints Musc Reports as per HPI and Reports abnormal gait Skin/Breast Reports system reviewed and no additional complaints, except as documented Neuro Reports abnormal gait, Denies dizziness, Denies syncope and Reports headache(s) Psych Reports no additional complaints Physical exam (Primary Care) Vital Signs: Last Vital Signs Temp 97.3 F 09/02/24 11:26 Pulse 71 09/02/24 11:26 BP 120/66 09/02/24 11:26 Pulse Ox 97 09/02/24 11:26 Oxygen Delivery Method Room Air 09/02/24 11:26 BMI result Body Mass Index 23.3 Tobacco/Smoking Status: Tobacco use Status Tobacco use date assessed 09/02/24 09/02/24 11:30 Patient Tobacco Use Status Never used Tobacco 09/02/24 11:30 e-Cigarette/Vaping Use Never Used 09/02/24 11:30 Thrive Assessment: Date of Thrive Assessment Date Thrive assessed 07/20/24 09/02/24 11:30 Const General: cooperative, healthy appearing, comfortable and no acute distress Orientation/consciousness: patient oriented x3 HENMT Head: Yes normocephalic Ears: hearing grossly normal bilaterally General nose exam: Normal external nose present Eyes General: appearance normal, both eyes and all related structures Conjunctivae: conjunctivae normal Neck Neck: Yes full ROM and Yes no lymphadenopathy Resp Effort & Inspection: normal respiratory effort Auscultation: clear to auscultation bilaterally, no crackles, no rales, no rhonchi and no wheezes Cardio Rate: regular rate Rhythm: regular rhythm Back/Spine/Pelvis Other: Pain to palpation over right hip Skin General skin exam: no rashes or lesions noted Neuro General: patient oriented x3 Gait exam (Neuro): Normal gait present Extrem Other: Pain to palpation lateral aspect of left knee General: Yes normal to inspection, Yes full ROM and No edema Psych Affect: normal affect Attitude: cooperative Insight: Good insight present (Psych) Judgement: Good judgement present (Psych) Coding Level of Care Code Est Pt Level 3 (20403) Diagnoses Overweight (BMI 25.0-29.9) E66.3 Pure hypercholesterolemia E78.00 Benign essential hypertension I10 GERD without esophagitis K21.9 Left knee pain M25.562 Right hip pain M25.551 Bilateral headaches R51.9 Assessment & Plan Assessment & Plan (1) Overweight (BMI 25.0-29.9): Code(s): E66.3 - Overweight Category: Medical Plan: Healthy diet and regular exercise is encouraged. (2) Pure hypercholesterolemia: Code(s): E78.00 - Pure hypercholesterolemia, unspecified Category: Medical Plan: Avoid foods that are high in cholesterol such as red meat, fried foods, eggs and baked goods. Triglyceride goal of less than 150 and LDL goal of less than 100. (3) Benign essential hypertension: Code(s): I10 - Essential (primary) hypertension Category: Medical Plan: Continue on current blood pressure medication. Avoid salt intake and encourage healthy diet and regular exercise. (4) GERD without esophagitis: Code(s): K21.9 - Gastro-esophageal reflux disease without esophagitis Category: Medical Plan: Avoid trigger foods such as citrus, tomato products, soda, caffeine, spicy foods and other foods that may be irritating to your stomach. Avoid laying flat 3-4 hours after eating and elevate the head of the bed 30 degrees to prevent acid from moving into the esophagus. (5) Left knee pain: Code(s): M25.562 - Pain in left knee Category: Medical Plan: I have ordered x-rays to evaluate the possibility of fractures following the patient's fall and will await these results for further determination of injury extent. A muscle relaxer is prescribed for nighttime use to aid in headache relief associated with the fall. The patient should continue taking Tylenol for pain indicative of the knee injury, with careful monitoring of kidney function. Caution with using muscle relaxer due to gait instability advised to only use it bedtime. (6) Right hip pain: Code(s): M25.551 - Pain in right hip Category: Medical Plan: I have ordered x-rays to evaluate the possibility of fractures following the patient's fall and will await these results for further determination of injury extent. A muscle relaxer is prescribed for nighttime use to aid in headache relief associated with the fall. The patient should continue taking Tylenol for pain indicative of the knee injury, with careful monitoring of kidney function. Caution with using muscle relaxer due to gait instability advised to only use it bedtime. (7) Bilateral headaches: Code(s): R51.9 - Headache, unspecified Category: Medical Plan: Patient has a history of headaches has been experiencing headaches post fall. On exam no neurological deficits have been notice no weakness in denies any changes in vision. At this time continue to monitor headaches may use Tylenol as needed for pain. If headache becomes persistent or worsens reach out to the office Plan Patient was informed and verbally consented to the use of an ambient scribe for clinic note documentation during this visit. This note was constructed using voice recognition software. While every effort has been made to ensure accuracy and director of software development, still areas may have been included sometimes these areas may affect the content or meeting of the given symptoms. Total time spent caring for the patient today was 20 minutes. This includes time spent before the visit reviewing the chart, time spent during the visit, and time spent after the visit and documentation. Orders: Orders XR hip RT w PEL1V 09/02/24 M25.551 - Pain in right hip XR knee LT 2V 09/02/24 M25.562 - Pain in left knee Medications: New methocarbamol 500 mg PO BEDTIME 14 tabs 0RF
[2024-09-02 11:26] VITALS: BP 120/66; PULSE 71; TEMP 36.3; O2SAT 97; BMI 23.3
--- OUTSIDE RECORDS SUMMARY | 2024-09-02 12:02 | XMS_ITS | Patient Health Record ---
Author Organization [facility] Address [address] [place] [address] Care Team Providers Care Radiotelephone Operator Name Role Phone Riley Flores MDh Primary Care Provider Timothy Myles Unavailable [phone] ALLERGIES Allergen (clinical drug ingredient) Drug/Non Drug Allergy documented on EMR Reaction Allergy Type Onset Date Status MILK,SEAFOOD, NUTS (uncoded) Unknown Allergy Active REASON FOR REFERRAL No Information MEDICATIONS Medication SIG (Take, Route, Fr equency, Duration) Notes Start Date End Date Status Aspirin 81 81 MG 1 tablet Orally Once a day Active MiraLax 17 GM/SCOOP 1 capful in 8 ounces of water Orally once or twice a day for constipation for 30 days 06/17/2022 Active traMADol HCl 50 MG 1 tablet as needed O rally Once a day PRN Active Metamucil 0.36 GM 2 capsules with 8 ou nces of liquid Orally once or twice a day for constipation for 30 days 06/17/2022 Active Vitamin C Active Omeprazole 40 MG 1 capsule Orally QD 04/23/2015 Active Lisinopril 10 MG 1 tablet Orally Once a day Active Ventolin HFA 90 MCG/ACT 2 puffs as neede d Inhalation every 6 hrs PRN Active Tamsulosin HCl 0.4 MG as directed Orally Once a day Active Gemfibrozil 600 MG 1 tablet Orally Twic e a day for 30 day(s) Active Vitamin D3 1000 UNIT 1 capsule Orally On ce a day for 30 day(s) st Active IMMUNIZATIONS Vaccine Route Administration Date Status Comme nts Influenza Unknown 04/14/2020 Administered Influenza Unknown 12/18/2018 Refused SOCIAL HISTORY Sex Assigned At : Social History Observation Description Sex Assigned At Unknown PROBLEMS Problem Type ICD Code Onset Dates Problem Status W/U Status Risk SNOMED Code Notes Problem Encounter for screening for malignant neoplasm of colon (Z12.11) Active confirmed 987065679 Problem Melena (K92.1) Active confirmed 6487129 Problem Gastroesophageal reflux disease without esophagitis (K21.9) Active confirmed 088111213 Problem Preprocedural examination (Z01.818) Active confirmed 687053238586119 Problem Irregular bowel habits (R19.8) Active confirmed 399565438 Problem 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) Active confirmed Diverticular disease of colon (188270824) Problem Non-intractable vomiting without nausea, unspecified vomiting type (R11.11) Active confirmed 416127853 PLAN OF TREATMENT Future Test Test Name Order Date UPPER GI ENDOSCOPY 12/18/2018 COLONOSCOPY 12/18/2018 COLONOSCOPY 02/01/2021 Insurance Providers Payer Name Payer Address Payer Phone Subscriber Number Group Number Insured Name Patient Relationship to Insured Coverage Start Date Coverage End Date [facility] [address] [address] [place], [place] [id number] SHANNON BARROS Self - patient is the insured [place] [address] [place] [address] [id number] SHANNON BARROS Self - patient is the insured MEDICAL (GENERAL) HISTORY Medical History History ICD Code GERD-EGD in 2009 was normal--no hiatal h ernia Kidney stones--ESWL, cysto and stent noah cement--Dr. Leblanc Asthma Prostate problems Denies OK,DM,CVA,renal disease MIGRAINES HTN Hyperlipidemia Surgical History Surgery Date(Month/Year) Left elbow with hardware
== END 2024-09-02 12:00 | disposition home or self-care (01) ==
PROVIDERS: PCP Internal Medicine
DX: E66.3 Overweight (principal); E78.00 Pure hypercholesterolemia, unspecified; I10 Essential (primary) hypertension; K21.9 Gastro-esophageal reflux disease without esophagitis; M25.562 Pain in left knee; M25.551 Pain in right hip; R51.9 Headache, unspecified

== ENCOUNTER 2024-09-02 11:22 | Outpatient (REF) | payer OTHER, SELFPAY ==
--- NOTE | ~2024-09-02 | XR_ITS ---
EXAMINATION: XR KNEE, LEFT CLINICAL INFORMATION: M25.562 - Pain in left knee COMPARISON: None available. TECHNIQUE: Four views of the left knee. FINDINGS: No fracture, dislocation, or suspicious bone lesion. Normal bone mineralization. Normal alignment. Joint spaces are preserved. No significant arthropathy. No significant joint effusion. Soft tissues appear normal. XR/XR knee LT 2V IMPRESSION: Normal left knee. Electronically signed by: Jose A Peace MD 09/02/2024 01:06 PM [facility]
--- NOTE | ~2024-09-02 | XR_ITS ---
EXAMINATION: XR HIP, RIGHT CLINICAL INFORMATION: M25.551 - Pain in right hip COMPARISON: None available. TECHNIQUE: AP pelvis, and Two views of the right hip. FINDINGS: No fracture, dislocation, or suspicious bone lesion. Normal alignment. Normal acetabular coverage bilaterally. Femoral heads are normal in contour without evidence of AVN. Tiny superolateral labral calcifications bilaterally. Normal sacrum and SI joints. Soft tissues demonstrate no significant abnormalities. XR/XR hip RT w PEL1V IMPRESSION: No acute findings of the pelvis and right hip. Electronically signed by: Jose A Peace MD 09/02/2024 01:08 PM [facility]
== END 2024-09-02 11:23 | disposition home or self-care (01) ==
LOC: HO.XRAY 11:22
PROVIDERS: PCP Internal Medicine
DX: M25.551 Pain in right hip (principal); M25.562 Pain in left knee; E66.3 Overweight; E78.00 Pure hypercholesterolemia, unspecified; I10 Essential (primary) hypertension; K21.9 Gastro-esophageal reflux disease without esophagitis; R51.9 Headache, unspecified
CPT/HCPCS: 73502; 73560; 99212

== ENCOUNTER → 2024-09-02 12:15 | Outpatient (BNV) | payer OTHER, SELFPAY | PROVIDERS: PCP Internal Medicine; Visit Provider Radiology Diagnostic Radiology | DX: M25.551 Pain in right hip (principal); M25.562 Pain in left knee | CPT/HCPCS: 73502; 73560 ==

== ENCOUNTER 2024-09-11 13:26 | Outpatient (AMB) | payer OTHER, SELFPAY ==
[2024-09-11 13:36] VITALS: BP 104/78; PULSE 72; O2SAT 97; BMI 23.7
--- NOTE | 2024-09-11 13:36 | MHC.PC.OV ---
Vital Signs 09/11/24 13:36 Height 6 ft Weight 175 lb BMI 23.7 BP 104/78 Blood Pressure Location Lt brachial Position Sitting Pulse 72 Pulse Source Pulse Oximeter Pulse Oximetry (%) 97 Oxygen Delivery Method Room Air Intake Visit Reasons: pt had a fall 2 weeks ago needs follow up Urology Surgeon Required: No Accompanied by: Self / Same As Patient Allergies fenofibrate [Tricor] Allergy (Intermediate, Verified 09/11/24 14:09) Hives nut - unspecified [NUTS] Allergy (Intermediate, Verified 09/11/24 14:09) Hives seafood Allergy (Intermediate, Verified 09/11/24 14:09) Hives, Itchy fluocinolone acetonide Allergy (Unknown, Verified 09/11/24 14:09) Unknown lactose [LACTOSE] Adverse Reaction (Mild, Verified 09/11/24 14:09) Constipation Doxycycline Allergy (Intermediate, Uncoded 09/11/24 14:09) Nausea Medication List - Last Reconciled 09/11/24 by Ignacio Flores MD acetaminophen ER 650 mg PO Q12H albuterol sulfate 90 mcg/actuation 2 puffs inhalation Q4-6H PRN allopurinol 100 mg PO DAILY 90 days ascorbate calcium (vitamin C) 1,000 mg PO DAILY blood pressure test kit-medium As directed budesonide-formoterol 80-4.5 mcg/actuation (Symbicort) 2 puffs inhalation Q12H cetirizine (Zyrtec) 10 mg PO DAILY PRN cholecalciferol (vitamin D3) 25 mcg PO DAILY cyanocobalamin (vitamin B-12) 1,000 mcg PO DAILY docusate sodium 200 mg (2 x 100 mg) PO BEDTIME fluticasone furoate 50 mcg/actuation inhalation gemfibrozil 600 mg PO BID lisinopril 10 mg PO DAILY magnesium oxide 400 mg PO DAILY 90 days methocarbamol 500 mg PO BEDTIME methylcellulose (laxative) (Citrucel) 500 mg PO TID polyethylene glycol 3350 (Gavilax) 17 grams PO DAILY PRN pyridoxine (vitamin B6) 50 mg PO DAILY 90 days [ROLLATOR As directed] simethicone (Gas Relief (simethicone)) 125 mg PO TID-QID PRN tamsulosin 0.8 mg (2 x 0.4 mg) PO BEDTIME 90 days topiramate 25 mg PO BEDTIME 30 days tramadol 50 mg PO Q8H PRN triamcinolone acetonide (Nasacort) 2 sprays intranasal DAILY PRN 3 months [walker As directed] Tobacco use date assessed: 09/11/24 Dental Screening Dental Screen Date: 09/11/24 HPI pt had a fall 2 weeks ago needs follow up HPI Details Patient comes in today for follow up of his injuries that he sustained when he slipped on ice and fell a couple of weeks ago on 08/27/2024 He was seen here last week for these issues and was sent for x-rays of his right hip and left knee, which he states are still bothering him a lot He would like to know how his x-rays came out He also recalls hitting the back of his head hard on the pavement when he fell a couple of weeks ago and states that he passed out after hitting his head but does not know for how long States that he has been experiencing increased headaches since, including increased pain and soreness locally over his occipital area where he hit his head Relates also (+) dizziness at times but denies any increased blurring of his vision He denies any chest pains, no increased SOB No nausea/vomiting, no abdominal pain No change in bowel habits noted He was seen by neurology back in March 2024 and was sent for physical therapy and speech therapy but states that he has yet to be scheduled for these [facility] Medical History (Updated 09/11/24 @ 14:51 by Ignacio Flores MD) Cerebellar degeneration Nephrolithiasis Overweight (BMI 25.0-29.9) Ataxia Right otitis media Lumbar degenerative disc disease HTN (hypertension) Mixed hyperlipidemia Chronic constipation Asthma Cerebellar atrophy Abnormality of gait Nephrolithiasis Right flank pain Benign prostatic hyperplasia Allergic rhinitis Constipation Vitamin D deficiency Renal calculus, bilateral GERD without esophagitis Migraine Pure hypercholesterolemia Benign essential hypertension Orchalgia Surgical History History of cystoscopy History of esophagogastroduodenoscopy (EGD) History of lithotripsy History of extraction of renal calculus Hx of elbow surgery Family History Father Hypertension CAD (coronary artery disease) Diabetes Cancer Mother Hypertension Acute CVA (cerebrovascular accident) Paternal Grandfather Throat cancer Sister Lupus Epilepsy Social History Household Members Other:: Homeless Housing: Homeless Alcohol intake: never Patient Tobacco Use Status: Never used Tobacco e-Cigarette/Vaping Use: Never Used Second Hand Smoke Exposure: Yes service: No Current occupational status: disabled Current occupational exposures/hazards: No Cognitive needs: Yes Hearing needs: No Vision needs: No Questionnaire PHQ-9 Over the last 2 weeks, how often have you been bothered by any of the following problems? 1. Little interest or pleasure in doing things: not at all 2. Feeling down, depressed, or hopeless: not at all 3. Trouble falling or staying asleep, or sleeping too much: not at all 4. Feeling tired or having little energy: not at all 5. Poor appetite or overeating: not at all 6. Feeling bad about yourself - or that you are a failure or have let yourself or your family down: not at all 7. Trouble concentrating on things, such as reading the newspaper or watching television: not at all 8. Moving or speaking so slowly that other people could have noticed. Or the opposite - being so fidgety or restless that you have been moving around a lot more than usual: not at all 9. Thoughts that you would be better off or of hurting yourself in some way: not at all Total score: 0 Depression Screening Interpretation: Negative Depression Screening Done: Yes 41993 - PHQ-9 Billing: Yes Source: Developed by Drs. Timothy Callahan, Susan Garcia, Jose Cruz Lloyd and colleagues, with an educational jim from [employer]. Thrive Questionnaire Date Thrive assessed: 09/11/24 I am a: Patient What is your living situation today?: I have a steady place to live Within the past 12 months, did the food you bought not last and you didn't have the money to get more?: Never true Within the past 12 months, did you worry whether your food would run out before you got money to buy more?: Never true Do you have trouble paying for medicines?: No Do you have trouble getting transportation to medical appointments?: No Do you have trouble paying your heating and electricity bill?: No Do you have trouble taking care of your child, family member or friend?: No Do you have trouble with day-to-day activities such as bathing, preparing meals, shopping, managing finances, etc.?: No Are you currently unemployed and looking for a job?: No Are you interested in more education?: No Please select the resources that you would like help with: None Currently or been in a relationship where the following occur: No concerns reported THRIVE Score: 0 AUDIT C Alcohol Use Questionnaire (AUDIT-C) 1. How often do you have a drink containing alcohol?: Never 3. How often do you have six or more drinks on one occasion?: Never Total Score: 0 Score Reviewed/Action Taken: Yes JONATHAN-7 AMB Questionnaire JONATHAN-7 Date JONATHAN - 7 assessed: 09/11/24 Feeling nervous, anxious, or on edge: 0 = Not at all Not being able to stop or control worryin = Not at all Worrying too much about different things: 0 = Not at all Trouble relaxin = Not at all Being so restless that it is hard to sit still: 0 = Not at all Becoming easily annoyed or irritable: 0 = Not at all Feeling afraid as if something awful might happen: 0 = Not at all Total JONATHAN-7 score (0-4 normal; 5-9 mild; 10-14 moderate; 15-21 severe): 0 Source: Developed by Drs. Timothy Callahan, Susan Garcia, Jose Cruz Lloyd and colleagues, with an educational jim from [employer]. Review of Systems Const Denies chills, Denies fatigue, Denies fever(s) and Reports headache(s) (increased lately, especially over the occipital area) ENT Reports dysphagia (at times), Reports dizziness (on and ff), Denies otalgia, Reports headache(s) (increased lately, especially over the occipital area), Denies neck pain, Denies odynophagia and Denies sore throat Card Denies chest pain, Denies palpitations and Denies dyspnea Resp Denies chest congestion, Denies cough and Denies dyspnea GI Denies abdominal pain, Denies constipation, Reports dysphagia (at times), Denies heartburn, Denies diarrhea, Denies nausea, Denies odynophagia and Denies vomiting Denies dysuria, Denies nocturia and Denies urinary frequency Musc Reports abnormal gait (unsteady), Reports arthralgias (increased over the right hip and left knee) and Denies neck pain Skin/Breast Denies rash Neuro Reports Abnormal speech present (has slurred and slow speech (chronic) due to cerebellar degeneration), Reports abnormal gait (unsteady), Reports dizziness (on and ff) and Reports headache(s) (increased lately, especially over the occipital area) Endo Denies fatigue and Denies palpitations Physical exam (Primary Care) Vital Signs: Last Vital Signs Pulse 72 09/11/24 13:36 BP 104/78 09/11/24 13:36 Pulse Ox 97 09/11/24 13:36 Oxygen Delivery Method Room Air 09/11/24 13:36 BMI result Body Mass Index 23.7 Tobacco/Smoking Status: Tobacco use Status Tobacco use date assessed 09/11/24 09/11/24 13:46 Patient Tobacco Use Status Never used Tobacco 09/11/24 13:46 e-Cigarette/Vaping Use Never Used 09/11/24 13:46 PHQ-9: PHQ-9 Score PHQ-9: Total score 0 09/11/24 13:46 Depression Screening Interpretation: Negative Thrive Assessment: Date of Thrive Assessment Date Thrive assessed 09/11/24 09/11/24 13:46 Currently or been in a relationship where the following occur: No concerns reported Const General: no acute distress and alert Orientation/consciousness: patient oriented x3 HENMT Other: increased tenderness on palpation over the occipital scalp area Ears: TM's normal bilaterally and EAC's normal Throat: Yes posterior oropharynx normal and Yes tonsils normal (no TP congestion) Neck Neck: Yes supple and No lymphadenopathy Thyroid: Thyroid normal Resp Auscultation: clear to auscultation bilaterally, no rales and no wheezes Cardio Rate: regular rate Rhythm: regular rhythm Heart sounds: no murmurs GI Palpation (GI): Soft to palpation and nontender Auscultation: normal bowel sounds General: Yes no CVA tenderness Back/Spine/Pelvis Back: no CVA tenderness Thoracic/Lumbar Spine: No lumbar spinal tenderness Skin Rashes: no rashes Neuro General: patient oriented x3 Cognition (Neuro): normal cognition Speech: Abnormal speech present (has slurred and slow speech (chronic) due to cerebellar degeneration) Gait exam (Neuro): Wide-based gait present (unsteady gait due to cerebellar degeneration) Extrem General: Yes no clubbing, cyanosis or edema Coding Level of Care Code Est Pt Level 4 (79889) Diagnoses Post-traumatic headache, not intractable, unspecified chronicity pattern G44.309 Headache type: post-traumatic Headache chronicity pattern: unspecified pattern Intractability: not intractable Right hip pain M25.551 Left knee pain, unspecified chronicity M25.562 Chronicity: unspecified Cerebellar degeneration G31.9 Benign essential hypertension I10 Mixed hyperlipidemia E78.2 Chronic constipation K59.09 GERD without esophagitis K21.9 Degeneration of intervertebral disc of lumbar region with discogenic back pain M51.360 Disc-related pain type: discogenic back pain only Nephrolithiasis N20.0 BPH with obstruction/lower urinary tract symptoms N40.1; N13.8 Additional Codes PHQ-9 - 80684 - PHQ-9 Billing: Yes ([id number]) Assessment & Plan Assessment & Plan (1) Headache: Code(s): R51.9 - Headache, unspecified Category: Medical Qualifiers: Headache type: post-traumatic Headache chronicity pattern: unspecified pattern Intractability: not intractable Qualified Code(s): G44.309 - Post-traumatic headache, unspecified, not intractable Plan: S/P fall on 08/27/2024 with resulting head trauma and LOC (unclear as to duration of LOC) Patient states that he has been experiencing increased headaches and on and off dizziness since He appears neurologically intact but he does have significant motor and gait issues due to his preexisting cerebellar degeneration Will go ahead and send him for head CT for further evaluation to r/o and intracranial injury from his recent fall (2) Right hip pain: Code(s): M25.551 - Pain in right hip Category: Medical Plan: Patient is reassured that his right hip x-rays done last week came out normal As he is still experiencing increased pain in his right hip, will refer him to physical therapy for further management (3) Left knee pain: Code(s): M25.562 - Pain in left knee Category: Medical Qualifiers: Chronicity: unspecified Qualified Code(s): M25.562 - Pain in left knee Plan: His left knee x-rays done recently also came out negative He is advised that he likely bruised his knee when he fell (knee contusion) and it may take a while for his injuries to clear up Will also refer him to PT for his left knee injury (4) Cerebellar degeneration: Code(s): G31.9 - Degenerative disease of nervous system, unspecified Category: Medical Plan: 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, 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 and unfortunately has no known treatment or cure Follow up with neurology as scheduled He was sent by neurology for physical therapy and speech therapy last year but patient states that he was never scheduled for these (5) Benign essential hypertension: Code(s): I10 - Essential (primary) hypertension Category: Medical Plan: Reinforced low sodium diet - goal is systolic BP of 120 mm or less Continue Lisinopril 10 mg QD (6) Mixed hyperlipidemia: Code(s): E78.2 - Mixed hyperlipidemia Category: Medical Plan: Reinforced low cholesterol diet Continue Gemfibrozil 600 mg BID (patient is allergic to Fenofibrate) Have reminded patient to recheck his labs and fasting lipids before he returns in a couple of months for follow up (7) Chronic constipation: Comment: S/P colonoscopy on 03/01/2021 - (+) tubular adenoma; otherwise normal Code(s): K59.09 - Other constipation Category: Medical Plan: He is encouraged again to increase his oral fluids and dietary fiber intake Continue Metamucil daily and Miralax 17 gm QD (8) GERD without esophagitis: Code(s): K21.9 - Gastro-esophageal reflux disease without esophagitis Category: Medical Plan: Dietary restrictions reinforced Continue Pantoprazole 40 mg QD (9) Lumbar degenerative disc disease: Code(s): M51.36 - Other intervertebral disc degeneration, lumbar region Category: Medical Qualifiers: Disc-related pain type: discogenic back pain only Qualified Code(s): M51.360 - Other intervertebral disc degeneration, lumbar region with discogenic back pain only Plan: Lumbar spine x-rays done a couple of years ago showed (+) degenerative changes and facet arthropathy especially over L5-S1 Reinforced activity and weight-lifting restrictions Follow up with physical therapy as scheduled / as needed (10) Nephrolithiasis: Code(s): N20.0 - Calculus of kidney Category: Medical Plan: S/P lithotripsy in the past He also used to take Allopurinol 100 mg QD, presumably for uric acid stones, but has not been taking this in a while now Follow up with urology as scheduled (11) BPH with obstruction/lower urinary tract symptoms: Code(s): N40.1 - Benign prostatic hyperplasia with lower urinary tract symptoms; N13.8 - Other obstructive and reflux uropathy Category: Medical Plan: Continue Tamsulosin 0.4 mg QD Follow up with urology as scheduled Plan Follow up as scheduled in October 2024 Orders: Orders CT head/brain wo IV con Today R40.20 - Unspecified coma, R51.9 - Headache, unspecified, S09.90XA - Unspecified injury of head, initial encounter PT Evaluation and Treatment Today M25.551 - Pain in right hip, M25.562 - Pain in left knee, Z91.81 - History of falling
--- OUTSIDE RECORDS SUMMARY | 2024-09-11 15:32 | XMS_ITS | Patient Health Record ---
Author Organization [facility] Address [address] [place] [address] Care Team Providers Care Prototype Carpenter Name Role Phone Riley Flores MDh Primary Care Provider Timothy Myles Unavailable [phone] ALLERGIES Allergen (clinical drug ingredient) Drug/Non Drug [...] malignant neoplasm of colon (Z12.11) Active confirmed [id number] Problem Melena (K92.1) Active confirmed 7003899 Problem Gastroesophageal reflux disease without esophagitis (K21.9) Active confirmed 005912383 Problem Preprocedural examination (Z01.818) Active confirmed [id number] Problem Irregular bowel habits (R19.8) Active confirmed 787446163 Problem 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) Active confirmed Diverticular disease of colon (209225585) Problem Non-intractable vomiting without nausea, unspecified vomiting type (R11.11) Active confirmed [id number] PLAN OF TREATMENT Future Test Test Name Order Date UPPER GI ENDOSCOPY 12/18/2018 COLONOSCOPY 12/18/2018 COLONOSCOPY 02/01/2021 Insurance Providers Payer Name Payer Address Payer Phone Subscriber Number Group Number Insured Name Patient Relationship to Insured Coverage Start Date Coverage End Date [facility] [address] [address] [place], [place] [id number] SHANNON BARROS Self - patient is the insured [place] [address] [place] [address] [id number] SHANNON BARROS Self - patient is the insured MEDICAL (GENERAL) HISTORY Medical History History ICD Code GERD-EGD in 2009 was normal--no hiatal h ernia Kidney stones--[facility], cysto and stent noah cement--Dr. Leblanc Asthma Prostate problems Denies UT,DM,CVA,renal disease MIGRAINES HTN Hyperlipidemia Surgical History Surgery Date(Month/Year) Left elbow with hardware
== END 2024-09-11 14:22 | disposition home or self-care (01) ==
PROVIDERS: PCP Internal Medicine; Visit Provider Internal Medicine
DX: G44.309 Post-traumatic headache, unspecified, not intractable (principal); M25.551 Pain in right hip; M25.562 Pain in left knee; G31.9 Degenerative disease of nervous system, unspecified; I10 Essential (primary) hypertension; E78.2 Mixed hyperlipidemia; K59.09 Other constipation; K21.9 Gastro-esophageal reflux disease without esophagitis; M51.360 Other intervertebral disc degeneration, lumbar region with discogenic back pain only; N20.0 Calculus of kidney; N40.1 Benign prostatic hyperplasia with lower urinary tract symptoms; N13.8 Other obstructive and reflux uropathy

== ENCOUNTER → 2024-09-11 13:26 | Outpatient (BNVA) | payer OTHER, SELFPAY | PROVIDERS: PCP Internal Medicine; Visit Provider Internal Medicine | DX: G44.309 Post-traumatic headache, unspecified, not intractable (principal); M25.551 Pain in right hip; M25.562 Pain in left knee; G31.9 Degenerative disease of nervous system, unspecified; I10 Essential (primary) hypertension; K59.09 Other constipation; K21.9 Gastro-esophageal reflux disease without esophagitis; E78.2 Mixed hyperlipidemia; N20.0 Calculus of kidney; N40.1 Benign prostatic hyperplasia with lower urinary tract symptoms; N13.8 Other obstructive and reflux uropathy; M51.360 Other intervertebral disc degeneration, lumbar region with discogenic back pain only | CPT/HCPCS: 96127; 99212 ==

== ENCOUNTER 2024-10-02 12:09 | Outpatient (AMB) | payer OTHER, SELFPAY ==
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
--- OUTSIDE RECORDS SUMMARY | 2024-10-02 14:42 | XMS_ITS | Patient Health Record ---
Author Organization [facility] Address [address] [place] [address] Care Team Providers Care Search Engine Optimizer Name Role Phone Riley Flores MDh Primary Care Provider Timothy Myles Unavailable [phone] Allergies Allergen (clinical drug ingredient) Drug/Non Drug Allergy documented on EMR Reaction Allergy Type Onset Date Status MILK,SEAFOOD, NUTS (uncoded) Unknown Allergy Active Reason For Referral No Information Medications Medication SIG (Take, Route, Fr equency, Duration) [...] a day for 30 day(s) st Active Immunizations Vaccine Route Administration Date Status Comme nts Influenza Unknown 04/14/2020 Administered Influenza Unknown 12/18/2018 Refused Problems Problem Type SNOMED Code ICD Code Onset Dates Problem Status W/U Status Risk Notes Problem 038415831 Encounter for screening for malignant neoplasm of colon (Z12.11) Active confirmed Problem 1785070 Melena (K92.1) Active confirmed Problem 441718204 Gastroesophageal reflux disease without esophagitis (K21.9) Active confirmed Problem 366283643116161 Preprocedural examination (Z01.818) Active confirmed Problem 820892745 Irregular bowel habits (R19.8) Active confirmed Problem Diverticular disease of colon (785382195) 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) Active confirmed Problem 208209417 Non-intractable vomiting without nausea, unspecified vomiting type (R11.11) Active confirmed Plan Of Treatment Future Test Test Name Order Date UPPER GI ENDOSCOPY 12/18/2018 COLONOSCOPY 12/18/2018 COLONOSCOPY 02/01/2021 Insurance Providers Payer Name Payer Address Payer Phone Subscriber Number Group Number Insured Name Patient Relationship to Insured Coverage Start Date Coverage End Date [facility] [address] [address] [place], [place] [id number] SHANNON BARROS Self - patient is the insured [place] [address] [place] [address] [id number] SHANNON BARROS Self - patient is the insured Medical (General) History Medical History History ICD Code GERD-EGD in 2009 was normal--no hiatal h ernia Kidney stones--ESWL, cysto and stent noah cement--Dr. Leblanc Asthma Prostate problems Denies [place],DM,CVA,renal disease MIGRAINES HTN Hyperlipidemia Surgical History Surgery Date(Month/Year) Left elbow with hardware
== END 2024-10-02 14:00 | disposition home or self-care (01) ==
LOC: HO.HSMS 12:10
PROVIDERS: PCP Internal Medicine; Visit Provider Physician Assistant Medical
DX: G31.9 Degenerative disease of nervous system, unspecified (principal); R40.20 Unspecified coma; S09.90XS Unspecified injury of head, sequela; G44.309 Post-traumatic headache, unspecified, not intractable; R27.0 Ataxia, unspecified; M51.360 Other intervertebral disc degeneration, lumbar region with discogenic back pain only
CPT/HCPCS: 99214

== ENCOUNTER → 2024-10-02 12:09 | Outpatient (BNVA) | payer OTHER, SELFPAY | PROVIDERS: PCP Internal Medicine; Visit Provider Physician Assistant Medical | DX: G44.309 Post-traumatic headache, unspecified, not intractable (principal); G31.9 Degenerative disease of nervous system, unspecified; R40.20 Unspecified coma; R27.0 Ataxia, unspecified; M51.360 Other intervertebral disc degeneration, lumbar region with discogenic back pain only; S09.90XD Unspecified injury of head, subsequent encounter | CPT/HCPCS: 99212 ==

== ENCOUNTER 2024-10-08 14:11 | Outpatient (REF) | payer OTHER, SELFPAY ==
[2024-10-08 14:28] LABS: MANUAL DIFF FLAG NO
[2024-10-08 15:13] LABS: Basophils Percent Auto 0.2 % (0-2); Eosinophils Absolute Auto 0.1 X10*3/uL (0.0-0.4); Eosinophils Percent Auto 2.2 % (0-4); Hematocrit 46.6 % (42.0-52.0); Hemoglobin 15.8 g/dl (14.0-18.0); Imm Gran Abs Auto 0.01 X10*3/uL (0.00-0.03); Imm Gran Pct Auto 0.2 % (0.0-0.4); Lymphocytes Absolute Auto 1.4 X10*3/uL (1.2-4.9); Lymphocytes Percent Auto 26.5 % (20-40); Mean Corpuscular HGB Conc 33.9 g/dl (31.0-36.0); Mean Corpuscular Volume 91.6 fL (80.0-98.0); Mean Platelet Volume 10.9 fL (9.4-12.4); Monocytes Absolute Auto 0.5 X10*3/uL (0.1-1.2); Monocytes Percent Auto 9.5 % (2-11); Neutrophils Absolute Auto 3.3 x10*3/uL (2.0-8.3); Neutrophils Percent Auto 61.4 % (45-73); Platelet Count 299 X10*3/uL (160-400); Red Blood Count 5.09 X10*6/uL (4.60-5.80); Red Cell Distribution Width 13.1 % (11.0-16.0); White Blood Count 5.4 X10*3/uL (4.8-10.8)
[2024-10-08 15:33] LABS: Appearance Urine Clear; Color Urine Yellow; Glucose Urine UA Negative (Negative); Leukocyte Esterase Urine Negative (Negative); Leukocyte Esterase Urine Trace (Negative); Nitrite Urine Negative (Negative); PH 5.5 (5.0-9.0); UMIC TRIGGER UA YES; Urine Blood Negative (Negative); Urine Ketones Negative (Negative); Urine Ketones Trace mg/dL (Negative); Urine Protein Negative (Neg-Trace)
[2024-10-08 15:36] LABS: Bacteria Urine None Seen (None Seen); Hyaline Casts Urine 0-2 /LPF (0-2); RBC Urine 0-2 /HPF (0-2); Squamous Epithelial Cell Urine 0-2 /HPF (0-2); WBC Urine 0-5 /HPF (0-5)
[2024-10-08 15:48] LABS: Alanine Aminotransferase 21 U/L (0-40); Albumin Level 4.7 g/dL (3.5-5.0); Anion Gap 15 (12-20); Aspartate Amino Transferase 21 U/L (5-37); Bilirubin Total 0.6 mg/dL (0.0-1.0); Blood Urea Nitrogen 19 mg/dL (9-16); Calcium 10.4 mg/dL (8.4-10.2); Carbon Dioxide 25 mmol/L (22-29); Chloride 102 mmol/L (96-108); Cholesterol 188 mg/dL (<200); Estimated Glomerular Filt Rate > 60; Glucose Fasting 96 mg/dL (60-99); HDL Cholesterol 39 mg/dL (>40); LDL Cholesterol Calculated 113 mg/dL (<100); Potassium 4.6 mmol/L (3.3-5.1); Sodium 137 mmol/L (135-145); Total Protein 8.2 g/dL (6.5-8.0); Triglycerides 184 mg/dL (<150); Uric Acid 5.4 mg/dL (3.4-7.0)
[2024-10-08 16:09] LABS: Vitamin D 25-OH Total > 154.2 ng/mL (>30)
[2024-10-08 16:24] LABS: Alkaline Phosphatase 69 U/L (39-117)
== END 2024-10-08 14:12 | disposition home or self-care (01) ==
LOC: HO.LAB 14:11
PROVIDERS: Absent Provider Urology; PCP Internal Medicine
DX: I10 Essential (primary) hypertension (principal); K21.9 Gastro-esophageal reflux disease without esophagitis; E55.9 Vitamin D deficiency, unspecified; K59.09 Other constipation; E78.2 Mixed hyperlipidemia; J01.10 Acute frontal sinusitis, unspecified; N20.0 Calculus of kidney; J45.909 Unspecified asthma, uncomplicated; R39.9 Unspecified symptoms and signs involving the genitourinary system
CPT/HCPCS: 36415; 80053; 80061; 81001; 81003; 82306; 84550; 85025; 87086

== ENCOUNTER 2024-10-20 12:40 | Outpatient (AMB) | payer OTHER, SELFPAY ==
[2024-10-20 12:53] VITALS: BP 144/94; PULSE 72; RESP 20; TEMP 36.9; O2SAT 98; BMI 24.6
--- NOTE | 2024-10-20 12:53 | MHC.PC.OV ---
Vital Signs 10/20/24 12:53 10/20/24 13:08 Height 6 ft Weight 181 lb 9.6 oz BMI 24.6 BP 144/94 H 136/92 H Blood Pressure Location Rt brachial Rt brachial Position Sitting Sitting Respiration 20 Pulse 72 Pulse Source Pulse Oximeter Temp 98.5 F Temp Source Oral Pulse Oximetry (%) 98 Oxygen Delivery Method Room Air Intake Visit Reasons: sinusitis/bph/constipation Freight Representative Required: No Accompanied by: Self / Same As Patient Allergies fenofibrate [Tricor] Allergy (Intermediate, Verified 10/25/24 21:22) Hives nut - unspecified [NUTS] Allergy (Intermediate, Verified 10/25/24 21:22) Hives seafood Allergy (Intermediate, Verified 10/25/24 21:22) Hives, Itchy fluocinolone acetonide Allergy (Unknown, Verified 10/25/24 21:22) Unknown lactose [LACTOSE] Adverse Reaction (Mild, Verified 10/25/24 21:22) Constipation Doxycycline Allergy (Intermediate, Uncoded 10/25/24 21:22) Nausea Tobacco use date assessed: 10/20/24 Dental Screening Dental Screen Date: 10/20/24 Did you have a dental visit in the last 12 months?: No Did you have a dental problem in the last 6 months where you did not have access to dental care?: No Was dental information given to patient?: No HPI sinusitis/bph/constipation HPI Details Patient reports that he was referred to ENT and had an appointment for May 2024 Patient reports that he was unable to make that appointment so this appointment was changed to 02/24/2025 The patient reports that there oxygen for a new referral to be sent [facility] Patient reports that his left ear bothers him and he gets intermittent gooey secretion coming out of his eyes in the mornings Reports that intermittently his nose get clogged up and sometimes he gets yellowish drainage Patient reports that he is interested in getting his ear clean as well He denies shortness of breath, chest pain, heart palpitation or dizziness He reports constipation-reports that he is seeing GI tomorrow, reports that he has to take MiraLax sometimes to go to the bathroom Reports that he has BPH and has been following up with Dr. Leblanc and has an appointment on the of this month [facility] Medical History Cerebellar degeneration Nephrolithiasis Overweight (BMI 25.0-29.9) Ataxia Right otitis media Lumbar degenerative disc disease HTN (hypertension) Mixed hyperlipidemia Chronic constipation Asthma Cerebellar atrophy Abnormality of gait Nephrolithiasis Right flank pain Benign prostatic hyperplasia Allergic rhinitis Constipation Vitamin D deficiency Renal calculus, bilateral GERD without esophagitis Migraine Pure hypercholesterolemia Benign essential hypertension Orchalgia Surgical History History of cystoscopy History of esophagogastroduodenoscopy (EGD) History of lithotripsy History of extraction of renal calculus Hx of elbow surgery Family History Father Hypertension CAD (coronary artery disease) Diabetes Cancer Mother Hypertension Acute CVA (cerebrovascular accident) Paternal Grandfather Throat cancer Sister Lupus Epilepsy Social History Household Members Other:: Homeless Housing: Homeless Alcohol intake: never Patient Tobacco Use Status: Never used Tobacco e-Cigarette/Vaping Use: Never Used Second Hand Smoke Exposure: Yes service: No Current occupational status: disabled Current occupational exposures/hazards: No Cognitive needs: Yes Hearing needs: No Vision needs: No Questionnaire Thrive Questionnaire Date Thrive assessed: 10/20/24 I am a: Patient What is your living situation today?: I do not have a steady places to live Within the past 12 months, did the food you bought not last and you didn't have the money to get more?: I choose not to answer this question Within the past 12 months, did you worry whether your food would run out before you got money to buy more?: I choose not to answer this question Do you have trouble paying for medicines?: I choose not to answer this question Do you have trouble getting transportation to medical appointments?: I choose not to answer this question Do you have trouble paying your heating and electricity bill?: I choose not to answer this question Do you have trouble taking care of your child, family member or friend?: I choose not to answer this question Do you have trouble with day-to-day activities such as bathing, preparing meals, shopping, managing finances, etc.?: I choose not to answer this question Are you currently unemployed and looking for a job?: I choose not to answer this question Are you interested in more education?: I choose not to answer this question Please select the resources that you would like help with: None Currently or been in a relationship where the following occur: I choose not to answer THRIVE Score: 1 AUDIT C Alcohol Use Questionnaire (AUDIT-C) 1. How often do you have a drink containing alcohol?: Never 3. How often do you have six or more drinks on one occasion?: Never Total Score: 0 Score Reviewed/Action Taken: Yes JONATHAN-7 AMB Questionnaire JONATHAN-7 Date JONATHAN - 7 assessed: 09/11/24 Source: Developed by Drs. Timothy Callahan, Susan Garcia, Jose Cruz Lloyd and colleagues, with an educational jim from [employer]. Review of Systems Eyes Reports itchy eyes ENT Reports ear discharge (At times), Reports otalgia, Reports nasal congestion, Reports nasal discharge and Denies sore throat Card Denies chest pain, Denies leg edema and Denies lightheadedness Resp Denies cough, Denies hemoptysis and Denies wheezing GI Denies abdominal pain, Denies melena, Reports constipation, Denies diarrhea and Denies vomiting Denies dysuria, Denies urinary frequency, Denies urinary urgency and Reports other (BPH) Neuro Reports Abnormal speech present Aller/Immun Reports itchy eyes and Denies wheezing Physical exam (Primary Care) Vital Signs: Last Vital Signs Temp 98.5 F 10/20/24 12:53 Pulse 72 10/20/24 12:53 Resp 20 10/20/24 12:53 BP 136/92 H 10/20/24 13:08 Pulse Ox 98 10/20/24 12:53 Oxygen Delivery Method Room Air 10/20/24 12:53 BMI result Body Mass Index 24.6 Tobacco/Smoking Status: Tobacco use Status Tobacco use date assessed 10/20/24 10/20/24 13:08 Patient Tobacco Use Status Never used Tobacco 10/20/24 13:08 e-Cigarette/Vaping Use Never Used 10/20/24 13:08 Thrive Assessment: Date of Thrive Assessment Date Thrive assessed 10/20/24 10/20/24 13:08 Currently or been in a relationship where the following occur: I choose not to answer Const General: healthy appearing, no acute distress, alert and awake Nutritional Appearance: well nourished Orientation/consciousness: oriented to person, oriented to place and oriented to time HENMA Head: Yes normocephalic Ears: TM abnormal bulging on the left and dull on the left General nose exam: Abnormal mucous membranes and turbinates present boggy bilateral and erythematous bilateral and Nasal discharge present purulent Throat: Yes posterior oropharynx normal Eyes General: appearance normal, both eyes and all related structures Conjunctivae: conjunctivae normal Sclerae: sclerae normal Pupils: Equal, round and reactive pupils present Neck Neck: Yes no lymphadenopathy and Yes no JVD Thyroid: Thyroid normal Carotids: no bruits Resp Effort & Inspection: normal respiratory effort and not tachypneic Auscultation: no crackles, no rales, no rhonchi and no wheezes Cardio Rate: regular rate Rhythm: regular rhythm Heart sounds: no murmurs and normal S1 and S2 GI Palpation (GI): Soft to palpation, nontender, no hepatomegaly and no splenomegaly Auscultation: normal bowel sounds General: Yes no CVA tenderness Back/Spine/Pelvis Back: no CVA tenderness Neuro General: oriented to person, oriented to place and oriented to time Cranial nerves: Yes Equal, round and reactive pupils present Speech: Abnormal speech present slurred (mildly) Gait exam (Neuro): Ataxic gait present and Wide-based gait present Coding Level of Care Code Est Pt Level 4 (29147) Diagnoses Chronic maxillary sinusitis J32.0 Sinusitis location: maxillary Left otitis media with effusion H65.92 Rhinosinusitis J32.9 BPH with obstruction/lower urinary tract symptoms N40.1; N13.8 Chronic constipation K59.09 Time Spent (min) 37 Assessment & Plan Assessment & Plan (1) Chronic sinusitis: Code(s): J32.9 - Chronic sinusitis, unspecified Category: Medical Qualifiers: Sinusitis location: maxillary Qualified Code(s): J32.0 - Chronic maxillary sinusitis Plan: ENT referral placed (2) Left otitis media with effusion: Code(s): H65.92 - Unspecified nonsuppurative otitis media, left ear Category: Medical Plan: Augmentin b.i.d. ordered. Continue OTC pain medication for otalgia (3) Rhinosinusitis: Code(s): J32.9 - Chronic sinusitis, unspecified Category: Medical Plan: Augmentin b.i.d. ordered. Resume Zyrtec 10 mg daily p.r.n., continue Nasacort sprays intranasally daily p.r.n. (4) BPH with obstruction/lower urinary tract symptoms: Code(s): N40.1 - Benign prostatic hyperplasia with lower urinary tract symptoms; N13.8 - Other obstructive and reflux uropathy Category: Medical Plan: Patient reports that his symptoms have gotten much better. Continues tamsulosin 0.8 mg p.o. at bedtime Follow up with Urology as scheduled (5) Chronic constipation: Comment: S/P colonoscopy on 03/01/2021 - (+) tubular adenoma; otherwise normal Code(s): K59.09 - Other constipation Category: Medical Plan: Reports still being constipated intermittently and has to use MiraLax to go at times. Discussed with patient that he should use the MiraLax daily to prevent the constipation and not wait until he is constipated to take the medication. Continue Dulcolax 10 mg at bedtime, continue docusate sodium 200 mg at bedtime. Maintain proper fluid hydration. Follow up with GI as scheduled Plan Discussed with the patient that after his infection clears up he could follow up to discuss possible ear cleaning Orders: Referrals Ear/Nose/Throat Referral J32.9 - Chronic sinusitis, unspecified Medications: New amoxicillin-pot clavulanate 875-125 mg 1 tab PO BID 10 days 20 tabs 0RF Refilled acetaminophen ER 650 mg PO Q12H 30 tabs 2RF M51.36 - Other intervertebral disc degeneration, lumbar region
[2024-10-20 13:08] VITALS: BP 136/92
--- OUTSIDE RECORDS SUMMARY | 2024-10-20 15:14 | XMS_ITS | Patient Health Record ---
Author Organization [facility] Address [address] [place] [address] Care Team Providers Care Firearms Assembly Supervisor Name Role Phone Riley Flores MDh Primary Care Provider Timothy Myles Unavailable [phone] Allergies Allergen (clinical drug ingredient) Drug/Non Drug [...] Problem Status W/U Status Risk Notes Problem 688661382 Encounter for screening for malignant neoplasm of colon (Z12.11) Active confirmed Problem 3138645 Melena (K92.1) Active confirmed Problem 560479665 Gastroesophageal reflux disease without esophagitis (K21.9) Active confirmed Problem 009415004240287 Preprocedural examination (Z01.818) Active confirmed Problem 545739861 Irregular bowel habits (R19.8) Active confirmed Problem Diverticular disease of colon (701840999) 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) Active confirmed Problem 406732138 Non-intractable vomiting without nausea, unspecified vomiting type (R11.11) Active confirmed Plan Of Treatment Future Test Test Name Order Date UPPER GI ENDOSCOPY 12/18/2018 COLONOSCOPY 12/18/2018 COLONOSCOPY 02/01/2021 Insurance Providers Payer Name Payer Address Payer Phone Subscriber Number Group Number Insured Name Patient Relationship to Insured Coverage Start Date Coverage End Date [facility] [address] [address] [place], [place] [id number] SHANNON BARROS Self - patient is the insured [place] [address] [place] [address] [id number] SHANNON BARROS Self - patient is the insured Medical (General) History Medical History History ICD Code GERD-EGD in 2009 was normal--no hiatal h ernia Kidney stones--ESWL, cysto and stent noah cement--Dr. Leblanc Asthma Prostate problems Denies [place],DM,CVA,renal disease MIGRAINES HTN Hyperlipidemia Surgical History Surgery Date(Month/Year) Left elbow with hardware
== END 2024-10-20 13:54 | disposition home or self-care (01) ==
LOC: HO.HMCH 12:41
PROVIDERS: PCP Internal Medicine
DX: J32.0 Chronic maxillary sinusitis (principal); H65.92 Unspecified nonsuppurative otitis media, left ear; J32.9 Chronic sinusitis, unspecified; N40.1 Benign prostatic hyperplasia with lower urinary tract symptoms; N13.8 Other obstructive and reflux uropathy; K59.09 Other constipation

== ENCOUNTER → 2024-10-20 12:40 | Outpatient (BNVA) | payer OTHER, SELFPAY | PROVIDERS: PCP Internal Medicine | DX: J32.0 Chronic maxillary sinusitis (principal); H65.92 Unspecified nonsuppurative otitis media, left ear; J32.9 Chronic sinusitis, unspecified; N40.1 Benign prostatic hyperplasia with lower urinary tract symptoms; N13.8 Other obstructive and reflux uropathy; K59.09 Other constipation | CPT/HCPCS: 99212 ==

== ENCOUNTER 2024-10-21 10:54 | Outpatient (AMB) | payer OTHER, SELFPAY ==
--- NOTE | 2024-10-21 10:55 | MHC.OFFVIS ---
Vital Signs 10/21/24 10:57 Height 6 ft Weight 178 lb 9.191 oz BMI 24.2 BP 129/89 Blood Pressure Location Rt brachial Position Sitting Pulse 85 Intake Visit Reasons: ~ 8 mos FUV - Fecal Abn. Intake Note: Josh presents in the office as a 8 month follow up. CC: States that he gets lots of bloating and states he has constipation. Takes gavilax every other day. HE has some pains in the stomach and states that the medication does not work all the time. He takes another dose of gavilax at times - and once he does it will be all liquid. Allergies fenofibrate [Tricor] Allergy (Intermediate, Verified 10/21/24 10:57) Hives nut - unspecified [NUTS] Allergy (Intermediate, Verified 10/21/24 10:57) Hives seafood Allergy (Intermediate, Verified 10/21/24 10:57) Hives, Itchy fluocinolone acetonide Allergy (Unknown, Verified 10/21/24 10:57) Unknown lactose [LACTOSE] Adverse Reaction (Mild, Verified 10/21/24 10:57) Constipation Doxycycline Allergy (Intermediate, Uncoded 10/21/24 10:57) Nausea HPI Comments Details: 53 y.o M with chronic constipation who is here to review med management. Typically sees Edwige Ricardo who is away. Brought soursop leaves tea today. Per quick search is high in fiber and may help with constipation. Pt also takes miralax PRN peggy when gets uncomfortable and bloated. Takes it for 2-3 days before he notices any response. Once it does start working, he has the runs for a day. 10/21/24: Here for routine follow up. Reports 3-4 BMs per week. BM are formed, but hard and has to strain. Passes small ihsan. No blood. Taking good hydration, but not taking the tea as often, has also added dandelion tea. Takes gavilax every other day. NOt on any stimulant laxative. Prev used to be on linzess but was stopped some time ago for reasons that are unclear. [facility] Medical History Cerebellar degeneration Nephrolithiasis Overweight (BMI 25.0-29.9) Ataxia Right otitis media Lumbar degenerative disc disease HTN (hypertension) Mixed hyperlipidemia Chronic constipation Asthma Cerebellar atrophy Abnormality of gait Nephrolithiasis Right flank pain Benign prostatic hyperplasia Allergic rhinitis Constipation Vitamin D deficiency Renal calculus, bilateral GERD without esophagitis Migraine Pure hypercholesterolemia Benign essential hypertension Orchalgia Surgical History History of cystoscopy History of esophagogastroduodenoscopy (EGD) History of lithotripsy History of extraction of renal calculus Hx of elbow surgery Family History Father Hypertension CAD (coronary artery disease) Diabetes Cancer Mother Hypertension Acute CVA (cerebrovascular accident) Paternal Grandfather Throat cancer Sister Lupus Epilepsy Social History Household Members Other:: Homeless Housing: Homeless Alcohol intake: never Patient Tobacco Use Status: Never used Tobacco e-Cigarette/Vaping Use: Never Used Second Hand Smoke Exposure: Yes service: No Current occupational status: disabled Current occupational exposures/hazards: No Cognitive needs: Yes Hearing needs: No Vision needs: No Review of Systems Const All systems reviewed & are unremarkable except as noted in HPI and below Physical Exam Vital Signs: Last Vital Signs Pulse 85 10/21/24 10:57 BP 129/89 10/21/24 10:57 BMI result Body Mass Index 24.2 No apparent distress Nonicteric Abdomen soft, nondistended Alert and oriented x3, normal gait Assessment & Plan Assessment & Plan (1) Tubular adenoma of colon: Code(s): D12.6 - Benign neoplasm of colon, unspecified Category: Medical (2) Constipation: Code(s): K59.00 - Constipation, unspecified Category: Medical Qualifiers: Constipation type: unspecified constipation type Qualified Code(s): K59.00 - Constipation, unspecified Plan 1. [facility] Reports that frequency of BM has improved with fiber and miralax but still finds himself straining. Plan: - Recommend addition of stimulant lax such as bisaocodyl - If minimal response, may need to back on linzess vs trulance for [facility] - Pt to call for sooner follow up in that case 2. Hx of polyps Pt also with hx of rectal tubular adenoma in 2020 (Dr Hilario) - recommendation to repeat colonoscopy in 2025. Follow up in 1 year Medications: New bisacodyl (Dulcolax (bisacodyl)) Skip if you have more than 2 BMs/day. 5 mg PO BEDTIME 90 tabs 0RF 90 days Coding Level of Care Code Est Pt Level 3 (21038) Diagnoses Tubular adenoma of colon D12.6 Constipation, unspecified constipation type K59.00 Constipation type: unspecified constipation type
[2024-10-21 10:57] VITALS: BP 129/89; PULSE 85; BMI 24.2
--- OUTSIDE RECORDS SUMMARY | 2024-10-21 12:45 | XMS_ITS | Patient Health Record ---
Author Organization [facility] Address [address] [place] [address] Care Team Providers Care Accounting Bookkeeper Name Role Phone Riley Flores MDh Primary Care Provider Timothy Myles Unavailable [phone] Allergies Allergen (clinical drug ingredient) Drug/Non Drug [...] Problem Status W/U Status Risk Notes Problem [id number] Encounter for screening for malignant neoplasm of colon (Z12.11) Active confirmed Problem 8398839 Melena (K92.1) Active confirmed Problem 208096012 Gastroesophageal reflux disease without esophagitis (K21.9) Active confirmed Problem 526147344530196 Preprocedural examination (Z01.818) Active confirmed Problem 643153447 Irregular bowel habits (R19.8) Active confirmed Problem Diverticular disease of colon (398112822) 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) Active confirmed Problem 448472086 Non-intractable vomiting without nausea, unspecified vomiting type (R11.11) Active confirmed Plan Of Treatment Future Test Test Name Order Date UPPER GI ENDOSCOPY 12/18/2018 COLONOSCOPY 12/18/2018 COLONOSCOPY 02/01/2021 Insurance Providers Payer Name Payer Address Payer Phone Subscriber Number Group Number Insured Name Patient Relationship to Insured Coverage Start Date Coverage End Date [facility] [address] [address] [place], [place] [id number] SHANNON BARROS Self - patient is the insured [place] [address] [place] [address] [id number] SHANNON BARROS Self - patient is the insured Medical (General) History Medical History History ICD Code GERD-EGD in 2009 was normal--no hiatal h ernia Kidney stones--ESWL, cysto and stent noah cement--Dr. Leblanc Asthma Prostate problems Denies [place],DM,CVA,renal disease MIGRAINES HTN Hyperlipidemia Surgical History Surgery Date(Month/Year) Left elbow with hardware
== END 2024-10-21 11:24 | disposition home or self-care (01) ==
LOC: HO.HGI 10:54
PROVIDERS: PCP Internal Medicine; Visit Provider Internal Medicine
DX: D12.6 Benign neoplasm of colon, unspecified (principal); K59.00 Constipation, unspecified
CPT/HCPCS: 99213

== ENCOUNTER → 2024-10-21 10:54 | Outpatient (BNVA) | payer OTHER, SELFPAY | PROVIDERS: PCP Internal Medicine; Visit Provider Internal Medicine | DX: K59.00 Constipation, unspecified (principal); D12.6 Benign neoplasm of colon, unspecified | CPT/HCPCS: 99212 ==

== ENCOUNTER 2024-11-03 14:40 | Outpatient (REF) | payer OTHER, SELFPAY ==
--- NOTE | 2024-11-03 14:44 | PFT_ITS ---
Spirometry [] Lung Volumes [] Diffusion Capacity [] Methacholine Challenge [] Flow Volume Loops [] MVV [] MIP/MEP(Max inspiratory pressure/Max expiratory pressure) [] 6 Minute Walk Test [] ABG [] Interpretation [] MTDD
[2024-11-03 15:28] VITALS: PULSE 85; O2SAT 98
--- OUTSIDE RECORDS SUMMARY | 2024-11-03 17:32 | XMS_ITS | Patient Health Record ---
Author Organization [facility] Address [address] [place] [address] Care Team Providers Care Feeder Operator Name Role Phone Riley Flores MDh Primary Care Provider Timothy Myles Unavailable [phone] Allergies Allergen (clinical drug ingredient) Drug/Non Drug [...] Problem Status W/U Status Risk Notes Problem 479948649 Encounter for screening for malignant neoplasm of colon (Z12.11) Active confirmed Problem 8734492 Melena (K92.1) Active confirmed Problem 128384406 Gastroesophageal reflux disease without esophagitis (K21.9) Active confirmed Problem 666606423181947 Preprocedural examination (Z01.818) Active confirmed Problem 824435083 Irregular bowel habits (R19.8) Active confirmed Problem Diverticular disease of colon (913160061) 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) Active confirmed Problem 114946186 Non-intractable vomiting without nausea, unspecified vomiting type (R11.11) Active confirmed Plan Of Treatment Future Test Test Name Order Date UPPER GI ENDOSCOPY 12/18/2018 COLONOSCOPY 12/18/2018 COLONOSCOPY 02/01/2021 Insurance Providers Payer Name Payer Address Payer Phone Subscriber Number Group Number Insured Name Patient Relationship to Insured Coverage Start Date Coverage End Date [facility] [address] [address] [place], [place] [id number] SHANNON BARROS Self - patient is the insured [place] [address] [place] [address] [id number] SHANNON BARROS Self - patient is the insured Medical (General) History Medical History History ICD Code GERD-EGD in 2009 was normal--no hiatal h ernia Kidney stones--ESWL, cysto and stent noah cement--Dr. Leblanc Asthma Prostate problems Denies [place],DM,CVA,renal disease MIGRAINES HTN Hyperlipidemia Surgical History Surgery Date(Month/Year) Left elbow with hardware
== END 2024-11-03 14:41 | disposition home or self-care (01) ==
LOC: HO.RESP 14:40
PROVIDERS: PCP Internal Medicine; Visit Provider Nurse Practitioner Family
DX: R05.3 Chronic cough (principal)
CPT/HCPCS: 94010; 94640; 94727; 94729

== ENCOUNTER → 2024-11-03 14:44 | Outpatient (BNV) | payer OTHER, SELFPAY | PROVIDERS: PCP Internal Medicine; Visit Provider Internal Medicine Pulmonary Disease | DX: R05.3 Chronic cough (principal) | CPT/HCPCS: 94060; 94727; 94729 ==

== ENCOUNTER 2024-11-11 10:20 | Outpatient (REF) | payer OTHER, SELFPAY ==
--- NOTE | ~2024-11-11 | CT_ITS ---
CLINICAL HISTORY: R51.9 - Headache, unspecified CT head without contrast Comparison: None Findings: No intra-axial mass, midline shift, hydrocephalus, or acute hemorrhage. No significant atrophy-like change or white matter disease. Mucosal thickening of the paranasal sinuses. Complete opacification of the left maxillary sinus. Near complete opacification of the right sphenoid sinus. The orbits are within normal limits. No skull fracture. IMPRESSION: No acute intracranial findings. Evidence of pansinusitis. This document has been electronically signed by: Mervat Bradley MD on 11/11/2024 21:31:26
== END 2024-11-11 10:21 | disposition home or self-care (01) ==
LOC: HO.CT 10:20
PROVIDERS: PCP Internal Medicine; Visit Provider Internal Medicine
DX: R51.9 Headache, unspecified (principal); S09.90XA Unspecified injury of head, initial encounter; R40.20 Unspecified coma
CPT/HCPCS: 70450

== ENCOUNTER → 2024-11-11 10:22 | Outpatient (BNV) | payer OTHER, SELFPAY | PROVIDERS: PCP Internal Medicine; Visit Provider Nuclear Medicine | DX: R51.9 Headache, unspecified (principal) | CPT/HCPCS: 70450 ==

== ENCOUNTER 2024-11-20 14:00 | Outpatient (RCR) | payer OTHER, SELFPAY ==
--- NOTE | 2024-11-06 16:14 | MHC.PT.EP ---
[facility] [place] [facility] [place] [facility] [place] Office [address] [phone] F: [phone] F: [phone] F: [phone] F: [phone] Physical Therapy Plan of Care Date of Evaluation: 11/05/24 Date of Surgery: Diagnosis: Pain in left knee Pain in right knee History of falling Left knee pain *Right hip pain *status post fall Assessment: Pt is a pleasant and motivated 54yo M who presents to PT with R hip pain, B knee pain, and multiple falls. Pt presents to PT with current impairments in pain, decreased strength, decreased balance/proprioception, and impaired gait. He is limited functionally by prolonged standing and walking. He is a good candidate for skilled PT in order to address current impairments to facilitate return to PLOF. He is recommended to be seen 2x/week for 4 weeks and will be reassessed at that time Frequency and Duration: The patient will be seen 2x/week for 4 weeks Short Term Goals: Pt will be I with HEP to promote self management of symptoms Pt will tolerate prolonged standing > 5 min with pain < 3/10 Quick Sketch Artist Goals: Pt will ambulate > 200' with SPC independently with pain < 3/10 on R hip Pt will demonstrate improvements in function as evidenced by statistically significant improvement in LEFI outcome measure Treatment Plan: Modalities to reduce pain, spasms and effusion. Manual therapy to restore motion and function. Therapeutic exercise to improve strength and flexibility. Neuromuscular re-education for posture and balance. Therapeutic activities to return to functional activities of daily living. Electronically signed by: Patricia Meyer, PT, DPT Please sign and return to therapist. Thank you for your referral.
--- NOTE | 2024-12-03 11:15 | MHC.PT.DC ---
[facility] [place] Office [place] Office [place] Office [address] Maru Cee [address] [facility] [phone] F: [phone] F: [phone] F: [phone] F: [phone] Physical Therapy Discharge Report Diagnosis: Pain in left knee Pain in right knee History of falling Left knee pain *Right hip pain *status post fall Date of Surgery: Date of Evaluation: 11/05/24 Date of Discharge: 12/03/24 Treatments to Date: 3 Cancellations to Date: No Shows to Date: Discharge Status: Patient Elected to Stop Discharge Summary: Pt was seen for skilled PT from 11/05/24-11/20/24. His last attended appointment was 11/20/24. He called and cancelled his remaining appointments. He is being D/C from skilled PT per his request. Pt current level of function unknown at this time Electronically signed by: Patricia Meyer, PT, DPT Please sign and return to therapist. Thank you for your referral.
== END 2024-12-03 11:15 | disposition home or self-care (01) ==
LOC: HO.PT 14:00
PROVIDERS: PCP Internal Medicine; Visit Provider Internal Medicine
DX: M25.562 Pain in left knee (principal); M25.551 Pain in right hip; Z91.81 History of falling
CPT/HCPCS: 97110; 97162

== ENCOUNTER 2024-11-23 14:09 | Outpatient (AMB) | payer OTHER, SELFPAY ==
--- NOTE | 2024-11-23 12:43 | A.OFFVIS_ITS ---
Vital Signs 11/23/24 14:11 Height 6 ft Weight 178 lb 9.191 oz BMI 24.2 BP 110/60 Blood Pressure Location Rt brachial Position Sitting Pulse 107 H Pulse Source Pulse Oximeter Pulse Oximetry (%) 97 Oxygen Delivery Method Room Air Intake Visit Reasons: Cough Allergies fenofibrate [Tricor] Allergy (Intermediate, Verified 11/23/24 14:14) Hives nut - unspecified [NUTS] Allergy (Intermediate, Verified 11/23/24 14:14) Hives seafood Allergy (Intermediate, Verified 11/23/24 14:14) Hives, Itchy fluocinolone acetonide Allergy (Unknown, Verified 11/23/24 14:14) Unknown lactose [LACTOSE] Adverse Reaction (Mild, Verified 11/23/24 14:14) Constipation Doxycycline Allergy (Intermediate, Uncoded 11/23/24 14:14) Nausea HPI HPI Cough: Details: Josh is a pleasant 53 year old male, never smoker, with underlying asthma, cerebellar atrophy and ataxia, GERD, HTN, and BPH. He reports overall control of respiratory symptoms using Symbicort 80 mcg, Claritin and albuterol MDI, continues with dyspnea and intermittent dry cough. PCP treated for sinusitis on 10/20 with Augmentin, he has an upcoming appt in February for ENT evaluation for chronic sinusitis. Today he presents to review PFT results. [facility] Medical History Cerebellar degeneration Nephrolithiasis Overweight (BMI 25.0-29.9) Ataxia Right otitis media Lumbar degenerative disc disease HTN (hypertension) Mixed hyperlipidemia Chronic constipation Asthma Cerebellar atrophy Abnormality of gait Nephrolithiasis Right flank pain Benign prostatic hyperplasia Allergic rhinitis Constipation Vitamin D deficiency Renal calculus, bilateral GERD without esophagitis Migraine Pure hypercholesterolemia Benign essential hypertension Orchalgia Surgical History History of cystoscopy History of esophagogastroduodenoscopy (EGD) History of lithotripsy History of extraction of renal calculus Hx of elbow surgery Family History Father Hypertension CAD (coronary artery disease) Diabetes Cancer Mother Hypertension Acute CVA (cerebrovascular accident) Paternal Grandfather Throat cancer Sister Lupus Epilepsy Social History Household Members Other:: Homeless Housing: Homeless Alcohol intake: never Patient Tobacco Use Status: Never used Tobacco e-Cigarette/Vaping Use: Never Used Second Hand Smoke Exposure: Yes service: No Current occupational status: disabled Current occupational exposures/hazards: No Cognitive needs: Yes Hearing needs: No Vision needs: No Review of Systems Const Denies chills, Denies excessive sweating, Denies fever(s), Denies headache(s) and Denies night sweats Eyes Denies dry eyes and Denies irritation ENT Reports Normal hearing present, Denies headache(s), Reports nasal congestion, Reports post nasal drip, Denies sinus pain and Denies sinus pressure Card Denies chest pain, Denies chest pain at rest, Denies chest pain with activity, Denies claudication, Denies leg edema, Denies orthopnea and Denies paroxysmal nocturnal dyspnea Resp Denies chest congestion, Reports cough, Denies excessive phlegm production, Denies pain on inspiration, Denies pain with cough, Denies stridor and Denies wheezing Musc Denies myalgias Neuro Reports Normal hearing present and Denies headache(s) Endo Denies excessive sweating Denis/Lymph Denies lymphadenopathy Aller/Immun Denies seasonal rhinorrhea and Denies wheezing Physical Exam Vital Signs: Last Vital Signs Pulse 107 H 11/23/24 14:11 BP 110/60 11/23/24 14:11 Pulse Ox 97 11/23/24 14:11 Oxygen Delivery Method Room Air 11/23/24 14:11 BMI result Body Mass Index 24.2 Neuro Cranial nerves: Yes Normal hearing present Assessment & Plan Assessment & Plan (1) Asthma: Code(s): J45.909 - Unspecified asthma, uncomplicated Category: Medical (2) Chronic cough: Code(s): R05.3 - Chronic cough Category: Medical (3) Environmental allergies: Code(s): Z91.09 - Other allergy status, other than to drugs and biological substances Category: Medical Plan Josh reports moderate control of symptoms on Symbicort, Claritin and albuterol MDI. Discussed increasing to Symbicort 160 mcg however he declined at this time. Reviewed PFT which revealed borderline obstructive defect with significant response to albuterol in small to medium airways. Slightly elevated lung volumes and decreased DLCO. Will send for PFT to assess for underlying parenchymal condition contributing to decreased diffusion capacity. All questions were answered and patient is in agreement of plan. Will follow up in 3-6 months or sooner if needed. Orders: Orders CT chest wo IV con Today R05.3 - Chronic cough, R94.2 - Abnormal results of pulmonary function studies Coding Level of Care Code Est Pt Level 4 (08506) Diagnoses Asthma J45.909 Chronic cough R05.3 Environmental allergies Z91.09
[2024-11-23 14:11] VITALS: BP 110/60; PULSE 107; O2SAT 97; BMI 24.2
--- OUTSIDE RECORDS SUMMARY | 2024-11-23 14:24 | XMS_ITS | Patient Health Record ---
Author Organization [facility] Address [address] [place] [address] Care Team Providers Care Steeler Name Role Phone Riley Flores MDh Primary Care Provider Timothy Myles Unavailable [phone] Allergies Allergen (clinical drug ingredient) Drug/Non Drug [...] Problem Status W/U Status Risk Notes Problem 254851248 Encounter for screening for malignant neoplasm of colon (Z12.11) Active confirmed Problem 1147155 Melena (K92.1) Active confirmed Problem 262500067 Gastroesophageal reflux disease without esophagitis (K21.9) Active confirmed Problem 301827593173055 Preprocedural examination (Z01.818) Active confirmed Problem 595815869 Irregular bowel habits (R19.8) Active confirmed Problem 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) Active confirmed Problem 118156468 Non-intractable vomiting without nausea, unspecified vomiting type (R11.11) Active confirmed Plan Of Treatment Future Test Test Name Order Date UPPER GI ENDOSCOPY 12/18/2018 COLONOSCOPY 12/18/2018 COLONOSCOPY 02/01/2021 Insurance Providers Payer Name Payer Address Payer Phone Subscriber Number Group Number Insured Name Patient Relationship to Insured Coverage Start Date Coverage End Date [facility] [address] [address] [place], [place] [id number] SHANNON BARROS Self - patient is the insured [place] [address] [place] [address] [id number] SHANNON BARROS Self - patient is the insured Medical (General) History Medical History History ICD Code GERD-EGD in 2009 was normal--no hiatal h ernia Kidney stones--ESWL, cysto and stent noah cement--Dr. Leblanc Asthma Prostate problems Denies [place],DM,CVA,renal disease MIGRAINES HTN Hyperlipidemia Surgical History Surgery Date(Month/Year) Left elbow with hardware
== END 2024-11-23 14:36 | disposition home or self-care (01) ==
LOC: HO.HPS 14:09
PROVIDERS: PCP Internal Medicine; Visit Provider Nurse Practitioner Family
DX: J45.909 Unspecified asthma, uncomplicated (principal); R05.3 Chronic cough; Z91.09 Other allergy status, other than to drugs and biological substances
CPT/HCPCS: 99214

== ENCOUNTER → 2024-11-23 14:09 | Outpatient (BNVA) | payer OTHER, SELFPAY | PROVIDERS: PCP Internal Medicine; Visit Provider Nurse Practitioner Family | DX: J45.909 Unspecified asthma, uncomplicated (principal); R05.3 Chronic cough; Z91.09 Other allergy status, other than to drugs and biological substances | CPT/HCPCS: 99212 ==

== ENCOUNTER 2024-11-27 11:34 | Outpatient (AMB) | payer OTHER, SELFPAY ==
--- OUTSIDE RECORDS SUMMARY | 2024-11-27 11:49 | XMS_ITS | Patient Health Record ---
Author Organization [facility] Address [address] [place] [address] Care Team Providers Care Business Writer Name Role Phone Riley Flores MDh Primary Care Provider Timothy Myles Unavailable [phone] Allergies Allergen (clinical drug ingredient) Drug/Non Drug [...] Problem Status W/U Status Risk Notes Problem 502219232 Encounter for screening for malignant neoplasm of colon (Z12.11) Active confirmed Problem 0517012 Melena (K92.1) Active confirmed Problem 136846677 Gastroesophageal reflux disease without esophagitis (K21.9) Active confirmed Problem 319638897101521 Preprocedural examination (Z01.818) Active confirmed Problem 875713017 Irregular bowel habits (R19.8) Active confirmed Problem 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) Active confirmed Problem 213357022 Non-intractable vomiting without nausea, unspecified vomiting type (R11.11) Active confirmed Plan Of Treatment Future Test Test Name Order Date UPPER GI ENDOSCOPY 12/18/2018 COLONOSCOPY 12/18/2018 COLONOSCOPY 02/01/2021 Insurance Providers Payer Name Payer Address Payer Phone Subscriber Number Group Number Insured Name Patient Relationship to Insured Coverage Start Date Coverage End Date [facility] [address] [address] [place], [place] [id number] SHANNON BARROS Self - patient is the insured [place] [address] [place] [address] [id number] SHANNON BARROS Self - patient is the insured Medical (General) History Medical History History ICD Code GERD-EGD in 2009 was normal--no hiatal h ernia Kidney stones--ESWL, cysto and stent noah cement--Dr. Leblanc Asthma Prostate problems Denies [place],DM,CVA,renal disease MIGRAINES HTN Hyperlipidemia Surgical History Surgery Date(Month/Year) Left elbow with hardware
--- NOTE | 2024-11-27 12:00 | MHC.OFFVIS ---
Vital Signs 11/27/24 12:05 Height 6 ft Weight 171 lb 15.369 oz BMI 23.3 BP 109/77 Blood Pressure Location Rt brachial Position Sitting Pulse 86 Intake Visit Reasons: Abdominal Pains Intake Note: Josh presents in the office as a follow up for abdominal pains CC: States that he has been feeling good. He upped the laxative and took 2 am and 2 pm and it helped him. He wants to know if he can take a multivitamin instead of taking the seperate vitamins - he has itching on his skin and was told it could be his liver. Truck Bracer Required: No Allergies fenofibrate [Tricor] Allergy (Intermediate, Verified 11/27/24 12:06) Hives nut - unspecified [NUTS] Allergy (Intermediate, Verified 11/27/24 12:06) Hives seafood Allergy (Intermediate, Verified 11/27/24 12:06) Hives, Itchy fluocinolone acetonide Allergy (Unknown, Verified 11/27/24 12:06) Unknown lactose [LACTOSE] Adverse Reaction (Mild, Verified 11/27/24 12:06) Constipation Doxycycline Allergy (Intermediate, Uncoded 11/27/24 12:06) Nausea HPI Comments Details: 53 y.o M with chronic constipation who is here to review med management. Prev [facility] pt. Brought soursop leaves tea today. Per quick search is high in fiber and may help with constipation. Pt also takes miralax PRN peggy when gets uncomfortable and bloated. Takes it for 2-3 days before he notices any response. Once it does start working, he has the runs for a day. 10/21/24: Here for routine follow up. Reports 3-4 BMs per week. BM are formed, but hard and has to strain. Passes small ihsan. No blood. Taking good hydration, but not taking the tea as often, has also added dandelion tea. Takes gavilax every other day. NOt on any stimulant laxative. Prev used to be on linzess but was stopped some time ago for reasons that are unclear. 11/27/24: Pt made this appt for fear of blockage . Reports had 3 days of not having any BM but then took gavilax twice a day for two days which relieved it. Currently no issues. Reviewed with the pt to consistent take miralax and fiber to avoid flare ups . Only takes miralax as needed after hes already been consitpated. Of note - pt recently had falls x 2 - undergoing w/up through Neuro. [facility] Medical History Cerebellar degeneration Nephrolithiasis Overweight (BMI 25.0-29.9) Ataxia Right otitis media Lumbar degenerative disc disease HTN (hypertension) Mixed hyperlipidemia Chronic constipation Asthma Cerebellar atrophy Abnormality of gait Nephrolithiasis Right flank pain Benign prostatic hyperplasia Allergic rhinitis Constipation Vitamin D deficiency Renal calculus, bilateral GERD without esophagitis Migraine Pure hypercholesterolemia Benign essential hypertension Orchalgia Surgical History History of cystoscopy History of esophagogastroduodenoscopy (EGD) History of lithotripsy History of extraction of renal calculus Hx of elbow surgery Family History Father Hypertension CAD (coronary artery disease) Diabetes Cancer Mother Hypertension Acute CVA (cerebrovascular accident) Paternal Grandfather Throat cancer Sister Lupus Epilepsy Social History Household Members Other:: Homeless Housing: Homeless Alcohol intake: never Patient Tobacco Use Status: Never used Tobacco e-Cigarette/Vaping Use: Never Used Second Hand Smoke Exposure: Yes service: No Current occupational status: disabled Current occupational exposures/hazards: No Cognitive needs: Yes Hearing needs: No Vision needs: No Review of Systems Const All systems reviewed & are unremarkable except as noted in HPI and below Physical Exam Vital Signs: Last Vital Signs Pulse 86 11/27/24 12:05 BP 109/77 11/27/24 12:05 BMI result Body Mass Index 23.3 with mild gait instability abd soft, nontender Assessment & Plan Assessment & Plan (1) Constipation: Code(s): K59.00 - Constipation, unspecified Category: Medical Qualifiers: Constipation type: unspecified constipation type Qualified Code(s): K59.00 - Constipation, unspecified (2) Tubular adenoma of colon: Code(s): D12.6 - Benign neoplasm of colon, unspecified Category: Medical Plan 1. CIC Again educated the pt that bound to have intermittent constipation if he only takes bowel regimen PRN. Reviewed to take fiber supplementation and miralax or at least every other day. OK to reserve bisacodyl to PRN. Will hold off adding a secretagogue as good response to above when pt does take it. 2. Hx of polyps Pt also with hx of rectal tubular adenoma in 2020 (Dr Hilario) - recommendation to repeat colonoscopy in 2025. Follow up in 1 year Coding Level of Care Code Est Pt Level 3 (14778) Diagnoses Constipation, unspecified constipation type K59.00 Constipation type: unspecified constipation type Tubular adenoma of colon D12.6
[2024-11-27 12:05] VITALS: BP 109/77; PULSE 86; BMI 23.3
== END 2024-11-27 12:42 | disposition home or self-care (01) ==
PROVIDERS: PCP Internal Medicine; Visit Provider Internal Medicine
DX: K59.00 Constipation, unspecified (principal); D12.6 Benign neoplasm of colon, unspecified
CPT/HCPCS: 99213

== ENCOUNTER → 2024-11-27 11:34 | Outpatient (BNVA) | payer OTHER, SELFPAY | PROVIDERS: PCP Internal Medicine; Visit Provider Internal Medicine | DX: K59.00 Constipation, unspecified (principal); D12.6 Benign neoplasm of colon, unspecified | CPT/HCPCS: 99212 ==

== ENCOUNTER 2024-12-11 12:32 | Outpatient (AMB) | payer OTHER, SELFPAY ==
--- OUTSIDE RECORDS SUMMARY | 2024-12-11 12:56 | XMS_ITS | Patient Health Record ---
Author Organization [facility] Address [address] [place] [address] Care Team Providers Care Pharmacy Scheduler Name Role Phone Riley Flores MDh Primary Care Provider Timothy Myles Unavailable [phone] Allergies Allergen (clinical drug ingredient) Drug/Non Drug [...] Problem Status W/U Status Risk Notes Problem [id number] Encounter for screening for malignant neoplasm of colon (Z12.11) Active confirmed Problem 4976139 Melena (K92.1) Active confirmed Problem 964226805 Gastroesophageal reflux disease without esophagitis (K21.9) Active confirmed Problem [id number] Preprocedural examination (Z01.818) Active confirmed Problem 860374104 Irregular bowel habits (R19.8) Active confirmed Problem 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) Active confirmed Problem 090765532 Non-intractable vomiting without nausea, unspecified vomiting type (R11.11) Active confirmed Plan Of Treatment Future Test Test Name Order Date UPPER GI ENDOSCOPY 12/18/2018 COLONOSCOPY 12/18/2018 COLONOSCOPY 02/01/2021 Insurance Providers Payer Name Payer Address Payer Phone Subscriber Number Group Number Insured Name Patient Relationship to Insured Coverage Start Date Coverage End Date [facility] [address] [address] [place], [place] [id number] SHANNON BARROS Self - patient is the insured [place] [address] [place] [address] [id number] SHANNON BARROS Self - patient is the insured Medical (General) History Medical History History ICD Code GERD-EGD in 2009 was normal--no hiatal h ernia Kidney stones--ESWL, cysto and stent noah cement--Dr. Leblanc Asthma Prostate problems Denies [place],DM,CVA,renal disease MIGRAINES HTN Hyperlipidemia Surgical History Surgery Date(Month/Year) Left elbow with hardware
--- NOTE | 2024-12-11 13:07 | MHC.OFFVIS ---
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 He is a patient of Dr. Flores. He is seen for the following urologic conditions - nephrolithiasis - BPH Reviewed Uro risk Normal calcium, normal sodium, good volume High oxalate discussed dietary triggers Low citrate add potassium citrate Refill medications Six-month follow-up imaging Urinary Symptoms Review - Adequate urine volume corresponding with fluid intake. - No urinary incontinence mentioned. - Urine appearance satisfactory at the time of visit. Nephrolithiasis Discussed imaging results - trial of vitamin B6 and allopurinol to reduce stone formation Longstanding stone former Prior procedures include ESWL right and left November 2018 - 08/2020 left ureteroscopy with left ESWL - 12/02 right ureteroscopy Imaging - 10/02 - bilateral multiple stones up to 1 cm - 02/01 renal ultrasound bilateral 5 mm fragments - 08/05 renal ultrasound bilateral mm fragments Lab work - 05/04 Ca 10.5 high normal over past few years, 07/07 10.8 24 hour urine - 12/06 good volume 1.9, low sodium 103, low calcium 125, high oxalate 53, low citrate 259 Therapeutic plan - surveillance imaging Lower urinary tract symptoms Good response to Flomax PSA 08/05 1.0 PFSH Medical History Cerebellar degeneration Nephrolithiasis Overweight (BMI 25.0-29.9) Ataxia Right otitis media Lumbar degenerative disc disease HTN (hypertension) Mixed hyperlipidemia Chronic constipation Asthma Cerebellar atrophy Abnormality of gait Nephrolithiasis Right flank pain Benign prostatic hyperplasia Allergic rhinitis Constipation Vitamin D deficiency Renal calculus, bilateral GERD without esophagitis Migraine Pure hypercholesterolemia Benign essential hypertension Orchalgia Surgical History History of cystoscopy History of esophagogastroduodenoscopy (EGD) History of lithotripsy History of extraction of renal calculus Hx of elbow surgery Family History Father Hypertension CAD (coronary artery disease) Diabetes Cancer Mother Hypertension Acute CVA (cerebrovascular accident) Paternal Grandfather Throat cancer Sister Lupus Epilepsy Social History Household Members Other:: Homeless Housing: Homeless Alcohol intake: never Patient Tobacco Use Status: Never used Tobacco e-Cigarette/Vaping Use: Never Used Second Hand Smoke Exposure: Yes service: No Current occupational status: disabled Current occupational exposures/hazards: No Cognitive needs: Yes Hearing needs: No Vision needs: No Review of Systems Const Denies chills and Denies fever(s) Card Reports no additional complaints and Denies syncope Resp Denies cough GI Denies abdominal pain and Denies heartburn Reports as per HPI and Denies change in libido Neuro Denies syncope Psych Denies change in libido Endo Denies change in libido Physical Exam Const General: cooperative, healthy appearing, comfortable and no acute distress Orientation/consciousness: patient oriented x3 HEENT Face and sinus: Yes normal facial exam Mouth: moist mucous membranes Neck Neck: Yes normal visual inspection, Yes full ROM and Yes trachea midline Chest Chest palpation & inspection: normal inspection of the chest Resp Effort & Inspection: normal respiratory effort, able to speak in complete sentences and no respiratory distress GI Inspection: Yes normal to inspection Back/Spine/Pelvis Cervical Spine: normal cervical lordosis Thoracic/Lumbar Spine: thoracic and lumbar spine normal to inspection Skin General skin exam: no rashes or lesions noted Neuro General: patient oriented x3, gait normal, tone normal and moves all extremities Extrem General: Yes normal to inspection and Yes capillary refill normal Assessment & Plan Assessment & Plan (1) Nephrolithiasis: Code(s): N20.0 - Calculus of kidney Category: Medical (2) Benign prostatic hyperplasia: Code(s): N40.0 - Benign prostatic hyperplasia without lower urinary tract symptoms Category: Medical Plan Plan 1. Hyperoxaluria Dietary modifications to reduce oxalate intake, focusing on limiting nuts and potatoes. Follow-up testing will monitor dietary intervention effectiveness. 2. Hypocitraturia Prescribed citrate supplementation: two tablets twice daily. Aims to increase urinary citrate and decrease stone risk. Reevaluate in six months with an ultrasound. Discussion Notes During the consultation, we reviewed Jevon's urine test results, identifying hyperoxaluria and hypocitraturia. For hyperoxaluria, we discussed reducing dietary oxalate intake through limiting nuts and potatoes, providing education on foods to avoid. Hypocitraturia management involved starting citrate supplements, with Jevon consenting to this regimen. The benefits and minor risks of the medication were explained, focusing on its role in preventing kidney stones. No significant side effects were anticipated. We agreed on a six-month timeline for an ultrasound to re-evaluate the effectiveness of our interventions. eJvon is to maintain his current hydration routine and continue allopurinol and Vitamin B6 as previously prescribed. Patient Instructions - Take citrate supplements: two tablets in the morning and two in the evening. - Limit intake of nuts and potatoes to reduce oxalate levels. - Continue current fluid intake to maintain adequate urine volume. - Continue taking allopurinol and Vitamin B6 as prescribed. - Return for an ultrasound in six months to check kidney health. - Contact us if experiencing any unusual symptoms or significant side effects from the supplements. 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 While every effort has been made to ensure accuracy director strategic planning errors may have been included. Imaging studies, laboratory and physical exam results were discussed and reviewed in detail. No major barriers to patient understanding were identified. An opportunity to ask questions regarding the treatment plan was provided. All questions were answered. The patient expressed understanding and agreement with the above treatment plan. The patient is aware they should contact our office by phone for worsening of their current condition or the appearance of new urologic symptoms. Compliance is encouraged with any medications and followup testing that is ordered. It is a privilege to participate in the urologic care of your patient. If you have any questions or concerns regarding treatment for the above conditions, or other urologic issues, please do not hesitate to contact me. The office telephone contact is [phone]. Sincerely, Dr Dajuan Leblanc MD, [facility] - Urology Compassionate Specialist Care for the Genitourinary System Coding Level of Care Code Est Pt Level 4 (32493) Complex EM visit Add On G2211 Diagnoses Nephrolithiasis N20.0 Benign prostatic hyperplasia N40.0
== END 2024-12-11 13:59 | disposition home or self-care (01) ==
PROVIDERS: PCP Internal Medicine; Visit Provider Urology
DX: N20.0 Calculus of kidney (principal); N40.0 Benign prostatic hyperplasia without lower urinary tract symptoms; Z13.9 Encounter for screening, unspecified
CPT/HCPCS: 99214; G2211

== ENCOUNTER → 2024-12-11 12:32 | Outpatient (BNVA) | payer OTHER, SELFPAY | PROVIDERS: PCP Internal Medicine; Visit Provider Urology | DX: N20.0 Calculus of kidney (principal); N40.0 Benign prostatic hyperplasia without lower urinary tract symptoms | CPT/HCPCS: 81003; 99212 ==

== ENCOUNTER 2024-12-16 10:43 | Outpatient (AMB) | payer OTHER, SELFPAY ==
[2024-12-16 10:56] VITALS: BP 130/90; PULSE 84; TEMP 36.6; O2SAT 97; BMI 23.2
--- NOTE | 2024-12-16 10:56 | MHC.OFFWIV ---
Intake Vital Signs 12/16/24 10:56 Height 6 ft Weight 171 lb BMI 23.2 BP 130/90 H Blood Pressure Location Rt brachial Position Sitting Pulse 84 Pulse Source Pulse Oximeter Temp 97.8 F Temp Source Oral Pulse Oximetry (%) 97 Oxygen Delivery Method Room Air Intake Visit Reasons: EP-ears itchy, sinus issues Intake Note: Pt is here today c/o bilateral ear itchy and sinus congestion Patient Tobacco Use Status: Never used Tobacco Allergies fenofibrate [Tricor] Allergy (Intermediate, Verified 12/16/24 10:57) Hives nut - unspecified [NUTS] Allergy (Intermediate, Verified 12/16/24 10:57) Hives seafood Allergy (Intermediate, Verified 12/16/24 10:57) Hives, Itchy fluocinolone acetonide Allergy (Unknown, Verified 12/16/24 10:57) Unknown lactose [LACTOSE] Adverse Reaction (Mild, Verified 12/16/24 10:57) Constipation Doxycycline Allergy (Intermediate, Uncoded 12/16/24 10:57) Nausea HPI HPI Comments History of Present Illness Details History of Present Illness - The patient is a 54-year-old male presenting with chronic sinusitis and allergic rhinitis. - Ongoing symptoms include sinus pain, pressure, and ear itchiness, exacerbated annually. - The patient experienced a recurrence two weeks prior, with intermittent green discharge but no fever. - The patient has missed an ENT appointment due to family emergencies and is currently managed on Amoxicillin [address] Flores, which provided temporary symptomatic relief. - He denies using any allergy medications, including antihistamines or decongestants. - Symptoms are not associated with shortness of breath, wheezing, or gastrointestinal symptoms. Physical Exam General: Cooperative, healthy appearing, comfortable, no acute distress and well developed Orientation: Patient oriented x3 Limitations: No limitations Head: Normal to inspection Ears: Itchy, hearing grossly normal bilaterally Nose: Normal external nose present, sometimes green discharge Face and sinus: Normal facial exam, sometimes sinus pain and pressure Eyes: Appearance normal, both eyes and all related structures Neck: Normal visual inspection and Yes full ROM Respiratory: Normal respiratory effort and able to speak in complete sentences. Clear to auscultation bilaterally Cardiovascular: Regular rate and rhythm. Normal S1 and S2 GI: Normal to inspection. Soft to palpation and nontender Skin: No rashes or lesions noted Neuro: Patient oriented x3 Extremities: Normal to inspection Patient was informed and verbally consented to the use of an ambient scribe for clinic note documentation during this visit. [facility] Medical History Cerebellar degeneration Nephrolithiasis Overweight (BMI 25.0-29.9) Ataxia Right otitis media Lumbar degenerative disc disease HTN (hypertension) Mixed hyperlipidemia Chronic constipation Asthma Cerebellar atrophy Abnormality of gait Nephrolithiasis Right flank pain Benign prostatic hyperplasia Allergic rhinitis Constipation Vitamin D deficiency Renal calculus, bilateral GERD without esophagitis Migraine Pure hypercholesterolemia Benign essential hypertension Orchalgia Surgical History History of cystoscopy History of esophagogastroduodenoscopy (EGD) History of lithotripsy History of extraction of renal calculus Hx of elbow surgery Family History Father Hypertension CAD (coronary artery disease) Diabetes Cancer Mother Hypertension Acute CVA (cerebrovascular accident) Paternal Grandfather Throat cancer Sister Lupus Epilepsy Social History Household Members Other:: Homeless Housing: Homeless Alcohol intake: never Patient Tobacco Use Status: Never used Tobacco e-Cigarette/Vaping Use: Never Used Second Hand Smoke Exposure: Yes service: No Current occupational status: disabled Current occupational exposures/hazards: No Cognitive needs: Yes Hearing needs: No Vision needs: No Physical Exam Vital Signs: Last Vital Signs Temp 97.8 F 12/16/24 10:56 Pulse 84 12/16/24 10:56 BP 130/90 H 12/16/24 10:56 Pulse Ox 97 12/16/24 10:56 Oxygen Delivery Method Room Air 12/16/24 10:56 BMI result Body Mass Index 23.2 Assessment & Plan Assessment & Plan (1) Rhinosinusitis: Code(s): J32.9 - Chronic sinusitis, unspecified Plan Most likely sinusitis vs allergic rhinitis vs URI Plan - Prescribe antibiotics for recurrent sinusitis as discussed. - Recommend loratadine for nasal and ear itchiness. - Refilled his Nasacort. - Advise rescheduling and prioritizing ENT consultation for further evaluation of chronic sinus issues. - Instruct the patient to reconnect with ENT due to the missed prior appointment for specialized care and assessment. Medications: New amoxicillin-pot clavulanate 875-125 mg 1 tab PO Q12H 10 tabs 0RF cetirizine-pseudoephedrine 5-120 mg ER 1 tab PO BID 7 days 14 tabs 0RF Refilled triamcinolone acetonide (Nasacort) administer into each nostril 2 sprays intranasal DAILY 3 months PRN 3 multiple units 1RF allergy symptoms Coding Level of Care Code Est Pt Level 3 (74143) Diagnoses Rhinosinusitis J32.9
--- OUTSIDE RECORDS SUMMARY | 2024-12-16 11:28 | XMS_ITS | Patient Health Record ---
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 Name Role Phone Riley Flores MDh Primary Care Provider Timothy Myles Unavailable [phone] Allergies Allergen (clinical drug ingredient) Drug/Non Drug [...] Problem Status W/U Status Risk Notes Problem [id number] Encounter for screening for malignant neoplasm of colon (Z12.11) Active confirmed Problem 6624039 Melena (K92.1) Active confirmed Problem 761537631 Gastroesophageal reflux disease without esophagitis (K21.9) Active confirmed Problem [id number] Preprocedural examination (Z01.818) Active confirmed Problem 011040882 Irregular bowel habits (R19.8) Active confirmed Problem 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) Active confirmed Problem 737047601 Non-intractable vomiting without nausea, unspecified vomiting type (R11.11) Active confirmed Plan Of Treatment Future Test Test Name Order Date UPPER GI ENDOSCOPY 12/18/2018 COLONOSCOPY 12/18/2018 COLONOSCOPY 02/01/2021 Insurance Providers Payer Name Payer Address Payer Phone Subscriber Number Group Number Insured Name Patient Relationship to Insured Coverage Start Date Coverage End Date [facility] [address] [address] [place], [place] [id number] SHANNON BARROS Self - patient is the insured [place] [address] [place] [address] [id number] SHANNON BARROS Self - patient is the insured Medical (General) History Medical History History ICD Code GERD-EGD in 2009 was normal--no hiatal h ernia Kidney stones--ESWL, cysto and stent noah cement--Dr. Leblanc Asthma Prostate problems Denies [place],DM,CVA,renal disease MIGRAINES HTN Hyperlipidemia Surgical History Surgery Date(Month/Year) Left elbow with hardware
== END 2024-12-16 11:59 | disposition home or self-care (01) ==
PROVIDERS: PCP Internal Medicine; Visit Provider Physician Assistant Medical
DX: J32.9 Chronic sinusitis, unspecified (principal)

== ENCOUNTER → 2024-12-16 10:43 | Outpatient (BNVA) | payer OTHER, SELFPAY | PROVIDERS: PCP Internal Medicine; Visit Provider Physician Assistant Medical | DX: J32.9 Chronic sinusitis, unspecified (principal) | CPT/HCPCS: 99212 ==

== ENCOUNTER 2025-01-04 12:42 | Outpatient (AMB) | payer OTHER, SELFPAY ==
[2025-01-04 13:16] VITALS: BP 130/80; PULSE 74; O2SAT 98; BMI 24.7
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
--- OUTSIDE RECORDS SUMMARY | 2025-01-04 14:01 | XMS_ITS | Patient Health Record ---
Author Organization [facility] Address [address] [place] [address] Care Team Providers Care Tactical Air Control Party Name Role Phone Riley Flores MDh Primary Care Provider Timothy Myles Unavailable [phone] Allergies Allergen (clinical drug ingredient) Drug/Non Drug [...] Problem Status W/U Status Risk Notes Problem [id number] Encounter for screening for malignant neoplasm of colon (Z12.11) Active confirmed Problem 5055836 Melena (K92.1) Active confirmed Problem 858512531 Gastroesophageal reflux disease without esophagitis (K21.9) Active confirmed Problem 531975130060211 Preprocedural examination (Z01.818) Active confirmed Problem 808153719 Irregular bowel habits (R19.8) Active confirmed Problem 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) Active confirmed Problem 850949165 Non-intractable vomiting without nausea, unspecified vomiting type (R11.11) Active confirmed Plan Of Treatment Future Test Test Name Order Date UPPER GI ENDOSCOPY 12/18/2018 COLONOSCOPY 12/18/2018 COLONOSCOPY 02/01/2021 Insurance Providers Payer Name Payer Address Payer Phone Subscriber Number Group Number Insured Name Patient Relationship to Insured Coverage Start Date Coverage End Date [facility] [address] [address] [place], [place] [id number] SHANNON BARROS Self - patient is the insured [place] [address] [place] [address] [id number] SHANNON BARROS Self - patient is the insured Medical (General) History Medical History History ICD Code GERD-EGD in 2009 was normal--no hiatal h ernia Kidney stones--ESWL, cysto and stent noah cement--Dr. Leblanc Asthma Prostate problems Denies NE,DM,CVA,renal disease MIGRAINES HTN Hyperlipidemia Surgical History Surgery Date(Month/Year) Left elbow with hardware
== END 2025-01-04 14:25 | disposition home or self-care (01) ==
LOC: HO.HSMS 12:43
PROVIDERS: PCP Internal Medicine; Visit Provider Physician Assistant Medical
DX: G31.9 Degenerative disease of nervous system, unspecified (principal); R40.20 Unspecified coma; S09.90XS Unspecified injury of head, sequela; G44.309 Post-traumatic headache, unspecified, not intractable; R27.0 Ataxia, unspecified; M51.360 Other intervertebral disc degeneration, lumbar region with discogenic back pain only
CPT/HCPCS: 99214

== ENCOUNTER → 2025-01-04 12:42 | Outpatient (BNVA) | payer OTHER, SELFPAY | PROVIDERS: PCP Internal Medicine; Visit Provider Physician Assistant Medical | DX: G31.9 Degenerative disease of nervous system, unspecified (principal); R40.20 Unspecified coma; G44.309 Post-traumatic headache, unspecified, not intractable; S09.90XS Unspecified injury of head, sequela; Y04.2XXS Assault by strike against or bumped into by another person, sequela; R27.0 Ataxia, unspecified; M51.360 Other intervertebral disc degeneration, lumbar region with discogenic back pain only; Z59.02 Unsheltered homelessness | CPT/HCPCS: 99212 ==

== ENCOUNTER 2025-01-08 08:00 | Outpatient (AMB) | payer OTHER, SELFPAY ==
--- OUTSIDE RECORDS SUMMARY | 2025-01-08 08:04 | XMS_ITS | Patient Health Record ---
Author Organization [facility] Address [address] [place] [address] Care Team Providers Care Maths Tutor Name Role Phone Riley Flores MDh Primary Care Provider Timothy Myles Unavailable [phone] Allergies Allergen (clinical drug ingredient) Drug/Non Drug [...] Problem Status W/U Status Risk Notes Problem [id number] Encounter for screening for malignant neoplasm of colon (Z12.11) Active confirmed Problem 1807610 Melena (K92.1) Active confirmed Problem 559024711 Gastroesophageal reflux disease without esophagitis (K21.9) Active confirmed Problem 371776184729004 Preprocedural examination (Z01.818) Active confirmed Problem 318076145 Irregular bowel habits (R19.8) Active confirmed Problem 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) Active confirmed Problem 873694565 Non-intractable vomiting without nausea, unspecified vomiting type (R11.11) Active confirmed Plan Of Treatment Future Test Test Name Order Date UPPER GI ENDOSCOPY 12/18/2018 COLONOSCOPY 12/18/2018 COLONOSCOPY 02/01/2021 Insurance Providers Payer Name Payer Address Payer Phone Subscriber Number Group Number Insured Name Patient Relationship to Insured Coverage Start Date Coverage End Date [facility] [address] [address] [place], [place] [id number] SHANNON BARROS Self - patient is the insured [place] [address] [place] [address] [id number] SHANNON BARROS Self - patient is the insured Medical (General) History Medical History History ICD Code GERD-EGD in 2009 was normal--no hiatal h ernia Kidney stones--ESWL, cysto and stent noah cement--Dr. Leblanc Asthma Prostate problems Denies [place],DM,CVA,renal disease MIGRAINES HTN Hyperlipidemia Surgical History Surgery Date(Month/Year) Left elbow with hardware
[2025-01-08 08:05] VITALS: BP 102/74; PULSE 80; TEMP 36.7; O2SAT 97; BMI 24.4
--- NOTE | 2025-01-08 08:05 | AM.OFFWIN_ITS ---
Intake Vital Signs 01/08/25 08:05 Height 6 ft Weight 180 lb 2 oz BMI 24.4 BP 102/74 Blood Pressure Location Rt brachial Position Sitting Pulse 80 Pulse Source Pulse Oximeter Temp 98.1 F Temp Source Oral Pulse Oximetry (%) 97 Oxygen Delivery Method Room Air Intake Visit Reasons: EP Sinus congestion, sore throat Patient Tobacco Use Status: Never used Tobacco Allergies fenofibrate (Tricor) Allergy (Intermediate, Verified 01/08/25 08:08) Hives nut - unspecified (NUTS) Allergy (Intermediate, Verified 01/08/25 08:08) Hives seafood Allergy (Intermediate, Verified 01/08/25 08:08) Hives, Itchy fluocinolone acetonide Allergy (Unknown, Verified 01/08/25 08:08) Unknown lactose (LACTOSE) Adverse Reaction (Mild, Verified 01/08/25 08:08) Constipation Doxycycline Allergy (Intermediate, Uncoded 12/16/24 10:57) Nausea Do you need a note to return to daycare/school/sports/work: No HPI HPI Comments History of Present Illness Details History - The patient is a 54-year-old male pres enting with sinus infection and ear symptoms again. - Reports persistent sinus pressure affe cting sleep and ear itchiness with black debris. - Previously used Augmentin with symptom relief a few weeks ago and currently using Nasacort and daily allergy pill. - Denies shortness of breath, wheezing, fevers or cough. - Has had ENT appts that keep getting ca nceled, currently scheduled for February Physical Exam General: Cooperative, healthy appearing, comfortable and no acute distress Orientation/consciousness: Patient oriented x3 Limitations: No limitations Head: Normal to inspection Ears: Hearing grossly normal bilaterally, external ears normal and TM's normal bilaterally Nose: Normal external nose present, Normal nares present and No nasal discharge present Face and sinus: Normal facial exam and Frontal sinuses are tender Mouth: Normal oral and palatal mucosa present and moist mucous membranes Throat: Yes tonsils normal, Yes uvula midline. Posterior oropharynx erythema, no exudates Eyes: Appearance normal, both eyes and all related structures Neck: Normal visual inspection, full ROM Respiratory: Clear to auscultation bilaterally. Normal respiratory effort, able to speak in complete sentences, Actively coughing, no respiratory distress, not tachypneic, no tripod positioning and no use of accessory muscles Cardiovascular: Regular rate and rhythm. Normal S1 and S2 Skin: No rashes or lesions noted Neuro: Patient oriented x3 Extremities: Normal to inspection and Yes no clubbing, cyanosis or edema PFSH Medical History Cerebellar degeneration Nephrolithiasis Overweight (BMI 25.0-29.9) Ataxia Right otitis media Lumbar degenerative disc disease HTN (hypertension) Mixed hyperlipidemia Chronic constipation Asthma Cerebellar atrophy Abnormality of gait Nephrolithiasis Right flank pain Benign prostatic hyperplasia Allergic rhinitis Constipation Vitamin D deficiency Renal calculus, bilateral GERD without esophagitis Migraine Pure hypercholesterolemia Benign essential hypertension Orchalgia Surgical History History of cystoscopy History of esophagogastroduodenoscopy (EGD) History of lithotripsy History of extraction of renal calculus Hx of elbow surgery Family History Father Hypertension CAD (coronary artery disease) Diabetes Cancer Mother Hypertension Acute CVA (cerebrovascular accident) Paternal Grandfather Throat cancer Sister Lupus Epilepsy Social History Household Members Other:: Homeless Housing: Homeless Alcohol intake: never Patient Tobacco Use Status: Never used Tobacco e-Cigarette/Vaping Use: Never Used Second Hand Smoke Exposure: Yes service: No Current occupational status: disabled Current occupational exposures/hazards: No Cognitive needs: Yes Hearing needs: No Vision needs: No Review of Systems Const All systems reviewed & are unremarkable except as noted in HPI and below Physical Exam Vital Signs: Last Vital Signs Temp 98.1 F 01/08/25 08:05 Pulse 80 01/08/25 08:05 BP 102/74 01/08/25 08:05 Pulse Ox 97 01/08/25 08:05 Oxygen Delivery Method Room Air 01/08/25 08:05 BMI result Body Mass Index 24.4 Results AMB Rapid Strep AMB Rapid Strep Negative Last Edit by Toby Barth CMA on 01/08/25 08 :23 Assessment & Plan Assessment & Plan (1) Acute viral sinusitis: Code(s): J01.90 - Acute sinusitis, unspecified; B97.89 - Other viral agents as the cause of diseases classified elsewhere Plan: - Rapid strep negative - VSS, pt well appearing and PE remarkable for frontal sinus tenderness. - Initiate a Medrol dose pack for sinus pressure relief, with instructions to take all doses in the morning to avoid insomnia. - Recommend daily use of a Neti pot with distilled water to prevent sinus infections. - Follow up with ENT for further evaluation and management of ear symptoms. Patient was informed and verbally consented to the use of an ambient scribe for clinic note documentation during this visit Orders: Orders AMB Rapid Strep Screen Today Z13.9 - Encounter for screening, unspecified Medications: New methylprednisolone PO PER PKG DIR for 6 days 21 ea 0RF Coding Level of Care Code Est Pt Level 3 (91933) Diagnoses Acute viral sinusitis J01.90; B97.89
== END 2025-01-08 08:32 | disposition home or self-care (01) ==
PROVIDERS: PCP Internal Medicine; Visit Provider Physician Assistant
DX: J01.90 Acute sinusitis, unspecified (principal); B97.89 Other viral agents as the cause of diseases classified elsewhere; Z13.9 Encounter for screening, unspecified

== ENCOUNTER → 2025-01-08 08:00 | Outpatient (BNVA) | payer OTHER, SELFPAY | PROVIDERS: PCP Internal Medicine; Visit Provider Physician Assistant | DX: J01.90 Acute sinusitis, unspecified (principal); B97.89 Other viral agents as the cause of diseases classified elsewhere | CPT/HCPCS: 87880; 99212 ==

== ENCOUNTER 2025-01-14 15:58 | Outpatient (AMB) | payer OTHER, SELFPAY ==
--- OUTSIDE RECORDS SUMMARY | 2025-01-14 15:59 | XMS_ITS | Patient Health Record ---
Author Organization [facility] Address [address] [place] [address] Care Team Providers Care Certified Endoscopy Technician Name Role Phone Riley Flores MDh Primary Care Provider Timothy Myles Unavailable [phone] Allergies Allergen (clinical drug ingredient) Drug/Non Drug [...] Problem Status W/U Status Risk Notes Problem [id number] Encounter for screening for malignant neoplasm of colon (Z12.11) Active confirmed Problem 4202206 Melena (K92.1) Active confirmed Problem 915396964 Gastroesophageal reflux disease without esophagitis (K21.9) Active confirmed Problem [id number] Preprocedural examination (Z01.818) Active confirmed Problem 417411831 Irregular bowel habits (R19.8) Active confirmed Problem 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) Active confirmed Problem 177779599 Non-intractable vomiting without nausea, unspecified vomiting type (R11.11) Active confirmed Plan Of Treatment Future Test Test Name Order Date UPPER GI ENDOSCOPY 12/18/2018 COLONOSCOPY 12/18/2018 COLONOSCOPY 02/01/2021 Insurance Providers Payer Name Payer Address Payer Phone Subscriber Number Group Number Insured Name Patient Relationship to Insured Coverage Start Date Coverage End Date [facility] [address] [address] [place], [place] [id number] SHANNON BARROS Self - patient is the insured [place] [address] [place] [address] [id number] SHANNON BARROS Self - patient is the insured Medical (General) History Medical History History ICD Code GERD-EGD in 2009 was normal--no hiatal h ernia Kidney stones--ESWL, cysto and stent noah cement--Dr. Leblanc Asthma Prostate problems Denies [place],DM,CVA,renal disease MIGRAINES HTN Hyperlipidemia Surgical History Surgery Date(Month/Year) Left elbow with hardware
--- NOTE | 2025-01-14 16:00 | MHC.OFFWIV ---
Intake Vital Signs 01/14/25 16:01 Height 6 ft Weight 181 lb 6 oz BMI 24.6 BP 108/72 Blood Pressure Location Rt brachial Position Sitting Pulse 105 H Pulse Source Pulse Oximeter Temp 97.7 F Temp Source Oral Pulse Oximetry (%) 95 Oxygen Delivery Method Room Air Intake Visit Reasons: EP sinus pressure, RT ear ringing Intake Note: Patient presents with sinus pressure for a very longtime. right ear ringing times 1 week Patient Tobacco Use Status: Never used Tobacco Surgery Scheduler Required: No Allergies fenofibrate (Tricor) Allergy (Intermediate, Verified 01/14/25 16:11) Hives nut - unspecified (NUTS) Allergy (Intermediate, Verified 01/14/25 16:11) Hives seafood Allergy (Intermediate, Verified 01/14/25 16:11) Hives, Itchy fluocinolone acetonide Allergy (Unknown, Verified 01/14/25 16:11) Unknown lactose (LACTOSE) Adverse Reaction (Mild, Verified 01/14/25 16:11) Constipation Doxycycline Allergy (Intermediate, Uncoded 12/16/24 10:57) Nausea Do you need a note to return to daycare/school/sports/work: No HPI HPI Comments History of Present Illness Details 54 y/o Male patient who presents to the walk in clinic with c/o Chronic persistent Sinus pressure/congestion and Tinnitus right ear x 1 week. He was seen here at the walk in clinic 01/08 for similar concerns. He was prescribed Prednisone Taper with mild relief. He has an appointment with ENT in February. He is currently using Cetirizine/Pseudoephedrine and Flonase with minimal relief. [facility] Medical History (Updated 01/14/25 @ 16:40 by Nery Hanna NP) Tinnitus, right ear Cerebellar degeneration Nephrolithiasis Overweight (BMI 25.0-29.9) Ataxia Right otitis media Lumbar degenerative disc disease HTN (hypertension) Mixed hyperlipidemia Chronic constipation Asthma Cerebellar atrophy Abnormality of gait Nephrolithiasis Right flank pain Benign prostatic hyperplasia Allergic rhinitis Constipation Vitamin D deficiency Renal calculus, bilateral GERD without esophagitis Migraine Pure hypercholesterolemia Benign essential hypertension Orchalgia Surgical History History of cystoscopy History of esophagogastroduodenoscopy (EGD) History of lithotripsy History of extraction of renal calculus Hx of elbow surgery Family History Father Hypertension CAD (coronary artery disease) Diabetes Cancer Mother Hypertension Acute CVA (cerebrovascular accident) Paternal Grandfather Throat cancer Sister Lupus Epilepsy Social History Household Members Other:: Homeless Housing: Homeless Alcohol intake: never Patient Tobacco Use Status: Never used Tobacco e-Cigarette/Vaping Use: Never Used Second Hand Smoke Exposure: Yes service: No Current occupational status: disabled Current occupational exposures/hazards: No Cognitive needs: Yes Hearing needs: No Vision needs: No Review of Systems Const All systems reviewed & are unremarkable except as noted in HPI and below Physical Exam Vital Signs: Last Vital Signs Temp 97.7 F 01/14/25 16:01 Pulse 105 H 01/14/25 16:01 BP 108/72 01/14/25 16:01 Pulse Ox 95 01/14/25 16:01 Oxygen Delivery Method Room Air 01/14/25 16:01 BMI result Body Mass Index 24.6 Const General: no acute distress Nutritional Appearance: thin Orientation/consciousness: patient oriented x3 Limitations: ambulation with cane HEENT Head: Yes normocephalic Ears: external ears normal and TM abnormal bulging bilateral and with fluid behind the TM bilateral General nose exam: No nasal discharge present, Abnormal external nose present nasal deviation to the right and Abnormal mucous membranes and turbinates present erythematous Face and sinus: Yes sinuses nontender Mouth: moist mucous membranes Throat: Yes uvula midline Resp Effort & Inspection: normal respiratory effort Auscultation: clear to auscultation bilaterally Cardio Heart sounds: S1 normal heart sound present and S2 normal heart sound present Neuro General: patient oriented x3 Assessment & Plan Assessment & Plan (1) Tinnitus, right ear: Code(s): H93.11 - Tinnitus, right ear Plan: F/U with ENT (2) Chronic sinusitis: Code(s): J32.9 - Chronic sinusitis, unspecified Qualifiers: Sinusitis location: maxillary Qualified Code(s): J32.0 - Chronic maxillary sinusitis Plan: Continue with Current regiment F/U with ENT as scheduled. Coding Level of Care Code Est Pt Level 4 (49872) Diagnoses Tinnitus, right ear H93.11 Chronic maxillary sinusitis J32.0 Sinusitis location: maxillary Time Spent (min) 20
[2025-01-14 16:01] VITALS: BP 108/72; PULSE 105; TEMP 36.5; O2SAT 95; BMI 24.6
== END 2025-01-14 16:42 | disposition home or self-care (01) ==
PROVIDERS: PCP Internal Medicine; Visit Provider Nurse Practitioner Family
DX: H93.11 Tinnitus, right ear (principal); J32.0 Chronic maxillary sinusitis

== ENCOUNTER → 2025-01-14 15:58 | Outpatient (BNVA) | payer OTHER, SELFPAY | PROVIDERS: PCP Internal Medicine; Visit Provider Nurse Practitioner Family | DX: H93.11 Tinnitus, right ear (principal); J32.0 Chronic maxillary sinusitis | CPT/HCPCS: 99212 ==

== ENCOUNTER 2025-01-26 15:32 | Outpatient (AMB) | payer OTHER, SELFPAY ==
--- NOTE | 2025-01-26 15:56 | A.OFFPC_ITS ---
Vital Signs 01/26/25 15:57 Height 6 ft Weight 170 lb BMI 23.1 BP 124/86 Blood Pressure Location Lt brachial Position Sitting Pulse 86 Pulse Source Pulse Oximeter Pulse Oximetry (%) 96 Oxygen Delivery Method Room Air Intake Visit Reasons: both ears pain and ringing Composite Bond Technician Required: No Accompanied by: Self / Same As Patient Allergies fenofibrate (Tricor) Allergy (Intermediate, Verified 01/26/25 16:23) Hives nut - unspecified (NUTS) Allergy (Intermediate, Verified 01/26/25 16:23) Hives seafood Allergy (Intermediate, Verified 01/26/25 16:23) Hives, Itchy fluocinolone acetonide Allergy (Unknown, Verified 01/26/25 16:23) Unknown lactose (LACTOSE) Adverse Reaction (Mild, Verified 01/26/25 16:23) Constipation Doxycycline Allergy (Intermediate, Uncoded 01/26/25 16:23) Nausea Medication List - Last Reconciled 01/26/25 by Ignacio Flores MD acetaminophen ER 650 mg PO Q12H PRN allopurinol 100 mg PO DAILY 90 days amoxicillin-pot clavulanate 875-125 mg 1 tab PO Q12H ascorbate calcium (vitamin C) 1,000 mg PO DAILY blood pressure test kit-medium As directed budesonide-formoterol 80-4.5 mcg/actuation (Symbicort) 2 puffs inhalation Q12H cetirizine-pseudoephedrine 5-120 mg ER 1 tab PO BID 7 days cholecalciferol (vitamin D3) 25 mcg PO DAILY 90 days cyanocobalamin (vitamin B-12) 1,000 mcg PO DAILY 90 days docusate sodium 200 mg (2 x 100 mg) PO BEDTIME gemfibrozil 600 mg PO BID lansoprazole 30 mg PO DAILY lisinopril 10 mg PO DAILY magnesium oxide 400 mg PO DAILY memantine (Namenda XR) 7 mg PO DAILY 90 days MDD 7mg po methylprednisolone PO PER PKG DIR for 6 days naproxen 500 mg PO BID 14 days polyethylene glycol 3350 (Gavilax) 17 grams PO DAILY PRN [ROLLATOR As directed] tamsulosin 0.8 mg (2 x 0.4 mg) PO BEDTIME 90 days topiramate XR (Trokendi XR) 50 mg PO DAILY 30 days MDD 50mg triamcinolone acetonide (Nasacort) 2 sprays intranasal DAILY PRN 3 months [walker As directed] Tobacco use date assessed: 01/26/25 Dental Screening Dental Screen Date: 01/26/25 Did you have a dental visit in the last 12 months?: No Did you have a dental problem in the last 6 months where you did not have access to dental care?: No Was dental information given to patient?: No HPI both ears pain and ringing HPI Details Patient comes in today complaining of persistent ringing in both ears that he states has been going on for over a month now and he feels that this has been getting worse lately Notes that he also still has frequent nasal and sinus congestion, with thick yellowish nasal discharge He denies any fever or sore throat; denies any headaches or dizziness He has been referred to ENT previously for his symptoms but he has not been seen by ENT in [place] yet States that he was originally scheduled to be seen in February 2025 but his appointment was rescheduled to 04/27/2025 Patient denies any chest pains, no SOB No nausea/vomiting, no abdominal pain No change in bowel habits noted [facility] Medical History (Updated 01/26/25 @ 16:27 by Ignacio Flores MD) Tinnitus, right ear Cerebellar degeneration Nephrolithiasis Overweight (BMI 25.0-29.9) Ataxia Right otitis media Lumbar degenerative disc disease HTN (hypertension) Mixed hyperlipidemia Chronic constipation Asthma Cerebellar atrophy Abnormality of gait Nephrolithiasis Right flank pain Benign prostatic hyperplasia Allergic rhinitis Constipation Vitamin D deficiency Renal calculus, bilateral GERD without esophagitis Migraine Pure hypercholesterolemia Benign essential hypertension Orchalgia Surgical History History of cystoscopy History of esophagogastroduodenoscopy (EGD) History of lithotripsy History of extraction of renal calculus Hx of elbow surgery Family History Father Hypertension CAD (coronary artery disease) Diabetes Cancer Mother Hypertension Acute CVA (cerebrovascular accident) Paternal Grandfather Throat cancer Sister Lupus Epilepsy Social History Household Members Other:: Homeless Housing: Homeless Alcohol intake: never Patient Tobacco Use Status: Never used Tobacco e-Cigarette/Vaping Use: Never Used Second Hand Smoke Exposure: Yes service: No Current occupational status: disabled Current occupational exposures/hazards: No Cognitive needs: Yes Hearing needs: No Vision needs: No Questionnaire PHQ-9 Over the last 2 weeks, how often have you been bothered by any of the following problems? 1. Little interest or pleasure in doing things: not at all 2. Feeling down, depressed, or hopeless: not at all 3. Trouble falling or staying asleep, or sleeping too much: not at all 4. Feeling tired or having little energy: not at all 5. Poor appetite or overeating: not at all 6. Feeling bad about yourself - or that you are a failure or have let yourself or your family down: not at all 7. Trouble concentrating on things, such as reading the newspaper or watching television: not at all 8. Moving or speaking so slowly that other people could have noticed. Or the opposite - being so fidgety or restless that you have been moving around a lot more than usual: not at all 9. Thoughts that you would be better off or of hurting yourself in some way: not at all Total score: 0 Depression Screening Interpretation: Negative Depression Screening Done: Yes 10986 - PHQ-9 Billing: Yes Source: Developed by Drs. Timothy Callahan, Susan Garcia, Jose Cruz Lloyd and colleagues, with an educational jim from [employer]. Thrive Questionnaire Date Thrive assessed: 01/26/25 I am a: Patient What is your living situation today?: I do not have a steady places to live Within the past 12 months, did the food you bought not last and you didn't have the money to get more?: I choose not to answer this question Within the past 12 months, did you worry whether your food would run out before you got money to buy more?: I choose not to answer this question Do you have trouble paying for medicines?: I choose not to answer this question Do you have trouble getting transportation to medical appointments?: I choose not to answer this question Do you have trouble paying your heating and electricity bill?: I choose not to answer this question Do you have trouble taking care of your child, family member or friend?: I choose not to answer this question Do you have trouble with day-to-day activities such as bathing, preparing meals, shopping, managing finances, etc.?: I choose not to answer this question Are you currently unemployed and looking for a job?: I choose not to answer this question Are you interested in more education?: I choose not to answer this question Please select the resources that you would like help with: None Currently or been in a relationship where the following occur: I choose not to answer THRIVE Score: 1 AUDIT C Alcohol Use Questionnaire (AUDIT-C) 1. How often do you have a drink containing alcohol?: Never 3. How often do you have six or more drinks on one occasion?: Never Total Score: 0 Score Reviewed/Action Taken: Yes JONATHAN-7 AMB Questionnaire JONATHAN-7 Date JONATHAN - 7 assessed: 01/26/25 Feeling nervous, anxious, or on edge: 0 = Not at all Not being able to stop or control worryin = Not at all Worrying too much about different things: 0 = Not at all Trouble relaxin = Not at all Being so restless that it is hard to sit still: 0 = Not at all Becoming easily annoyed or irritable: 0 = Not at all Feeling afraid as if something awful might happen: 0 = Not at all Total JONATHAN-7 score (0-4 normal; 5-9 mild; 10-14 moderate; 15-21 severe): 0 Source: Developed by Drs. Timothy Callahan, Susan Garcia, Jose Cruz Lloyd and colleagues, with an educational jim from [employer]. Review of Systems Const Denies chills, Denies fatigue, Denies fever(s) and Denies headache(s) ENT Reports dysphagia (at times), Denies dizziness, Denies otalgia, Denies headache(s), Reports nasal congestion (chronic), Reports nasal discharge (thick, yellowish), Denies neck pain, Denies odynophagia, Reports tinnitus (in both ears - feels this is getting worse) and Denies sore throat Card Denies chest pain, Denies palpitations and Denies dyspnea Resp Denies chest congestion, Denies cough and Denies dyspnea GI Denies abdominal pain, Denies constipation, Reports dysphagia (at times), Denies heartburn, Denies diarrhea, Denies nausea, Denies odynophagia and Denies vomiting Denies difficulty urinating, Denies dysuria, Denies nocturia and Denies urinary frequency Musc Reports abnormal gait (unsteady), Reports arthralgias (increased over the right hip and left knee) and Denies neck pain Skin/Breast Denies rash Neuro Reports Abnormal speech present (has slurred and slow speech (chronic) due to cerebellar degeneration), Reports abnormal gait (unsteady), Denies dizziness and Denies headache(s) Endo Denies fatigue and Denies palpitations Physical exam (Primary Care) Vital Signs: Last Vital Signs Pulse 86 01/26/25 15:57 BP 124/86 01/26/25 15:57 Pulse Ox 96 01/26/25 15:57 Oxygen Delivery Method Room Air 01/26/25 15:57 BMI result Body Mass Index 23.1 Tobacco/Smoking Status: Tobacco use Status Tobacco use date assessed 01/26/25 01/26/25 16:03 Patient Tobacco Use Status Never used Tobacco 01/26/25 16:03 e-Cigarette/Vaping Use Never Used 01/26/25 16:03 PHQ-9: PHQ-9 Score PHQ-9: Total score 0 01/26/25 16:23 Depression Screening Interpretation: Negative Thrive Assessment: Date of Thrive Assessment Date Thrive assessed 01/26/25 01/26/25 16:03 Currently or been in a relationship where the following occur: I choose not to answer Const General: no acute distress and alert HENMT Ears: TM's normal bilaterally and EAC's normal Throat: Yes posterior oropharynx normal and Yes tonsils normal (no TP congestion) Neck Neck: Yes supple and No lymphadenopathy Thyroid: Thyroid normal Resp Auscultation: clear to auscultation bilaterally, no rales and no wheezes Cardio Rate: regular rate Rhythm: regular rhythm Heart sounds: no murmurs GI Palpation (GI): Soft to palpation and nontender Auscultation: normal bowel sounds General: Yes no CVA tenderness Back/Spine/Pelvis Back: no CVA tenderness Thoracic/Lumbar Spine: No lumbar spinal tenderness Skin Rashes: no rashes Neuro Cognition (Neuro): normal cognition Speech: Abnormal speech present (has slurred and slow speech (chronic) due to cerebellar degeneration) Gait exam (Neuro): Wide-based gait present (unsteady gait due to cerebellar degeneration) Extrem General: Yes no clubbing, cyanosis or edema Coding Level of Care Code Est Pt Level 3 (79914) Diagnoses Tinnitus, bilateral H93.13 Additional Codes PHQ-9 - 92499 - PHQ-9 Billing: Yes ([id number]) Assessment & Plan Assessment & Plan (1) Tinnitus, bilateral: Code(s): H93.13 - Tinnitus, bilateral Category: Medical Plan: Have discussed with patient that tinnitus is often a symptom of hearing loss He is currently scheduled to be seen by ENT in April 2025 for his chronic nasal/sinus congestion and is advised that he should also bring this up with ENT when he is seen In the meantime, [facility] Plan Follow up as scheduled next month Orders: Referrals Speech and Hearing Referral H91.90 - Unspecified hearing loss, unspecified ear, H93.13 - Tinnitus, bilateral
[2025-01-26 15:57] VITALS: BP 124/86; PULSE 86; O2SAT 96; BMI 23.1
--- OUTSIDE RECORDS SUMMARY | 2025-01-26 16:33 | XMS_ITS | Patient Health Record ---
Author Organization [facility] Address [address] [place] [address] Care Team Providers Care Flexo Press Operator Name Role Phone Riley Flores MDh Primary Care Provider Timothy Myles Unavailable [phone] Allergies Allergen (clinical drug ingredient) Drug/Non Drug [...] Problem Status W/U Status Risk Notes Problem 773617954 Encounter for screening for malignant neoplasm of colon (Z12.11) Active confirmed Problem 9474411 Melena (K92.1) Active confirmed Problem 191451409 Gastroesophageal reflux disease without esophagitis (K21.9) Active confirmed Problem 959624838467918 Preprocedural examination (Z01.818) Active confirmed Problem 661673091 Irregular bowel habits (R19.8) Active confirmed Problem 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) Active confirmed Problem 600609478 Non-intractable vomiting without nausea, unspecified vomiting type (R11.11) Active confirmed Plan Of Treatment Future Test Test Name Order Date UPPER GI ENDOSCOPY 12/18/2018 COLONOSCOPY 12/18/2018 COLONOSCOPY 02/01/2021 Insurance Providers Payer Name Payer Address Payer Phone Subscriber Number Group Number Insured Name Patient Relationship to Insured Coverage Start Date Coverage End Date [facility] [address] [address] [place], [place] [id number] SHANNON BARROS Self - patient is the insured [place] [address] [place] [address] [id number] SHANNON BARROS Self - patient is the insured Medical (General) History Medical History History ICD Code GERD-EGD in 2009 was normal--no hiatal h ernia Kidney stones--ESWL, cysto and stent noah cement--Dr. Leblanc Asthma Prostate problems Denies MS,DM,CVA,renal disease MIGRAINES HTN Hyperlipidemia Surgical History Surgery Date(Month/Year) Left elbow with hardware
== END 2025-01-26 16:38 | disposition home or self-care (01) ==
LOC: HO.HMCH 15:33
PROVIDERS: PCP Internal Medicine; Visit Provider Internal Medicine
DX: H93.13 Tinnitus, bilateral (principal)

== ENCOUNTER → 2025-01-26 15:32 | Outpatient (BNVA) | payer OTHER, SELFPAY | PROVIDERS: PCP Internal Medicine; Visit Provider Internal Medicine | DX: H93.13 Tinnitus, bilateral (principal) | CPT/HCPCS: 96127; 99212 ==

== ENCOUNTER 2025-02-05 13:16 | Outpatient (REF) | payer OTHER, SELFPAY ==
--- OUTSIDE RECORDS SUMMARY | 2025-02-05 13:19 | XMS_ITS | Patient Health Record ---
Author Organization [facility] Address [address] [place] [address] Care Team Providers Care Outdoor Guide Name Role Phone Riley Flores MDh Primary Care Provider Timothy Myles Unavailable [phone] Allergies Allergen (clinical drug ingredient) Drug/Non Drug [...] Problem Status W/U Status Risk Notes Problem 281961047 Encounter for screening for malignant neoplasm of colon (Z12.11) Active confirmed Problem 5066000 Melena (K92.1) Active confirmed Problem 164871868 Gastroesophageal reflux disease without esophagitis (K21.9) Active confirmed Problem 560171480713198 Preprocedural examination (Z01.818) Active confirmed Problem 779398571 Irregular bowel habits (R19.8) Active confirmed Problem 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) Active confirmed Problem 162163353 Non-intractable vomiting without nausea, unspecified vomiting type (R11.11) Active confirmed Plan Of Treatment Future Test Test Name Order Date UPPER GI ENDOSCOPY 12/18/2018 COLONOSCOPY 12/18/2018 COLONOSCOPY 02/01/2021 Insurance Providers Payer Name Payer Address Payer Phone Subscriber Number Group Number Insured Name Patient Relationship to Insured Coverage Start Date Coverage End Date [facility] [address] [address] [place], [place] [id number] SHANNON BARROS Self - patient is the insured [place] [address] [place] [address] [id number] SHANNON BARROS Self - patient is the insured Medical (General) History Medical History History ICD Code GERD-EGD in 2009 was normal--no hiatal h ernia Kidney stones--ESWL, cysto and stent noah cement--Dr. Leblanc Asthma Prostate problems Denies [place],DM,CVA,renal disease MIGRAINES HTN Hyperlipidemia Surgical History Surgery Date(Month/Year) Left elbow with hardware
== END 2025-02-05 13:17 | disposition home or self-care (01) ==
LOC: HO.LAB 13:16
PROVIDERS: Absent Provider Urology; PCP Internal Medicine
DX: Z13.89 Encounter for screening for other disorder (principal)

== ENCOUNTER 2025-02-19 09:00 | Outpatient (REF) | payer OTHER, SELFPAY ==
--- OUTSIDE RECORDS SUMMARY | 2025-02-19 09:12 | XMS_ITS | Patient Health Record ---
Author Organization [facility] Address [address] [place] [address] Care Team Providers Care Ruby On Rails Software Developer Name Role Phone Riley Flores MDh Primary Care Provider Timothy Myles Unavailable [phone] Allergies Allergen (clinical drug ingredient) Drug/Non Drug [...] Problem Status W/U Status Risk Notes Problem 101944432 Encounter for screening for malignant neoplasm of colon (Z12.11) Active confirmed Problem 4189846 Melena (K92.1) Active confirmed Problem 965515326 Gastroesophageal reflux disease without esophagitis (K21.9) Active confirmed Problem 901306778597642 Preprocedural examination (Z01.818) Active confirmed Problem 830103872 Irregular bowel habits (R19.8) Active confirmed Problem 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) Active confirmed Problem 297882793 Non-intractable vomiting without nausea, unspecified vomiting type (R11.11) Active confirmed Plan Of Treatment Future Test Test Name Order Date UPPER GI ENDOSCOPY 12/18/2018 COLONOSCOPY 12/18/2018 COLONOSCOPY 02/01/2021 Insurance Providers Payer Name Payer Address Payer Phone Subscriber Number Group Number Insured Name Patient Relationship to Insured Coverage Start Date Coverage End Date [facility] [address] [place] [address], [place] [id number] SHANNON BARROS Self - patient is the insured [place] [address] [place] [address] [id number] SHANNON BARROS Self - patient is the insured Medical (General) History Medical History History ICD Code GERD-EGD in 2009 was normal--no hiatal h ernia Kidney stones--ESWL, cysto and stent noah cement--Dr. Leblanc Asthma Prostate problems Denies [place],DM,CVA,renal disease MIGRAINES HTN Hyperlipidemia Surgical History Surgery Date(Month/Year) Left elbow with hardware
[2025-02-19 09:37] LABS: MANUAL DIFF FLAG NO
[2025-02-19 09:42] LABS: Hematocrit 43.2 % (42.0-52.0); Hemoglobin 15.5 g/dl (14.0-18.0); Imm Gran Abs Auto 0.01 X10*3/uL (0.00-0.03); Imm Gran Pct Auto 0.2 % (0.0-0.4); Lymphocytes Absolute Auto 2.4 X10*3/uL (1.2-4.9); Mean Corpuscular HGB Conc 35.9 g/dl (31.0-36.0); Mean Corpuscular Hemoglobin 31.9 pg (27.0-33.0); Mean Corpuscular Volume 88.9 fL (80.0-98.0); NRBC Abs Auto 0.000 X10*3/uL (0.0-0.012); NRBC Pct Auto 0.0 /100WBC (0.0-0.2); Platelet Count 286 X10*3/uL (160-400); Red Blood Count 4.86 X10*6/uL (4.60-5.80); White Blood Count 6.3 X10*3/uL (4.8-10.8)
[2025-02-19 09:53] LABS: Appearance Urine Clear; Glucose Urine UA Negative (Negative); PH 5.5 (5.0-9.0); Specific Gravity - Urine 1.020 (1.005-1.025); UMIC TRIGGER UACC YES
[2025-02-19 10:26] LABS: Alanine Aminotransferase 25 U/L (0-40); Albumin Level 4.5 g/dL (3.5-5.0); Alkaline Phosphatase 71 U/L (39-117); Anion Gap 15 (12-20); Aspartate Amino Transferase 21 U/L (5-37); Blood Urea Nitrogen 21 mg/dL (9-16); Calcium 9.3 mg/dL (8.4-10.2); Carbon Dioxide 24 mmol/L (22-29); Chloride 105 mmol/L (96-108); Cholesterol 192 mg/dL (<200); Estimated Glomerular Filt Rate > 60; HDL Cholesterol 37 mg/dL (>40); Potassium 4.1 mmol/L (3.3-5.1); Sodium 140 mmol/L (135-145); Total Protein 7.5 g/dL (6.5-8.0); Triglycerides 175 mg/dL (<150)
[2025-02-19 11:03] LABS: Folate 7.8 ng/mL (> or = 4.0); Vitamin B12 > 2000 pg/mL (200-900)
[2025-02-19 11:18] LABS: Uric Acid 5.1 mg/dL (3.4-7.0)
== END 2025-02-19 09:01 | disposition home or self-care (01) ==
LOC: HO.LAB 09:00
PROVIDERS: PCP Internal Medicine; Visit Provider Internal Medicine
DX: E53.8 Deficiency of other specified B group vitamins (principal); D64.9 Anemia, unspecified; E78.00 Pure hypercholesterolemia, unspecified; M10.9 Gout, unspecified; E55.9 Vitamin D deficiency, unspecified
CPT/HCPCS: 36415; 80053; 80061; 81001; 82306; 82607; 82746; 84443; 84550; 85025

== ENCOUNTER 2025-02-26 13:19 | Outpatient (AMB) | payer OTHER, SELFPAY ==
--- OUTSIDE RECORDS SUMMARY | 2025-02-26 13:22 | XMS_ITS | Patient Health Record ---
Author Organization [facility] Address [address] [place] [address] Care Team Providers Care Senior Loss Control Specialist Name Role Phone Riley Flores MDh Primary Care Provider Timothy Myles Unavailable [phone] Allergies Allergen (clinical drug ingredient) Drug/Non Drug [...] Problem Status W/U Status Risk Notes Problem 339724947 Encounter for screening for malignant neoplasm of colon (Z12.11) Active confirmed Problem 7347154 Melena (K92.1) Active confirmed Problem 642859734 Gastroesophageal reflux disease without esophagitis (K21.9) Active confirmed Problem 610663556844260 Preprocedural examination (Z01.818) Active confirmed Problem 400866016 Irregular bowel habits (R19.8) Active confirmed Problem 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) Active confirmed Problem 398844114 Non-intractable vomiting without nausea, unspecified vomiting type (R11.11) Active confirmed Plan Of Treatment Future Test Test Name Order Date UPPER GI ENDOSCOPY 12/18/2018 COLONOSCOPY 12/18/2018 COLONOSCOPY 02/01/2021 Insurance Providers Payer Name Payer Address Payer Phone Subscriber Number Group Number Insured Name Patient Relationship to Insured Coverage Start Date Coverage End Date [facility] [address] [address] [place], [place] [id number] SHANNON BARROS Self - patient is the insured [place] [address] [place] [address] [id number] SHANNON BARROS Self - patient is the insured Medical (General) History Medical History History ICD Code GERD-EGD in 2009 was normal--no hiatal h ernia Kidney stones--ESWL, cysto and stent noah cement--Dr. Leblanc Asthma Prostate problems Denies [place],DM,CVA,renal disease MIGRAINES HTN Hyperlipidemia Surgical History Surgery Date(Month/Year) Left elbow with hardware
[2025-02-26 13:31] VITALS: BP 90/60; PULSE 98; RESP 18; TEMP 36.3; O2SAT 99; BMI 24.1
--- NOTE | 2025-02-26 13:31 | MHC.PC.OV ---
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 Accompanied by: Self / Same As Patient Allergies fenofibrate (Tricor) Allergy (Intermediate, Verified 02/26/25 13:32) Hives nut - unspecified (NUTS) Allergy (Intermediate, Verified 02/26/25 13:32) Hives seafood Allergy (Intermediate, Verified 02/26/25 13:32) Hives, Itchy fluocinolone acetonide Allergy (Unknown, Verified 02/26/25 13:32) Unknown lactose (LACTOSE) Adverse Reaction (Mild, Verified 02/26/25 13:32) Constipation Doxycycline Allergy (Intermediate, Uncoded 02/26/25 13:57) Nausea Medication List - Last Reconciled 02/26/25 by NICOLE Montoya acetaminophen ER 650 mg PO Q12H PRN allopurinol 100 mg PO DAILY 90 days amoxicillin-pot clavulanate 875-125 mg 1 tab PO Q12H ascorbate calcium (vitamin C) 1,000 mg PO DAILY blood pressure test kit-medium As directed budesonide-formoterol 80-4.5 mcg/actuation (Symbicort) 2 puffs inhalation Q12H cetirizine-pseudoephedrine 5-120 mg ER 1 tab PO BID 7 days cholecalciferol (vitamin D3) 25 mcg PO DAILY 90 days cyanocobalamin (vitamin B-12) 1,000 mcg PO DAILY 90 days docusate sodium 200 mg (2 x 100 mg) PO BEDTIME gemfibrozil 600 mg PO BID lansoprazole 30 mg PO DAILY lisinopril 10 mg PO DAILY magnesium oxide 400 mg PO DAILY 3 months MDD 1 tab memantine (Namenda XR) 7 mg PO DAILY 90 days MDD 7mg po methylprednisolone PO PER PKG DIR for 6 days naproxen 500 mg PO BID 14 days polyethylene glycol 3350 (Gavilax) 17 grams PO DAILY PRN potassium citrate ER 20 mEq (2 x 10 mEq (1,080 mg)) PO BID 90 days [ROLLATOR As directed] tamsulosin 0.8 mg (2 x 0.4 mg) PO BEDTIME 90 days topiramate XR (Trokendi XR) 50 mg PO DAILY 30 days MDD 50mg triamcinolone acetonide (Nasacort) 2 sprays intranasal DAILY PRN 3 months [walker As directed] Tobacco use date assessed: 02/26/25 Dental Screening Dental Screen Date: 02/26/25 Did you have a dental visit in the last 12 months?: No Did you have a dental problem in the last 6 months where you did not have access to dental care?: No Was dental information given to patient?: No HPI chronic sinusitis/asthma HPI Details The patient is a 54-year-old male presenting with symptoms of chronic sinusitis. He reports experiencing pressure in the sinus area, which has been ongoing for a long time, but this new episode started a month ago. Pressing on the sinus area temporarily improves his sense of smell. The patient also reports postnasal drip, describing it as a sensation of milk coming down the throat without productive cough. This symptom has been present for about a month. He has attempted self-treatment with atke-mma-qcmiksl medications such as Robitussin, which did not alleviate the symptoms. Flonase nasal spray has been used and found helpful, especially when experiencing nasal congestion. The patient denies shortness of breath, chest pain, heart palpitation or dizziness Denies body ache, sore throat or earache. Denies fevers or chills [facility] Medical History Tinnitus, right ear Cerebellar degeneration Nephrolithiasis Overweight (BMI 25.0-29.9) Ataxia Right otitis media Lumbar degenerative disc disease HTN (hypertension) Mixed hyperlipidemia Chronic constipation Asthma Cerebellar atrophy Abnormality of gait Nephrolithiasis Right flank pain Benign prostatic hyperplasia Allergic rhinitis Constipation Vitamin D deficiency Renal calculus, bilateral GERD without esophagitis Migraine Pure hypercholesterolemia Benign essential hypertension Orchalgia Surgical History History of cystoscopy History of esophagogastroduodenoscopy (EGD) History of lithotripsy History of extraction of renal calculus Hx of elbow surgery Family History Father Hypertension CAD (coronary artery disease) Diabetes Cancer Mother Hypertension Acute CVA (cerebrovascular accident) Paternal Grandfather Throat cancer Sister Lupus Epilepsy Social History Household Members Other:: Homeless Housing: Homeless Alcohol intake: never Patient Tobacco Use Status: Never used Tobacco e-Cigarette/Vaping Use: Never Used Second Hand Smoke Exposure: Yes service: No Current occupational status: disabled Current occupational exposures/hazards: No Cognitive needs: Yes Hearing needs: No Vision needs: No Questionnaire PHQ-9 Over the last 2 weeks, how often have you been bothered by any of the following problems? 1. Little interest or pleasure in doing things: not at all 2. Feeling down, depressed, or hopeless: not at all 3. Trouble falling or staying asleep, or sleeping too much: not at all 4. Feeling tired or having little energy: not at all 5. Poor appetite or overeating: not at all 6. Feeling bad about yourself - or that you are a failure or have let yourself or your family down: not at all 7. Trouble concentrating on things, such as reading the newspaper or watching television: not at all 8. Moving or speaking so slowly that other people could have noticed. Or the opposite - being so fidgety or restless that you have been moving around a lot more than usual: not at all 9. Thoughts that you would be better off or of hurting yourself in some way: not at all Total score: 0 Depression Screening Interpretation: Negative Depression Screening Done: Yes Source: Developed by Drs. Timothy Callahan, Susan Garcia, Jose Cruz Lloyd and colleagues, with an educational jim from [employer]. Thrive Questionnaire Date Thrive assessed: 02/26/25 AUDIT C Alcohol Use Questionnaire (AUDIT-C) 1. How often do you have a drink containing alcohol?: Never 3. How often do you have six or more drinks on one occasion?: Never Total Score: 0 Score Reviewed/Action Taken: Yes JONATHAN-7 AMB Questionnaire JONATHAN-7 Date JONATHAN - 7 assessed: 02/26/25 Feeling nervous, anxious, or on edge: 0 = Not at all Not being able to stop or control worryin = Not at all Worrying too much about different things: 0 = Not at all Trouble relaxin = Not at all Being so restless that it is hard to sit still: 0 = Not at all Becoming easily annoyed or irritable: 0 = Not at all Feeling afraid as if something awful might happen: 0 = Not at all Total JONATHAN-7 score (0-4 normal; 5-9 mild; 10-14 moderate; 15-21 severe): 0 Source: Developed by Drs. Timothy Callahan, Susan Garcia, Jose Cruz Lloyd and colleagues, with an educational jim from [employer]. Review of Systems Const Denies body aches, Denies chills, Denies fever(s), Denies headache(s) and Denies poor appetite Eyes Reports no additional complaints ENT Denies dysphagia, Denies dizziness, Denies headache(s), Reports nasal congestion, Reports nasal discharge, Denies odynophagia, Reports post nasal drip and Reports sinus pressure Card Denies chest pain, Denies syncope, Denies edema, Denies irregular heart rhythm, Denies lightheadedness and Denies dyspnea Resp Reports cough and Denies dyspnea GI Denies abdominal pain, Denies constipation, Denies dysphagia, Denies diarrhea, Denies nausea, Denies odynophagia and Denies vomiting Reports no additional complaints Musc Reports no additional complaints and Denies abnormal gait Skin/Breast Reports system reviewed and no additional complaints, except as documented Neuro Denies abnormal gait, Denies dizziness, Denies syncope and Denies headache(s) Psych Reports no additional complaints Physical exam (Primary Care) Vital Signs: Last Vital Signs Temp 97.3 F 02/26/25 13:31 Pulse 98 02/26/25 13:31 Resp 18 02/26/25 13:31 BP 90/60 02/26/25 13:31 Pulse Ox 99 02/26/25 13:31 Oxygen Delivery Method Room Air 02/26/25 13:31 BMI result Body Mass Index 24.1 Tobacco/Smoking Status: Tobacco use Status Tobacco use date assessed 02/26/25 02/26/25 13:40 Patient Tobacco Use Status Never used Tobacco 02/26/25 13:40 e-Cigarette/Vaping Use Never Used 02/26/25 13:40 PHQ-9: PHQ-9 Score PHQ-9: Total score 0 02/26/25 14:03 Depression Screening Interpretation: Negative Thrive Assessment: Date of Thrive Assessment Date Thrive assessed 02/26/25 02/26/25 13:40 Const General: cooperative, healthy appearing, comfortable and no acute distress Orientation/consciousness: patient oriented x3 HENMT Head: Yes normocephalic Ears: TM's normal bilaterally General nose exam: Abnormal mucous membranes and turbinates present boggy bilateral and erythematous bilateral and Nasal discharge present purulent on the right Face and sinus: Yes sinus tenderness Throat: Yes posterior oropharynx abnormal and Yes postnasal drainage Eyes General: appearance normal, both eyes and all related structures Conjunctivae: conjunctivae normal Neck Neck: Yes full ROM and Yes no lymphadenopathy Resp Effort & Inspection: normal respiratory effort Auscultation: clear to auscultation bilaterally, no crackles, no rales, no rhonchi and no wheezes Cardio Rate: regular rate Rhythm: regular rhythm Skin General skin exam: no rashes or lesions noted Neuro General: patient oriented x3 Gait exam (Neuro): Normal gait present Extrem General: Yes normal to inspection, Yes full ROM and No edema Psych Affect: normal affect Attitude: cooperative Insight: Good insight present (Psych) Judgement: Good judgement present (Psych) Coding Level of Care Code Est Pt Level 3 (36107) Diagnoses Chronic frontal sinusitis J32.1 Sinusitis location: frontal Chronicity: chronic Allergic rhinitis, unspecified seasonality, unspecified trigger J30.9 Allergic rhinitis trigger: unspecified Allergic rhinitis seasonality: unspecified Chronic maxillary sinusitis J32.0 Sinusitis location: maxillary Rhinosinusitis J32.9 Time Spent (min) 34 Assessment & Plan Assessment & Plan (1) Sinus infection: Code(s): J32.9 - Chronic sinusitis, unspecified Category: Medical Qualifiers: Sinusitis location: frontal Chronicity: chronic Qualified Code(s): J32.1 - Chronic frontal sinusitis (2) Allergic rhinitis: Code(s): J30.9 - Allergic rhinitis, unspecified Category: Medical Qualifiers: Allergic rhinitis trigger: unspecified Allergic rhinitis seasonality: unspecified Qualified Code(s): J30.9 - Allergic rhinitis, unspecified (3) Chronic sinusitis: Code(s): J32.9 - Chronic sinusitis, unspecified Category: Medical Qualifiers: Sinusitis location: maxillary Qualified Code(s): J32.0 - Chronic maxillary sinusitis (4) Rhinosinusitis: Code(s): J32.9 - Chronic sinusitis, unspecified Category: Medical Plan The patient was prescribed a tapering dose of prednisone, starting with 40 mg daily for two days, then decreasing by 10 mg every two days until completion. Additionally, the patient was prescribed Augmentin to be taken twice daily for seven days to address the sinusitis. The patient was advised to continue using Flonase nasal spray as needed for symptom relief. Patient was informed and verbally consented to the use of an ambient scribe for clinic note documentation during this visit. Medications: New prednisone see taper instructions take 4 tabs x2 days, then 3 tabs x 2 days, then 2 tabs x 2 days, then 1 tab x 2 days=20 tabs for 8 days 10 mg PO DIRECTED 20 tabs 0RF Changed From amoxicillin-pot clavulanate 875-125 mg 1 tab PO Q12H 10 tabs 0RF To amoxicillin-pot clavulanate 875-125 mg 1 tab PO Q12H 14 tabs 0RF 7 days Refilled amoxicillin-pot clavulanate 875-125 mg 1 tab PO Q12H 10 tabs 0RF
== END 2025-02-26 14:13 | disposition home or self-care (01) ==
LOC: HO.HMCH 13:20
PROVIDERS: PCP Internal Medicine
DX: J32.1 Chronic frontal sinusitis (principal); J30.9 Allergic rhinitis, unspecified; J32.0 Chronic maxillary sinusitis; J32.9 Chronic sinusitis, unspecified

== ENCOUNTER → 2025-02-26 13:19 | Outpatient (BNVA) | payer OTHER, SELFPAY | PROVIDERS: PCP Internal Medicine | DX: J32.1 Chronic frontal sinusitis (principal); J30.9 Allergic rhinitis, unspecified; J32.0 Chronic maxillary sinusitis | CPT/HCPCS: 99212 ==

== ENCOUNTER 2025-03-04 11:55 | Outpatient (REF) | payer OTHER, SELFPAY ==
--- NOTE | ~2025-03-04 | US_ITS ---
CLINICAL HISTORY: N20.0 - Calculus of kidney US Renal Comparison: None provided Findings: Right kidney normal size and echotexture, 9.6 cm length. Left kidney normal size and echotexture, 10.5 cm length. There are bilateral renal parenchymal calculi. No collecting system dilatation of either kidney. Normal color Doppler. IMPRESSION: 1. Bilateral renal parenchymal calculi. This document has been electronically signed by: Theodore Mehta MD on 03/05/2025 08:38:45
== END 2025-03-04 11:56 | disposition home or self-care (01) ==
LOC: HO.US 11:55
PROVIDERS: PCP Internal Medicine; Visit Provider Urology
DX: N20.0 Calculus of kidney (principal)
CPT/HCPCS: 76775

== ENCOUNTER → 2025-03-04 11:59 | Outpatient (BNV) | payer OTHER, SELFPAY | PROVIDERS: PCP Internal Medicine; Visit Provider Specialist | DX: N20.0 Calculus of kidney (principal) | CPT/HCPCS: 76775 ==

== ENCOUNTER 2025-03-22 08:20 | Outpatient (REF) | payer OTHER, SELFPAY ==
--- OUTSIDE RECORDS SUMMARY | 2025-03-22 09:16 | XMS_ITS | Patient Health Record ---
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 Name Role Phone Riley Flores MDh Primary Care Provider Timothy Myles Unavailable [phone] Allergies Allergen (clinical drug ingredient) Drug/Non Drug [...] Problem Status W/U Status Risk Notes Problem 677071052 Encounter for screening for malignant neoplasm of colon (Z12.11) Active confirmed Problem 1580306 Melena (K92.1) Active confirmed Problem 004149203 Gastroesophageal reflux disease without esophagitis (K21.9) Active confirmed Problem 416908608454877 Preprocedural examination (Z01.818) Active confirmed Problem 086230737 Irregular bowel habits (R19.8) Active confirmed Problem Diverticular disease of colon (833024519) 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) Active confirmed Problem 761188703 Non-intractable vomiting without nausea, unspecified vomiting type (R11.11) Active confirmed Plan Of Treatment Future Test Test Name Order Date UPPER GI ENDOSCOPY 12/18/2018 COLONOSCOPY 12/18/2018 COLONOSCOPY 02/01/2021 Insurance Providers Payer Name Payer Address Payer Phone Subscriber Number Group Number Insured Name Patient Relationship to Insured Coverage Start Date Coverage End Date [facility] [address] [address] [place], [place] [id number] SHANNON BARROS Self - patient is the insured [place] [address] [place] [address] [id number] SHANNON BARROS Self - patient is the insured Medical (General) History Medical History History ICD Code GERD-EGD in 2009 was normal--no hiatal h ernia Kidney stones--ESWL, cysto and stent noah cement--Dr. Leblanc Asthma Prostate problems Denies MO,DM,CVA,renal disease MIGRAINES HTN Hyperlipidemia Surgical History Surgery Date(Month/Year) Left elbow with hardware
[2025-03-22 09:45] LABS: Appearance Urine Clear; Glucose Urine UA Negative (Negative); PH 5.5 (5.0-9.0); Specific Gravity - Urine 1.015 (1.005-1.025)
== END 2025-03-22 08:21 | disposition home or self-care (01) ==
LOC: HO.LAB 08:20
PROVIDERS: PCP Internal Medicine; Visit Provider Internal Medicine
DX: R30.0 Dysuria (principal)
CPT/HCPCS: 81003

== ENCOUNTER 2025-05-17 12:48 | Outpatient (AMB) | payer OTHER, SELFPAY ==
[2025-05-17 13:02] VITALS: BP 108/72; PULSE 84; O2SAT 97; BMI 25.1
--- NOTE | 2025-05-17 13:02 | MHC.OFFVIS ---
Vital Signs 05/17/25 13:02 Height 6 ft Weight 185 lb 3.013 oz BMI 25.1 BP 108/72 Blood Pressure Location Rt brachial Pulse 84 Pulse Source Pulse Oximeter Pulse Oximetry (%) 97 Oxygen Delivery Method Room Air Intake Visit Reasons: Cough Allergies fenofibrate (Tricor) Allergy (Intermediate, Verified 02/26/25 13:32) Hives nut - unspecified (NUTS) Allergy (Intermediate, Verified 02/26/25 13:32) Hives seafood Allergy (Intermediate, Verified 02/26/25 13:32) Hives, Itchy fluocinolone acetonide Allergy (Unknown, Verified 02/26/25 13:32) Unknown lactose (LACTOSE) Adverse Reaction (Mild, Verified 02/26/25 13:32) Constipation Doxycycline Allergy (Intermediate, Uncoded 02/26/25 13:57) Nausea HPI HPI Cough: Details: Josh is a pleasant 54 year old male, never smoker, with underlying asthma, cerebellar atrophy and ataxia, GERD, HTN, and BPH. He reports good control of respiratory symptoms using Symbicort 80 mcg 1 inhalation BID, rarely requiring albuterol MDI. He reports intermittent dry cough which he attributes to chronic sinusitis, otherwise denies any respiratory symptoms. Since the last visit, he has been evaluated by ENT for chronic sinusitis and placed on prednisone as well as abx, with moderate improvement. He will be following up with them in 4 weeks. At the last visit we had discussed undergoing chest CT after PFT revealed decreased DLCO however per records patient's brother canceled and did not reschedule which patient was not aware of. He is interested in proceeding with chest CT. He denies any visits to urgent care or hospitalizations related to respiratory distress since the last visit. [facility] Medical History Tinnitus, right ear Cerebellar degeneration Nephrolithiasis Overweight (BMI 25.0-29.9) Ataxia Right otitis media Lumbar degenerative disc disease HTN (hypertension) Mixed hyperlipidemia Chronic constipation Asthma Cerebellar atrophy Abnormality of gait Nephrolithiasis Right flank pain Benign prostatic hyperplasia Allergic rhinitis Constipation Vitamin D deficiency Renal calculus, bilateral GERD without esophagitis Migraine Pure hypercholesterolemia Benign essential hypertension Orchalgia Surgical History History of cystoscopy History of esophagogastroduodenoscopy (EGD) History of lithotripsy History of extraction of renal calculus Hx of elbow surgery Family History Father Hypertension CAD (coronary artery disease) Diabetes Cancer Mother Hypertension Acute CVA (cerebrovascular accident) Paternal Grandfather Throat cancer Sister Lupus Epilepsy Social History Household Members Other:: Homeless Housing: Homeless Alcohol intake: never Patient Tobacco Use Status: Never used Tobacco e-Cigarette/Vaping Use: Never Used Second Hand Smoke Exposure: Yes service: No Current occupational status: disabled Current occupational exposures/hazards: No Cognitive needs: Yes Hearing needs: No Vision needs: No Review of Systems Const Denies chills, Denies excessive sweating, Denies fever(s), Denies headache(s) and Denies night sweats Eyes Denies dry eyes and Denies irritation ENT Reports Normal hearing present, Denies headache(s), Reports nasal congestion, Reports post nasal drip, Denies sinus pain and Denies sinus pressure Card Denies chest pain, Denies chest pain at rest, Denies chest pain with activity, Denies claudication, Denies leg edema, Denies orthopnea and Denies paroxysmal nocturnal dyspnea Resp Denies chest congestion, Reports cough, Denies excessive phlegm production, Denies pain on inspiration, Denies pain with cough, Denies stridor and Denies wheezing Musc Denies myalgias Neuro Reports Normal hearing present and Denies headache(s) Endo Denies excessive sweating Denis/Lymph Denies lymphadenopathy Aller/Immun Denies seasonal rhinorrhea and Denies wheezing Physical Exam Vital Signs: Last Vital Signs Pulse 84 05/17/25 13:02 BP 108/72 05/17/25 13:02 Pulse Ox 97 05/17/25 13:02 Oxygen Delivery Method Room Air 05/17/25 13:02 BMI result Body Mass Index 25.1 Const General: cooperative, comfortable, no acute distress and alert Nutritional Appearance: thin Orientation/consciousness: patient oriented x3 Limitations: ambulation with cane HEENT Head: Yes normal to inspection, Yes normocephalic and Yes atraumatic Ears: hearing grossly normal bilaterally and external ears normal Eyes General: appearance normal, both eyes and all related structures Eyelids: Yes eyelids normal Sclerae: sclerae normal EOM: EOMs intact bilaterally Neck Neck: Yes normal visual inspection and Yes no lymphadenopathy Lymphatic: no lymphadenopathy noted Chest Chest palpation & inspection: normal inspection of the chest Resp Effort & Inspection: normal respiratory effort, able to speak in complete sentences, no audible wheezes, no cough, no stridor, not tachypneic, no tripod positioning and no use of accessory muscles Auscultation: clear to auscultation bilaterally Cardio Jugular venous distension: no JVD Rate: regular rate Rhythm: regular rhythm Skin Other: warm, dry General skin exam: no rashes or lesions noted Neuro General: patient oriented x3 Cranial nerves: Yes Normal hearing present Cognition (Neuro): normal cognition Gait exam (Neuro): Assisted gait required Extrem General: Yes normal to inspection, Yes capillary refill normal, Yes no clubbing, cyanosis or edema and Yes no pedal edema Psych Appearance: grossly normal Speech and movement: Normal speech and movement present and Clear speech present Affect: normal affect Attitude: cooperative Thought process: Normal thought process present Thought content: Normal thought content present Insight: Good insight present (Psych) Judgement: Good judgement present (Psych) Assessment & Plan Assessment & Plan (1) Asthma: Code(s): J45.909 - Unspecified asthma, uncomplicated Category: Medical (2) Chronic cough: Code(s): R05.3 - Chronic cough Category: Medical (3) Environmental allergies: Code(s): Z91.09 - Other allergy status, other than to drugs and biological substances Category: Medical (4) Decreased diffusion capacity: Code(s): R94.2 - Abnormal results of pulmonary function studies Category: Medical Plan Josh reports moderate control of symptoms on Symbicort, Claritin and albuterol MDI. Encouraged patient to increase Symbicort to 2 inhalations BID to assess for decrease in cough frequency. He is aware to call if symptoms do not improve and encouraged to continue to follow with ENT regarding chronic sinusitis. Again reviewed PFT which revealed borderline obstructive defect with significant response to albuterol in small to medium airways. Slightly elevated lung volumes and decreased DLCO. Order previously placed for chest CT to assess for underlying parenchymal condition contributing to decreased diffusion capacity however his brother canceled reportedly without his knowledge. Will reenter. All questions were answered and patient is in agreement of plan. Will follow up in 3 months or sooner if needed. Orders: Orders CT chest wo IV con Today R05.3 - Chronic cough, R94.2 - Abnormal results of pulmonary function studies Coding Level of Care Code Est Pt Level 4 (17789) Diagnoses Asthma J45.909 Chronic cough R05.3 Environmental allergies Z91.09 Decreased diffusion capacity R94.2
--- OUTSIDE RECORDS SUMMARY | 2025-05-17 16:15 | XMS_ITS | Patient Health Record ---
Author Organization [facility] Address [address] [place] [address] Care Team Providers Care Data Collection Technician Name Role Phone Ignacio Flores MD Primary Care Provider Timothy Myles Unavailable [phone] Allergies Allergen (clinical drug ingredient) Drug/Non Drug [...] Orally once or twice a day for constipation; Duration: 30 days 06/17/2022 Active traMADol HCl 50 MG 1 tablet as needed O rally Once a day PRN Active Metamucil 0.36 GM 2 capsules with 8 ou nces of liquid Orally once or twice a day for constipation; Duration: 30 days 06/17/2022 Active Vitamin C Active Omeprazole 40 MG 1 capsule Orally QD 04/23/2015 Active Lisinopril 10 MG 1 tablet Orally Once a day Active Ventolin HFA 90 MCG/ACT 2 puffs as neede d Inhalation every 6 hrs PRN Active Tamsulosin HCl 0.4 MG as directed Orally Once a day Active Gemfibrozil 600 MG 1 tablet Orally Twic e a day; Duration: 30 day(s) Active Vitamin D3 1000 UNIT 1 capsule Orally On ce a day; Duration: 30 day(s) st Active Immunizations Vaccine Route Administration Date Status Comme nts Influenza Unknown 04/14/2020 Administered Influenza Unknown 12/18/2018 Refused Problems Problem Type SNOMED Code ICD Code Onset Dates Problem Status W/U Status Risk Notes Problem Screening for malignant neoplasm of colon (663362724) Encounter for screening for malignant neoplasm of colon (Z12.11) Active confirmed Problem Melena (3728577) Melena (K92.1) Active confirme d Problem Gastroesophageal reflux disease without esophagitis (211660417) Gastroesophageal reflux disease without esophagitis (K21.9) Active confirmed Problem Preprocedural examination (215783741144791) Preprocedural examination (Z01.818) Active confirmed Problem Irregular bowel habits (370705459) Irregular bowel habits (R19.8) Active confirmed Problem Diverticular disease of colon (191385920) 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) Active confirmed Problem Vomiting without nausea (533749473606994) Non-intractable vomiting without nausea, unspecified vomiting type (R11.11) Active confirmed Plan Of Treatment Future Test Test Name Order Date UPPER GI ENDOSCOPY 12/18/2018 COLONOSCOPY 12/18/2018 COLONOSCOPY 02/01/2021 Insurance Providers Payer Name Payer Address Payer Phone Subscriber Number Group Number Insured Name Patient Relationship to Insured Coverage Start Date Coverage End Date [facility] [address] [address] [place], [place] [id number] BARROSJEREMYO Self - patient is the insured [place] [address] [place] [address] [id number] FIORELLA SHANNON Self - patient is the insured Medical (General) History Medical History History ICD Code GERD-EGD in 2009 was normal--no hiatal h ernia Kidney stones--ESWL, cysto and stent noah cement--Dr. Leblanc Asthma Prostate problems Denies NE,DM,CVA,renal disease MIGRAINES HTN Hyperlipidemia Surgical History Surgery Date(Month/Year) Left elbow with hardware
== END 2025-05-17 13:13 | disposition home or self-care (01) ==
LOC: HO.HPS 12:48
PROVIDERS: PCP Internal Medicine; Visit Provider Nurse Practitioner Family
DX: J45.909 Unspecified asthma, uncomplicated (principal); R05.3 Chronic cough; Z91.09 Other allergy status, other than to drugs and biological substances; R94.2 Abnormal results of pulmonary function studies
CPT/HCPCS: 99214

== ENCOUNTER → 2025-05-17 12:48 | Outpatient (BNVA) | payer OTHER, SELFPAY | PROVIDERS: PCP Internal Medicine; Visit Provider Nurse Practitioner Family | DX: R05.3 Chronic cough (principal); J45.909 Unspecified asthma, uncomplicated; Z91.09 Other allergy status, other than to drugs and biological substances; R94.2 Abnormal results of pulmonary function studies | CPT/HCPCS: 99212 ==

== ENCOUNTER 2025-05-24 15:53 | Outpatient (AMB) | payer OTHER, SELFPAY ==
[2025-05-24 16:08] VITALS: BP 110/74; PULSE 75; O2SAT 93; BMI 24.8
--- NOTE | 2025-05-24 16:08 | A.OFFPC_ITS ---
Vital Signs 05/24/25 16:08 Height 6 ft Weight 183 lb BMI 24.8 BP 110/74 Blood Pressure Location Lt brachial Position Sitting Pulse 75 Pulse Source Pulse Oximeter Pulse Oximetry (%) 93 Oxygen Delivery Method Room Air Intake Visit Reasons: vomiting, nausea, High B/ps Field Identification Specialist Required: No Accompanied by: Self / Same As Patient Allergies fenofibrate (Tricor) Allergy (Intermediate, Verified 06/02/25 05:13) Hives nut - unspecified (NUTS) Allergy (Intermediate, Verified 06/02/25 05:13) Hives seafood Allergy (Intermediate, Verified 06/02/25 05:13) Hives, Itchy fluocinolone acetonide Allergy (Unknown, Verified 06/02/25 05:13) Unknown lactose (LACTOSE) Adverse Reaction (Mild, Verified 06/02/25 05:13) Constipation Doxycycline Allergy (Intermediate, Uncoded 06/02/25 05:13) Nausea Medication List - Last Reconciled 06/02/25 by NICOLE Montoya acetaminophen ER 650 mg PO Q12H PRN allopurinol 100 mg PO DAILY 90 days ascorbate calcium (vitamin C) 1,000 mg PO DAILY blood pressure test kit-medium As directed budesonide-formoterol 80-4.5 mcg/actuation (Symbicort) 2 puffs inhalation Q12H cetirizine-pseudoephedrine 5-120 mg ER 1 tab PO BID 7 days cholecalciferol (vitamin D3) 25 mcg PO DAILY 90 days cyanocobalamin (vitamin B-12) 1,000 mcg PO DAILY 90 days docusate sodium 200 mg (2 x 100 mg) PO BEDTIME gemfibrozil 600 mg PO BID lansoprazole 30 mg PO DAILY lisinopril 10 mg PO DAILY magnesium oxide 400 mg PO DAILY 3 months MDD 1 tab memantine (Namenda XR) 7 mg PO DAILY 90 days MDD 7mg po methylprednisolone PO PER PKG DIR for 6 days naproxen 500 mg PO BID 14 days polyethylene glycol 3350 (Gavilax) 17 grams PO DAILY potassium citrate ER 20 mEq (2 x 10 mEq (1,080 mg)) PO BID 90 days prednisone 10 mg PO DIRECTED [ROLLATOR As directed] tamsulosin 0.8 mg (2 x 0.4 mg) PO BEDTIME 90 days topiramate XR (Trokendi XR) 50 mg PO DAILY 30 days MDD 50mg topiramate XR 50 mg PO DAILY 3 months MDD 50mg topiramate XR 50 mg PO DAILY 3 months MDD 50mg tramadol 50 mg PO Q8H PRN triamcinolone acetonide (Nasacort) 2 sprays intranasal DAILY PRN 3 months [walker As directed] Tobacco use date assessed: 05/24/25 Dental Screening Dental Screen Date: 05/24/25 Did you have a dental visit in the last 12 months?: No Did you have a dental problem in the last 6 months where you did not have access to dental care?: No Was dental information given to patient?: No HPI vomiting, nausea, High B/ps HPI Details The patient is a 54-year-old male with past medical history of cerebellar atrophy, recurrent sinus infections chronic headaches, dysphagia, recurrent vomiting, tinnitus. Patient reports that his vomiting has subsided. Reports that he was constipated but now he is feeling better after moving his bowels. Blood pressure is within normal limits, the patient isn't in any discomfort other than his chronic pain. Patient reports that he needs his magnesium and tramadol refill. He reports to be inconsistent with the MiraLax daily. Reports his chronic symptoms of nasal congestion. Denies otalgia, but reports intermittent tinnitus. Patient denies chest pain, shortness of breath, heart palpitation or dizziness. Denies abdominal pain, reports ongoing constipation and intermittent nausea and vomiting. [facility] Medical History Tinnitus, right ear Cerebellar degeneration Nephrolithiasis Overweight (BMI 25.0-29.9) Ataxia Right otitis media Lumbar degenerative disc disease HTN (hypertension) Mixed hyperlipidemia Chronic constipation Asthma Cerebellar atrophy Abnormality of gait Nephrolithiasis Right flank pain Benign prostatic hyperplasia Allergic rhinitis Constipation Vitamin D deficiency Renal calculus, bilateral GERD without esophagitis Migraine Pure hypercholesterolemia Benign essential hypertension Orchalgia Surgical History History of cystoscopy History of esophagogastroduodenoscopy (EGD) History of lithotripsy History of extraction of renal calculus Hx of elbow surgery Family History Father Hypertension CAD (coronary artery disease) Diabetes Cancer Mother Hypertension Acute CVA (cerebrovascular accident) Paternal Grandfather Throat cancer Sister Lupus Epilepsy Social History Household Members Other:: Homeless Housing: Homeless Alcohol intake: never Patient Tobacco Use Status: Never used Tobacco e-Cigarette/Vaping Use: Never Used Second Hand Smoke Exposure: Yes service: No Current occupational status: disabled Current occupational exposures/hazards: No Cognitive needs: Yes Hearing needs: No Vision needs: No Questionnaire PHQ-9 Over the last 2 weeks, how often have you been bothered by any of the following problems? 1. Little interest or pleasure in doing things: not at all 2. Feeling down, depressed, or hopeless: not at all 3. Trouble falling or staying asleep, or sleeping too much: not at all 4. Feeling tired or having little energy: not at all 5. Poor appetite or overeating: not at all 6. Feeling bad about yourself - or that you are a failure or have let yourself or your family down: not at all 7. Trouble concentrating on things, such as reading the newspaper or watching television: not at all 8. Moving or speaking so slowly that other people could have noticed. Or the opposite - being so fidgety or restless that you have been moving around a lot more than usual: not at all 9. Thoughts that you would be better off or of hurting yourself in some way: not at all Total score: 0 Depression Screening Interpretation: Negative Depression Screening Done: Yes Source: Developed by Drs. Timothy Callahan, Susan Garcia, Jose Cruz Lloyd and colleagues, with an educational jim from [employer]. Thrive Questionnaire Date Thrive assessed: 05/24/25 I am a: Patient What is your living situation today?: I have a steady place to live Within the past 12 months, did the food you bought not last and you didn't have the money to get more?: Never true Within the past 12 months, did you worry whether your food would run out before you got money to buy more?: Never true Do you have trouble paying for medicines?: No Do you have trouble getting transportation to medical appointments?: No Do you have trouble paying your heating and electricity bill?: No Do you have trouble taking care of your child, family member or friend?: No Do you have trouble with day-to-day activities such as bathing, preparing meals, shopping, managing finances, etc.?: No Are you currently unemployed and looking for a job?: No Are you interested in more education?: No Please select the resources that you would like help with: None Currently or been in a relationship where the following occur: No concerns reported THRIVE Score: 0 AUDIT C Alcohol Use Questionnaire (AUDIT-C) 1. How often do you have a drink containing alcohol?: Never 3. How often do you have six or more drinks on one occasion?: Never Total Score: 0 Score Reviewed/Action Taken: Yes JONATHAN-7 AMB Questionnaire JONATHAN-7 Date JONATHAN - 7 assessed: 05/24/25 Feeling nervous, anxious, or on edge: 0 = Not at all Not being able to stop or control worryin = Not at all Worrying too much about different things: 0 = Not at all Trouble relaxin = Not at all Being so restless that it is hard to sit still: 0 = Not at all Becoming easily annoyed or irritable: 0 = Not at all Feeling afraid as if something awful might happen: 0 = Not at all Total JONATHAN-7 score (0-4 normal; 5-9 mild; 10-14 moderate; 15-21 severe): 0 Source: Developed by Drs. Timothy Callahan, Susan Garcia, Jose Cruz Lloyd and colleagues, with an educational jim from [employer]. Review of Systems Const Denies body aches, Denies chills, Denies fever(s), Denies headache(s) and Denies poor appetite Eyes Reports no additional complaints ENT Denies dysphagia, Denies dizziness, Denies headache(s), Reports nasal congestion and Denies odynophagia Card Denies chest pain, Denies syncope, Denies edema, Denies irregular heart rhythm, Denies lightheadedness and Denies dyspnea Resp Denies dyspnea GI Denies abdominal pain, Reports constipation, Denies dysphagia, Reports heartburn (on and off), Denies diarrhea, Reports nausea (on and off-subsided), Denies odynophagia and Reports vomiting (on and off-subsided) Reports no additional complaints Musc Reports abnormal gait and Reports back pain Skin/Breast Reports system reviewed and no additional complaints, except as documented Neuro Reports abnormal gait, Denies dizziness, Denies syncope and Denies headache(s) Psych Reports no additional complaints Physical exam (Primary Care) Vital Signs: Last Vital Signs Pulse 75 05/24/25 16:08 BP 110/74 05/24/25 16:08 Pulse Ox 93 05/24/25 16:08 Oxygen Delivery Method Room Air 05/24/25 16:08 BMI result Body Mass Index 24.8 Tobacco/Smoking Status: Tobacco use Status Tobacco use date assessed 05/24/25 05/24/25 16:10 Patient Tobacco Use Status Never used Tobacco 05/24/25 16:10 e-Cigarette/Vaping Use Never Used 05/24/25 16:10 PHQ-9: PHQ-9 Score PHQ-9: Total score 0 05/25/25 04:05 Depression Screening Interpretation: Negative Thrive Assessment: Date of Thrive Assessment Date Thrive assessed 05/24/25 05/24/25 16:10 Currently or been in a relationship where the following occur: No concerns reported Const General: cooperative, healthy appearing, comfortable and no acute distress Orientation/consciousness: patient oriented x3 HENMT Head: Yes normocephalic Ears: TM's normal bilaterally General nose exam: Abnormal mucous membranes and turbinates present erythematous bilateral Face and sinus: No sinus tenderness Throat: Yes posterior oropharynx abnormal and Yes postnasal drainage Eyes General: appearance normal, both eyes and all related structures Conjunctivae: conjunctivae normal Neck Neck: Yes full ROM and Yes no lymphadenopathy Resp Effort & Inspection: normal respiratory effort Auscultation: clear to auscultation bilaterally, no crackles, no rales, no rhonchi and no wheezes Cardio Rate: regular rate Rhythm: regular rhythm Skin General skin exam: no rashes or lesions noted Neuro General: patient oriented x3 Gait exam (Neuro): Normal gait present Extrem General: Yes normal to inspection, Yes full ROM and No edema Psych Affect: normal affect Attitude: cooperative Insight: Good insight present (Psych) Judgement: Good judgement present (Psych) Coding Level of Care Code Est Pt Level 3 (22418) Diagnoses Allergic rhinitis, unspecified seasonality, unspecified trigger J30.9 Allergic rhinitis trigger: unspecified Allergic rhinitis seasonality: unspecified Benign essential hypertension I10 Pure hypercholesterolemia E78.00 GERD without esophagitis K21.9 Constipation, unspecified constipation type K59.00 Constipation type: unspecified constipation type Degeneration of intervertebral disc of lumbar region with discogenic back pain M51.360 Disc-related pain type: discogenic back pain only Chronic maxillary sinusitis J32.0 Sinusitis location: maxillary Time Spent (min) 34 Assessment & Plan Assessment & Plan (1) Allergic rhinitis: Code(s): J30.9 - Allergic rhinitis, unspecified Category: Medical Qualifiers: Allergic rhinitis trigger: unspecified Allergic rhinitis seasonality: unspecified Qualified Code(s): J30.9 - Allergic rhinitis, unspecified Plan: Limit exposure to allergens Air purifiers and dust filters Air conditioner in house, especially where sleeping Continue Nasacort 2 sprays intranasally p.r.n. (2) Benign essential hypertension: Code(s): I10 - Essential (primary) hypertension Category: Medical Plan: Blood pressure 110/74- systolic goal less than 130 mm Hg Reinforced low-salt diet Continue lisinopril 10 mg daily (3) Pure hypercholesterolemia: Code(s): E78.00 - Pure hypercholesterolemia, unspecified Category: Medical Plan: Triglycerides 175, total cholesterol 192 come LDL 120, HDL 37 on 02/19/2025 Reinforced low-cholesterol diet and activity as tolerated Continue gemfibrozil 600 mg b.i.d. Lipid panel ordered to further evaluate (4) GERD without esophagitis: Code(s): K21.9 - Gastro-esophageal reflux disease without esophagitis Category: Medical Plan: Counseled the patient his GERD could partly be responsible for his feeling of nausea or vomiting, so controlling this might serve multiple benefits. Do not eat meals or drink carbonated beverages within 3 hr of bedtime Decrease the amount of fried, fatty, and spicy foods to decrease gastric acid production Raise the head of the bed using 4 to 6-inch blocks, especially if nocturnal symptoms are present Lose weight if indicated; avoid tight-fitting clothing, especially around the waist Avoid foods that relax the Lower esophageal sphincter (chocolate, peppermint, high-fat foods etc.,) Continue lansoprazole 30 mg daily (5) Constipation: Code(s): K59.00 - Constipation, unspecified Category: Medical Qualifiers: Constipation type: unspecified constipation type Qualified Code(s): K59.00 - Constipation, unspecified Plan: Reinforced the importance of taking MiraLax daily to prevent constipation. Encouraged adequate fluid hydration. Continue docusate sodium 200 mg at bedtime. Explained to the patient that this could be partly related to his ongoing nausea and vomiting on and off. (6) Lumbar degenerative disc disease: Code(s): M51.36 - Other intervertebral disc degeneration, lumbar region Category: Medical Qualifiers: Disc-related pain type: discogenic back pain only Qualified Code(s): M51.360 - Other intervertebral disc degeneration, lumbar region with discogenic back pain only Plan: The patient had an x-ray on 04/2021 that showed straightening of the normal lumbar lordosis, which may be positional or related to muscular spasms. Degenerative disc disease and bilateral facet arthropathy at L5-S1, new/increased when compared to the prior examination. Tramadol 50 mg Q 8 hours p.r.n. refilled. Continue acetaminophen 650 q.12 p.r.n. (7) Chronic sinusitis: Code(s): J32.9 - Chronic sinusitis, unspecified Category: Medical Qualifiers: Sinusitis location: maxillary Qualified Code(s): J32.0 - Chronic maxillary sinusitis Plan: Sinuses x-ray done on 07/13/24 Findings: Complete opacification of the left maxillary sinus with near-complete opacification of the bifrontal sinuses, [id number]-[id number]-ggzo-left. Rightward nasal septal deviation. No air-fluid levels identified. No fracture. The patient has been evaluated by ENT for chronic sinusitis and was placed on prednisone and antibiotics with moderate improvement. The patient is scheduled to follow up in few weeks. Orders: Orders Lipid Panel 4 Months Z.09 - Other allergy status, other than to drugs and biological substances, I10 - Essential (primary) hypertension, E78.2 - Mixed hyperlipidemia, E66.3 - Overweight, E55.9 - Vitamin D deficiency, unspecified, K21.9 - Gastro-esophageal reflux disease without esophagitis, R79.89 - Other specified abnormal findings of blood chemistry, R11.0 - Nausea Comprehensive [place]. Panel Fast 4 Months Z91.09 - Other allergy status, other than to drugs and biological substances, I10 - Essential (primary) hypertension, E78.2 - Mixed hyperlipidemia, E66.3 - Overweight, E55.9 - Vitamin D deficiency, unspecified, K21.9 - Gastro-esophageal reflux disease without esophagitis, R79.89 - Other specified abnormal findings of blood chemistry, R11.0 - Nausea TSH reflex Free T4 4 Months Z91.09 - Other allergy status, other than to drugs and biological substances, I10 - Essential (primary) hypertension, E78.2 - Mixed hyperlipidemia, E66.3 - Overweight, E55.9 - Vitamin D deficiency, unspecified, K21.9 - Gastro-esophageal reflux disease without esophagitis, R79.89 - Other specified abnormal findings of blood chemistry, R11.0 - Nausea Vitamin D 25-OH Total 4 Months Z91.09 - Other allergy status, other than to drugs and biological substances, I10 - Essential (primary) hypertension, E78.2 - Mixed hyperlipidemia, E66.3 - Overweight, E55.9 - Vitamin D deficiency, unspecified, K21.9 - Gastro-esophageal reflux disease without esophagitis, R79.89 - Other specified abnormal findings of blood chemistry, R11.0 - Nausea Vitamin D 25-OH Total 05/26/25 E78.00 - Pure hypercholesterolemia, unspecified, E78.2 - Mixed hyperlipidemia, E66.3 - Overweight, R42 - Dizziness and giddiness, K21.9 - Gastro-esophageal reflux disease without esophagitis, R79.89 - Other specified abnormal findings of blood chemistry, K59.00 - Constipation, unspecified, N40.1 - Benign prostatic hyperplasia with lower urinary tract symptoms, N13.8 - Other obstructive and reflux uropathy, Z86.69 - Personal history of other diseases of the nervous system and sense organs, Z00.00 - Encounter for general adult medical examination without abnormal findings Complete Blood Count Auto Diff 4 Months Z91.09 - Other allergy status, other than to drugs and biological substances, I10 - Essential (primary) hypertension, E78.2 - Mixed hyperlipidemia, E66.3 - Overweight, E55.9 - Vitamin D deficiency, unspecified, K21.9 - Gastro-esophageal reflux disease without esophagitis, R79.89 - Other specified abnormal findings of blood chemistry, R11.0 - Nausea UA CC w/rflx Micro + Cult 4 Months Z91.09 - Other allergy status, other than to drugs and biological substances, I10 - Essential (primary) hypertension, E78.2 - Mixed hyperlipidemia, E66.3 - Overweight, E55.9 - Vitamin D deficiency, unspecified, K21.9 - Gastro-esophageal reflux disease without esophagitis, R79.89 - Other specified abnormal findings of blood chemistry, R11.0 - Nausea Complete Blood Count Auto Diff 05/26/25 E78.00 - Pure hypercholesterolemia, unspecified, E78.2 - Mixed hyperlipidemia, E66.3 - Overweight, R42 - Dizziness and giddiness, K21.9 - Gastro-esophageal reflux disease without esophagitis, R79.89 - Other specified abnormal findings of blood chemistry, K59.00 - Constipation, unspecified, N40.1 - Benign prostatic hyperplasia with lower urinary tract symptoms, N13.8 - Other obstructive and reflux uropathy, Z86.69 - Personal history of other diseases of the nervous system and sense organs, Z00.00 - Encounter for general adult medical examination without abnormal findings Comprehensive [place]. Panel Fast 05/26/25 E78.00 - Pure hypercholesterolemia, unspecified, E78.2 - Mixed hyperlipidemia, E66.3 - Overweight, R42 - Dizziness and giddiness, K21.9 - Gastro-esophageal reflux disease without esophagitis, R79.89 - Other specified abnormal findings of blood chemistry, K59.00 - Constipation, unspecified, N40.1 - Benign prostatic hyperplasia with lower urinary tract symptoms, N13.8 - Other obstructive and reflux uropathy, Z86.69 - Personal history of other diseases of the nervous system and sense organs, Z00.00 - Encounter for general adult medical examination without abnormal findings Lipid Panel 05/26/25 E78.00 - Pure hypercholesterolemia, unspecified, E78.2 - Mixed hyperlipidemia, E66.3 - Overweight, R42 - Dizziness and giddiness, K21.9 - Gastro-esophageal reflux disease without esophagitis, R79.89 - Other specified abnormal findings of blood chemistry, K59.00 - Constipation, unspecified, N40.1 - Benign prostatic hyperplasia with lower urinary tract symptoms, N13.8 - Other obstructive and reflux uropathy, Z86.69 - Personal history of other diseases of the nervous system and sense organs, Z00.00 - Encounter for general adult medical examination without abnormal findings UA CC w/rflx Micro + Cult 05/26/25 E78.00 - Pure hypercholesterolemia, unspecified, E78.2 - Mixed hyperlipidemia, E66.3 - Overweight, R42 - Dizziness and giddiness, K21.9 - Gastro-esophageal reflux disease without esophagitis, R79.89 - Other specified abnormal findings of blood chemistry, K59.00 - Constipation, unspecified, N40.1 - Benign prostatic hyperplasia with lower urinary tract symptoms, N13.8 - Other obstructive and reflux uropathy, Z86.69 - Personal history of other diseases of the nervous system and sense organs, Z00.00 - Encounter for general adult medical examination without abnormal findings TSH reflex Free T4 05/26/25 E78.00 - Pure hypercholesterolemia, unspecified, E78.2 - Mixed hyperlipidemia, E66.3 - Overweight, R42 - Dizziness and giddiness, K21.9 - Gastro-esophageal reflux disease without esophagitis, R79.89 - Other specified abnormal findings of blood chemistry, K59.00 - Constipation, unspecified, N40.1 - Benign prostatic hyperplasia with lower urinary tract symptoms, N13.8 - Other obstructive and reflux uropathy, Z86.69 - Personal history of other diseases of the nervous system and sense organs, Z00.00 - Encounter for general adult medical examination without abnormal findings PSA,Total (Free>4and<10) 05/26/25 E78.00 - Pure hypercholesterolemia, unspecified, E78.2 - Mixed hyperlipidemia, E66.3 - Overweight, R42 - Dizziness and giddiness, K21.9 - Gastro-esophageal reflux disease without esophagitis, R79.89 - Other specified abnormal findings of blood chemistry, K59.00 - Constipation, unspecified, N40.1 - Benign prostatic hyperplasia with lower urinary tract symptoms, N13.8 - Other obstructive and reflux uropathy, Z86.69 - Personal history of other diseases of the nervous system and sense organs, Z00.00 - Encounter for general adult medical examination without abnormal findings Medications: Refilled tramadol 50 mg PO Q8H PRN 15 tabs 0RF pain (scale score 4-6) magnesium oxide 400 mg PO DAILY 90 tabs 3RF cramps 3 months MDD 1 tab R51.9 - Headache, unspecified, G89.29 - Other chronic pain
== END 2025-05-24 17:13 | disposition home or self-care (01) ==
LOC: HO.HMCH 15:54
PROVIDERS: PCP Internal Medicine
DX: J30.9 Allergic rhinitis, unspecified (principal); I10 Essential (primary) hypertension; E78.00 Pure hypercholesterolemia, unspecified; K21.9 Gastro-esophageal reflux disease without esophagitis; K59.00 Constipation, unspecified; M51.360 Other intervertebral disc degeneration, lumbar region with discogenic back pain only; J32.0 Chronic maxillary sinusitis

== ENCOUNTER → 2025-05-24 15:53 | Outpatient (BNVA) | payer OTHER, SELFPAY | PROVIDERS: PCP Internal Medicine | DX: J32.0 Chronic maxillary sinusitis (principal); I10 Essential (primary) hypertension; J30.9 Allergic rhinitis, unspecified; E78.00 Pure hypercholesterolemia, unspecified; K21.9 Gastro-esophageal reflux disease without esophagitis; K59.00 Constipation, unspecified; M51.360 Other intervertebral disc degeneration, lumbar region with discogenic back pain only | CPT/HCPCS: 99212 ==

== ENCOUNTER 2025-05-26 09:44 | Outpatient (REF) | payer OTHER, SELFPAY ==
[2025-05-26 10:02] LABS: MANUAL DIFF FLAG NO
[2025-05-26 10:12] LABS: Hematocrit 48.1 % (42.0-52.0); Hemoglobin 16.1 g/dl (14.0-18.0); Imm Gran Abs Auto 0.02 X10*3/uL (0.00-0.03); Imm Gran Pct Auto 0.3 % (0.0-0.4); Lymphocytes Absolute Auto 2.3 X10*3/uL (1.2-4.9); Mean Corpuscular HGB Conc 33.5 g/dl (31.0-36.0); Mean Corpuscular Hemoglobin 31.2 pg (27.0-33.0); Mean Corpuscular Volume 93.2 fL (80.0-98.0); NRBC Abs Auto 0.000 X10*3/uL (0.0-0.012); NRBC Pct Auto 0.0 /100WBC (0.0-0.2); Platelet Count 290 X10*3/uL (160-400); Red Blood Count 5.16 X10*6/uL (4.60-5.80); White Blood Count 5.9 X10*3/uL (4.8-10.8)
[2025-05-26 10:58] LABS: Alanine Aminotransferase 27 U/L (0-40); Albumin Level 4.9 g/dL (3.5-5.0); Alkaline Phosphatase 62 U/L (39-117); Anion Gap 14 (12-20); Aspartate Amino Transferase 22 U/L (5-37); Blood Urea Nitrogen 27 mg/dL (9-16); Calcium 10.0 mg/dL (8.4-10.2); Carbon Dioxide 24 mmol/L (22-29); Chloride 106 mmol/L (96-108); Cholesterol 209 mg/dL (<200); Estimated Glomerular Filt Rate 59; HDL Cholesterol 42 mg/dL (>40); Potassium 4.5 mmol/L (3.3-5.1); Sodium 139 mmol/L (135-145); Total Protein 8.1 g/dL (6.5-8.0); Triglycerides 246 mg/dL (<150)
--- OUTSIDE RECORDS SUMMARY | 2025-05-26 11:04 | XMS_ITS | Patient Health Record ---
Author Organization [facility] Address [address] [place] [address] Care Team Providers Care Atmospheric Chemist Name Role Phone Ignacio Flores MD Primary Care Provider Timothy Myles Unavailable [phone] Allergies Allergen (clinical drug ingredient) Drug/Non Drug [...] Problem Screening for malignant neoplasm of colon ([id number]) Encounter for screening for malignant neoplasm of colon (Z12.11) Active confirmed Problem Melena (3766679) Melena (K92.1) Active confirme d Problem Gastroesophageal reflux disease without esophagitis (272162864) Gastroesophageal reflux disease without esophagitis (K21.9) Active confirmed Problem Preprocedural examination (178862602992563) Preprocedural examination (Z01.818) Active confirmed Problem Irregular bowel habits (171983534) Irregular bowel habits (R19.8) Active confirmed Problem Diverticular disease of colon (254450748) 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) Active confirmed Problem Vomiting without nausea (575896297751098) Non-intractable vomiting without nausea, unspecified vomiting type (R11.11) Active confirmed Plan Of Treatment Future Test Test Name Order Date UPPER GI ENDOSCOPY 12/18/2018 COLONOSCOPY 12/18/2018 COLONOSCOPY 02/01/2021 Insurance Providers Payer Name Payer Address Payer Phone Subscriber Number Group Number Insured Name Patient Relationship to Insured Coverage Start Date Coverage End Date [facility] [address] [address] [place], [place] [id number] BARROSJEREMYO Self - patient is the insured [place] [address] [place] [address] [id number] FIORELLA SHANNON Self - patient is the insured Medical (General) History Medical History History ICD Code GERD-EGD in 2009 was normal--no hiatal h ernia Kidney stones--ES[facility], cysto and stent noah cement--Dr. Leblanc Asthma Prostate problems Denies [place],DM,CVA,renal disease MIGRAINES HTN Hyperlipidemia Surgical History Surgery Date(Month/Year) Left elbow with hardware
[2025-05-26 11:21] LABS: PSA,Total (Free>4and<10) 1.53 ng/mL (0.00-4.00)
[2025-05-26 11:33] LABS: Appearance Urine Clear; Glucose Urine UA Negative (Negative); PH 5.5 (5.0-9.0); Specific Gravity - Urine 1.020 (1.005-1.025)
== END 2025-05-26 09:45 | disposition home or self-care (01) ==
LOC: HO.LAB 09:44
PROVIDERS: PCP Internal Medicine
DX: Z00.00 Encounter for general adult medical examination without abnormal findings (principal); E78.2 Mixed hyperlipidemia; E66.3 Overweight; K21.9 Gastro-esophageal reflux disease without esophagitis; K59.00 Constipation, unspecified; N40.1 Benign prostatic hyperplasia with lower urinary tract symptoms; N13.8 Other obstructive and reflux uropathy; R42 Dizziness and giddiness; R79.89 Other specified abnormal findings of blood chemistry; Z86.69 Personal history of other diseases of the nervous system and sense organs
CPT/HCPCS: 36415; 80053; 80061; 81003; 82306; 84153; 84443; 85025

== ENCOUNTER 2025-06-07 12:48 | Outpatient (REF) | payer OTHER, SELFPAY ==
--- NOTE | ~2025-06-07 | US_ITS ---
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 TECHNIQUE: Real-time grayscale ultrasound imaging of the kidneys was performed and images were reviewed. COMPARISON: Comparison is made with the prior examination dated 03/04/2025. FINDINGS: Right kidney: The right kidney measures 10.9 x 5.4 x 4.3 cm. Renal parenchymal echotexture and thickness are normal. There are no masses. There is a nonobstructing 6 x 4 x 6 mm calculus at the upper pole and a nonobstructing 3 mm calculus at the lower pole. There is no hydronephrosis. Left Kidney: The left kidney measures 11.5 x 4.0 x 3.6 cm. Renal parenchymal echotexture and thickness are normal. There are no masses. There are nonobstructing calculi at the upper pole measuring 6 x 3 x 5 mm, in the interpolar region measuring 4 x 3 x 5 mm, and at the lower pole measuring 6 x 5 x 5 mm. There is no hydronephrosis US/US renal BI IMPRESSION: Bilateral nephrolithiasis as described. Electronically signed by: Timothy Rodrigez MD 06/07/2025 01:53 PM EST
== END 2025-06-07 12:49 | disposition home or self-care (01) ==
LOC: HO.US 12:48
PROVIDERS: PCP Internal Medicine; Visit Provider Urology
DX: E79.0 Hyperuricemia without signs of inflammatory arthritis and tophaceous disease (principal)
CPT/HCPCS: 76775

== ENCOUNTER → 2025-06-07 12:51 | Outpatient (BNV) | payer OTHER, SELFPAY | PROVIDERS: PCP Internal Medicine; Visit Provider Radiology Diagnostic Radiology | DX: N20.0 Calculus of kidney (principal) | CPT/HCPCS: 76775 ==

== ENCOUNTER 2025-06-09 13:53 | Outpatient (AMB) | payer OTHER, SELFPAY ==
[2025-06-09 13:56] VITALS: BP 110/76; PULSE 84; O2SAT 97; BMI 24.7
--- NOTE | 2025-06-09 13:56 | A.OFFPC_ITS ---
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: No Accompanied by: Self / Same As Patient Allergies fenofibrate (Tricor) Allergy (Intermediate, Verified 06/09/25 14:55) Hives nut - unspecified (NUTS) Allergy (Intermediate, Verified 06/09/25 14:55) Hives seafood Allergy (Intermediate, Verified 06/09/25 14:55) Hives, Itchy fluocinolone acetonide Allergy (Unknown, Verified 06/09/25 14:55) Unknown lactose (LACTOSE) Adverse Reaction (Mild, Verified 06/09/25 14:55) Constipation Doxycycline Allergy (Intermediate, Uncoded 06/09/25 14:55) Nausea Medication List - Last Reconciled 06/09/25 by Ignacio Flores MD acetaminophen ER 650 mg PO Q12H PRN allopurinol 100 mg PO DAILY 90 days ascorbate calcium (vitamin C) 1,000 mg PO DAILY blood pressure test kit-medium As directed budesonide-formoterol 80-4.5 mcg/actuation (Symbicort) 2 puffs inhalation Q12H cetirizine-pseudoephedrine 5-120 mg ER 1 tab PO BID 7 days cholecalciferol (vitamin D3) 25 mcg PO DAILY 90 days cyanocobalamin (vitamin B-12) 1,000 mcg PO DAILY 90 days docusate sodium 200 mg (2 x 100 mg) PO BEDTIME gemfibrozil 600 mg PO BID lansoprazole 30 mg PO DAILY lisinopril 10 mg PO DAILY magnesium oxide 400 mg PO DAILY 3 months MDD 1 tab memantine (Namenda XR) 7 mg PO DAILY 90 days MDD 7mg po methylprednisolone PO PER PKG DIR for 6 days naproxen 500 mg PO BID 14 days polyethylene glycol 3350 (Gavilax) 17 grams PO DAILY potassium citrate ER 20 mEq (2 x 10 mEq (1,080 mg)) PO BID 90 days prednisone 10 mg PO DIRECTED [ROLLATOR As directed] tamsulosin 0.8 mg (2 x 0.4 mg) PO BEDTIME 90 days topiramate XR (Trokendi XR) 50 mg PO DAILY 30 days MDD 50mg topiramate XR 50 mg PO DAILY 3 months MDD 50mg topiramate XR 50 mg PO DAILY 3 months MDD 50mg tramadol 50 mg PO Q8H PRN triamcinolone acetonide (Nasacort) 2 sprays intranasal DAILY PRN 3 months [walker As directed] Tobacco use date assessed: 06/09/25 Dental Screening Dental Screen Date: 06/09/25 Did you have a dental visit in the last 12 months?: No Did you have a dental problem in the last 6 months where you did not have access to dental care?: No Was dental information given to patient?: No HPI chronic sinositis/bph/htn HPI Details Patient comes in today for his follow-up visit States that he is currently experiencing some pain over his lower back, which she is attributing to his kidney stones although his recent renal ultrasound done last month revealed the bilateral kidney stones are nonobstructing Patient does have history of lumbar spine degenerative disc disease States that he is currently taking some Tramadol for pain but he is only receiving 15 tablets of Tramadol for 30 days and he has been getting by with splitting them in half and also taking some 650 mg of Tylenol twice a day as needed States that his previous hip pain and knee pains have improved He was also seen by ENT in [place] last month for his chronic sinusitis and was started on oral prednisone and some antibiotics, with significant improvement of his symptoms States that he has a follow-up appointment with them early next month He is currently also seeing pulmonary for his asthma and was advised to undergo chest CT for further evaluation after his PFTs done revealed decreased DLCO - he is scheduled to have his chest CT done in early July 2025 States that he is currently also taking some milk thistle to help with his liver enzymes He denies any fever, headaches or dizziness Denies any chest pains, no increased shortness of breath No nausea/vomiting, no abdominal pain No change in bowel habits noted He had his follow-up labs done a couple of weeks ago - to discuss his results [facility] Medical History (Updated 06/10/25 @ 05:58 by Ignacio Flores MD) Cognitive impairment Tinnitus, right ear Cerebellar degeneration Nephrolithiasis Overweight (BMI 25.0-29.9) Ataxia Right otitis media Lumbar degenerative disc disease HTN (hypertension) Mixed hyperlipidemia Chronic constipation Asthma Cerebellar atrophy Abnormality of gait Nephrolithiasis Right flank pain Benign prostatic hyperplasia Allergic rhinitis Constipation Vitamin D deficiency Renal calculus, bilateral GERD without esophagitis Migraine Pure hypercholesterolemia Benign essential hypertension Orchalgia Surgical History History of cystoscopy History of esophagogastroduodenoscopy (EGD) History of lithotripsy History of extraction of renal calculus Hx of elbow surgery Family History Father Hypertension CAD (coronary artery disease) Diabetes Cancer Mother Hypertension Acute CVA (cerebrovascular accident) Paternal Grandfather Throat cancer Sister Lupus Epilepsy Social History Household Members Other:: Homeless Housing: Homeless Alcohol intake: never Patient Tobacco Use Status: Never used Tobacco e-Cigarette/Vaping Use: Never Used Second Hand Smoke Exposure: Yes service: No Current occupational status: disabled Current occupational exposures/hazards: No Cognitive needs: Yes Hearing needs: No Vision needs: No Questionnaire PHQ-9 Over the last 2 weeks, how often have you been bothered by any of the following problems? 1. Little interest or pleasure in doing things: not at all 2. Feeling down, depressed, or hopeless: not at all 3. Trouble falling or staying asleep, or sleeping too much: not at all 4. Feeling tired or having little energy: not at all 5. Poor appetite or overeating: not at all 6. Feeling bad about yourself - or that you are a failure or have let yourself or your family down: not at all 7. Trouble concentrating on things, such as reading the newspaper or watching television: not at all 8. Moving or speaking so slowly that other people could have noticed. Or the opposite - being so fidgety or restless that you have been moving around a lot more than usual: not at all 9. Thoughts that you would be better off or of hurting yourself in some way: not at all Total score: 0 Depression Screening Interpretation: Negative Depression Screening Done: Yes [id number] - PHQ-9 Billing: Yes Source: Developed by Drs. Timothy Callahan, Susan Garcia, Jose Cruz Lloyd and colleagues, with an educational jim from [employer]. Thrive Questionnaire Date Thrive assessed: 06/09/25 I am a: Patient What is your living situation today?: I have a steady place to live Within the past 12 months, did the food you bought not last and you didn't have the money to get more?: Never true Within the past 12 months, did you worry whether your food would run out before you got money to buy more?: Never true Do you have trouble paying for medicines?: No Do you have trouble getting transportation to medical appointments?: No Do you have trouble paying your heating and electricity bill?: No Do you have trouble taking care of your child, family member or friend?: No Do you have trouble with day-to-day activities such as bathing, preparing meals, shopping, managing finances, etc.?: No Are you currently unemployed and looking for a job?: No Are you interested in more education?: No Please select the resources that you would like help with: None Currently or been in a relationship where the following occur: No concerns reported THRIVE Score: 0 AUDIT C Alcohol Use Questionnaire (AUDIT-C) 1. How often do you have a drink containing alcohol?: Never 3. How often do you have six or more drinks on one occasion?: Never Total Score: 0 Score Reviewed/Action Taken: Yes JONATHAN-7 AMB Questionnaire JONATHAN-7 Date JONATHAN - 7 assessed: 06/09/25 Feeling nervous, anxious, or on edge: 0 = Not at all Not being able to stop or control worryin = Not at all Worrying too much about different things: 0 = Not at all Trouble relaxin = Not at all Being so restless that it is hard to sit still: 0 = Not at all Becoming easily annoyed or irritable: 0 = Not at all Feeling afraid as if something awful might happen: 0 = Not at all Total JONATHAN-7 score (0-4 normal; 5-9 mild; 10-14 moderate; 15-21 severe): 0 Source: Developed by Drs. Timothy Callahan, Jose Cruz Olivarez and colleagues, with an educational jim from [employer]. Review of Systems Const Denies chills, Denies fatigue, Denies fever(s) and Denies headache(s) ENT Reports dysphagia (at times), Denies dizziness, Denies otalgia, Denies headache(s), Reports nasal congestion (chronic - improved with Abx Rx and oral prednisone), Denies neck pain, Denies odynophagia, Reports tinnitus (in both ears - feels this is getting worse) and Denies sore throat Card Denies chest pain, Denies palpitations and Denies dyspnea Resp Denies chest congestion, Denies cough and Denies dyspnea GI Denies abdominal pain, Denies constipation, Reports dysphagia (at times), Denies heartburn, Denies diarrhea, Denies nausea, Denies odynophagia and Denies vomiting Denies difficulty urinating, Denies dysuria, Denies nocturia and Denies urinary frequency Musc Reports abnormal gait (unsteady), Reports back pain (over the lower back - see HPI), Reports arthralgias (increased over the right hip and left knee) and Denies neck pain Skin/Breast Denies rash Neuro Reports Abnormal speech present (has slurred and slow speech (chronic) due to cerebellar degeneration), Reports abnormal gait (unsteady), Denies dizziness and Denies headache(s) Endo Denies fatigue and Denies palpitations Physical exam (Primary Care) Vital Signs: Last Vital Signs Pulse 84 06/09/25 13:56 BP 110/76 06/09/25 13:56 Pulse Ox 97 06/09/25 13:56 Oxygen Delivery Method Room Air 06/09/25 13:56 BMI result Body Mass Index 24.7 Tobacco/Smoking Status: Tobacco use Status Tobacco use date assessed 06/09/25 06/09/25 13:57 Patient Tobacco Use Status Never used Tobacco 06/09/25 13:57 e-Cigarette/Vaping Use Never Used 06/09/25 13:57 PHQ-9: PHQ-9 Score PHQ-9: Total score 0 06/09/25 23:43 Depression Screening Interpretation: Negative Thrive Assessment: Date of Thrive Assessment Date Thrive assessed 06/09/25 06/09/25 13:57 Currently or been in a relationship where the following occur: No concerns reported Const General: no acute distress and alert HENMT Ears: TM's normal bilaterally and EAC's normal Throat: Yes posterior oropharynx normal and Yes tonsils normal (no TP congestion) Neck Neck: Yes supple and No lymphadenopathy Thyroid: Thyroid normal Resp Auscultation: clear to auscultation bilaterally, no rales and no wheezes Cardio Rate: regular rate Rhythm: regular rhythm Heart sounds: no murmurs GI Palpation (GI): Soft to palpation and nontender Auscultation: normal bowel sounds General: Yes no CVA tenderness Back/Spine/Pelvis Back: no CVA tenderness Thoracic/Lumbar Spine: No lumbar spinal tenderness Skin Rashes: no rashes Neuro Cognition (Neuro): normal cognition Speech: Abnormal speech present (has slurred and slow speech (chronic) due to cerebellar degeneration) Gait exam (Neuro): Wide-based gait present (unsteady gait due to cerebellar degeneration) Extrem General: Yes no clubbing, cyanosis or edema Results Reviewed Results Reviewed: Laboratory Tests 05/26/25 05/26/25 09:50 10:00 WBC 5.9 Hgb 16.1 Hct 48.1 Plt Count 290 Sodium 139 Potassium 4.5 Creatinine 1.27 Estimated GFR 59 Fasting Glucose 99 Calcium 10.0 D AST 22 ALT 27 Triglycerides 246 H Cholesterol 209 H LDL Cholesterol, Calc 118 H HDL Cholesterol 42 Total PSA 1.53 25-OH Vitamin D Total 83.5 TSH 1.19 Ur Specific [place] 1.020 Urine Protein Negative Urine Glucose (UA) Negative Urine Blood Negative Urine Nitrite Negative Ur Leukocyte Esterase Negative Coding Level of Care Code Est Pt Level 4 (75600) Diagnoses Benign essential hypertension I10 Mixed hyperlipidemia E78.2 Chronic constipation K59.09 GERD without esophagitis K21.9 Cerebellar degeneration G31.9 Cognitive impairment R41.89 Migraine without status migrainosus, not intractable, unspecified migraine type G43.909 Migraine type: unspecified Status migrainosus presence: without status migrainosus Intractability: not intractable Chronic maxillary sinusitis J32.0 Sinusitis location: maxillary Moderate persistent asthma without complication J45.40 Asthma severity: moderate Asthma persistence: persistent Asthma complication type: uncomplicated Degeneration of intervertebral disc of lumbar region with discogenic back pain M51.360 Disc-related pain type: discogenic back pain only Vitamin D deficiency E55.9 Nephrolithiasis N20.0 BPH with obstruction/lower urinary tract symptoms N40.1; N13.8 Additional Codes PHQ-9 - 41998 - PHQ-9 Billing: Yes ([id number]) Assessment & Plan Assessment & Plan (1) Benign essential hypertension: Code(s): I10 - Essential (primary) hypertension Category: Medical Plan: Reinforced low sodium diet - goal is systolic BP of 120 mm or less Continue Lisinopril 10 mg QD (2) Mixed hyperlipidemia: Code(s): E78.2 - Mixed hyperlipidemia Category: Medical Plan: Results of his labs done a couple of weeks ago reviewed and discussed with patient - he is cautioned his serum triglyceride level has increased significantly from previous Reinforced low cholesterol diet Continue Gemfibrozil 600 mg BID (patient is allergic to Fenofibrate) Will recheck his labs in fasting lipids in 4 months for follow-up (3) Chronic constipation: Comment: S/P colonoscopy on 03/01/2021 - (+) tubular adenoma; otherwise normal Code(s): K59.09 - Other constipation Category: Medical Plan: He is encouraged again to increase his oral fluids and dietary fiber intake Continue Miralax 17 gm QD and Docusate 200 mg Q HS (4) GERD without esophagitis: Code(s): K21.9 - Gastro-esophageal reflux disease without esophagitis Category: Medical Plan: Dietary restrictions reinforced Continue Lansoprazole 30 mg QD (5) Cerebellar degeneration: Code(s): G31.9 - Degenerative disease of nervous system, unspecified Category: Medical Plan: 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, 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 and unfortunately has no known treatment or cure Follow up with neurology as scheduled He was sent by neurology for physical therapy and speech therapy last year but patient states that he was never scheduled for these (6) Cognitive impairment: Code(s): R41.89 - Other symptoms and signs involving cognitive functions and awareness Category: Medical Plan: Continue Memantine XR 7 mg QD Follow up with neurology as scheduled (7) Migraine: Code(s): G43.909 - Migraine, unspecified, not intractable, without status migrainosus Category: Medical Qualifiers: Migraine type: unspecified Status migrainosus presence: without status migrainosus Intractability: not intractable Qualified Code(s): G43.909 - Migraine, unspecified, not intractable, without status migrainosus Plan: Better controlled Continue Topiramate XR 50 mg Q HS for headache prophylaxis Follow up with neurology as scheduled (8) Chronic sinusitis: Code(s): J32.9 - Chronic sinusitis, unspecified Category: Medical Qualifiers: Sinusitis location: maxillary Qualified Code(s): J32.0 - Chronic maxillary sinusitis Plan: Patient reports (+) improvement of his chronic sinus symptoms after empiric treatment with oral antibiotics and prednisone last month Follow-up with ENT in [place] as scheduled (9) Asthma: Code(s): J45.909 - Unspecified asthma, uncomplicated Category: Medical Qualifiers: Asthma severity: moderate Asthma persistence: persistent Asthma complication type: uncomplicated Qualified Code(s): J45.40 - Moderate persistent asthma, uncomplicated Plan: Continue Symbicort 80-4.5 mcg 2 inhalations BID and Albuterol HFA 2 inhalations Q 6 hours PRN He was advised to undergo chest CT for further evaluation after his PFTs done revealed decreased DLCO - he is scheduled to have his chest CT done in early July 2025 Follow up with pulmonary as scheduled (10) Lumbar degenerative disc disease: Code(s): M51.36 - Other intervertebral disc degeneration, lumbar region Category: Medical Qualifiers: Disc-related pain type: discogenic back pain only Qualified Code(s): M51.360 - Other intervertebral disc degeneration, lumbar region with discogenic back pain only Plan: Lumbar spine x-rays done a couple of years ago showed (+) degenerative changes and facet arthropathy especially over L5-S1 Reinforced activity and weight-lifting restrictions Continue Tramadol 50 mg BID-TID PRN and Acetaminophen ES 650 mg BID PRN for pain Will refer to physical therapy as needed (11) Vitamin D deficiency: Code(s): E55.9 - Vitamin D deficiency, unspecified Category: Medical Plan: Continue Vitamin D3 1000 units QD (12) Nephrolithiasis: Code(s): N20.0 - Calculus of kidney Category: Medical Plan: S/P lithotripsy in the past He also used to take Allopurinol 100 mg QD for his uric acid stones His recent renal ultrasound revealed (+) bilateral nonobstructing renal parenchymal stones Follow up with urology as scheduled (13) BPH with obstruction/lower urinary tract symptoms: Code(s): N40.1 - Benign prostatic hyperplasia with lower urinary tract symptoms; N13.8 - Other obstructive and reflux uropathy Category: Medical Plan: Continue Tamsulosin 0.8 mg Q HS Follow up with urology as scheduled Plan Follow up in 4 months Orders: Orders UA CC w/rflx Micro + Cult 4 Months R30.0 - Dysuria Complete Blood Count Auto Diff 4 Months D64.9 - Anemia, unspecified Comprehensive [place]. Panel Fast 4 Months E78.00 - Pure hypercholesterolemia, unspecified Lipid Panel 4 Months E78.00 - Pure hypercholesterolemia, unspecified TSH reflex Free T4 4 Months E78.00 - Pure hypercholesterolemia, unspecified Vitamin D 25-OH Total 4 Months E55.9 - Vitamin D deficiency, unspecified
== END 2025-06-09 15:01 | disposition home or self-care (01) ==
LOC: HO.HMCH 13:54
PROVIDERS: PCP Internal Medicine; Visit Provider Internal Medicine
DX: I10 Essential (primary) hypertension (principal); E78.2 Mixed hyperlipidemia; K59.09 Other constipation; K21.9 Gastro-esophageal reflux disease without esophagitis; G31.9 Degenerative disease of nervous system, unspecified; R41.89 Other symptoms and signs involving cognitive functions and awareness; G43.909 Migraine, unspecified, not intractable, without status migrainosus; J32.0 Chronic maxillary sinusitis; J45.40 Moderate persistent asthma, uncomplicated; M51.360 Other intervertebral disc degeneration, lumbar region with discogenic back pain only; E55.9 Vitamin D deficiency, unspecified; N20.0 Calculus of kidney; N40.1 Benign prostatic hyperplasia with lower urinary tract symptoms; N13.8 Other obstructive and reflux uropathy

== ENCOUNTER → 2025-06-09 13:53 | Outpatient (BNVA) | payer OTHER, SELFPAY | PROVIDERS: PCP Internal Medicine; Visit Provider Internal Medicine | DX: I10 Essential (primary) hypertension (principal); J45.909 Unspecified asthma, uncomplicated; E78.2 Mixed hyperlipidemia; K59.09 Other constipation; K21.9 Gastro-esophageal reflux disease without esophagitis; G31.9 Degenerative disease of nervous system, unspecified; R41.89 Other symptoms and signs involving cognitive functions and awareness; G43.909 Migraine, unspecified, not intractable, without status migrainosus; J32.0 Chronic maxillary sinusitis; J45.40 Moderate persistent asthma, uncomplicated; M51.360 Other intervertebral disc degeneration, lumbar region with discogenic back pain only; E55.9 Vitamin D deficiency, unspecified; N20.0 Calculus of kidney; N40.1 Benign prostatic hyperplasia with lower urinary tract symptoms; N13.8 Other obstructive and reflux uropathy | CPT/HCPCS: 96127; 99212 ==

== ENCOUNTER 2025-06-15 14:42 | Outpatient (AMB) | payer OTHER, SELFPAY ==
--- NOTE | 2025-06-15 14:43 | A.OFFVIS_ITS ---
Intake Visit Reasons: 6m/US (UA ) SET Intake Note: Patient is present for 6mo follow up Urology Medication:vitamin b12,vitamin b2,vitamin c,allopurinol,tamsulosin,vitamin b6 Antibiotic Allergy:none Blood Thinner:none Imaging : Renal Ultrasound 06/07/25 Digital Sales Executive Required: No Accompanied by: Self / Same As Patient Allergies fenofibrate (Tricor) Allergy (Intermediate, Verified 06/15/25 14:44) Hives nut - unspecified (NUTS) Allergy (Intermediate, Verified 06/15/25 14:44) Hives seafood Allergy (Intermediate, Verified 06/15/25 14:44) Hives, Itchy fluocinolone acetonide Allergy (Unknown, Verified 06/15/25 14:44) Unknown lactose (LACTOSE) Adverse Reaction (Mild, Verified 06/15/25 14:44) Constipation Doxycycline Allergy (Intermediate, Uncoded 06/09/25 14:55) Nausea HPI Comments Details: Josh is a pleasant male. He is a patient of Dr. Flores. He is seen for the following urologic conditions - nephrolithiasis - BPH Telemedicine Evaluation 15 min Consultation ONE Change Missy Video Discussed findings Stable Multiple risk factors for stones including topiramate, family history Continue with potassium citrate and allopurinol Prior Uro risk - Normal calcium, normal sodium, good volume - High oxalate discussed dietary triggers Explained that potassium citrate does not work in the same way as potassium supplements and will not elevate his potassium overall. It is a slow release product so the majority continues through the large bowel and does not have the same impact as products better absorbed more proximally in the GI tract. Nephrolithiasis Discussed imaging results - trial of vitamin B6 and allopurinol to reduce stone formation Longstanding stone former Prior procedures include ESWL right and left November 2018 - 08/2020 left ureteroscopy with left ESWL - 12/02 right ureteroscopy Imaging - 10/02 - bilateral multiple stones up to 1 cm - 02/01 renal ultrasound bilateral 5 mm fragments - 08/05 renal ultrasound bilateral mm fragments - 06/07 CT scan bilateral fragments - all parenchymal - 05/08 renal ultrasound bilateral 5 mm fragments. Multiple fragments left side Lab work - 05/04 Ca 10.5 high normal over past few years, 07/07 10.8 24 hour urine - 12/06 good volume 1.9, low sodium 103, low calcium 125, high oxalate 53, low citrate 259 Therapeutic plan - surveillance imaging Lower urinary tract symptoms Good response to Flomax PSA 08/05 1.0 [facility] Medical History (Updated 06/10/25 @ 05:58 by Ignacio Flores MD) Cognitive impairment Tinnitus, right ear Cerebellar degeneration Nephrolithiasis Overweight (BMI 25.0-29.9) Ataxia Right otitis media Lumbar degenerative disc disease HTN (hypertension) Mixed hyperlipidemia Chronic constipation Asthma Cerebellar atrophy Abnormality of gait Nephrolithiasis Right flank pain Benign prostatic hyperplasia Allergic rhinitis Constipation Vitamin D deficiency Renal calculus, bilateral GERD without esophagitis Migraine Pure hypercholesterolemia Benign essential hypertension Orchalgia Surgical History History of cystoscopy History of esophagogastroduodenoscopy (EGD) History of lithotripsy History of extraction of renal calculus Hx of elbow surgery Family History Father Hypertension CAD (coronary artery disease) Diabetes Cancer Mother Hypertension Acute CVA (cerebrovascular accident) Paternal Grandfather Throat cancer Sister Lupus Epilepsy Social History Household Members Other:: Homeless Housing: Homeless Alcohol intake: never Patient Tobacco Use Status: Never used Tobacco e-Cigarette/Vaping Use: Never Used Second Hand Smoke Exposure: Yes service: No Current occupational status: disabled Current occupational exposures/hazards: No Cognitive needs: Yes Hearing needs: No Vision needs: No Review of Systems Const All systems reviewed & are unremarkable except as noted in HPI and below Reports no additional complaints Resp Reports no additional complaints GI Reports no additional complaints Reports as per HPI Musc Reports no additional complaints Physical Exam Telemedicine evaluation Appropriate responses Regular breathing rate and rhythm HEENT Head: Yes normal to inspection Ears: hearing grossly normal bilaterally Eyes General: appearance normal, both eyes and all related structures Neck Neck: Yes normal visual inspection Chest Chest palpation & inspection: normal inspection of the chest Resp Effort & Inspection: normal respiratory effort and able to speak in complete sentences Telehealth Telehealth Telehealth Platform: [facility] Location of provider rendering services: practice address Location of patient: address on file Patient Identification confirmed using: Name, : Yes Telehealth method: video Patient verbally consented to treatment: Yes Patient verbally consented to billing insurance company: Yes Patient informed of any privacy concerns related to visit: Yes Minutes spent on Phone/Video with Pt.: 15 Assessment & Plan Assessment & Plan (1) Renal stones: Code(s): N20.0 - Calculus of kidney Category: Medical (2) BPH with obstruction/lower urinary tract symptoms: Code(s): N40.1 - Benign prostatic hyperplasia with lower urinary tract symptoms; N13.8 - Other obstructive and reflux uropathy Category: Medical (3) Erectile dysfunction: Code(s): N52.9 - Male erectile dysfunction, unspecified Category: Medical Qualifiers: Erectile dysfunction type: unspecified Qualified Code(s): N52.9 - Male erectile dysfunction, unspecified Plan Continue allopurinol and potassium citrate Orders: Orders US renal BI 12 Months N20.0 - Calculus of kidney Medications: Refilled allopurinol 100 mg PO DAILY 90 tabs 3RF 90 days N20.0 - Calculus of kidney Patient Instructions: This note is constructed using voice recognition software. While every effort has been made to ensure accuracy milled lumber grader errors may have been included. Imaging studies, laboratory and physical exam results were discussed and reviewed in detail. No major barriers to patient understanding were identified. An opportunity to ask questions regarding the treatment plan was provided. All questions were answered. The patient expressed understanding and agreement with the above treatment plan. The patient is aware they should contact our office by phone for worsening of their current condition or the appearance of new urologic symptoms. Compliance is encouraged with any medications and followup testing that is ordered. It is a privilege to participate in the urologic care of your patient. If you have any questions or concerns regarding treatment for the above conditions, or other urologic issues, please do not hesitate to contact me. The office telephone contact is [phone]. Sincerely, Dr Dajuan Leblanc MD, [facility] - Urology Compassionate Specialist Care for the Genitourinary System Coding Level of Care Code Tele Est Pt Level 3 (99282) Complex visit Add On G2211 Diagnoses Renal stones N20.0 BPH with obstruction/lower urinary tract symptoms N40.1; N13.8 Erectile dysfunction, unspecified erectile dysfunction type N52.9 Erectile dysfunction type: unspecified
== END 2025-06-15 16:39 | disposition home or self-care (01) ==
LOC: HO.HUSH 14:42
PROVIDERS: PCP Internal Medicine; Visit Provider Urology
DX: N20.0 Calculus of kidney (principal); N40.1 Benign prostatic hyperplasia with lower urinary tract symptoms; N13.8 Other obstructive and reflux uropathy; N52.9 Male erectile dysfunction, unspecified
CPT/HCPCS: 99213

== ENCOUNTER 2025-06-29 15:25 | Outpatient (AMB) | payer OTHER, SELFPAY ==
[2025-06-29 15:28] VITALS: BP 106/70; PULSE 87; TEMP 36.8; O2SAT 97; BMI 25.4
--- NOTE | 2025-06-29 15:28 | MHC.OFFWIV ---
Intake Vital Signs 06/29/25 15:28 Height 6 ft Weight 187 lb BMI 25.4 BP 106/70 Blood Pressure Location Rt brachial Position Sitting Pulse 87 Pulse Source Pulse Oximeter Temp 98.3 F Temp Source Oral Pulse Oximetry (%) 97 Oxygen Delivery Method Room Air Intake Visit Reasons: EP-ears burning and itchy Intake Note: pt reports with itching and burning bilateral ears LT > RT , put debrox in ears and it caused burning Patient Tobacco Use Status: Never used Tobacco Allergies fenofibrate (Tricor) Allergy (Intermediate, Verified 06/21/25 12:36) Hives nut - unspecified (NUTS) Allergy (Intermediate, Verified 06/21/25 12:36) Hives seafood Allergy (Intermediate, Verified 06/21/25 12:36) Hives, Itchy fluocinolone acetonide Allergy (Unknown, Verified 06/21/25 12:36) Unknown lactose (LACTOSE) Adverse Reaction (Mild, Verified 06/21/25 12:36) Constipation Sulfa (Sulfonamide Antibiotics) Adverse Reaction (Mild, Verified 06/29/25 15:32) Vomiting Doxycycline Allergy (Intermediate, Uncoded 06/21/25 12:36) Nausea Do you need a note to return to daycare/school/sports/work: No HPI HPI Comments History of Present Illness Details History - The patient is a 54 year old male presenting with ear burning and irritation. - He reports that approximately five days ago, on Saturday, he administered Debrox drops in his ears, which subsequently caused a burning sensation. - The burning is more pronounced in the left ear. - Denies changes in hearing. - The patient also has a history of sinus issues, for which he has seen an ENT specialist. - A CT scan for his sinuses was previously scheduled and canceled, but it has been rescheduled for July 28. Review of Systems - Ears: Reports burning sensation in both ears, more pronounced in the left ear. - Nose/Sinuses: Reports history of sinus problems. All systems reviewed and are unremarkable except as noted in HPI Physical Exam General: Cooperative, healthy appearing, comfortable, no acute distress and well developed Orientation: Patient oriented x3 Limitations: No limitations Head: Normal to inspection Ears: External ears normal bilaterally, TM's normal bilaterally, EAC's with erythema, edema and tenderness, L>R and left ear has purulent drainage. Face and sinus: Normal facial exam Neck: Normal visual inspection and Yes full ROM Respiratory: Normal respiratory effort and able to speak in complete sentences. Skin: No rashes or lesions noted Neuro: Patient oriented x3 Extremities: normal to inspection [facility] Medical History (Updated 06/29/25 @ 16:03 by Chloe Wilkes PA-C) Otitis externa of both ears Cognitive impairment Tinnitus, right ear Cerebellar degeneration Nephrolithiasis Overweight (BMI 25.0-29.9) Ataxia Right otitis media Lumbar degenerative disc disease HTN (hypertension) Mixed hyperlipidemia Chronic constipation Asthma Cerebellar atrophy Abnormality of gait Nephrolithiasis Right flank pain Benign prostatic hyperplasia Allergic rhinitis Constipation Vitamin D deficiency Renal calculus, bilateral GERD without esophagitis Migraine Pure hypercholesterolemia Benign essential hypertension Orchalgia Surgical History History of cystoscopy History of esophagogastroduodenoscopy (EGD) History of lithotripsy History of extraction of renal calculus Hx of elbow surgery Family History Father Hypertension CAD (coronary artery disease) Diabetes Cancer Mother Hypertension Acute CVA (cerebrovascular accident) Paternal Grandfather Throat cancer Sister Lupus Epilepsy Social History Household Members Other:: Homeless Housing: Homeless Alcohol intake: never Patient Tobacco Use Status: Never used Tobacco Tobacco use type: Cigarette e-Cigarette/Vaping Use: Never Used Second Hand Smoke Exposure: Yes service: No Current occupational status: disabled Current occupational exposures/hazards: No Cognitive needs: Yes Hearing needs: No Vision needs: No Physical Exam Vital Signs: Last Vital Signs Temp 98.3 F 06/29/25 15:28 Pulse 87 06/29/25 15:28 BP 106/70 06/29/25 15:28 Pulse Ox 97 06/29/25 15:28 Oxygen Delivery Method Room Air 06/29/25 15:28 BMI result Body Mass Index 25.4 Assessment & Plan Assessment & Plan (1) Otitis externa of both ears: Code(s): H60.93 - Unspecified otitis externa, bilateral Qualifiers: Chronicity: acute Otitis externa type: other infective Qualified Code(s): H60.393 - Other infective otitis externa, bilateral Plan: Plan - The patient is diagnosed with otitis externa, likely secondary to chemical irritation from Debrox. - A prescription for ear drops will be sent to [facility]. - The patient is instructed to apply four drops in each ear, four times a day while awake, to resolve the irritation and swelling in both ears. - Acknowledged the patient's upcoming CT scan of the sinuses scheduled for July 28. Patient was informed and verbally consented to the use of an ambient scribe for clinic note documentation during this visit. Medications: New wtoymcps-avrnepeqi-ME 3.5-10,000-1 mg/mL-unit/mL-% Use in both ears 4 drps otic (ears) QID 20 mL 0RF 7 days Coding Level of Care Code Est Pt Level 3 (82284) Diagnoses Other infective acute otitis externa of both ears H60.393 Chronicity: acute Otitis externa type: other infective
--- OUTSIDE RECORDS SUMMARY | 2025-06-29 19:37 | XMS_ITS | Data Portability ---
Author Organization [place] - [facility], Allergy Address [address] [place] [phone] Care Team Providers Care Curator Herbarium Name Role Phone SARA AUDRA Referring Provider Assessment Encounter Date Assessment Date Assessment LastModified by Organization Details LastModified Time 05/07/2025 05/07/2025 54-year-old male presents for evaluation of chronic sinusitis. XR sinus at [facility] 07/10/24 showed complete opacification of left maxillary sinus with near complete opacification of the bifrontal sinuses, R>L. He did not have any CT scans of the sinuses. Nasal endoscopy demonstrated right sided septal deviation and purulence bilaterally. Culture of the right nasal cavity was obtained and medical therapy will be adjusted pending the results. Recommended course of Augmentin x 21 days and to continue with Nasonex daily. We will arrange post treatment CT sinus in 4 to 6 weeks. He will follow-up to review the results. [email or web address] Not available 05/07/2025 14:53:19 Plan of Treatment Reminders Order Date Submit Date Provider Last Modified By Organization Details Last Modified Time Details Appointments None recorded. Lab culture, aerobic + anaerobic 2024 ALVERTO [facility] (Centralized Electronic Ordering - All Locations), Patient Can Go To The Location Of Their Choice, [id number] 5 08:41:16 fungus, culture, unspecified specimen 2024 025 ALVERTO [facility] (Centralized Electronic Ordering - All Locations), Patient Can Go To The Location Of Their Choice, [id number] 5 08:41:17 Referral None recorded. Procedures None recorded. Surgeries None recorded. Imaging CT, sinuses, w/o contrast - to be scheduled in office 2024 [email or web address] Not available 12:34:28 Medication Orders amoxicillin 875 mg-potmalindaiu m clavulanate 125 mg tablet 2024 025 ALVERTO [facility]/Pharmacy #[id number], [address] [place], [address], 05:02:08 Patient TargetsNo targets recorded. Patient InstructionsNo instructions recorded. Reason for Referral None Reported. Results Created Date Observation Date Name Description Value Unit Range Abnormal Flag Note LastModifiedBy Organization Detail LastModifiedTime 05/07/2005/10/2025 ANAER OBIC AND AEROB IC CULTU RE aerobic culture Final report abnormal Not Available [facility] ([facility]) [address] [facility], [place], [address], 06/08/2025 08:41:16 05/07/2005/10/2025 ANAER OBIC AND AEROB IC CULTU RE result 1 Staphy lococc us aureus abnormal Based on susce ptibi lity to oxaci llin this isola te would be susce ptibl e to: *Peni cilli nase- stabl e penic illin s, such as: Cloxa cilli n, Diclo xacil sarita, Nafci llin *Beta -lact am combi natio n agent s, such as: Amoxi cilli n-cla vulan ic acid, Ampic illin -sulb actam , Piper acill in-ta zobac singer *Oral cephe ms, such as: Cefac adán, Cefdi ailyn, Cefpo doxim e, Cefpr ozil, Cefur oxime , Cepha lexin , Lorac arbef *Pare ntera l cephe ms, such as: Cefaz fredi, Cefep jose antonio, Cefot axime , Cefot abi, Cefta rolin e, Cefti zoxim e, Ceftr iaxon e, Cefur oxime *Carb apene ms, such as: Dorip enem, Ertap enem, Imipe nem, Merop enem Moder ate growt h Not Available [facility] ([facility]) [address] [facility], [place], [address], 06/08/2025 08:41:16 05/07/2005/10/2025 ANAER OBIC AND AEROB IC CULTU RE result 2 Mixed site srikanth. Moder ate growt h Not Available [facility] ([facility]) [address] [facility], [place], [address], 06/08/2025 08:41:16 05/07/2005/10/2025 ANAER OBIC AND AEROB IC CULTU RE antimicrobia l susceptibili ty Commen t S = Susce ptibl e; I = Inter media te; R = Resis tant P = Posit sarah; N = Negat sarah MICS are expre ssed in micro grams per mL Antib iotic RSLT# 1 RSLT# 2 RSLT# 3 RSLT# 4 Cipro floxa huy S Clind amyci n S Eryth romyc in R Genta micin S Levof loxac in S Linez olid S Oxaci llin S Penic illin R Rifam pin S Tetra cycli ne S Trime thopr im/Bach lfa S Vanco mycin S Not Available [facility] ([facility]) [address] [facility], [place], [address], 06/08/2025 08:41:16 05/07/2005/11/2025 ANAER OBIC AND AEROB IC CULTU RE anaerobic culture Final report Not Available [facility] ([facility]) [address] [facility], [place], [address], 06/08/2025 08:41:16 05/07/2005/11/2025 ANAER OBIC AND AEROB IC CULTU RE result 1 COMMEN T No anaer obic growt h in 72 hours . Not Available [facility] ([facility]) [address] [facility], [place], [address], 06/08/2025 08:41:16 05/07/2005/10/2025 FUNGU S CULTU RE WITH STAIN fungus stain Final report Not Available [facility] ([facility]) [address] [facility], [place], [address], 06/08/2025 08:41:17 05/07/2005/10/2025 FUNGU S CULTU RE WITH STAIN result 1 COMMEN T DAMARIS/C alcof luor prepa ratio n: no fungu s obser trevor. Not Available [facility] ([facility]) [address] [facility], [place], [address], 06/08/2025 08:41:17 05/07/2006/08/2025 FUNGU S CULTU RE WITH STAIN fungus (mycology) culture Final report Not Available [facility] ([facility]) [address] [facility], [place], [address], 06/08/2025 08:41:17 05/07/2006/08/2025 FUNGU S CULTU RE WITH STAIN result 1 COMMEN T No yeast or mold isola anastasiya after 4 weeks . Not Available [facility] ([facility]) [address] [facility], [place], [address], 06/08/2025 08:41:17 Result Notes None recorded. Problems Name Problem SNOMED Code Status Onset Date Resolution Date Notes Provider Name and Address Organization Details Recorded Time Chronic sinusitis 13508833 Active 025 LEIDY ORONA PA-C [address] [place] [address], [place], [address] , [facility] 13:19:21 Problem Notes None recorded. Procedures Surgical History Date Name Laterality Status Provider Name and Address Organization Details Recorded Time 06/14/2025 CT sinus - Xoran cancelled KAREEM TREVINO MD [address] [place] [address], [phone], [facility] 06/09/2025 12:07:45 05/07/2025 NasalEndosc opy_DP completed LEIDY ORONA PA-C [address] [place] [address], [address], [facility] - [facility] 05/07/2025 13:52:08 Imaging Results None recorded. Procedure Notes None recorded. Medical Equipment None Reported. Allergies Allergen ID Allergen Name Allergen Category Reaction Reaction Severity Criticality Documentation Date Start Date Code Code System Note Provider Name and Address Organization Details Recorded Time 992311 lactose food,medi cation Not available Not available Not available 05/07/2025 6211 RxNorm LEIDY BANGURANANDES DONY-C [address] [facility], [place], [address], [facility] - [facility] 13:17:51 [id number] doxycycli ne Not available vomiting Not available Not available 05/07/2025 3640 RxNorm LEIDY BANGURACLAU DONY-C [address], [place], [address], [facility] - [facility] 13:18:51 [id number] fenofibra te medicatio n hives Not available Not available 05/07/2025 8703 RxNorm LEIDY ORONA DONY-C [address], [place], [address], [facility] - [facility] 13:42:33 720489 nut - unspecifi ed food Not available Not available Not available 05/07/2025 LEIDY BANGURACLAU DNOY-C [address], [place], [address], [facility] - [facility] 13:43:09 785923 fluocinol one acetonide medicatio n Not available Not available Not available 05/07/2025 4461 RxNorm LEIDY ORONA DONY-C [address], [place], [address], [facility] 13:43:19 Medications Name Sig Start Date Stop Date Status Note LastModified by Organization Details LastModified Time methocarbam ol 500 mg tablet TAKE 1 TABLET BY MOUTH EVERYDAY AT BEDTIME 05/07 completed Not Available Not Available Not Available prednisone 10 mg tablet TAKE 4 TABS X2 DAYS, THEN 3 TABS X 2 DAYS, THEN 2 TABS X 2 DAYS, THEN 1 TAB X 2 DAYS DIRECTED 05/07 completed Not Available Not Available Not Available cetirizine 10 mg tablet TAKE 1 TABLET BY MOUTH EVERY DAY NEEDED FOR ALLERGY 05/07 completed Not Available Not Available Not Available azithromyci n 250 mg tablet TAKE 2 TABLETS BY MOUTH TODAY, THEN TAKE 1 TABLET DAILY FOR 4 DAYS DIRECTED 05/07 completed Not Available Not Available Not Available sumatriptan 100 mg tablet TAKE 1 TABLET AT ONSET OF HEADACHE, MAY REPEAT 1 TAB AFTER AT LEAST 2 HRS MAX = 2 TABS/24 HRS 05/07 completed Not Available Not Available Not Available prednisone 20 mg tablet TAKE 2 TABLETS BY MOUTH EVERY DAY 05/07 completed Not Available Not Available Not Available cyanocobala min (vit B-12) 1,000 mcg tablet TAKE 1 TABLET BY MOUTH DAILY 05/07 completed Not Available Not Available Not Available topiramate 25 mg tablet TAKE 1 TABLET BY MOUTH AT BEDTIME FOR 30 DAYS 05/07 completed Not Available Not Available Not Available allopurinol 100 mg tablet TAKE 1 TABLET BY MOUTH EVERY DAY 05/07 completed Not Available Not Available Not Available tramadol 50 mg tablet TAKE 1 TABLET ORALLY EVERY 8 HOURS NEEDED FOR PAIN (SCALE SCORE 4-6) 05/07 completed Not Available Not Available Not Available acetaminoph en ER 650 mg tablet,exte nded release TAKE 1 TABLET ORALLY EVERY 12 HOURS NEEDED FOR HEADACHES OR PAIN 05/07 completed Not Available Not Available Not Available magnesium oxide 400 mg (241.3 mg magnesium) tablet TAKE 1 TABLET BY MOUTH EVERY DAY active Not Available Not Available No t Available tamsulosin 0.4 mg capsule TAKE 2 CAPSULES BY MOUTH AT BEDTIME active Not Available Not Available No t Available potassium citrate ER 10 mEq (1,080 mg) tablet,exte nded release TAKE 2 TABLETS ORALLY 2 TIMES A DAY FOR 90 DAYS 05/07 completed Not Available Not Available Not Available gemfibrozil 600 mg tablet TAKE 1 TABLET BY MOUTH TWICE A DAY active Not Available Not Available No t Available lisinopril 10 mg tablet TAKE 1 TABLET BY MOUTH EVERY DAY active Not Available Not Available No t Available lansoprazol e 30 mg capsule,del ayed release TAKE 1 CAPSULE BY MOUTH EVERY DAY active Not Available Not Available No t Available triamcinolo ne acetonide 55 mcg nasal spray aerosol SPRAY 2 SPRAYS INTO EACH NOSTRIL EVERY DAY NEEDED FOR ALLERGIES 05/07 completed Not Available Not Available Not Available docusate sodium 100 mg capsule TAKE 2 CAPSULES BY MOUTH EVERY DAY AT BEDTIME active Not Available Not Available No t Available pyridoxine (vitamin B6) 50 mg tablet TAKE 1 TABLET BY MOUTH EVERY DAY 05/07 completed Not Available Not Available Not Available methylpredn isolone 4 mg tablets in a dose pack TAKE 6 TABLETS ON DAY 1 DIRECTED ON PACKAGE AND DECREASE BY 1 TAB EACH DAY FOR A TOTAL OF 6 DAYS 05/07 completed Not Available Not Available Not Available fluticasone propionate 50 mcg/actuati on nasal spray,suspe nsion USE 2 SPRAYS INTO EACH NOSTRIL ONCE A DAY NEEDED FOR ALLERGIES active Not Available Not Available No t Available amoxicillin 875 mg-potassiu m clavulanate 125 mg tablet Take 1 tablet every 12 hours by oral route for 21 days. 06/04 completed Not Available Not Available Not Available Ventolin HFA 90 mcg/actuati on aerosol inhaler INHALE 2 PUFFS EVERY 4 TO 6 HOURS NEEDED FOR SHORTNESS OF BREATH OR FOR WHEEZE 05/07 completed Not Available Not Available Not Available Bactrim DS 800 mg-160 mg tablet Take 1 tablet every 12 hours by oral route for 21 days. 2024 active Not Available Not Available Not Avai lable Laxative (bisacodyl) 5 mg tablet,toby yed release TAKE 1 TABLET ORALLY BEDTIME FOR 90 DAYS SKIP IF YOU HAVE MORE THAN 2 BMS/DAY. 05/07 completed Not Available Not Available Not Available Vitamin D3 25 mcg (1,000 unit) capsule TAKE 1 CAPSULE BY MOUTH EVERY DAY 05/07 completed Not Available Not Available Not Available Symbicort 80 mcg-4.5 mcg/actuati on HFA aerosol inhaler INHALE 2 PUFFS BY MOUTH EVERY 12 HOURS 05/07 completed Not Available Not Available Not Available Gavilax 17 gram/dose oral powder TAKE 17 GRAMS BY MOUTH EVERY DAY 05/07 completed Not Available Not Available Not Available memantine 7 mg capsule sprinkle,ex tended release 24hr TAKE 1 CAPSULE SPRINKLE DAILY WITH FOOD THEN TAKE BY MOUTH 05/07 completed Not Available Not Available Not Available riboflavin (vitamin B2) 400 mg tablet TAKE 1 TABLET BY MOUTH EVERY DAY 05/07 completed Not Available Not Available Not Available cyanocobala min (vitamin B-12) 1,000 mcg capsule TAKE 1 CAPSULE BY MOUTH EVERY DAY active Not Available Not Available No t Available magnesium 400 mg (as magnesium oxide) tablet TAKE 1 TABLET BY MOUTH EVERY DAY 05/07 completed Not Available Not Available Not Available Vitals Date Recorded Body height Body mass index (BMI) Body weight Provider Name and Address Organization Details Last Updated DateTime 05/07/2025 182.88 cm 23.7 kg/m2 [address], [address], [facility] 05/07/2025 13:01:07 Social History None recorded. Functional Status None recorded. Mental Status None recorded. Family History Nothing Reported. Medical History No medical history recorded. Past Encounters Encounter ID Performer Location Encounter Start Date Encounter Closed Date Diagnosis/Indication Diagnosis SNOMED-CT Code Diagnosis ICD10 Code Diagnosis IMO Codes Diagnosis Note [id number] LEIDY ORONA PA-C [facility] [address] [address] 05/07/2025 12:22:51 05/07/2025 13:26:21 Chronic sinusitis 50968315 J32.8 63657 Health Concerns Section Related Observation LastModified by Organization Detai ls LastModified Time None Recorded Concern Status LastModified by Organization Details LastModified Time None Recorded Advance Directives Directive None Recorded Payers Insurance Date Sequence Insurance Name Policy Number Policy Underwood Covered Member ID Underwood Member ID Guarantor Name 05/11/2025 1 [facility] - HEALTH NET PLAN (MEDICAID HMO) JENNIFER Patel Jr [id number] Josh Patel 07/06/2024 1 [facility] (MEDICAID REPLACEMENT - HMO) Josh Patel [id number] Josh Patel Notes Date Note Type Note Provider Name and Address Organization Details Recorded Time 05/07/2025 text/html ROS as noted in the HPI 54-year-old male presents for evaluation of chronic sinusitis. He reports for the past 11 months, he has had facial pressure, nasal congestion, and intermittent discolored nasal drainage. Denies fevers and visual changes. Was treated with Z pack and Augmentin with minimal improvement. Using Nasonex. Reports history of nasal fracture, but denies prior ENT surgeries. LEIDY ORONA PA-C [address] [facility],[place] [address], [place], [address], [facility] - [facility] 05/07/2025 14:53:40
--- OUTSIDE RECORDS SUMMARY | 2025-06-29 19:37 | XMS_ITS | Continuity of Care Document ---
Author Organization [place] - [facility], [facility] Address [address] [place] [address] Care Team Providers Care Hotel Yardperson Name Role Phone AUDRA RUIZ Referring Provider Assessment Encounter Date Assessment Date Assessment LastModified by Organization Details LastModified Time 05/07/2025 05/07/2025 54-year-old male presents for evaluation of chronic sinusitis. XR sinus at [facility] 07/10/24 showed complete opacification of left maxillary [...] He will follow-up to review the results. [email or web address] Not available 05/07/2025 14:53:19 Plan of Treatment Reminders Order Date Submit Date Provider Last Modified By Organization Details Last Modified Time Details Appointments None recorded. Lab culture, aerobic + anaerobic 2024 ALVERTO [facility] (Centralized Electronic Ordering - All Locations), Patient Can Go To The Location Of Their Choice, [address] 08:41:16 fungus, culture, unspecified specimen 2024 ALVERTO [facility] ([facility]ized Electronic Ordering - All Locations), Patient Can Go To The Location Of Their Choice, [address] 08:41:17 Referral None recorded. Procedures None recorded. Surgeries None recorded. Imaging CT, sinuses, w/o contrast - to be scheduled in office 2024 [email or web address] Not available 12:34:28 Medication Orders amoxicillin 875 mg-potassiu m clavulanate 125 mg tablet 2024 025 [facility]/Pharmacy #[id number], [address] [place], [address], 05:02:08 Patient TargetsNo targets recorded. Patient InstructionsNo instructions recorded. Reason for Referral None Reported. Results Created Date Observation Date Name Description Value Unit Range Abnormal Flag Note LastModifiedBy Organization Detail LastModifiedTime 05/07/2005/10/2025 ANAER OBIC AND AEROB IC CULTU RE aerobic culture Final report abnormal Not Available [facility] ([facility]) [address] [facility], [place], [address], 06/08/2025 08:41:16 05/07/2005/10/2025 ANAER OBIC AND AEROB [...] Moder ate growt h Not Available [facility] ([facility]) [address] [facility], [place], [address], 06/08/2025 08:41:16 05/07/2005/10/2025 ANAER OBIC AND AEROB IC CULTU RE result 2 Mixed site srikanth. Moder ate growt h Not Available [facility] ([facility]) [address] [facility], [place], [address], 06/08/2025 08:41:16 05/07/2005/10/2025 ANAER OBIC AND AEROB [...] S Vanco mycin S Not Available [facility] ([facility]) [address] [facility], [place], [address], 06/08/2025 08:41:16 05/07/2005/11/2025 ANAER OBIC AND AEROB IC CULTU RE anaerobic culture Final report Not Available [facility] ([facility]) [address] [facility], [place], [address], 06/08/2025 08:41:16 05/07/2005/11/2025 ANAER OBIC AND AEROB IC CULTU RE result 1 COMMEN T No anaer obic growt h in 72 hours . Not Available [facility] ([facility]) [address] [facility], [place], [address], 06/08/2025 08:41:16 05/07/2005/10/2025 FUNGU S CULTU RE WITH STAIN fungus stain Final report Not Available [facility] ([facility]) [address] [facility], [place], [address], 06/08/2025 08:41:17 05/07/2005/10/2025 FUNGU S CULTU RE WITH STAIN result 1 COMMEN T DAMARIS/C alcof luor prepa ratio n: no fungu s obser trevor. Not Available [facility] ([facility]) [address], [place], [address], 06/08/2025 08:41:17 05/07/2006/08/2025 FUNGU S CULTU RE WITH STAIN fungus (mycology) culture Final report Not Available [facility] ([facility]) [address] [facility], [place], [address], 06/08/2025 08:41:17 05/07/2006/08/2025 FUNGU S CULTU RE WITH STAIN result 1 COMMEN T No yeast or mold isola anastasiya after 4 weeks . Not Available [facility] ([facility]) [address] [facility], [place], [address], 06/08/2025 08:41:17 Result Notes None recorded. Problems Name Problem SNOMED Code Status Onset Date Resolution Date Notes Provider Name and Address Organization Details Recorded Time Chronic sinusitis 31714251 Active 025 LEIDY ORONA PA-C [address] [place] [address], [place], [address] , [facility] 13:19:21 Problem Notes None recorded. Procedures Surgical History Date Name Laterality Status Provider Name and Address Organization Details Recorded Time 06/14/2025 CT sinus - Xoran cancelled KAREEM TREVINO MD [address] [place] [address], [phone], [facility] 06/09/2025 12:07:45 05/07/2025 NasalEndosc opy_DP completed LEIDY ORONA PA-C [address] [place] [address], [phone], [facility] - [facility] 05/07/2025 13:52:08 Imaging Results None recorded. Procedure Notes None recorded. Medical Equipment None Reported. Allergies Allergen ID Allergen Name Allergen Category Reaction Reaction Severity Criticality Documentation Date Start Date Code Code System Note Provider Name and Address Organization Details Recorded Time 434478 lactose food,medi cation Not available Not available Not available 05/07/2025 6211 RxNorm LEIDY ORONA DONY-C [address] [facility],[address] [facility] [place], [place], [address], [facility] - [facility] 13:17:51 760020 doxycycli ne Not available vomiting Not available Not available 05/07/2025 3640 RxNorm LEIDY ORONA DONY-C [address] [facility],[address], [place], [address], [facility] - [facility] 13:18:51 962552 fenofibra te medicatio n hives Not available Not available 05/07/2025 8703 RxNorm LEIDY ORONA DONY-C [address] [facility],[address] [facility] [place], [place], [address], [facility] - [facility] 13:42:33 338364 nut - unspecifi ed food Not available Not available Not available 05/07/2025 LE[address] BANGURACLAU CHACEC [address] [facility],[place] [address], [place], [address], [facility] - [facility] 13:43:09 418969 fluocinol one acetonide medicatio n Not available Not available Not available 05/07/2025 4461 RxNorm LEIDY ORONA DONY-C [address] [facility], [address] [facility] [place], [place], [address], [facility] - [facility] 13:43:19 Medications Name Sig Start Date [...] Updated DateTime 05/07/2025 182.88 cm 23.7 kg/m2 [address]992.[address], [address] 05/07/2025 13:01:07 Social History None recorded. Functional Status None recorded. Mental Status None recorded. Family History Nothing Reported. Medical History No medical history recorded. Past Encounters Encounter ID Performer Location Encounter Start Date Encounter Closed Date Diagnosis/Indication Diagnosis SNOMED-CT Code Diagnosis ICD10 Code Diagnosis IMO Codes Diagnosis Note [id number] LEIDY ORONA PA-C [facility] [address] [address] 05/07/2025 12:22:51 05/07/2025 13:26:21 Chronic sinusitis 76430284 J32.8 82901 Health Concerns Section Related Observation LastModified by Organization Detai ls LastModified Time None Recorded Concern Status LastModified by Organization Details LastModified Time None Recorded Payers Encounter Date Sequence Insurance Name Policy Number Policy Underwood Covered Member ID Underwood Member ID Guarantor Name 05/07/2025 1 [facility]ALTH [facility] PLAN (MEDICAID HMO) JENNIFER Patel [id number] Josh Patel Notes Date Note Type Note [...] prior ENT surgeries. LEIDY ORONA PA-C [address] [facility],[place] [address], [place], [address], [facility] - [facility] 05/07/2025 14:53:40
--- OUTSIDE RECORDS SUMMARY | 2025-06-29 19:37 | XMS_ITS | Patient Health Record ---
Author Organization [facility] Address [address] [place] [address] Care Team Providers Care Surgical Assist Name Role Phone Ignacio Flores MD Primary Care Provider Timothy Myles Unavailable [phone] Allergies Allergen (clinical drug ingredient) Drug/Non Drug Allergy documented on EMR Reaction Allergy Type Onset Date Status MILK,SEAFOOD, NUTS (uncoded) Unknown Allergy Active Reason For Referral No Information Medications Medication SIG (Take, Route, Frequency, Duration) Notes Start Date End Date Status Aspirin 81 81 MG Tablet Chewable 1 tablet Orally Once a day Active MiraLax 17 GM/SCOOP Powder 1 capful in 8 ounces of water Orally once or twice a day for constipation; Duration: 30 days 06/17/2022 Active traMADol HCl 50 MG Tablet 1 tablet as ne eded Orally Once a day PRN Active Metamucil 0.36 GM Capsule 2 capsules wit h 8 ounces of liquid Orally once or twice a day for constipation; Duration: 30 days 06/17/2022 Active Vitamin C Active Omeprazole 40 MG Capsule Delayed Release 1 capsule Orally QD 04/23/2015 Activ e Lisinopril 10 MG Tablet 1 tablet Orally Once a day Active Ventolin HFA 90 MCG/ACT Aerosol Solution 2 puffs as needed Inhalation every 6 hrs PRN Active Tamsulosin HCl 0.4 MG Capsule Extended Release as directed Orally Once a day Active Gemfibrozil 600 MG Tablet 1 tablet Orall y Twice a day; Duration: 30 day(s) Active Vitamin D3 1000 UNIT Capsule 1 capsule Orally Once a day; Duration: 30 day(s) st Active Immunizations Vaccine Route Administration Date Status Comme nts Influenza Unknown 12/18/2018 Refused Influenza Unknown 04/14/2020 Administered Social History Social History Additional Details Category Social Info Options Details Miscellaneous: Marital status: single Occupation: Presently not wo rking Section Notes: He does not smoke nor use an y sig. amounts of alcohol He does not smoke nor use an y sig. amounts of alcohol He does not smoke nor use an y sig. amounts of alcohol He does not smoke nor use an y sig. amounts of alcohol Problems Problem Type SNOMED Code ICD Code Onset Dates Problem Status W/U Status Risk Notes Problem Screening for malignant neoplasm of colon (584056706) Encounter for screening for malignant neoplasm of colon (Z12.11) Active confirmed Problem Melena (4837130) Melena (K92.1) Active confirme d Problem Gastroesophageal reflux disease without esophagitis (783527207) Gastroesophageal reflux disease without esophagitis (K21.9) Active confirmed Problem Preprocedural examination (043693499871275) Preprocedural examination (Z01.818) Active confirmed Problem Irregular bowel habits (610168476) Irregular bowel habits (R19.8) Active confirmed Problem Diverticular disease of colon (346367015) 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) Active confirmed Problem Vomiting without nausea (187182323045576) Non-intractable vomiting without nausea, unspecified vomiting type (R11.11) Active confirmed Plan Of Treatment Future Test Test Name Order Date UPPER GI ENDOSCOPY 12/18/2018 COLONOSCOPY 12/18/2018 COLONOSCOPY 02/01/2021 Insurance Providers Payer Name Payer Address Payer Phone Subscriber Number Group Number Insured Name Patient Relationship to Insured Coverage Start Date Coverage End Date [facility] [address] [address] [place], [place] [id number] SHANNON BARROS Self - patient is the insured [place] [address] [place] [address] [id number] SHANNON BARROS Self - patient is the insured Medical (General) History Medical History History ICD Code GERD-EGD in 2009 was normal--no hiatal h ernia Kidney stones--ESWL, cysto and stent noah cement--Dr. Leblanc Asthma Prostate problems Denies IA,DM,CVA,renal disease MIGRAINES HTN Hyperlipidemia Surgical History Surgery Date(Month/Year) Left elbow with hardware
== END 2025-06-29 16:03 | disposition home or self-care (01) ==
PROVIDERS: PCP Internal Medicine; Visit Provider Physician Assistant
DX: H60.393 Other infective otitis externa, bilateral (principal)

== ENCOUNTER → 2025-06-29 15:25 | Outpatient (BNVA) | payer OTHER, SELFPAY | PROVIDERS: PCP Internal Medicine; Visit Provider Physician Assistant | DX: H60.393 Other infective otitis externa, bilateral (principal) | CPT/HCPCS: 99212 ==